=== PATIENT | female | born 1965 | race Two or more races ===

== ENCOUNTER → 2023-07-25 | Outpatient (CLI) | payer BC ==
[2023-07-25 09:46] LABS: Urine Bacteria NONE SEEN /hpf (None Seen); Urine Blood Negative /uL (Negative); Urine Clarity HAZY (Clear); Urine Color Colorless (Yellow); Urine Protein, UAD TRACE (Negative); Urine Specific Gravity 1.016 (1.001-1.035); Urine Urobilinogen Normal (Negative); Urine WBC 45 /hpf (0 - 5)
[2023-07-25 09:59] LABS: Alanine Aminotransferase 25 U/L (7-40); Albumin 4.3 g/dL (3.2-4.8); Alkaline Phosphatase 77 U/L (46-116); Aspartate Aminotransferase 27 U/L (13-40); BUN/Creatinine Ratio 9.9 (10.0-20.0); Blood Urea Nitrogen 9 mg/dL (9-23); Calcium 9.6 mg/dL (8.5-10.1); Carbon Dioxide 33 mmol/L (20-30); Cholesterol 132 mg/dL (< 200); Creatine Kinase IFCC 147 U/L (34-145); Glucose 63 mg/dL (74-106); LDL Cholesterol 74 mg/dL (< 100); Triglycerides 103 mg/dL (< 150)
[2023-07-25 10:00] LABS: Bilirubin, Total 0.4 mg/dL (0.2-1.0); HDL Cholesterol 49 mg/dL (40-59)
[2023-07-25 10:04] LABS: Creatinine, Urine 76.84 mg/dL (30.0-125.0)
[2023-07-25 10:08] LABS: % Iron Saturation 21.9 % (15-50)
[2023-07-25 10:44] LABS: Anion Gap 4 (5-15); Chloride 105 mmol/L (98-107); Sodium 142 mmol/L (136-145)
[2023-07-25 15:47] LABS: Ferritin 16.1 ng/mL (10-291); T3 Total 1.38 ng/mL (0.60-1.81)
[2023-07-25 15:48] LABS: Folate (Folic Acid) > 24.00 ng/mL (>5.38)
== END | disposition home or self-care (01) ==
LOC: LAB 08:17
PROVIDERS: ATTEND Internal Medicine
DX: Z00.01 Encounter for general adult medical examination with abnormal findings (principal); E11.65 Type 2 diabetes mellitus with hyperglycemia; E11.69 Type 2 diabetes mellitus with other specified complication
CPT/HCPCS: 36415; 80053; 80061; 81001; 82043; 82550; 82570; 82607; 82728; 82746; 83036; 83540; 83550; 84436; 84443; 84480; 87086

== ENCOUNTER 2023-09-25 17:56 | Inpatient (IN) | payer BC, OTHER ==
[~2023-09-25] VITALS: Ht 175.3 cm; Wt 123.9 kg
[2023-09-25] MEDS ORDERED: KETOROLAC TROMETH 60MG/2ML VIAL IM ONE (18:15)
[2023-09-25] MEDS ORDERED: HYDROcodone-ACET 10/325MG TAB PO ONE (18:15)
[2023-09-25 18:34] LABS: Basophils # (auto) 0 10 ^3/uL (0-0.2); Basophils % (auto) 0.5 % (0.0-2.0); Eosinophils # (auto) 0.3 10 ^3/uL (0-0.8); Eosinophils % (auto) 5.9 % (0.0-7.0); Hematocrit 43.2 % (36.0-46.0); Hemoglobin 14.4 g/dL (12.2-16.2); Lymphocytes # (auto) 1.7 10 ^3/uL (0.4-5.4); Lymphocytes % (auto) 35.7 % (10.0-50.0); Mean Corpuscular Hemoglobin 30.5 pg (28.0-32.0); Mean Corpuscular Hgb Conc. 33.3 g/dL (32.0-36.0); Mean Corpuscular Volume 91.5 fL (80.0-100.0); Monocytes # (auto) 0.2 10 ^3/uL (0-1.3); Monocytes % (auto) 4.4 % (0.0-12.0); Neutrophils # (auto) 2.5 10 ^3/uL (1.6-8.6); Neutrophils % (auto) 53.5 % (37.0-80.0); Nucleated Red Blood Cells % 0.1 %; Red Blood Cells 4.72 10^6/uL (4.0-5.20); Red Cell Distribution Width 15.3 % (11.8-14.3); White Blood Cell 4.7 10^3/uL (4.4-10.8)
[2023-09-25 18:47] LABS: Alanine Aminotransferase 32 U/L (7-40); Albumin 4.5 g/dL (3.2-4.8); Alkaline Phosphatase 100 U/L (46-116); Anion Gap 8 (5-15); Aspartate Aminotransferase 37 U/L (13-40); BUN/Creatinine Ratio 11.6 (10.0-20.0); Blood Urea Nitrogen 11 mg/dL (9-23); Calcium 9.4 mg/dL (8.7-10.4); Carbon Dioxide 30 mmol/L (20-30); Chloride 102 mmol/L (98-107); Glucose 135 mg/dL (74-106); Lipase 31 U/L (12-53); Potassium 4.3 mmol/L (3.5-5.1); Sodium 140 mmol/L (136-145)
[2023-09-25 18:48] LABS: Bilirubin, Total 0.5 mg/dL (0.2-1.0); Total Protein 7.1 g/dL (5.7-8.2)
[2023-09-25 19:28] LABS: Urine Bacteria FEW /hpf (None Seen); Urine Blood Negative /uL (Negative); Urine Clarity HAZY (Clear); Urine Color Colorless (Yellow); Urine Protein, UAD Negative (Negative); Urine Specific Gravity 1.013 (1.001-1.035); Urine Urobilinogen Normal (Negative); Urine WBC 94 /hpf (0 - 5)
[2023-09-25] MEDS ORDERED: cefTRIAXone 1GM/50ML D5W 50 ML IV ONE (20:45)
[2023-09-25] MEDS ORDERED: SODIUM CHLORIDE 0.9% 1,000 ML IV ONE (20:45)
[2023-09-25] MEDS ORDERED: levoFLOXacin 750MG 150 ML IV ONE (20:45)
[2023-09-25] MEDS ORDERED: HYDROmorphone HCL 2 MG/ML VL/or syr IV ONE (23:00)
[2023-09-26] MEDS ORDERED: DOCUSATE SOD 100 MG CAP PO PRN (01:30)
[2023-09-26] MEDS ORDERED: NITROGLYCERIN 0.4 MG SL TAB SL PRN (01:30)
[2023-09-26] MEDS ORDERED: MORPHINE SULFATE INJ 2 MG/ml SYRG IV PRN (01:30)
[2023-09-26] MEDS ORDERED: ACETAMINOPHEN 325 MG TAB PO PRN (01:30)
[2023-09-26] MEDS ORDERED: KETOROLAC TROMETH 30 MG/ML 1ML VIAL IV ONE (01:45)
[2023-09-26] MEDS: HYDROcodone-ACET 5/325MG TAB PO PRN ×3 (02:21→11:45)
[2023-09-26] MEDS: SODIUM CHLOR 0.9% PF (SALINE LOCK) 10ML VIAL/SYR IV SCH ×3 (06:07→22:11)
[2023-09-26 06:41] LABS: Alanine Aminotransferase 27 U/L (7-40); Albumin 4.3 g/dL (3.2-4.8); Alkaline Phosphatase 93 U/L (46-116); Anion Gap 7 (5-15); Aspartate Aminotransferase 34 U/L (13-40); Blood Urea Nitrogen 12 mg/dL (9-23); Carbon Dioxide 27 mmol/L (20-30); Chloride 104 mmol/L (98-107); Glucose 127 mg/dL (74-106); Potassium 4.5 mmol/L (3.5-5.1); Sodium 138 mmol/L (136-145)
[2023-09-26 06:42] LABS: Bilirubin, Total 0.5 mg/dL (0.2-1.0)
[2023-09-26 07:07] LABS: Basophils # (auto) 0 10 ^3/uL (0-0.2); Basophils % (auto) 0.5 % (0.0-2.0); Eosinophils # (auto) 0.2 10 ^3/uL (0-0.8); Eosinophils % (auto) 5.3 % (0.0-7.0); Hematocrit 41.5 % (36.0-46.0); Hemoglobin 13.6 g/dL (12.2-16.2); Lymphocytes # (auto) 1.6 10 ^3/uL (0.4-5.4); Lymphocytes % (auto) 40.5 % (10.0-50.0); Mean Corpuscular Hemoglobin 30.8 pg (28.0-32.0); Mean Corpuscular Hgb Conc. 32.8 g/dL (32.0-36.0); Mean Corpuscular Volume 93.9 fL (80.0-100.0); Monocytes # (auto) 0.3 10 ^3/uL (0-1.3); Monocytes % (auto) 6.8 % (0.0-12.0); Neutrophils # (auto) 1.9 10 ^3/uL (1.6-8.6); Neutrophils % (auto) 46.9 % (37.0-80.0); Nucleated Red Blood Cells % 0.5 %; Red Blood Cells 4.42 10^6/uL (4.0-5.20); Red Cell Distribution Width 15.9 % (11.8-14.3)
[2023-09-26] MEDS: ENOXAPARIN SOD 40 MG/0.4 ML SYRINGE SC SCH (10:23)
[2023-09-26] MEDS ORDERED: INSULIN LANTUS (GLARGINE) 1 /0.01ml (100units/ml) SC SCH ×2 (13:15→18:00)
[2023-09-26] MEDS ORDERED: DEXTROSE (50%) 50ML SYRG IV PRN (13:15)
[2023-09-26 14:00] VITALS: BP 122/77; PULSE 74; RESP 19; TEMP 98.4; O2SAT 96
[2023-09-26] MEDS: HYDROmorphone HCL 2 MG/ML VL/or syr IV PRN ×2 (14:31→20:18)
[2023-09-26] MEDS ORDERED: METF-372 PO (14:42)
[2023-09-26] MEDS ORDERED: FLUC150T47 PO (14:42)
[2023-09-26] MEDS ORDERED: DULA3INJ SC (14:42)
[2023-09-26] MEDS ORDERED: GABA-1250 PO (14:42)
[2023-09-26] MEDS ORDERED: VENL-222 PO (14:42)
[2023-09-26] MEDS ORDERED: CYCL-611 PO (14:42)
[2023-09-26] MEDS ORDERED: ESTR1DIS (14:42)
[2023-09-26] MEDS ORDERED: INSU1INJ13 SC (14:42)
[2023-09-26] MEDS ORDERED: AMIT100T6 PO (14:42)
[2023-09-26] MEDS ORDERED: CIPR500T4 PO (14:42)
[2023-09-26] MEDS ORDERED: HYDR-3682 PO (14:42)
[2023-09-26] MEDS ORDERED: HYDR1TAB97 PO (14:42)
[2023-09-26] MEDS ORDERED: METO-289 PO (14:42)
[2023-09-26] MEDS ORDERED: LAMO200T34 PO (14:42)
[2023-09-26] MEDS ORDERED: LANS15TA2 PO (14:46)
[2023-09-26] MEDS ORDERED: CHOL200021 PO (14:48)
[2023-09-26] MEDS ORDERED: MULTTAB99 PO (14:48)
[2023-09-26] MEDS ORDERED: ASHW1CAP PO (14:49)
[2023-09-26] MEDS ORDERED: COEN400C8 OR (14:49)
[2023-09-26] MEDS ORDERED: D-MA500C PO (14:49)
[2023-09-26] MEDS ORDERED: VITA400T4 PO (14:49)
[2023-09-26] MEDS ORDERED: ZINC220C8 PO (14:49)
[2023-09-26] MEDS ORDERED: CALC500T30 PO (14:50)
[2023-09-26] MEDS ORDERED: [UNRECOGNIZED DRUG - CODE] PO (14:50)
[2023-09-26] MEDS ORDERED: CRAN600T OR (14:51)
[2023-09-26] MEDS ORDERED: PROBTAB12 OR (14:51)
[2023-09-26] MEDS ORDERED: POM PO (14:53)
[2023-09-26] MEDS ORDERED: MAGN400T40 PO (14:53)
[2023-09-26] MEDS ORDERED: NUTRCAP OR (14:53)
[2023-09-26] MEDS ORDERED: LYSI600T PO (14:53)
[2023-09-26] MEDS: ACCU-CHEK COMFORT CURVE STRIP VI SCH ×2 (16:38→22:11)
[2023-09-26] MEDS: InsuLIN REG 1unit/0.01ml Soln (100units/ml) SC SCH ×2 (16:38→22:00)
[2023-09-26 16:50] VITALS: BP 119/64; PULSE 96; RESP 18; TEMP 97.7; O2SAT 96
[2023-09-26 20:00] VITALS: PULSE 98; RESP 17; O2SAT 97
[2023-09-26 21:59] VITALS: BP 112/50; PULSE 98; RESP 17; TEMP 98.2; O2SAT 92
[2023-09-26 22:04] VITALS: BP 112/50; PULSE 98; RESP 17; TEMP 98.2; O2SAT 92
[2023-09-26] MEDS: levoFLOXacin 500MG 100 ML IV SCH (22:11)
[2023-09-27] MEDS: HYDROmorphone HCL 2 MG/ML VL/or syr IV PRN ×2 (00:23→07:06)
[2023-09-27 06:46] LABS: Basophils # (auto) 0 10 ^3/uL (0-0.2); Basophils % (auto) 0.4 % (0.0-2.0); Eosinophils # (auto) 0.1 10 ^3/uL (0-0.8); Eosinophils % (auto) 3.7 % (0.0-7.0); Hematocrit 40.3 % (36.0-46.0); Hemoglobin 13.3 g/dL (12.2-16.2); Lymphocytes % (auto) 32.8 % (10.0-50.0); Mean Corpuscular Hemoglobin 30.4 pg (28.0-32.0); Mean Corpuscular Hgb Conc. 33.1 g/dL (32.0-36.0); Monocytes # (auto) 0.2 10 ^3/uL (0-1.3); Monocytes % (auto) 5.8 % (0.0-12.0); Neutrophils # (auto) 1.7 10 ^3/uL (1.6-8.6); Neutrophils % (auto) 57.3 % (37.0-80.0); Nucleated Red Blood Cells % 0.3 %; Red Blood Cells 4.39 10^6/uL (4.0-5.20); Red Cell Distribution Width 15.4 % (11.8-14.3)
[2023-09-27 06:58] LABS: Alanine Aminotransferase 23 U/L (7-40); Albumin 4.1 g/dL (3.2-4.8); Alkaline Phosphatase 86 U/L (46-116); Anion Gap 8 (5-15); Aspartate Aminotransferase 37 U/L (13-40); BUN/Creatinine Ratio 13.6 (10.0-20.0); Blood Urea Nitrogen 12 mg/dL (9-23); Calcium 8.9 mg/dL (8.7-10.4); Carbon Dioxide 27 mmol/L (20-30); Chloride 104 mmol/L (98-107); Glucose 130 mg/dL (74-106); Potassium 4.2 mmol/L (3.5-5.1); Sodium 139 mmol/L (136-145)
[2023-09-27 06:59] LABS: Bilirubin, Total 0.5 mg/dL (0.2-1.0); Total Protein 6.6 g/dL (5.7-8.2)
[2023-09-27] MEDS: InsuLIN REG 1unit/0.01ml Soln (100units/ml) SC SCH ×4 (07:00→22:21)
[2023-09-27] MEDS: ACCU-CHEK COMFORT CURVE STRIP VI SCH ×4 (07:04→21:50)
[2023-09-27] MEDS: SODIUM CHLOR 0.9% PF (SALINE LOCK) 10ML VIAL/SYR IV SCH ×3 (07:05→21:50)
[2023-09-27 08:00] VITALS: PULSE 103; RESP 18; O2SAT 96
[2023-09-27 08:05] VITALS: BP 130/78; PULSE 114; RESP 18; TEMP 98; O2SAT 93
[2023-09-27] MEDS: ENOXAPARIN SOD 40 MG/0.4 ML SYRINGE SC SCH (09:26)
[2023-09-27] MEDS: HYDROcodone-ACET 5/325MG TAB PO PRN ×2 (09:32→17:29)
[2023-09-27 12:10] VITALS: BP 121/69; PULSE 103; RESP 20; TEMP 98; O2SAT 97
[2023-09-27] MEDS: METOPROLOL SUCCINATE XL 50 MG TAB PO SCH (13:19)
[2023-09-27 16:00] VITALS: BP 123/63; PULSE 91; RESP 20; TEMP 98; O2SAT 96
[2023-09-27 20:00] VITALS: PULSE 96; RESP 19; O2SAT 97
[2023-09-27] MEDS: ONDANSETRON HCL 4 MG/2 ML VIAL IV PRN (20:00)
[2023-09-27] MEDS: levoFLOXacin 500MG 100 ML IV SCH (21:41)
[2023-09-27 22:00] VITALS: BP 126/60; PULSE 96; RESP 19; TEMP 97.6; O2SAT 97
[2023-09-28] VITALS (7 sets, daily range): BP systolic 118–147; BP diastolic 59–82; PULSE 63–103; RESP 18–22; TEMP 97.7–98.3; O2SAT 93–99
[2023-09-28] MEDS: HYDROcodone-ACET 5/325MG TAB PO PRN ×2 (02:16→12:29)
[2023-09-28] MEDS: SODIUM CHLOR 0.9% PF (SALINE LOCK) 10ML VIAL/SYR IV SCH ×3 (06:24→21:36)
[2023-09-28] MEDS: ACCU-CHEK COMFORT CURVE STRIP VI SCH ×4 (06:24→21:40)
[2023-09-28] MEDS: InsuLIN REG 1unit/0.01ml Soln (100units/ml) SC SCH ×4 (06:40→21:40)
[2023-09-28 09:50] LABS: Basophils # (auto) 0 10 ^3/uL (0-0.2); Basophils % (auto) 0.1 % (0.0-2.0); Eosinophils # (auto) 0 10 ^3/uL (0-0.8); Eosinophils % (auto) 1.5 % (0.0-7.0); Hematocrit 41.6 % (36.0-46.0); Hemoglobin 13.7 g/dL (12.2-16.2); Lymphocytes # (auto) 0.8 10 ^3/uL (0.4-5.4); Lymphocytes % (auto) 24.8 % (10.0-50.0); Mean Corpuscular Hemoglobin 30.2 pg (28.0-32.0); Mean Corpuscular Hgb Conc. 32.9 g/dL (32.0-36.0); Monocytes # (auto) 0.1 10 ^3/uL (0-1.3); Monocytes % (auto) 4.2 % (0.0-12.0); Neutrophils # (auto) 2.2 10 ^3/uL (1.6-8.6); Neutrophils % (auto) 69.4 % (37.0-80.0); Nucleated Red Blood Cells % 0.1 %; Red Blood Cells 4.53 10^6/uL (4.0-5.20); Red Cell Distribution Width 15.3 % (11.8-14.3); White Blood Cell 3.2 10^3/uL (4.4-10.8)
[2023-09-28 10:02] LABS: Chloride 101 mmol/L (98-107); Potassium 4.4 mmol/L (3.5-5.1); Sodium 137 mmol/L (136-145)
[2023-09-28 10:03] LABS: Anion Gap 8 (5-15); Carbon Dioxide 28 mmol/L (20-30)
[2023-09-28 10:09] LABS: BUN/Creatinine Ratio 8.4 (10.0-20.0); Blood Urea Nitrogen 7 mg/dL (9-23); Glucose 261 mg/dL (74-106)
[2023-09-28] MEDS: VENLAFAXINE HCL 37.5MG TABLET PO SCH (10:38)
[2023-09-28] MEDS: METOPROLOL SUCCINATE XL 50 MG TAB PO SCH (10:39)
[2023-09-28] MEDS: GABAPENTIN 300 MG CAP PO SCH ×3 (10:39→21:35)
[2023-09-28] MEDS: ENOXAPARIN SOD 40 MG/0.4 ML SYRINGE SC SCH (10:40)
[2023-09-28 10:55] LABS: INR 1.22 (0.9-1.15); Partial Thromboplastin Time 27.9 SEC (24.5-34.5); Prothrombin Time 12.6 sec (9.3-11.8)
[2023-09-28] MEDS: ONDANSETRON HCL 4 MG/2 ML VIAL IV PRN (12:28)
[2023-09-28] MEDS: levoFLOXacin 500MG 100 ML IV SCH (21:37)
[2023-09-28] MEDS ORDERED: AMITRIPTYLINE HCL 25 MG TAB PO SCH (22:00)
[2023-09-28] MEDS ORDERED: lamoTRIgine 100 MG TAB PO SCH (22:00)
[2023-09-29 05:00] VITALS: BP 117/52; PULSE 81; RESP 18; TEMP 98.1; O2SAT 93
[2023-09-29] MEDS: GABAPENTIN 300 MG CAP PO SCH (06:07)
[2023-09-29] MEDS: ACCU-CHEK COMFORT CURVE STRIP VI SCH ×2 (06:09→11:29)
[2023-09-29] MEDS: SODIUM CHLOR 0.9% PF (SALINE LOCK) 10ML VIAL/SYR IV SCH (06:10)
[2023-09-29] MEDS: InsuLIN REG 1unit/0.01ml Soln (100units/ml) SC SCH ×2 (06:18→12:01)
[2023-09-29 08:00] VITALS: PULSE 81; RESP 18; O2SAT 96
[2023-09-29 09:00] VITALS: BP 111/51; PULSE 78; RESP 18; TEMP 98.5; O2SAT 94
[2023-09-29] MEDS: VENLAFAXINE HCL 37.5MG TABLET PO SCH (09:43)
[2023-09-29] MEDS: METOPROLOL SUCCINATE XL 50 MG TAB PO SCH (09:45)
[2023-09-29] MEDS: ENOXAPARIN SOD 40 MG/0.4 ML SYRINGE SC SCH (09:51)
[2023-09-29] MEDS ORDERED: FLUCONAZOLE 100 MG TAB PO ONE (12:00)
[2023-09-29] MEDS ORDERED: CIPR-273 PO (12:01)
[2023-09-29 12:24] VITALS: BP 111/51; PULSE 78; RESP 18; TEMP 98.5; O2SAT 94
[2023-09-29 12:36] VITALS: BP 132/77; PULSE 78; RESP 18; TEMP 98.1; O2SAT 94
== END 2023-09-29 14:10 | disposition home or self-care (01) | DRG 394 ==
LOC: ER 17:56 → OVERFLOW 09-26 01:51 → WEST WING 09-26 13:29
PROVIDERS: ADMIT Nurse Practitioner Family; ATTEND Internal Medicine Geriatric Medicine
DX: K43.6 Other and unspecified ventral hernia with obstruction, without gangrene (principal); N12 Tubulo-interstitial nephritis, not specified as acute or chronic; Z68.41 Body mass index [BMI] 40.0-44.9, adult; E66.01 Morbid (severe) obesity due to excess calories; E11.9 Type 2 diabetes mellitus without complications; Z82.49 Family history of ischemic heart disease and other diseases of the circulatory system; Z83.3 Family history of diabetes mellitus; Z98.51 Tubal ligation status
CPT/HCPCS: 36415; 70450; 74176; 80048; 80053; 81001; 82962; 83036; 83690; 83880; 84484; 85025; 85610; 85730; 87086; 93005; 96365; 96372; 96375; G0378; J1815; J1885; J1956; J2405

== ENCOUNTER → 2023-10-13 | Outpatient (CLI) | payer BC ==
[~2023-10-13] MED LIST: AMIT100T6 PO; ASHW1CAP PO; CALC500T30 PO; CHOL200021 PO; CIPR-273 PO; COEN400C8 OR; CRAN600T OR; CYCL-611 PO; D-MA500C PO; DULA3INJ SC; ESTR1DIS; GABA-1250 PO; HYDR-3682 PO; HYDR1TAB97 PO; INSU1INJ13 SC; LAMO200T34 PO; LANS15TA2 PO; LYSI600T PO; MAGN400T40 PO; METF-372 PO; METO-289 PO; MULTTAB99 PO; NUTRCAP OR; POM PO; PROBTAB12 OR; VENL-222 PO; VITA400T4 PO; ZINC220C8 PO; [UNRECOGNIZED DRUG - CODE] PO
[2023-10-13 08:03] LABS: Alanine Aminotransferase 28 U/L (7-40); Albumin 4.4 g/dL (3.2-4.8); Alkaline Phosphatase 84 U/L (46-116); Anion Gap 4 (5-15); Aspartate Aminotransferase 25 U/L (13-40); BUN/Creatinine Ratio 9.5 (10.0-20.0); Bilirubin, Total 0.4 mg/dL (0.2-1.0); Blood Urea Nitrogen 8 mg/dL (9-23); Calcium 10.1 mg/dL (8.5-10.1); Carbon Dioxide 31 mmol/L (20-30); Chloride 104 mmol/L (98-107); Cholesterol 172 mg/dL (< 200); Creatine Kinase IFCC 70 U/L (34-145); Glucose 153 mg/dL (74-106); HDL Cholesterol 57 mg/dL (40-59); LDL Cholesterol 104 mg/dL (< 100); Potassium 4.6 mmol/L (3.5-5.1); Sodium 139 mmol/L (136-145); Triglycerides 95 mg/dL (< 150)
== END | disposition home or self-care (01) ==
LOC: LAB 07:07
PROVIDERS: ATTEND Internal Medicine
DX: E11.65 Type 2 diabetes mellitus with hyperglycemia (principal)
CPT/HCPCS: 36415; 80053; 80061; 82043; 82550; 83036; 84436; 84443; 84480

== ENCOUNTER 2023-10-21 10:43 | Emergency (ER) | payer BC ==
[~2023-10-21] VITALS: Ht 175.3 cm; Wt 130.1 kg
[2023-10-21 10:58] VITALS: BP 175/94; RESP 18; O2SAT 94
[2023-10-21 11:02] VITALS: PULSE 87
[2023-10-21] MEDS ORDERED: ONDANSETRON HCL 4 MG/2 ML VIAL IV ONE (11:15)
[2023-10-21] MEDS ORDERED: SODIUM CHLORIDE 0.9% 1,000 ML IV ONE (11:15)
[2023-10-21 11:35] LABS: Basophils # (auto) 0 10 ^3/uL (0-0.2); Basophils % (auto) 0.3 % (0.0-2.0); Eosinophils # (auto) 0.1 10 ^3/uL (0-0.8); Eosinophils % (auto) 3.5 % (0.0-7.0); Hematocrit 39.7 % (36.0-46.0); Hemoglobin 13.2 g/dL (12.2-16.2); Lymphocytes # (auto) 0.8 10 ^3/uL (0.4-5.4); Lymphocytes % (auto) 22.2 % (10.0-50.0); Mean Corpuscular Hemoglobin 30.1 pg (28.0-32.0); Mean Corpuscular Hgb Conc. 33.1 g/dL (32.0-36.0); Mean Corpuscular Volume 90.9 fL (80.0-100.0); Monocytes # (auto) 0.2 10 ^3/uL (0-1.3); Monocytes % (auto) 4.1 % (0.0-12.0); Neutrophils # (auto) 2.6 10 ^3/uL (1.6-8.6); Neutrophils % (auto) 69.9 % (37.0-80.0); Red Blood Cells 4.37 10^6/uL (4.0-5.20); Red Cell Distribution Width 15.4 % (11.8-14.3); White Blood Cell 3.8 10^3/uL (4.4-10.8)
[2023-10-21 11:51] LABS: Alanine Aminotransferase 27 U/L (7-40); Albumin 4.2 g/dL (3.2-4.8); Alkaline Phosphatase 92 U/L (46-116); Anion Gap 4 (5-15); Aspartate Aminotransferase 27 U/L (13-40); BUN/Creatinine Ratio 15.6 (10.0-20.0); Blood Urea Nitrogen 12 mg/dL (9-23); Calcium 9.3 mg/dL (8.7-10.4); Carbon Dioxide 28 mmol/L (20-30); Chloride 106 mmol/L (98-107); Glucose 261 mg/dL (74-106); Lipase 27 U/L (12-53); Potassium 4.5 mmol/L (3.5-5.1); Sodium 138 mmol/L (136-145)
[2023-10-21 11:52] LABS: Bilirubin, Total 0.5 mg/dL (0.2-1.0); Total Protein 6.6 g/dL (5.7-8.2)
[2023-10-21 14:20] LABS: Urine Bacteria NONE SEEN /hpf (None Seen); Urine Blood Negative /uL (Negative); Urine Clarity HAZY (Clear); Urine Color Yellow (Yellow); Urine Protein, UAD TRACE (Negative); Urine Specific Gravity 1.019 (1.001-1.035); Urine Urobilinogen Normal (Negative); Urine WBC 344 /hpf (0 - 5); Urine WBC Clumps PRESENT /hpf (None Seen); Urine pH 6.5 (5.0-8.0)
[2023-10-21] MEDS ORDERED: NITR-87 PO (14:45)
[2023-10-21] MEDS ORDERED: HYDROcodone-ACET 5/325MG TAB PO ONE (15:00)
== END 2023-10-21 17:48 | disposition left against medical advice (07) ==
LOC: ER 10:43
DX: K42.9 Umbilical hernia without obstruction or gangrene (principal); N39.0 Urinary tract infection, site not specified; Z88.6 Allergy status to analgesic agent; Z79.899 Other long term (current) drug therapy; Z91.041 Radiographic dye allergy status; Z53.29 Procedure and treatment not carried out because of patient's decision for other reasons
CPT/HCPCS: 36415; 74176; 80053; 81001; 83605; 83690; 84484; 85025; 93005

== ENCOUNTER 2023-11-20 12:36 | Emergency (ER) | payer BC ==
[~2023-11-20] VITALS: Ht 167.6 cm; Wt 130.5 kg
[~2023-11-20 12:36] MED LIST changes: +NITR-87 PO
[2023-11-20] MEDS ORDERED: HYDROcodone-ACET 5/325MG TAB PO ONE (14:15)
[2023-11-20 14:25] VITALS: BP 138/72; PULSE 87; RESP 18; TEMP 98.8; O2SAT 97
== END 2023-11-20 15:18 | disposition home or self-care (01) ==
LOC: ER 12:36 → EDBD 12:36 → ER 15:18
DX: S29.011A Strain of muscle and tendon of front wall of thorax, initial encounter (principal); S00.83XA Contusion of other part of head, initial encounter; F41.9 Anxiety disorder, unspecified; M19.90 Unspecified osteoarthritis, unspecified site; E11.9 Type 2 diabetes mellitus without complications; Z88.8 Allergy status to other drugs, medicaments and biological substances; Z79.899 Other long term (current) drug therapy; W01.10XA Fall on same level from slipping, tripping and stumbling with subsequent striking against unspecified object, initial encounter; Y93.89 Activity, other specified; Y92.89 Other specified places as the place of occurrence of the external cause; Y99.8 Other external cause status
CPT/HCPCS: 70450; 71046

== ENCOUNTER 2024-01-07 18:53 | Emergency (ER) | payer BC, OTHER ==
[~2024-01-07] VITALS: Ht 175.3 cm; Wt 129.5 kg
[2024-01-07 19:06] VITALS: BP 137/64; PULSE 91; RESP 18; TEMP 97; O2SAT 95
== END 2024-01-08 00:30 | disposition home or self-care (01) ==
LOC: ER 18:53
DX: S00.03XA Contusion of scalp, initial encounter (principal); R51.9 Headache, unspecified; E11.9 Type 2 diabetes mellitus without complications; Z90.49 Acquired absence of other specified parts of digestive tract; Z98.51 Tubal ligation status; W18.09XA Striking against other object with subsequent fall, initial encounter; Y93.89 Activity, other specified; Y92.89 Other specified places as the place of occurrence of the external cause; Y99.8 Other external cause status
CPT/HCPCS: 70450

== ENCOUNTER 2024-07-22 07:27 | Inpatient (IN) | payer BC ==
[~2024-07-22] VITALS: Ht 175.3 cm; Wt 119.7 kg
[~2024-07-22 07:27] MED LIST changes: -ESTR1DIS; +ESTR1DIS TD
[2024-07-22 08:00] VITALS: PULSE 88; RESP 16; O2SAT 96
[2024-07-22] MEDS: MORPHINE SULFATE 4 MG/ML SYR/VIAL IV ONE (08:09)
[2024-07-22] MEDS: ONDANSETRON HCL 4 MG/2 ML VIAL IV ONE (08:10)
[2024-07-22] MEDS: SODIUM CHLORIDE 0.9% 1,000 ML IVB ONE (08:10)
[2024-07-22 08:11] LABS: Basophils # (auto) 0 10 ^3/uL (0-0.2); Basophils % (auto) 0.6 % (0.0-2.0); Eosinophils # (auto) 0.1 10 ^3/uL (0-0.8); Eosinophils % (auto) 3.2 % (0.0-7.0); Hematocrit 40.4 % (36.0-46.0); Hemoglobin 13.8 g/dL (12.2-16.2); Lymphocytes # (auto) 1.5 10 ^3/uL (0.4-5.4); Lymphocytes % (auto) 37.6 % (10.0-50.0); Mean Corpuscular Hemoglobin 31.7 pg (28.0-32.0); Mean Corpuscular Hgb Conc. 34.1 g/dL (32.0-36.0); Mean Corpuscular Volume 92.9 fL (80.0-100.0); Monocytes # (auto) 0.2 10 ^3/uL (0-1.3); Monocytes % (auto) 4.5 % (0.0-12.0); Neutrophils # (auto) 2.1 10 ^3/uL (1.6-8.6); Neutrophils % (auto) 54.1 % (37.0-80.0); Nucleated Red Blood Cells % 0.1 %; Platelet Count (auto) 157 10^3/uL (140-450); Red Blood Cells 4.35 10^6/uL (4.0-5.20); White Blood Cell 3.9 10^3/uL (4.4-10.8)
[2024-07-22 08:16] LABS: Alanine Aminotransferase 26 U/L (7-40); Alkaline Phosphatase 70 U/L (46-116); Anion Gap 7 (5-15); Aspartate Aminotransferase 30 U/L (13-40); BUN/Creatinine Ratio 11.8 (10.0-20.0); Blood Urea Nitrogen 12 mg/dL (9-23); Calcium 10.3 mg/dL (8.7-10.4); Carbon Dioxide 29 mmol/L (20-30); Chloride 103 mmol/L (98-107); Glucose 200 mg/dL (74-106); Potassium 4.2 mmol/L (3.5-5.1); Sodium 139 mmol/L (136-145)
[2024-07-22 08:17] LABS: Albumin 4.5 g/dL (3.2-4.8); Bilirubin, Total 0.4 mg/dL (0.2-1.0)
[2024-07-22] MEDS: SODIUM CHLORIDE 0.9% 1,000 ML IV ONE (09:30)
[2024-07-22 10:32] LABS: Lipase 39 U/L (12-53)
[2024-07-22 13:50] LABS: Urine Bacteria None Seen /hpf (None Seen)
[2024-07-22] MEDS ORDERED: DEXTROSE (50%) 50ML SYRG IV PRN (14:00)
[2024-07-22 14:05] LABS: Urine Blood Negative /uL (Negative); Urine Clarity Turbid (Clear); Urine Color Yellow (Yellow); Urine Hyaline Cast FEW /lpf (0 - 2); Urine Mucus FEW (None Seen); Urine Protein, UAD Negative (Negative); Urine Specific Gravity 1.021 (1.001-1.035); Urine Urobilinogen Normal (Negative); Urine WBC 14 /hpf (0 - 5)
[2024-07-22] MEDS: SODIUM CHLORIDE 0.9% 1,000 ML IV SCH (14:25)
[2024-07-22] MEDS: metroNIDAZOLE 500MG/100ML 100 ML IV SCH (14:27)
[2024-07-22] MEDS: MORPHINE SULFATE INJ 2 MG/ml SYRG IV PRN (14:28)
[2024-07-22] MEDS: ONDANSETRON HCL 4 MG/2 ML VIAL IV PRN (14:29)
[2024-07-22] MEDS ORDERED: SEMA1INJ2 SC (14:57)
[2024-07-22] MEDS ORDERED: hydrALAZINE HCL 20 MG/ML VL IV PRN (15:00)
[2024-07-22 15:30] VITALS: BP 118/66; PULSE 86; RESP 15; TEMP 98; O2SAT 94
[2024-07-22 16:50] VITALS: BP 130/61; PULSE 82; RESP 17; TEMP 98; O2SAT 96
[2024-07-22] MEDS: InsuLIN REG 1unit/0.01ml Soln (100units/ml) SC SCH (18:00)
[2024-07-22] MEDS: ACCU-CHEK COMFORT CURVE STRIP VI SCH (18:36)
[2024-07-22 18:52] LABS: INR 1.13 (0.9-1.15); Partial Thromboplastin Time 25.5 SEC (24.5-34.5); Prothrombin Time 11.9 sec (9.3-11.8)
[2024-07-22 20:00] VITALS: PULSE 80; RESP 18; O2SAT 96
[2024-07-22 21:00] VITALS: BP 136/41; PULSE 83; RESP 18; TEMP 98.5; O2SAT 92
[2024-07-23] VITALS (9 sets, daily range): BP systolic 121–139; BP diastolic 54–72; PULSE 81–119; RESP 16–18; TEMP 97.4–98.6; O2SAT 92–98
[2024-07-23 06:14] LABS: Anion Gap 7 (5-15); Carbon Dioxide 26 mmol/L (20-30); Chloride 106 mmol/L (98-107); Potassium 4.1 mmol/L (3.5-5.1); Sodium 139 mmol/L (136-145)
[2024-07-23 06:15] LABS: Calcium 9.4 mg/dL (8.7-10.4)
[2024-07-23 06:20] LABS: BUN/Creatinine Ratio 9.2 (10.0-20.0); Blood Urea Nitrogen 7 mg/dL (9-23); Glucose 115 mg/dL (74-106)
[2024-07-23 06:49] LABS: Basophils # (auto) 0 10 ^3/uL (0-0.2); Basophils % (auto) 0.3 % (0.0-2.0); Eosinophils # (auto) 0 10 ^3/uL (0-0.8); Hematocrit 36.3 % (36.0-46.0); Hemoglobin 12.7 g/dL (12.2-16.2); Lymphocytes # (auto) 1.2 10 ^3/uL (0.4-5.4); Lymphocytes % (auto) 24.9 % (10.0-50.0); Mean Corpuscular Hemoglobin 32.3 pg (28.0-32.0); Mean Corpuscular Hgb Conc. 34.9 g/dL (32.0-36.0); Mean Corpuscular Volume 92.6 fL (80.0-100.0); Monocytes # (auto) 0.3 10 ^3/uL (0-1.3); Monocytes % (auto) 5.3 % (0.0-12.0); Neutrophils # (auto) 3.3 10 ^3/uL (1.6-8.6); Neutrophils % (auto) 68.5 % (37.0-80.0); Nucleated Red Blood Cells % 0.5 %; Platelet Count (auto) 118 10^3/uL (140-450); Red Blood Cells 3.92 10^6/uL (4.0-5.20); Red Cell Distribution Width 14.5 % (11.8-14.3); White Blood Cell 4.8 10^3/uL (4.4-10.8)
[2024-07-23] MEDS: cefTRIAXone 1GM/50ML D5W 50 ML IV SCH (08:01)
[2024-07-23 09:33] LABS: Platelet Estimate Decreased
[2024-07-23] MEDS ORDERED: ONDANSETRON HCL 4 MG/2 ML VIAL ONE (10:03)
[2024-07-23] MEDS ORDERED: KETOROLAC TROMETH 30 MG/ML 1ML VIAL ONE (10:03)
[2024-07-23] MEDS ORDERED: KETAMINE 50mg/ML 1ml syringe ONE (10:03)
[2024-07-23] MEDS ORDERED: GLYCOPYRROLATE 0.2 MG/ML 1ML VIAL ONE (10:03)
[2024-07-23] MEDS ORDERED: ePHEDrine SULFATE 50 MG/ML AMP ONE (10:03)
[2024-07-23] MEDS ORDERED: MIDAZOLAM HCL 2MG/2ML 2ml VIAL (1mg/ml) ONE (10:03)
[2024-07-23] MEDS ORDERED: DexAMETHasone SOD PHOS 10MG/1ML VIAL INJ ONE (10:03)
[2024-07-23] MEDS ORDERED: LIDOCAINE 2% (LOCAL ANESTH.) PF 5ml SDV ONE (10:03)
[2024-07-23] MEDS ORDERED: PROPOFOL 10 MG/ML 20 ML IV ONE (10:03)
[2024-07-23] MEDS ORDERED: ROCURONIUM 10MG/ML 10ML VIAL IV ONE (10:03)
[2024-07-23] MEDS ORDERED: fentaNYL CITRATE 100 MCG/2 ML VL ONE (10:04)
[2024-07-23] MEDS ORDERED: HYDROmorphone HCL 2 MG/ML VL/or syr ONE (10:04)
[2024-07-23] MEDS: ceFAZolin 2 GM/D5W100ml 100 ML IV ONE (10:04)
[2024-07-23] MEDS ORDERED: SUGAMMADEX 200mg/2ml Vial (100MG/ML) IV ONE (11:20)
[2024-07-23] MEDS: D5W/SOD CHL 0.45%/KCL 20MEQ 1,000 ML IV SCH (11:45)
[2024-07-23] MEDS: BUPIVACAINE 0.25% INJ 50ML VIAL ONE (11:52)
[2024-07-23] MEDS: LIDOCAINE W/ EPINEPHRINE 1% 20ML VIAL ONE (11:52)
[2024-07-23] MEDS ORDERED: HYDROmorphone HCL 2 MG/ML VL/or syr IV PRN (12:15)
[2024-07-23] MEDS: ACCU-CHEK COMFORT CURVE STRIP VI ONE (12:15)
[2024-07-23] MEDS: ceFAZolin 1GM/50ML 50 ML IV SCH (13:39)
[2024-07-23] MEDS: ONDANSETRON HCL 4 MG/2 ML VIAL IV ONE (15:54)
[2024-07-23] MEDS ORDERED: HYDR-4072 PO (16:11)
[2024-07-24] VITALS (7 sets, daily range): BP systolic 108–146; BP diastolic 49–79; PULSE 89–103; RESP 15–20; TEMP 98–98.7; O2SAT 92–97
[2024-07-24] MEDS: METOPROLOL SUCCINATE XL 50 MG TAB PO ONE (11:44)
[2024-07-24] MEDS: HYDROcodone-ACET 10/325MG TAB PO PRN (17:59)
[2024-07-25 02:13] VITALS: BP 144/66; PULSE 91; RESP 18; TEMP 98.2; O2SAT 91
[2024-07-25 05:24] VITALS: BP 130/57; PULSE 99; RESP 19; TEMP 98.1; O2SAT 97
[2024-07-25 05:27] VITALS: BP 130/57; PULSE 99; RESP 19; TEMP 98.1; O2SAT 97
[2024-07-25 07:49] LABS: Basophils # (auto) 0 10 ^3/uL (0-0.2); Basophils % (auto) 0.3 % (0.0-2.0); Eosinophils # (auto) 0.1 10 ^3/uL (0-0.8); Eosinophils % (auto) 1.4 % (0.0-7.0); Hematocrit 32.8 % (36.0-46.0); Hemoglobin 11.4 g/dL (12.2-16.2); Lymphocytes # (auto) 1.2 10 ^3/uL (0.4-5.4); Mean Corpuscular Hemoglobin 32.1 pg (28.0-32.0); Mean Corpuscular Hgb Conc. 34.9 g/dL (32.0-36.0); Mean Corpuscular Volume 92.1 fL (80.0-100.0); Monocytes # (auto) 0.2 10 ^3/uL (0-1.3); Monocytes % (auto) 5.1 % (0.0-12.0); Neutrophils # (auto) 2.7 10 ^3/uL (1.6-8.6); Neutrophils % (auto) 65.2 % (37.0-80.0); Platelet Count (auto) 114 10^3/uL (140-450); Red Blood Cells 3.57 10^6/uL (4.0-5.20); Red Cell Distribution Width 14.6 % (11.8-14.3); White Blood Cell 4.2 10^3/uL (4.4-10.8)
[2024-07-25 07:57] LABS: Anion Gap 8 (5-15); Calcium 9.4 mg/dL (8.7-10.4); Carbon Dioxide 27 mmol/L (20-30); Chloride 107 mmol/L (98-107); Potassium 3.6 mmol/L (3.5-5.1); Sodium 142 mmol/L (136-145)
[2024-07-25 08:03] LABS: BUN/Creatinine Ratio 6.9 (10.0-20.0); Blood Urea Nitrogen 5 mg/dL (9-23); Glucose 119 mg/dL (74-106)
[2024-07-25 09:00] VITALS: BP 104/39; PULSE 94; RESP 17; TEMP 98.5; O2SAT 93
[2024-07-25] MEDS: METOPROLOL SUCCINATE XL 50 MG TAB PO SCH (10:11)
[2024-07-25 13:00] VITALS: BP 123/59; PULSE 82; RESP 18; TEMP 98.6; O2SAT 97
[2024-07-25] MEDS ORDERED: HYDR-4902 PO (14:24)
== END 2024-07-25 17:44 | disposition home or self-care (01) | DRG 354 ==
LOC: ER 07:27 → OVERFLOW 13:48 → ER 13:48 → WEST WING 15:37
PROVIDERS: ADMIT Internal Medicine; ATTEND Internal Medicine
PROC: 0WQF0ZZ Repair Abdominal Wall, Open Approach (ICD-10-PCS; principal; 2024-07-23 10:33)
DX: K42.0 Umbilical hernia with obstruction, without gangrene (principal); N39.0 Urinary tract infection, site not specified; D72.819 Decreased white blood cell count, unspecified; E11.9 Type 2 diabetes mellitus without complications; E66.9 Obesity, unspecified; I10 Essential (primary) hypertension; F32.A Depression, unspecified; F41.9 Anxiety disorder, unspecified; K43.6 Other and unspecified ventral hernia with obstruction, without gangrene; Z91.041 Radiographic dye allergy status; Z90.49 Acquired absence of other specified parts of digestive tract; Z68.39 Body mass index [BMI] 39.0-39.9, adult; Z79.899 Other long term (current) drug therapy
CPT/HCPCS: 36415; 71045; 74176; 80048; 80053; 81001; 82962; 83690; 85025; 85610; 85730; 86850; 86900; 86901; 88302; 99291; G0378; J1100; J1815; J1885; J2001; J2250; J2405; J2704; J3490

== ENCOUNTER → 2024-08-06 | Outpatient (CLI) | payer BC ==
[~2024-08-06] MED LIST changes: -CIPR-273 PO; -D-MA500C PO; -HYDR-3682 PO; +HYDR-4072 PO; +HYDR-4902 PO; -HYDR1TAB97 PO; -MAGN400T40 PO; -NITR-87 PO; +SEMA1INJ2 SC
[2024-08-06 08:34] LABS: Urine Bacteria FEW /hpf (None Seen); Urine Blood Negative /uL (Negative); Urine Clarity Clear (Clear); Urine Color Yellow (Yellow); Urine Hyaline Cast MOD /lpf (0 - 2); Urine Mucus FEW (None Seen); Urine Protein, UAD TRACE (Negative); Urine Specific Gravity 1.023 (1.001-1.035); Urine Urobilinogen Normal (Negative); Urine WBC 9 /hpf (0 - 5); Urine pH 5.5 (5.0-9.0)
[2024-08-06 08:46] LABS: Basophils # (auto) 0 10 ^3/uL (0-0.2); Basophils % (auto) 0.5 % (0.0-2.0); Eosinophils # (auto) 0.2 10 ^3/uL (0-0.8); Eosinophils % (auto) 3.5 % (0.0-7.0); Hematocrit 40.2 % (36.0-46.0); Hemoglobin 13.9 g/dL (12.2-16.2); Lymphocytes # (auto) 1.2 10 ^3/uL (0.4-5.4); Lymphocytes % (auto) 23.3 % (10.0-50.0); Mean Corpuscular Hemoglobin 31.8 pg (28.0-32.0); Mean Corpuscular Hgb Conc. 34.6 g/dL (32.0-36.0); Mean Corpuscular Volume 91.8 fL (80.0-100.0); Monocytes # (auto) 0.2 10 ^3/uL (0-1.3); Monocytes % (auto) 4.4 % (0.0-12.0); Neutrophils # (auto) 3.6 10 ^3/uL (1.6-8.6); Neutrophils % (auto) 68.3 % (37.0-80.0); Nucleated Red Blood Cells % 0.1 %; Platelet Count (auto) 204 10^3/uL (140-450); Red Blood Cells 4.37 10^6/uL (4.0-5.20); Red Cell Distribution Width 14.4 % (11.8-14.3); White Blood Cell 5.3 10^3/uL (4.4-10.8)
[2024-08-06 08:53] LABS: Creatinine, Urine 137.07 mg/dL (30.0-125.0)
[2024-08-06 08:55] LABS: Alanine Aminotransferase 12 U/L (7-40); Albumin 4.5 g/dL (3.2-4.8); Alkaline Phosphatase 73 U/L (46-116); Anion Gap 7 (5-15); Aspartate Aminotransferase 14 U/L (13-40); Blood Urea Nitrogen 13 mg/dL (9-23); Calcium 10.5 mg/dL (8.7-10.4); Carbon Dioxide 29 mmol/L (20-31); Chloride 102 mmol/L (98-107); Glucose 163 mg/dL (74-106); LDL Cholesterol 61 mg/dL (< 100); Sodium 138 mmol/L (136-145); Triglycerides 109 mg/dL (< 150)
[2024-08-06 08:56] LABS: Bilirubin, Total 0.4 mg/dL (0.2-1.0); Cholesterol 122 mg/dL (< 200); Creatine Kinase IFCC 32 U/L (34-145); HDL Cholesterol 48 mg/dL (40-59); Total Protein 7.3 g/dL (5.7-8.2)
[2024-08-06 08:59] LABS: T3 Total 1.03 ng/mL (0.60-1.81)
== END | disposition home or self-care (01) ==
LOC: LAB 08:00
PROVIDERS: ATTEND Internal Medicine
DX: Z00.01 Encounter for general adult medical examination with abnormal findings (principal); Z12.11 Encounter for screening for malignant neoplasm of colon; E11.65 Type 2 diabetes mellitus with hyperglycemia
CPT/HCPCS: 36415; 80053; 80061; 81001; 82043; 82550; 82570; 82607; 83036; 83540; 84436; 84443; 84480; 85025; 87086

== ENCOUNTER 2024-09-18 04:04 | Inpatient (IN) | payer BC ==
[~2024-09-18] VITALS: Ht 162.6 cm; Wt 114.0 kg
[2024-09-18] MEDS: MORPHINE SULFATE 4 MG/ML SYR/VIAL IV ONE ×2 (04:15→05:15)
[2024-09-18] MEDS: SODIUM CHLORIDE 0.9% 1,000 ML IV ONE (04:15)
[2024-09-18] MEDS: ONDANSETRON HCL 4 MG/2 ML VIAL IV ONE (04:15)
--- NOTE | 2024-09-18 04:30 | ED.PDOC ---
Musculoskeletal HPI Comments 59-year-old female came to ER via EMS for fall injury. Patient states she woke up this morning to go to the bathroom, however was unable to the toilet, and she defecated all over the bathroom floor. Patient decided to clean the mess she made, however she slipped and she twisted her right ankle. Noted swelling and deformity of the ankle. Chief Complaint: Fall Injury Time Seen by MD: 04:30 Primary Care Provider: EASTON Reviewed Notes: Nurses Notes, Manager Income Tax Notes Allergies: Coded Allergies: Ascorbate (Verified Allergy, Unknown, BLISTERS IN THE BACK OF THROAT, 09/26/23) allergy to vitamin C Codeine (Verified Allergy, Unknown, 09/25/23) Iodine (Verified Allergy, Unknown, ANAPHYLAXIS, 09/26/23) Uncoded Allergies: CONTRAST DYE (Allergy, Severe, ANAPHYLAXIS, 09/26/23) Home Meds Active Scripts Hydrocodone-Acetaminophen (Hydrocodone Bitartrate/AC 5-325 mg) 1 Tab Tab, 1 TAB PO Q4HPRN PRN, #30 TAB Prov:VIKKI KELLEY MD 07/25/24 Reported Medications Hydrocodone-Acetaminophen (Hydrocodone/Acetaminophen 10-325 mg) 1 Tab Tab, 1 TAB PO BID PRN for PAIN SCALE 7 THRU 10, TAB 07/23/24 Semaglutide (Ozempic) 8 Mg/3 Ml Inj, SC 07/22/24 Nutritional Supplements (Fruit & Vegetable Daily) Daily Cap, OR, CAP 09/26/23 Patients Own Medication (PATIENTS OWN MEDICATION) ., PO PTS OWN MED-OBTAIN FROM PT AND SEND TO RX DRUG: FREQ: RX# EXP: DATE DISP: TECH: RPH: 09/26/23 Lysine (GNP L-LYSINE) 600 Mg Tab, 1000 MG PO, TAB 09/26/23 Probiotic Product (PROBIOTIC) Tab, OR, TAB 09/26/23 Cranberry Extract (CRANBERRY) 600 Mg Tab, OR, TAB 09/26/23 Elderberry Extract (Sambucol Black Elderberry) 1.9 Gm/5 Ml Edwige, PO, ML 09/26/23 Calcium Carbonate (Calcium) 1,250 Mg Tab, PO, TAB 09/26/23 Zinc Sulfate (Zinc Sulfate) 220 Mg Cap, PO DAILY for 30 Days, MG 09/26/23 Alpha Tocopheryl Acid Succinat (VITAMIN E) 400 Unit Tab, PO, TAB 09/26/23 Withania Somnifera (Ashwagandha) 500 Mg Cap, PO, CAP 09/26/23 Coenzyme Q10 (Ubidecarenone) (COQ-10) 400 Mg Cap, OR, CAP 09/26/23 Cholecalciferol (D3) 2,000 Unit Tab, 1 TAB PO DAILY, TAB 09/26/23 Multiple Vitamin (Mvi Tab) 1 Tab Tb, 1 TAB PO, TAB 09/26/23 Lansoprazole (Prevacid Solutab) 15 Mg Tab, 15 MG PO HS, TAB 09/26/23 Metformin Hydrochloride (Metformin Hcl) 1,000 Mg Tab, 1 TAB PO BID 09/26/23 Dulaglutide (Trulicity) 3 Mg/0.5 Ml Inj, SC 09/26/23 Metoprolol Succinate (Metoprolol Succinate Er) 50 Mg Tab, 1 TAB PO DAILY 09/26/23 Insulin Degludec (Tresiba Flextouch) 200 Unit/Ml Inj, SC 09/26/23 Amitriptyline Hcl (Amitriptyline Hcl) 100 Mg Tab, 1 TAB PO HS 09/26/23 Gabapentin (Gabapentin) 300 Mg Cap, 1 CAP PO TID 09/26/23 Lamotrigine (Lamotrigine) 200 Mg Tab, 1 TAB PO HS 09/26/23 Venlafaxine Hydrochloride (Venlafaxine Hydrochloride) 150 Mg Cap, 1 CAP PO DAILY 09/26/23 Cyclobenzaprine HCl (Cyclobenzaprine Hydrochlo) 10 Mg Tab, 1 TAB PO BIDPRN PRN for PAIN SCALE 1 THRU 6 09/26/23 Estradiol & Norethindrone Acet (Combipatch) .05/.25 Dis, 1 PATCH TD UD APPLY 1 PATCH TO THE SKIN TWO TIMES A WEEK 28; 28 Days Quantity #8 EA - SIG Obtained From [employer] 09/26/23 Information Source: Patient, Emergency Med Personnel Mode of Arrival: EMS Location: Right Extremity Location: Ankle Timing: Minutes Prehospital treatment: None Severity: Moderate Able to Move Extremity: No Bear Weight: No Pain: Moderate Hand Dominance: Right Mechanism: Twisting Circumstances: Fall, Accident Onset of Symptoms: After Trauma Symptoms: Swelling, Pain Associated signs and symptoms: Ankle pain (Right) Past Medical History PAST MEDICAL HISTORY: Anxiety, Arthritis, DM, UTI'S Surgical History: Cholecystectomy, Tubal Ligation CLAIM AUDITOR History: No Pertinent CLAIM AUDITOR History Family History Family History: Reviewed,noncontributory to illness Social History Smoker: Non-Smoker Alcohol: Denies ETOH Use Drugs: Denies Drug Use Lives In: Home Constitutional: denies: chills, diaphoresis, fatigue, fever, malaise, sweats, weakness, others EENTM: denies: blurred vision, double vision, ear bleeding, ear discharge, ear drainage, ear pain, ear ringing, eye pain, eye redness, hearing loss, mouth pain, mouth swelling, nasal discharge, nose bleeding, nose congestion, nose pain, photophobia, tearing, throat pain, throat swelling, voice changes, others Respiratory: denies: cough, hemoptysis, orthopnea, SOB at rest, shortness of breath, SOB with excertion, stridor, wheezing, others Cardiovascular: denies: chest pain, dizzy spells, diaphoresis, Dyspnea on exertion, edema, irregular heart beat, left arm pain, lightheadedness, palp itations, PND, syncope, others Gastrointestinal: denies: abdomen distended, abdominal pain, blood streaked bowels, constipated, diarrhea, dysphagia, difficulty swallowing, hematemesis, melena, nausea, poor appetite, poor fluid intake, rectal bleeding, rectal pain, vomiting, others Genitourinary: denies: abnormal vagina bleeding, burning, dyspareunia, dysuria, flank pain, frequency, hematuria, incontinence, pain, , vagina discharge, urgency, others Neurological: denies: dizziness, fainting, headache, left sided numbness, left sided weakness, numbness, paresthesia, pre-existing deficit, right sided numbness, right sided weakness, seizure, speech problems, tingling, tremors, weakness, others Musculoskeletal: reports: joint swelling (Right ankle); denies: back pain, gout, joint pain, muscle pain, muscle stiffness, neck pain, others Integumetry: denies: bruises, change in color, change in hair/nails, dryness, laceration, lesions, lumps, rash, wounds, others Allergic/Immunocompromised: denies: Difficulty Healing, Frequent Infections, Hives, Itching, others Hematologic/Lymphatic: denies: anemia, blood clots, easy bleeding, easy bruising, swollen glands, others Endocrine: denies: excessive hunger, excessive sweating, excessive thirst, excessive urination, flushing, intolerance to cold, intolerance to heat, unexplained weight gain, unexplained weight loss, others Psychiatric: denies: anxiety, bipolar disorder, depression, hopeless, panic disorder, schizophrenia, sleepless, suicidal, others Physical Exam General Appearance: No Apparent Distress, Normal HEENT: Normal ENT Inspection, Pharynx Normal, TMs Normal Neck: Full Range of Motion, Non-Tender, Normal, Normal Inspection Respiratory: Chest Non-Tender, Lungs Clear, No Accessory Muscle Use, No Respiratory Distress, Normal Breath Sounds Cardiovascular: No Edema, No JVD, No Murmur, No Gallop, Normal Peripheral Pulses, Regular Rate/Rhythm Breast Exam: Deferred Gastrointestinal: No Organomegaly, Non Tender, No Pulsatile Mass, Normal Bowel Sounds, Soft Genitalia: Deferred Pelvic: Deferred Rectal: Deferred Extremities: No calf tenderness, Normal capillary refill, Non-tender, No pedal edema, Swelling (Right ankle swelling and deformity) Musculoskeletal : Apperance: Normal Neurologic: Alert, carpenter inspector II-XII nml as Tested, No Motor Deficits, Normal Affect, Normal Mood, No Sensory Deficits Cerebellar Function: Normal Reflexes: Normal Skin: Dry, Normal Color, Warm Lymphatic: No Adenopathy Was a procedure done? Was a procedure done?: Yes Sedation Sedation?: Yes Informed consent obtained: Yes Sedation start time: 05:30 Sedation end time: 06:00 Sedation total time: 30 Reduction Indication: Dislocation (Right ankle fracture), Fracture Sedation: Consents obtained, Sedation as ordered Intra-articular anesthetic miryam: No Post-reduction x-ray show: Reduction, Acceptable Alignment Informed consent obtained: Yes Risks/benefits/alt described: Yes Differential Diagnosis EXT Differential Diagnosis: Fracture, Sprain, Dislocation X-Ray, Labs, Meds, VS Vital Signs Date Time Temp Pulse Resp B/P (MAP) Pulse Ox O2 Delivery O2 Flow Rate FiO2 09/18/24 04:12 99.9 84 16 160/106 (124) 97 Lab Test 09/18/24 04:32 Range/Units White Blood Count 7.9 4.4-10.8 10^3/uL Red Blood Count 4.34 4.0-5.20 10^6/uL Hemoglobin 13.5 12.2-16.2 g/dL Hematocrit 39.8 36.0-46.0 % Mean Corpuscular Volume 91.7 80.0-100.0 fL Mean Corpuscular Hemoglobin 31.2 28.0-32.0 pg Mean Corpuscular Hemoglobin Concent 34.1 32.0-36.0 g/dL Red Cell Distribution Width 15.3 H 11.8-14.3 % Platelet Count 170 140-450 10^3/uL Mean Platelet Volume 7.9 6.9-10.8 fL Neutrophils (%) (Auto) 72.6 37.0-80.0 % Lymphocytes (%) (Auto) 18.8 10.0-50.0 % Monocytes (%) (Auto) 6.1 0.0-12.0 % Eosinophils (%) (Auto) 2.2 0.0-7.0 % Basophils (%) (Auto) 0.3 0.0-2.0 % Neutrophils # (Auto) 5.7 1.6-8.6 10 ^3/uL Lymphocytes # (Auto) 1.5 0.4-5.4 10 ^3/uL Monocytes # (Auto) 0.5 0-1.3 10 ^3/uL Eosinophils # (Auto) 0.2 0-0.8 10 ^3/uL Basophils # (Auto) 0 0-0.2 10 ^3/uL Nucleated Red Blood Cells 0.0 % Sodium Level 143 136-145 mmol/L Potassium Level 4.2 3.5-5.1 mmol/L Chloride Level 105 98-107 mmol/L Carbon Dioxide Level 27 20-31 mmol/L Anion Gap 11 5-15 Blood Urea Nitrogen 16 9-23 mg/dL Creatinine 1.13 H 0.550-1.02 mg/dL Glomerular Filtration Rate Calc 55 >90 mL/min BUN/Creatinine Ratio 14.2 10.0-20.0 Serum Glucose 146 H 74-106 mg/dL Calcium Level 10.2 8.7-10.4 mg/dL Time of 1ST Reevaluation: 04:26 Reevaluation 1ST: Unchanged Patient Education/Counseling: Diagnosis, Treatment Family Education/Counseling: No Family Present Departure 1 Departure Time of Disposition: 05:44 (Patient with a comminuted tib-fib fracture and dislocation. Patient has had close reduced in the ER. We will admit patient for surgical evaluation and pain control.) Impression: Primary Impression: Fracture dislocation of right ankle Qualified Codes: S82.891A - Other fracture of right lower leg, initial e ncounter for closed fracture Disposition: ADMITTED INPATIENT Admit to: Med Surg Condition: Serious Critical Care Note Critical Care Time?: No Stability Stability form required: No Heart Score Heart Score: Heart Score Response (Comments) Value History N/A 0 EKG N/A 0 Age N/A 0 Risk Factors N/A 0 Troponin N/A 0 Total 0 I personally scribed for MAGALY MILIAN MD ([email or web address]) on 09/18/24 at 04:30. Electronically submitted by Eduard Pimentel ([email or web address]). MAGALY MILIAN MD Sep 18, 2024 04:30
[2024-09-18] MEDS: PROPOFOL 10 MG/ML 20 ML IV ONE (04:45)
[2024-09-18 04:52] LABS: Basophils # (auto) 0 10 ^3/uL (0-0.2); Basophils % (auto) 0.3 % (0.0-2.0); Eosinophils # (auto) 0.2 10 ^3/uL (0-0.8); Eosinophils % (auto) 2.2 % (0.0-7.0); Hematocrit 39.8 % (36.0-46.0); Hemoglobin 13.5 g/dL (12.2-16.2); Lymphocytes # (auto) 1.5 10 ^3/uL (0.4-5.4); Lymphocytes % (auto) 18.8 % (10.0-50.0); Mean Corpuscular Hemoglobin 31.2 pg (28.0-32.0); Mean Corpuscular Hgb Conc. 34.1 g/dL (32.0-36.0); Mean Corpuscular Volume 91.7 fL (80.0-100.0); Monocytes # (auto) 0.5 10 ^3/uL (0-1.3); Monocytes % (auto) 6.1 % (0.0-12.0); Neutrophils # (auto) 5.7 10 ^3/uL (1.6-8.6); Neutrophils % (auto) 72.6 % (37.0-80.0); Platelet Count (auto) 170 10^3/uL (140-450); Red Blood Cells 4.34 10^6/uL (4.0-5.20); Red Cell Distribution Width 15.3 % (11.8-14.3); White Blood Cell 7.9 10^3/uL (4.4-10.8)
--- NOTE | 2024-09-18 04:58 | DVH ---
CLINICAL INDICATION: trauma TECHNIQUE: 2 radiographic views of the right ankle were obtained. Comparison: None FINDINGS/IMPRESSION: Comminuted fracture of the distal tibia and distal fibula with tibiotalar dislocation.
[2024-09-18 05:00] VITALS: PULSE 105; RESP 21; O2SAT 98
[2024-09-18 05:03] LABS: Chloride 105 mmol/L (98-107); Potassium 4.2 mmol/L (3.5-5.1); Sodium 143 mmol/L (136-145)
[2024-09-18 05:04] LABS: Anion Gap 11 (5-15); Calcium 10.2 mg/dL (8.7-10.4); Carbon Dioxide 27 mmol/L (20-31)
[2024-09-18 05:09] LABS: BUN/Creatinine Ratio 14.2 (10.0-20.0); Blood Urea Nitrogen 16 mg/dL (9-23); Glucose 146 mg/dL (74-106)
--- NOTE | 2024-09-18 06:29 | DVH ---
CLINICAL INDICATION: POST REDUCTION TECHNIQUE: XY R ANKLE 3 VIEW Comparison: XY R ANKLE 2 VIEW XRAY on DOS: 09/18/24 FINDINGS/IMPRESSION: : Overlying cast obscures bony and soft-tissue detail. Redemonstration of severely displaced fractures of the distal fibula and medial malleolus with disrup tion of the ankle mortise. Large joint effusion.
[2024-09-18] MEDS ORDERED: DOCUSATE SOD 100 MG CAP PO PRN (06:30)
[2024-09-18] MEDS ORDERED: NITROGLYCERIN 0.4 MG SL TAB SL PRN (06:30)
[2024-09-18] MEDS ORDERED: DEXTROSE (50%) 50ML SYRG IV PRN (06:30)
[2024-09-18] MEDS ORDERED: MORPHINE SULFATE INJ 2 MG/ml SYRG IV PRN (06:30)
[2024-09-18] MEDS ORDERED: ACETAMINOPHEN 325 MG TAB PO PRN (06:30)
[2024-09-18] MEDS ORDERED: hydrALAZINE HCL 20 MG/ML VL IV PRN (06:30)
--- NOTE | 2024-09-18 06:46 | DVHHP2 ---
History of Present Illness Reason for Visit: Fracture dislocation of right ankle History of Present Illness The patient is a 59-year-old female with past medical history of arthritis, anxiety, DM, and UTIs who presented to [facility] ED for evaluation of fall injury. Patient states she woke up this morning to go to the bathroom when she developed diarrhea, but was unable to reach the toilet on time, she defecated all over the bathroom floor. Patient decided to clean the mess she made in the process, she slipped and twisted her right ankle. Patient noted s welling and deformity of the ankle that prompted this visit. Patient was seen and evaluated in the ED, laboratory data shows WBC 7.9, platelets 170, sodium 143, potassium 4.2, BUN 16, creatinine 1.13, glucose 146, calcium 10.2. Right ankle x-ray revealing comminuted fracture of the distal tibia and distal fibula with tibiotalar dislocation. Orthopedic team will follow the patient, please see medication orders section in the computer. On my assessment, patient denies chest pain, no headache, no dizziness, no loss of consciousness, no shortness of breath, no nausea, no vomiting, no fever, chills. Patient was admitted for further evaluation and medical management. Past Medical History Anxiety, Arthritis, DM, UTI'S Past Surgical History Cholecystectomy, Tubal Ligation Family History Reviewed, noncontributory to the management of this case. Past Social History The patient lives at home, denies smoking, alcohol or illicit drugs abuse. Review of Systems Constitutional: No: Fever, Chills, Sweats, Weakness, Malaise, Other Eyes: No: Pain, Vision change, Conjunctivae inflammation, Eyelid inflammation, Other, Redness ENT: No: Ear pain, Ear discharge, Nose pain, Nose discharge, Nose congestion, Mouth pain, Mouth swelling, Throat pain, Throat swelling, Other Respiratory: No: Cough, Dry, Shortness of breath, SOB with excertion, Wheezing, Hemoptysis, Pleuritic Pain, Sputum, Wheezing, Other Cardiovascular: No: Chest Pain, Palpitations, Orthopnea, Paroxysmal Noc. Dyspnea, Edema, Lt Headedness, Other Gastrointestinal: No: Nausea, Vomiting, Abdominal Pain, Diarrhea, Constipation, Melena, Hematochezia, Other Genitourinary: No Dysuria, No Frequency, No Incontinence, No Hematuria, No Retention, No Other Musculoskeletal: other ( joint swelling.), neck pain (Right) Skin: No: Rash, Lesions, Jaundice, Bruising, Other Neurological: No: Weakness, Numbness, Incoordination, Change in speech, Confusion, Seizures, Other Allergies: Coded Allergies: Ascorbate (Verified Allergy, Unknown, BLISTERS IN THE BACK OF THROAT, 09/26/23) allergy to vitamin C Codeine (Verified Allergy, Unknown, 09/25/23) Iodine (Verified Allergy, Unknown, ANAPHYLAXIS, 09/26/23) Uncoded Allergies: CONTRAST DYE (Allergy, Severe, ANAPHYLAXIS, 09/26/23) Exam Vital Signs Vital Signs Date Time Temp Pulse Resp B/P (MAP) Pulse Ox O2 Delivery O2 Flow Rate FiO2 09/18/24 05:34 96 16 91 2.0 28 92 18 95 83 98 09/18/24 04:12 99.9 160/106 (124) General Appearance: Alert, Oriented X3, Cooperative, No acute distress HEENT: Atraumatic, PERRLA, EOMI, Mucous membr. moist/pink Respiratory: Clear to auscultation, Normal air movement Cardiovascular: Regular rate, Normal S1, Normal S2, No murmurs Abdominal: Normal bowel sounds, Soft, No tenderness, No hepatospenomegaly, No masses Extremities: No clubbing, No cyanosis, No edema, Normal pulses, Other (Right ankle tenderness/swelling) Skin: No rashes, No breakdown, No significant lesion Neuro: Normal speech, Normal tone, Sensation intact, Cranial nerves 3-12 NL, Reflexes 2+ Psych/Mental Status: Mental status NL, Mood NL Labs/Xrays Labs Test 09/18/24 04:32 Range/Units White Blood Count 7.9 4.4-10.8 10^3/uL Red Blood Count 4.34 4.0-5.20 10^6/uL Hemoglobin 13.5 12.2-16.2 g/dL Hematocrit 39.8 36.0-46.0 % Mean Corpuscular Volume 91.7 80.0-100.0 fL Mean Corpuscular Hemoglobin 31.2 28.0-32.0 pg Mean Corpuscular Hemoglobin Concent 34.1 32.0-36.0 g/dL Red Cell Distribution Width 15.3 H 11.8-14.3 % Platelet Count 170 140-450 10^3/uL Mean Platelet Volume 7.9 6.9-10.8 fL Neutrophils (%) (Auto) 72.6 37.0-80.0 % Lymphocytes (%) (Auto) 18.8 10.0-50.0 % Monocytes (%) (Auto) 6.1 0.0-12.0 % Eosinophils (%) (Auto) 2.2 0.0-7.0 % Basophils (%) (Auto) 0.3 0.0-2.0 % Neutrophils # (Auto) 5.7 1.6-8.6 10 ^3/uL Lymphocytes # (Auto) 1.5 0.4-5.4 10 ^3/uL Monocytes # (Auto) 0.5 0-1.3 10 ^3/uL Eosinophils # (Auto) 0.2 0-0.8 10 ^3/uL Basophils # (Auto) 0 0-0.2 10 ^3/uL Nucleated Red Blood Cells 0.0 % Sodium Level 143 136-145 mmol/L Potassium Level 4.2 3.5-5.1 mmol/L Chloride Level 105 98-107 mmol/L Carbon Dioxide Level 27 20-31 mmol/L Anion Gap 11 5-15 Blood Urea Nitrogen 16 9-23 mg/dL Creatinine 1.13 H 0.550-1.02 mg/dL Glomerular Filtration Rate Calc 55 >90 mL/min BUN/Creatinine Ratio 14.2 10.0-20.0 Serum Glucose 146 H 74-106 mg/dL Calcium Level 10.2 8.7-10.4 mg/dL PATIENT: JR SAMUEL ACCT: [id number] UNIT: [id number] : 1965 LOC: ER ROOM / BED: / AGE / SEX: 59 / F ADM STATUS: REG ER SERVICE [id number] ORDERING PHYSICIAN: MAGALY MILIAN MD PROCEDURE(s): RANK2 - R ANKLE 2 VIEW XRAY REASON: fall ORDER NUMBER(s): [id number], ACCESSION NUMBER(s): [id number] CLINICAL INDICATION: trauma TECHNIQUE: 2 radiographic views of the right ankle were obtained. Comparison: None FINDINGS/IMPRESSION: Comminuted fracture of the distal tibia and distal fibula with tibiotalar dislocation. ORDERING PHYSICIAN: MAGALY MILIAN MD PROCEDURE(s): RANKL - R ANKLE 3 VIEW REASON: POST REDUCTION ORDER NUMBER(s): [id number], ACCESSION NUMBER(s): [id number] CLINICAL INDICATION: POST REDUCTION TECHNIQUE: XY R ANKLE 3 VIEW Comparison: XY R ANKLE 2 VIEW XRAY on DOS: 09/18/24 FINDINGS/IMPRESSION: : Overlying cast obscures bony and soft-tissue detail. Redemonstration of severely displaced fractures of the distal fibula and medial malleolus with disruption of the ankle mortise. Large joint effusion. Assessment/Plan Assessment/Plan Fracture dislocation of right ankle Fall with injury Right ankle pain Other fracture of right lower leg, initial encounter for closed fracture Plan 1. Admit to med surge unit 2. Breathing treatment 3. Pain control management 4. Management of fluids and electrolytes 5. Consultation for orthopedic 6. Diagnostic tests right ankle x-ray 7. DVT prophylaxis-on Lovenox 8. Repeat labs CBC, CMP in a.m. 9. Continue with current medical management 10. Treatment plan discussed with patient and RN. Patient verbalized understanding. Plan discussed with: Patient, Spouse ( at bedside), Other (RN) Problem List: (1) Fracture dislocation of right ankle (2) Right ankle pain (3) Fall with injury (4) Other fracture of right lower leg, initial encounter for closed fracture Date of Service: Sep 18, 2024 Billing Provider: LEROY NICOLE DNP Common Visit Codes: [id number] INP/OBS CARE (HIGH) LEROY NICOLE DNP Sep 18, 2024 06:46
[2024-09-18 07:30] VITALS: PULSE 99; RESP 14; O2SAT 97
[2024-09-18] MEDS: InsuLIN REG 1unit/0.01ml Soln (100units/ml) SC SCH (08:00)
[2024-09-18] MEDS: ACCU-CHEK COMFORT CURVE STRIP VI SCH (08:16)
[2024-09-18] MEDS: MORPHINE SULFATE INJ 2 MG/ml SYRG IV PRN (09:04)
[2024-09-18] MEDS: METOPROLOL TARTRATE 25 MG TAB PO SCH (09:48)
[2024-09-18] MEDS: ENOXAPARIN SOD 40 MG/0.4 ML SYRINGE SC SCH (09:48)
[2024-09-18] MEDS: SODIUM CHLOR 0.9% PF (SALINE LOCK) 10ML VIAL/SYR IV SCH (13:20)
[2024-09-18] MEDS: ONDANSETRON HCL 4 MG/2 ML VIAL IV PRN (13:24)
--- NOTE | 2024-09-18 13:44 | DVHPN2 ---
Subjective Seen and examined at bedside. Spoke with Dr. James, patient for surgery tomorrow AM. NPO after midnight. Changes from previous H/P or p: No Changes Eyes: No Pain, No Vision change, No Conjunctivae inflammation, No Eyelid inflammation, No Other, No Redness ENT: No Ear pain, No Ear discharge, No Nose pain, No Nose discharge, No Nose congestion, No Mouth pain, No Mouth swelling, No Throat pain, No Throat swelling, No Other Cardiovascular: No Chest Pain, No Palpitations, No Orthopnea, No Paroxysmal Noc. Dyspnea, No Edema, No Lt Headedness, No Other Respiratory: No Cough, No Dry, No Shortness of breath, No SOB with excertion, No Wheezing, No Hemoptysis, No Pleuritic Pain, No Sputum, No Other Gastrointestinal: No Nausea, No Vomiting, No Abdominal Pain, No Diarrhea, No Constipation, No Melena, No Hematochezia, No Other Genitourinary: No Dysuria, No Frequency, No Incontinence, No Hematuria, No Retention, No Other Musculoskeletal: No other, No neck pain, No shoulder pain, No arm pain, No back pain, No hand pain, No leg pain, No foot pain Skin: No Rash, No Lesions, No Jaundice, No Bruising, No Other Objective Vitals Vital Signs Date Time Temp Pulse Resp B/P (MAP) Pulse Ox O2 Delivery O2 Flow Rate FiO2 09/18/24 13:25 91 14 106/50 09/18/24 12:00 98 09/18/24 07:30 Room Air* 0 21 09/18/24 04:12 99.9 General Appearance: Alert, Oriented X3, Cooperative, No acute distress HEENT: Atraumatic Neck: Carotid [place] Lungs: Clear to auscultation Cardiovascular: Regular rate, Normal S1, Normal S2 Abdomen: Normal bowel sounds, Soft, Other (Obese) Rectal: Deferred Extremities: Other (Right Ankle limited ROM ) Psych/Mental Status: Mental status NL Medications Current Medications Medications Dose Ordered Sig/Nery Route Start Time Stop Time Status Last Admin Dose Admin Metoprolol Tartrate 25 mg BID PO 09/18/24 10:00 09/18/24 09:48 25 MG Hydralazine HCl 10 mg Q6HP PRN IV 09/18/24 06:30 Diagnostic Test (Pha) 1 strip IQ4HR 09/18/24 08:00 09/18/24 12:10 1 STRIP Insulin Human Regular IQ4HR SC 09/18/24 08:00 09/18/24 12:10 3 UNITS Dextrose 50 ml UD PRN IV 09/18/24 06:30 Sodium Chloride 10 ml Q8HR IV 09/18/24 14:00 09/18/24 13:20 10 ML Ondansetron HCl 4 mg Q4HP PRN IV 09/18/24 06:30 09/18/24 13:24 4 MG Docusate Sodium 100 mg BIDPRN PRN PO 09/18/24 06:30 Enoxaparin Sodium 40 mg DAILY SC 09/18/24 10:00 09/18/24 09:48 40 MG Acetaminophen 650 mg Q6HP PRN PO 09/18/24 06:30 Morphine Sulfate 2 mg Q4HPRN PRN IV 09/18/24 06:30 09/18/24 13:25 2 MG Nitroglycerin 0.4 mg Q5MINP PRN SL 09/18/24 06:30 Morphine Sulfate 2 mg Q30M PRN IV 09/18/24 06:30 Laboratory Results Laboratory Tests 09/18/24 04:32 Chemistry Test 09/18/24 04:32 Calcium Level 10.2 mg/dL (8.7-10.4) Assessment/Plan Assessment/Plan Fracture dislocation of right ankle Fall with injury Right ankle pain Other fracture of right lower leg, initial encounter for closed fracture DM2 A1c 5.7- On Ozempic at home Goals of care FULL CODE Plan discussed with: Patient Date of Service: Sep 18, 2024 Billing Provider: BAN MENDEZ MD Common Visit Codes: [id number] INP/OBS CARE(HIGH) Secondary Visit Codes: [id number] CARE PLAN 30 MINUTES BAN MENDEZ MD Sep 18, 2024 13:44
[2024-09-18 14:03] VITALS: PULSE 88; RESP 19; O2SAT 96
--- NOTE | 2024-09-18 14:20 | DVH ---
CHEST RADIOGRAPH Indication:preop Technique: Single frontal view of the chest was obtained COMPARISON: XY CHEST PORTABLE on DOS: 07/22/24 FINDINGS: Lines and Tubes: None Lungs: Clear Pleura: No effusion. No pneumothorax. Cardiomediastinal contours: Unremarkable Bones: Unremarkable IMPRESSION: No acute disease.
[2024-09-18 14:33] LABS: INR 1.16 (0.9-1.15); Prothrombin Time 12.2 sec (9.3-11.8)
[2024-09-18 14:38] LABS: Partial Thromboplastin Time 26.9 SEC (24.5-34.5)
--- NOTE | 2024-09-18 14:47 | DVH ---
CLINICAL INDICATION: FOUNDATION [employer] ankle FX TECHNIQUE: 2 radiographic views of the right ankle were obtained. Comparison: XY R ANKLE 3 VIEW on DOS: 09/18/24, XY R ANKLE 2 VIEW XRAY on DOS: 09/18/24 FINDINGS/IMPRESSION: Fracture of the anterior and posterior distal tibia as well as the medial distal tibia and distal fib serina are noted. There is widening of the medial ankle mortise suggesting ligamentous disruption.
[2024-09-18 17:00] VITALS: BP 105/62; PULSE 88; RESP 19; TEMP 97.9; O2SAT 96
[2024-09-18] MEDS: ERGOCALCIFEROL 50,000 UNIT(1.25MG) CAP PO SCH (17:24)
[2024-09-18 20:00] VITALS: PULSE 69; RESP 18; O2SAT 92
[2024-09-18 21:00] VITALS: BP 100/69; PULSE 109; RESP 18; TEMP 100.2; O2SAT 92
[2024-09-18] MEDS: lamoTRIgine 100 MG TAB PO SCH (22:22)
[2024-09-18] MEDS: AMITRIPTYLINE HCL 25 MG TAB PO SCH (22:23)
[2024-09-18] MEDS: HYDROcodone-ACET 5/325MG TAB PO PRN (22:23)
[2024-09-19] VITALS (9 sets, daily range): BP systolic 119–130; BP diastolic 54–70; PULSE 101–126; RESP 13–19; TEMP 98.1–99.5; O2SAT 91–100
[2024-09-19 06:34] LABS: Basophils # (auto) 0 10 ^3/uL (0-0.2); Basophils % (auto) 0.4 % (0.0-2.0); Eosinophils # (auto) 0.1 10 ^3/uL (0-0.8); Eosinophils % (auto) 3.1 % (0.0-7.0); Hematocrit 35.7 % (36.0-46.0); Hemoglobin 12.1 g/dL (12.2-16.2); Lymphocytes # (auto) 1.1 10 ^3/uL (0.4-5.4); Lymphocytes % (auto) 28.8 % (10.0-50.0); Mean Corpuscular Hgb Conc. 33.9 g/dL (32.0-36.0); Mean Corpuscular Volume 91.5 fL (80.0-100.0); Monocytes # (auto) 0.3 10 ^3/uL (0-1.3); Monocytes % (auto) 7.6 % (0.0-12.0); Neutrophils # (auto) 2.3 10 ^3/uL (1.6-8.6); Neutrophils % (auto) 60.1 % (37.0-80.0); Platelet Count (auto) 131 10^3/uL (140-450); Red Cell Distribution Width 14.9 % (11.8-14.3); White Blood Cell 3.8 10^3/uL (4.4-10.8)
[2024-09-19 06:48] LABS: Alanine Aminotransferase 19 U/L (7-40); Alkaline Phosphatase 63 U/L (46-116); Anion Gap 9 (5-15); BUN/Creatinine Ratio 9.7 (10.0-20.0); Blood Urea Nitrogen 10 mg/dL (9-23); Calcium 10.2 mg/dL (8.7-10.4); Carbon Dioxide 28 mmol/L (20-31); Chloride 104 mmol/L (98-107); Glucose 140 mg/dL (74-106); Sodium 141 mmol/L (136-145)
[2024-09-19 06:49] LABS: Albumin 4.1 g/dL (3.2-4.8); Aspartate Aminotransferase 22 U/L (13-40)
[2024-09-19 06:50] LABS: Bilirubin, Total 0.6 mg/dL (0.2-1.0)
[2024-09-19 06:51] LABS: Total Protein 6.5 g/dL (5.7-8.2)
[2024-09-19] MEDS: ceFAZolin 1GM/50ML 100 ML IV ONE (09:04)
--- NOTE | 2024-09-19 09:49 | DVHHP2 ---
History Allergies: Coded Allergies: Ascorbate (Verified Allergy, Unknown, BLISTERS IN THE BACK OF THROAT, 09/26/23) allergy to vitamin C Codeine (Verified Allergy, Unknown, 09/25/23) Iodine (Verified Allergy, Unknown, ANAPHYLAXIS, 09/26/23) Uncoded Allergies: CONTRAST DYE (Allergy, Severe, ANAPHYLAXIS, 09/26/23) Chief Complaint: Right ankle pain, deformity Present Illness(Onset/Duration Mechanical fall in bathroom, hit head, no LOC, inabilty to bear weight, gross deformity of right ankle rought by ambulance to [facility], closed reduction splinting performed non contributory Past Surgical History Left leg, fracture, compartment syndrom wtih 11 surgeries, mild residual loss of motion left ankle and mild weakness dorsiflexion left ankle, lateral scar Medications ozempic, DM meds Physical Exam Skin intact EENT NCAT Chest and Lungs CTA B Heart RRR neg MRG Abdomen NBS ND NT Extremities Right ankle, in 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
[2024-09-19] MEDS ORDERED: KETAMINE 50mg/ML 10ml Vial 10 ML ONE (10:14)
[2024-09-19] MEDS ORDERED: fentaNYL CITRATE 100 MCG/2 ML VL ONE (10:14)
[2024-09-19] MEDS ORDERED: HYDROmorphone HCL 2 MG/ML VL/or syr ONE (10:14)
[2024-09-19] MEDS ORDERED: MIDAZOLAM HCL 2MG/2ML 2ml VIAL (1mg/ml) ONE (10:14)
[2024-09-19] MEDS ORDERED: LIDOCAINE 2% (LOCAL ANESTH.) PF 5ml SDV ONE (10:15)
[2024-09-19] MEDS ORDERED: PROPOFOL 10 MG/ML 20 ML IV ONE (10:15)
[2024-09-19] MEDS ORDERED: GLYCOPYRROLATE 0.2 MG/ML 1ML VIAL ONE (10:15)
[2024-09-19] MEDS ORDERED: DexAMETHasone SOD PHOS 10MG/1ML VIAL INJ ONE (10:15)
[2024-09-19] MEDS ORDERED: ONDANSETRON HCL 4 MG/2 ML VIAL ONE (10:15)
--- NOTE | 2024-09-19 10:58 | DVHPN2 ---
Subjective In OR for surgery. Changes from previous H/P or p: No Changes Eyes: No Pain, No Vision change, No Conjunctivae inflammation, No Eyelid inflammation, No Other, No Redness ENT: No Ear pain, No Ear discharge, No Nose pain, No Nose discharge, No Nose congestion, No Mouth pain, No Mouth swelling, No Throat pain, No Throat swelling, No Other Cardiovascular: No Chest Pain, No Palpitations, No Orthopnea, No Paroxysmal Noc. Dyspnea, No Edema, No Lt Headedness, No Other Respiratory: No Cough, No Dry, No Shortness of breath, No SOB with excertion, No Wheezing, No Hemoptysis, No Pleuritic Pain, No Sputum, No Other Gastrointestinal: No Nausea, No Vomiting, No Abdominal Pain, No Diarrhea, No Constipation, No Melena, No Hematochezia, No Other Genitourinary: No Dysuria, No Frequency, No Incontinence, No Hematuria, No Retention, No Other Musculoskeletal: No other, No neck pain, No shoulder pain, No arm pain, No back pain, No hand pain, No leg pain, No foot pain Skin: No Rash, No Lesions, No Jaundice, No Bruising, No Other Objective Vitals Vital Signs Date Time Temp Pulse Resp B/P (MAP) Pulse Ox O2 Delivery O2 Flow Rate FiO2 09/19/24 08:30 98.4 110 19 126/69 (88) 96 98.4 09/18/24 20:00 Room Air* 0 21 Intake/Output Intake and Output 09/19/24 07:00 Intake Total 800 ml Balance 800 ml Intake Oral 800 ml # Voids 6 General Appearance: Alert, Oriented X3, Cooperative, No acute distress HEENT: Atraumatic Neck: Carotid [place] Lungs: Clear to auscultation Cardiovascular: Regular rate, Normal S1, Normal S2 Abdomen: Normal bowel sounds, Soft, Other (Obese) Rectal: Deferred Extremities: Other (Right Ankle limited ROM ) Psych/Mental Status: Mental status NL Medications Current Medications Medications Dose Ordered Sig/Nery Route Start Time Stop Time Status Last Admin Dose Admin Metoprolol Tartrate 25 mg BID PO 09/18/24 10:00 09/18/24 09:48 25 MG Hydralazine HCl 10 mg Q6HP PRN IV 09/18/24 06:30 Diagnostic Test (Pha) 1 strip IQ4HR 09/18/24 08:00 09/19/24 03:59 1 STRIP Insulin Human Regular IQ4HR SC 09/18/24 08:00 09/18/24 23:38 3 UNITS Dextrose 50 ml UD PRN IV 09/18/24 06:30 Sodium Chloride 10 ml Q8HR IV 09/18/24 14:00 09/19/24 06:00 10 ML Ondansetron HCl 4 mg Q4HP PRN IV 09/18/24 06:30 09/18/24 22:22 4 MG Docusate Sodium 100 mg BIDPRN PRN PO 09/18/24 06:30 Acetaminophen 650 mg Q6HP PRN PO 09/18/24 06:30 Morphine Sulfate 2 mg Q4HPRN PRN IV 09/18/24 06:30 09/19/24 06:48 2 MG Nitroglycerin 0.4 mg Q5MINP PRN SL 09/18/24 06:30 Morphine Sulfate 2 mg Q30M PRN IV 09/18/24 06:30 Ergocalciferol 50,000 unit Q7D PO 09/18/24 13:45 09/18/24 17:24 50,000 UNIT Venlafaxine HCl 150 mg DAILY PO 09/18/24 10:00 Amitriptyline HCl 100 mg HS PO 09/18/24 22:00 09/18/24 22:23 100 MG Lamotrigine 200 mg HS PO 09/18/24 22:00 09/18/24 22:22 200 MG Acetaminophen/ Hydrocodone Bitart 1 tab Q6HPRN PRN PO 09/18/24 21:48 09/19/24 05:45 1 TAB Laboratory Results Laboratory Tests 09/19/24 05:14 Chemistry Test 09/19/24 05:14 Albumin 4.1 g/dL (3.2-4.8) Calcium Level 10.2 mg/dL (8.7-10.4) Total Protein 6.5 g/dL (5.7-8.2) Coagulation Test 09/18/24 13:58 Prothrombin Time 12.2 sec (9.3-11.8) H Prothrombin Time INR 1.16 (0.9-1.15) H Activated Partial Thromboplast Time 26.9 SEC (24.5-34.5) LFT Test 09/19/24 05:14 Alanine Aminotransferase (ALT) 19 U/L (7-40) Alkaline Phosphatase 63 U/L (46-116) Aspartate Amino Transferase (AST) 22 U/L (13-40) Total Bilirubin 0.6 mg/dL (0.2-1.0) Assessment/Plan Assessment/Plan Fracture dislocation of right ankle- in surgery Fall with injury Right ankle pain Other fracture of right lower leg, initial encounter for closed fracture DM2 A1c 5.7- On Ozempic at home Goals of care FULL CODE Plan discussed with: Other My Orders Orders - BAN MENDEZ MD Procedure Category Date Status Time Chest Portable XY 09/18/24 Resulted 13:37 Ergocalciferol PHA 09/18/24 In Process (Vitamin D 50,000 13:45 Npo After Midnight DIET 09/18/24 Transmitted Dinner Date of Service: Sep 19, 2024 Billing Provider: BAN MENDEZ MD Common Visit Codes: [id number] INP/OBS CARE(LOW) BAN MENDEZ MD Sep 19, 2024 10:58
[2024-09-19] MEDS ORDERED: SUGAMMADEX 200mg/2ml Vial (100MG/ML) IV ONE (11:18)
[2024-09-19] MEDS: ROPIVACAINE 0.5% (5MG/ML) 20ML AMPULE IJ ONE (11:21)
[2024-09-19] MEDS: BUPIVACAINE 0.5% MPF INJ 30ML SDV IJ ONE (11:24)
--- NOTE | 2024-09-19 11:51 | DVHOP2 ---
Operative Report - 2 Report Details Date: 09/19/24 Preop Diagnosis: Right ankle bimalleolar fracture dislocation Postop Diagnosis: same Surgeon: Charles Conley MD [place] Saw Operator: none Anesthesiologist: Dr Gomes Anesthesia: General Drains: none Implant: plate lateral ankle, screws medial Consent: The patient was informed of the risks and benefits of the procedure. These include but are not limited to complications of anesthesia, postoperative infection, incomplete relief of symptoms, recurrence of symptoms, damage to blood vessels, nerves and tendons, deep venous thrombosis, pulmonary embolism and possible need for repeat surgery in the future. Complications: none Estimated Blood Loss: 50 cc Fluids: 1 L NS Findings: above Indications for Surgery: comminuted unstable bimalleolar fracture with expected non-malunion, mal union without fixation Name of Procedure Performed open reduction internal fixation rigtht ankle bimalleolar fracture dislocation Procedure Details Procedure Details: patient given ancef 1g ivpb preop, general anesthesia, sterile prep and drape right lower extremity after placement of non sterile tourniquet right thigh. esmarch exanquination tourniquet elevated to 250 mm time 30 min. medial incision, irrigation of fracture, fracture reduced and fixed with two cannulated screws, Fluoro confirmation of fracture alignement and screw position. Lateral incision, subperiosteal elevation, lateral plate placed with syndesmosis screw. fluoro confirmation of fracture alignment and hardware position tourniquet let down, excellent hemostasis, irrigation, closure with 2.0 vicryl, closure of skin with staple, fluffs, cobindra carrasco boanuradha Specimen: none Condition Stable Disposition Still a Patient CHARLES CONLEY MD Sep 19, 2024 11:51
[2024-09-19] MEDS ORDERED: HYDROmorphone HCL 2 MG/ML VL/or syr IV PRN (12:00)
[2024-09-19] MEDS: ONDANSETRON HCL 4 MG/2 ML VIAL IV ONE (12:00)
[2024-09-19] MEDS: LACTATED RINGER'S 1,000 ML IV SCH (12:00)
[2024-09-19] MEDS: VENLAFAXINE HCL 37.5mg XR cap PO SCH (12:47)
[2024-09-19] MEDS: CLINDAMYCIN 600MG IV 50 ML IV SCH (13:33)
[2024-09-19] MEDS: ceFAZolin 1GM/50ML 50 ML IV SCH (13:33)
--- NOTE | 2024-09-19 14:48 | DVH ---
CLINICAL INDICATION: ORIF RT ANKLE TECHNIQUE: Multiple intraoperative films of the right ankle ORIF. XY R ANKLE 2 VIEW XRAY Comparison: XY R ANKLE 2 VIEW XRAY on DOS: 09/18/24, XY R ANKLE 3 VIEW on DOS: 09/18/24, XY R ANKLE 2 VIEW XRAY on DOS: 09/18/24 FINDINGS/IMPRESSION: Multiple intraoperative films of the right ankle ORIF.
--- NOTE | 2024-09-19 14:57 | DVH ---
C-ARM FLUOROSCOPY: PROCEDURE: ORIF ankle FLUOROSCOPY TIME: 10 sec
[2024-09-20 01:28] VITALS: BP 122/67; PULSE 96; RESP 20; TEMP 98; O2SAT 93
[2024-09-20 05:00] VITALS: BP 111/83; PULSE 91; RESP 19; TEMP 98.2; O2SAT 93
[2024-09-20 08:00] VITALS: PULSE 106; RESP 18; O2SAT 96
[2024-09-20 09:10] VITALS: BP 118/61; PULSE 102; RESP 18; TEMP 98.8; O2SAT 95
[2024-09-20] MEDS ORDERED: HYDR-4072 PO (11:30)
--- NOTE | 2024-09-20 11:33 | DVHDS2 ---
Discharge Summary Date of Admission Sep 18, 2024 at 06:27 Date of Discharge: Sep 20, 2024 Admitting Diagnosis Fracture dislocation of right ankle Labs/Diagnostic Data: Laboratory Results Test 09/20/24 03:35 09/19/24 05:14 09/18/24 13:58 POC Glucose 185 mg/dl (70-106) White Blood Count 3.8 10^3/uL (4.4-10.8) Red Blood Count 3.90 10^6/uL (4.0-5.20) Hemoglobin 12.1 g/dL (12.2-16.2) Hematocrit 35.7 % (36.0-46.0) Mean Corpuscular Volume 91.5 fL (80.0-100.0) Mean Corpuscular Hemoglobin 31.0 pg (28.0-32.0) Mean Corpuscular Hemoglobin Concent 33.9 g/dL (32.0-36.0) Red Cell Distribution Width 14.9 % (11.8-14.3) Platelet Count 131 10^3/uL (140-450) Mean Platelet Volume 7.8 fL (6.9-10.8) Neutrophils (%) (Auto) 60.1 % (37.0-80.0) Lymphocytes (%) (Auto) 28.8 % (10.0-50.0) Monocytes (%) (Auto) 7.6 % (0.0-12.0) Eosinophils (%) (Auto) 3.1 % (0.0-7.0) Basophils (%) (Auto) 0.4 % (0.0-2.0) Neutrophils # (Auto) 2.3 10 ^3/uL (1.6-8.6) Lymphocytes # (Auto) 1.1 10 ^3/uL (0.4-5.4) Monocytes # (Auto) 0.3 10 ^3/uL (0-1.3) Eosinophils # (Auto) 0.1 10 ^3/uL (0-0.8) Basophils # (Auto) 0 10 ^3/uL (0-0.2) Nucleated Red Blood Cells 0.0 % Sodium Level 141 mmol/L (136-145) Potassium Level 4.0 mmol/L (3.5-5.1) Chloride Level 104 mmol/L (98-107) Carbon Dioxide Level 28 mmol/L (20-31) Anion Gap 9 (5-15) Blood Urea Nitrogen 10 mg/dL (9-23) Creatinine 1.03 mg/dL (0.550-1.02) Glomerular Filtration Rate Calc 62 mL/min (>90) BUN/Creatinine Ratio 9.7 (10.0-20.0) Serum Glucose 140 mg/dL (74-106) Calcium Level 10.2 mg/dL (8.7-10.4) Total Bilirubin 0.6 mg/dL (0.2-1.0) Aspartate Amino Transferase (AST) 22 U/L (13-40) Alanine Aminotransferase (ALT) 19 U/L (7-40) Alkaline Phosphatase 63 U/L (46-116) Total Protein 6.5 g/dL (5.7-8.2) Albumin 4.1 g/dL (3.2-4.8) Prothrombin Time 12.2 sec (9.3-11.8) Prothrombin Time INR 1.16 (0.9-1.15) Activated Partial Thromboplast Time 26.9 SEC (24.5-34.5) Other Laboratory Tests 09/19/24 05:14 Brief Hx & Hospital Course: The patient is a 59-year-old female with past medical history of arthritis, anxiety, DM, and UTIs who presented to [facility] ED for evaluation of fall injury. Patient states she woke up this morning to go to the bathroom when she developed diarrhea, but was unable to reach the toilet on time, she defecated all over the bathroom floor. Patient decided to clean the mess she made in the process, she slipped and twisted her right ankle. Patient was seen in Ortho consult, underwent surgery. Tolerated well. Patient needs to be non weight bearing to the left leg, patient reports she has a walker at home and does not want to use crutches. See Ortho clinic in 2 weeks. Operations or Procedures open reduction internal fixation rigtht ankle bimalleolar fracture dislocation Condition at Discharge: Stable Final Diagnosis/Problems List Fracture dislocation of right ankle Fall with injury Right ankle pain Other fracture of right lower leg, initial encounter for closed fracture DM2 A1c 5.7- On Ozempic at home Goals of care FULL CODE Discharge Disposition: Home Discharge Instruct/Medications Diet: Consistent carbohydrate Activity: Activity comment: NON WEIGHT BEARING ON RIGHT LEG Follow Up/Referral: ORTHO CLINIC IN 2 weeks Medications: [place] Discharge Statement: "Patient was advised to return to the ER or call 911 if any headaches, dizziness, shortness of breath, chest pain, abdominal pain, bleeding, fevers, or worsening of medical condition. Patient was counseled about treatment plan, medications, possible side effects, patientverbalized understanding. All questions were answered to the best of my ability. This discharge took greater then 30 minutes in planning, reviewing documentation, counseling the patient, and discussing with other team members." ASSESSMENT ASSESSMENT Assessment same Date of Service: Sep 20, 2024 Billing Provider: BAN MENDEZ MD Common Visit Codes: [id number]/[id number] DISCH DAY >30min BAN MENDEZ MD Sep 20, 2024 11:33
[2024-09-20 12:55] VITALS: BP 109/53; PULSE 89; RESP 17; TEMP 98; O2SAT 95
[2024-09-20 13:02] VITALS: BP 107/77; PULSE 96; RESP 19; TEMP 98; O2SAT 98
== END 2024-09-20 16:10 | disposition home or self-care (01) | DRG 494 ==
LOC: ER 04:04 → EDBD 04:04 → OVERFLOW 06:27 → CENTRAL 15:48
PROVIDERS: ADMIT Nurse Practitioner Family; ATTEND Internal Medicine
PROC: 0QSG04Z Reposition Right Tibia with Internal Fixation Device, Open Approach (ICD-10-PCS; principal; 2024-09-19 10:23)
DX: S82.841A Displaced bimalleolar fracture of right lower leg, initial encounter for closed fracture (principal); S93.06XA Dislocation of unspecified ankle joint, initial encounter; E11.9 Type 2 diabetes mellitus without complications; Z91.041 Radiographic dye allergy status; Z88.5 Allergy status to narcotic agent; Z79.4 Long term (current) use of insulin; Z90.49 Acquired absence of other specified parts of digestive tract; W01.0XXA Fall on same level from slipping, tripping and stumbling without subsequent striking against object, initial encounter; Y93.89 Activity, other specified; Y92.091 Bathroom in other non-institutional residence as the place of occurrence of the external cause; Y99.8 Other external cause status
CPT/HCPCS: 27825; 36415; 71045; 73600; 73610; 76000; 80048; 80053; 82962; 85025; 85610; 85730; 96374; 97163; G0378; J1100; J1815; J2003; J2250; J2405; J2704; J3490

== ENCOUNTER 2024-10-26 14:04 | Inpatient (IN) | payer BC, OTHER ==
[~2024-10-26] VITALS: Ht 175.3 cm; Wt 112.5 kg
[~2024-10-26 14:04] MED LIST changes: -CYCL-611 PO; -HYDR-4902 PO; -INSU1INJ13 SC; -SEMA1INJ2 SC
[2024-10-26 15:52] VITALS: RESP 18; O2SAT 96
--- NOTE | 2024-10-26 15:52 | ED.PDOC ---
History of Present Illness HPI Comments 59Y F presents to ED for chief complaint wound check. Pt had a fall 6 weeks ago and was seen at [facility] for fracture of rt tibia and fibula. Pt wad admitted and discharged after surgery (done by Dr. Schmitt) on 09/20/2024. Per pt, wound on lower rt leg became red and swollen last night. Pt called the surgeon's office and was then referred to urgent care. Pt went to and was referred to ED. Chief Complaint: Wound Check Time Seen by MD: 15:39 Primary Care Provider: GABBY Reviewed Notes: Medications, Allergies Allergies: Coded Allergies: Codeine (Verified Allergy, Mild, ITCHING ONLY , 09/19/24) PER PATIENT ONLY ITCHING IF TAKEN STRAIGHT, IF MIXED WITH OTHER MEDICATIONS, NO ISSUES PER PATIENT DILAUDED IS OKAY Ascorbate (Verified Allergy, Unknown, BLISTERS IN THE BACK OF THROAT, 09/26/23) allergy to vitamin C Iodine (Verified Allergy, Unknown, ANAPHYLAXIS, 09/26/23) Uncoded Allergies: CONTRAST DYE (Allergy, Severe, ANAPHYLAXIS, 09/26/23) Home Meds Active Scripts Hydrocodone-Acetaminophen (Hydrocodone/Acetaminophen 10-325 mg) 1 Tab Tab, 1 TAB PO BID PRN for PAIN SCALE 7 THRU 10 for 14 Days, #28 TAB Prov:BAN MENDEZ MD 09/20/24 Reported Medications Nutritional Supplements (Fruit & Vegetable Daily) Daily Cap, OR, CAP 09/26/23 Patients Own Medication (PATIENTS OWN MEDICATION) ., PO PTS OWN MED-OBTAIN FROM PT AND SEND TO RX DRUG: FREQ: RX# EXP: DATE DISP: TECH: RPH: 09/26/23 Lysine (GNP L-LYSINE) 600 Mg Tab, 1000 MG PO, TAB 09/26/23 Probiotic Product (PROBIOTIC) Tab, OR, TAB 09/26/23 Cranberry Extract (CRANBERRY) 600 Mg Tab, OR, TAB 09/26/23 Elderberry Extract (Sambucol Black Elderberry) 1.9 Gm/5 Ml [place], PO, ML 09/26/23 Calcium Carbonate (Calcium) 1,250 Mg Tab, PO, TAB 09/26/23 Zinc Sulfate (Zinc Sulfate) 220 Mg Cap, PO DAILY for 30 Days, MG 09/26/23 Alpha Tocopheryl Acid Succinat (VITAMIN E) 400 Unit Tab, PO, TAB 09/26/23 Withania Somnifera (Ashwagandha) 500 Mg Cap, PO, CAP 09/26/23 Coenzyme Q10 (Ubidecarenone) (COQ-10) 400 Mg Cap, OR, CAP 09/26/23 Cholecalciferol (D3) 2,000 Unit Tab, 1 TAB PO DAILY, TAB 09/26/23 Multiple Vitamin (Mvi Tab) 1 Tab Tb, 1 TAB PO, TAB 09/26/23 Lansoprazole (Prevacid Solutab) 15 Mg Tab, 15 MG PO HS, TAB 09/26/23 Metformin Hydrochloride (Metformin Hcl) 1,000 Mg Tab, 1 TAB PO BID 09/26/23 Dulaglutide (Trulicity) 3 Mg/0.5 Ml Inj, SC 09/26/23 Metoprolol Succinate (Metoprolol Succinate Er) 50 Mg Tab, 1 TAB PO DAILY 09/26/23 Amitriptyline Hcl (Amitriptyline Hcl) 100 Mg Tab, 1 TAB PO HS 09/26/23 Gabapentin (Gabapentin) 300 Mg Cap, 1 CAP PO TID 09/26/23 Lamotrigine (Lamotrigine) 200 Mg Tab, 1 TAB PO HS 09/26/23 Venlafaxine Hydrochloride (Venlafaxine Hydrochloride) 150 Mg Cap, 1 CAP PO DAILY 09/26/23 Estradiol & Norethindrone Acet (Combipatch) .05/.25 Dis, 1 PATCH TD UD APPLY 1 PATCH TO THE SKIN TWO TIMES A WEEK 28; 28 Days Quantity #8 EA - SIG Obtained From [employer] 09/26/23 Information Source: Patient Mode of Arrival: Wheelchair Severity: Moderate Timing: Days Duration: Since onset Past Medical History PAST MEDICAL HISTORY: Anxiety, Arthritis, DM, UTI'S Surgical History: Cholecystectomy, Tubal Ligation COURT CLERK History: No Pertinent COURT CLERK History Family History Family History: Reviewed,noncontributory to illness Social History Smoker: Non-Smoker Alcohol: Denies ETOH Use Drugs: Denies Drug Use Lives In: Home Constitutional: denies: chills, diaphoresis, fatigue, fever, malaise, sweats, weakness, others EENTM: denies: blurred vision, double vision, ear bleeding, ear discharge, ear drainage, ear pain, ear ringing, eye pain, eye redness, hearing loss, mouth pain, mouth swelling, nasal discharge, nose bleeding, nose congestion, nose pain, photophobia, tearing, throat pain, throat swelling, voice changes, others Respiratory: denies: cough, hemoptysis, orthopnea, SOB at rest, shortness of breath, SOB with excertion, stridor, wheezing, others Cardiovascular: denies: chest pain, dizzy spells, diaphoresis, Dyspnea on exertion, edema, irregular heart beat, left arm pain, lightheadedness, palpitations, PND, syncope, others Gastrointestinal: denies: abdomen distended, abdominal pain, blood streaked bowels, constipated, diarrhea, dysphagia, difficulty swallowing, hematemesis, melena, nausea, poor appetite, poor fluid intake, rectal bleeding, rectal pain, vomiting, others Genitourinary: denies: abnormal vagina bleeding, burning, dyspareunia, dysuria, flank pain, frequency, hematuria, incontinence, pain, , vagina discharge, urgency, others Neurological: denies: dizziness, fainting, headache, left sided numbness, left sided weakness, numbness, paresthesia, pre-existing deficit, right sided numbness, right sided weakness, seizure, speech problems, tingling, tremors, weakness, others Musculoskeletal: reports: others (rt foot pain); denies: back pain, gout, joint pain, joint swelling, muscle pain, muscle stiffness, neck pain Integumetry: reports: wounds (lower rt foot); denies: bruises, change in color, change in hair/nails, dryness, laceration, lesions, lumps, rash, others Allergic/Immunocompromised: denies: Difficulty Healing, Frequent Infections, Hives, Itching, others Hematologic/Lymphatic: denies: anemia, blood clots, easy bleeding, easy bruising, swollen glands, others Endocrine: denies: excessive hunger, excessive sweating, excessive thirst, excessive urination, flushing, intolerance to cold, intolerance to heat, unexplained weight gain, unexplained weight loss, others Psychiatric: denies: anxiety, bipolar disorder, depression, hopeless, panic disorder, schizophrenia, sleepless, suicidal, others All Other Systems: Reviewed and Negative Physical Exam General Appearance: Moderate Distress, Normal HEENT: Normal ENT Inspection, Pharynx Normal, TMs Normal Neck: Full Range of Motion, Non-Tender, Normal, Normal Inspection Respiratory: Chest Non-Tender, Lungs Clear, No Accessory Muscle Use, No Respiratory Distress, Normal Breath Sounds Cardiovascular: No Edema, No JVD, No Murmur, No Gallop, Normal Peripheral Pulses, Regular Rate/Rhythm Breast Exam: Deferred Gastrointestinal: No Organomegaly, Non Tender, No Pulsatile Mass, Normal Bowel Sounds, Soft Genitalia: Deferred Pelvic: Deferred Rectal: Deferred Extremities: No calf tenderness, Normal capillary refill, Normal range of motion, Non-tender, No pedal edema, Swelling (Right ankle) Musculoskeletal : Apperance: Normal Neurologic: Alert, loss prevention auditor II-XII nml as Tested, No Motor Deficits, Normal Affect, Normal Mood, No Sensory Deficits Cerebellar Function: NOT DONE Reflexes: NOT DONE Skin: Dry, Normal Color, Warm, Wounds (Right ankle) Peripheral Pulses: 3+ Radial (R), 3+ Radial (L) Lymphatic: No Adenopathy Was a procedure done? Was a procedure done?: No Differential Dx Considerations may include: Cellulitis Electrolyte imbalance X-Ray, Labs, Meds, VS Vital Signs Date Time Temp Pulse Resp B/P (MAP) Pulse Ox O2 Delivery O2 Flow Rate FiO2 10/26/24 15:52 18 96 Room Air* 0 21 10/26/24 14:30 98.2 88 18 125/79 (94) 96 Patient alert. Complaining of right ankle swelling. She did have hardware there six weeks ago. There is redness around the ankle. Unable to bear weight. Establish intravenous access. Was given fluids. Was given Rocephin. Was given azithromycin. Reviewed her previous visit. Explained to the patient. Continue cardiac monitoring. Time of 1ST Reevaluation: 16:09 Reevaluation 1ST: Unchanged Patient Education/Counseling: Diagnosis, Treatment Family Education/Counseling: No Family Present Additional Information I reviewed the following notes from patient's past medical encounters: [facility] discharge 09/20/2024, 07/25/2024, 09/29/2023 The following tests were ordered, and results were reviewed by me: CBC, BMP, UA I discussed treatment and results with medical personnel. Departure 1 Departure Time of Disposition: 16:22 Impression: Primary Impression: Cellulitis Qualified Codes: L03.115 - Cellulitis of right lower limb Disposition: ADMITTED INPATIENT Admit to: Med Surg Condition: Guarded Critical Care Note Critical Care Time?: No Stability Stability form required: No Heart Score Heart Score: Heart Score Response (Comments) Value History N/A 0 EKG N/A 0 Age N/A 0 Risk Factors N/A 0 Troponin N/A 0 Total 0 I personally scribed for KEN TOLLIVER MD ([email or web address]) on 10/26/24 at 15:52. Electronically submitted by Stephanie Mcghee ([email or web address]). I personally scribed for KEN TOLLIVER MD ([email or web address]) on 10/26/24 at 16:04. Electronically submitted by Stephanie Mcghee ([email or web address]). KEN TOLLIVER MD Oct 26, 2024 15:52
[2024-10-26 16:22] LABS: Basophils # (auto) 0 10 ^3/uL (0-0.2); Basophils % (auto) 0.6 % (0.0-2.0); Eosinophils # (auto) 0.2 10 ^3/uL (0-0.8); Eosinophils % (auto) 4.7 % (0.0-7.0); Hemoglobin 13.6 g/dL (12.2-16.2); Lymphocytes # (auto) 1.6 10 ^3/uL (0.4-5.4); Lymphocytes % (auto) 36.7 % (10.0-50.0); Mean Corpuscular Hemoglobin 30.2 pg (28.0-32.0); Mean Corpuscular Hgb Conc. 33.2 g/dL (32.0-36.0); Monocytes # (auto) 0.2 10 ^3/uL (0-1.3); Monocytes % (auto) 5.2 % (0.0-12.0); Neutrophils # (auto) 2.3 10 ^3/uL (1.6-8.6); Neutrophils % (auto) 52.8 % (37.0-80.0); Nucleated Red Blood Cells % 0.2 %; Platelet Count (auto) 175 10^3/uL (140-450); Red Blood Cells 4.51 10^6/uL (4.0-5.20); Red Cell Distribution Width 15.6 % (11.8-14.3); White Blood Cell 4.5 10^3/uL (4.4-10.8)
[2024-10-26] MEDS: cefTRIAXone 1GM/50ML D5W 50 ML IV ONE (16:30)
[2024-10-26 16:31] LABS: Chloride 105 mmol/L (98-107); Potassium 4.2 mmol/L (3.5-5.1); Sodium 142 mmol/L (136-145)
[2024-10-26 16:32] LABS: Anion Gap 7 (5-15); Calcium 10.2 mg/dL (8.7-10.4); Carbon Dioxide 30 mmol/L (20-31)
[2024-10-26 16:37] LABS: BUN/Creatinine Ratio 15.6 (10.0-20.0); Blood Urea Nitrogen 14 mg/dL (9-23); Glucose 103 mg/dL (74-106)
[2024-10-26] MEDS: CLINDAMYCIN 600MG IV 50 ML IV ONE (16:41)
[2024-10-26] MEDS: HYDROcodone-ACET 10/325MG TAB PO ONE (17:10)
--- NOTE | 2024-10-26 17:55 | DVH ---
INDICATION: cellulitis COMPARISON: CT HEAD WITHOUT CONTRAST on DOS: 01/07/24, CT HEAD WITHOUT CONTRAST on DOS: 11/20/23, CT HEA D WITHOUT CONTRAST on DOS: 09/25/23 TECHNIQUE: CT of the right was performed without contrast. Volume transverse images were obtained a nd reconstructed in multiple planes using bone and soft tissue algorithms. CONTRAST: None Radiation Dose Information: CT Dose: CTDI volume is 7.75 mGy. Dose-length product is 173.59 mGy*cm FINDINGS: The alignment is normal. The joint spaces are normal. Patient is status post open reduction internal fixation of a fracture of the medial and lateral malle olus. Compression plate with internal fixation screws are noted along the distal fibula. Syndesmosis screw is noted in the tibia. Fracture of the posterior tibia is noted with persistent fracture throug h the medial malleolus. Internal fixation screw is noted through the medial malleolus. There is persi stent widening of the lateral tibiotalar ankle mortise suggesting laxity and instability. Edema is noted in the subcutaneous tissues however there are no drainable collections of fluid. The soft tissues are normal. IMPRESSION: Patient is status post open reduction internal fixation of the distal tibia and fibula and posterior tibia. Internal fixation plates and screws are in place. Persistent widening of the tibiotalar joint laterally.
[2024-10-26] MEDS ORDERED: ACETAMINOPHEN 325 MG TAB PO PRN (19:00)
[2024-10-26] MEDS ORDERED: DOCUSATE SOD 100 MG CAP PO PRN (19:00)
[2024-10-26] MEDS ORDERED: MORPHINE SULFATE INJ 2 MG/ml SYRG IV PRN (19:00)
[2024-10-26] MEDS ORDERED: NITROGLYCERIN 0.4 MG SL TAB SL PRN (19:00)
--- NOTE | 2024-10-26 19:43 | DVHHPRES ---
History of Present Illness Resident Creating Document: RUBIA DE SANTIAGO RESIDENT History of Present Illness Patient is 59 years old female with past medical history of diabetes mellitus type 2, arthritis, anxiety, PTSD, UTI, status post fall, status post or if of the right ankle bimalleolar fracture dislocation on 09/19/2024 came with a complaint of right ankle pain and swelling. As per patient she has been having pain in the right ankle started yesterday with swelling and redness. Pain was sharp in nature 02/10. Patient also complained some discharge from the right side of the ankle of the right foot. Patient denied any trauma after surgery, bug bite, fever, chest pain, shortness of breath, dysuria, diarrhea, dysarthria. Initial lab workup revealed please 4.5, hemoglobin 13.6, platelet 175, sodium 142, potassium 4.2, serum creatinine 0.9. Right ankle revealed-Patient is status post open reduction internal fixation of the distal tibia and fibula and posterior tibia. Internal fixation plates and screws are in place. Persistent widening of the tibiotalar joint laterally. Patient was seen today at the bedside. Patient ankle pain and swelling Cardiovascular- deny acute chest pain or shortness of breath or cough or palpitation Respiratory- denies cough or short of breath or wheezing Gastrointestinal- denies any rectal bleeding, nausea or vomiting Musculoskeletal-right ankle swelling, redness, mild tenderness, mild discharged on the lateral aspect of the malleolus Neurological- denies acute dysarthria, dysphagia, change in vision Psychiatry- denies depression or SI or HI Skin- denies acute rash or purpura Past Medical History PMH-diabetes mellitus type 2, arthritis, anxiety, PTSD, UTI, status post fall, status post or if of the right ankle bimalleolar fracture dislocation on 09/19/2024 Past Surgical History PSH- marcos, tubal ligation, history of left foot surgery, history of umbilical hernia repair Family History Noncontributory Past Social History Allergy- ascorbet, contrast dye, codeine, iodine Personal History/ Social History- denied smoking/alcoholism/drug abuse, lives at home with the Review of Systems Review of Systems Patient was seen today at the bedside. Patient feeling of the right ankle Cardiovascular- deny acute chest pain or shortness of breath or cough or palpitation Respiratory- denies cough or short of breath or wheezing Gastrointestinal- denies any rectal bleeding, nausea or vomiting Musculoskeletal-denies acute joint swelling or tenderness or redness Neurological- denies acute dysarthria, dysphagia, change in vision Psychiatry- denies depression or SI or HI Skin- denies acute rash or purpura Allergies: Coded Allergies: Codeine (Verified Allergy, Mild, ITCHING ONLY , 09/19/24) PER PATIENT ONLY ITCHING IF TAKEN STRAIGHT, IF MIXED WITH OTHER MEDICATIONS, NO ISSUES PER PATIENT DILAUDED IS OKAY Ascorbate (Verified Allergy, Unknown, BLISTERS IN THE BACK OF THROAT, 09/26/23) allergy to vitamin C Iodine (Verified Allergy, Unknown, ANAPHYLAXIS, 09/26/23) Uncoded Allergies: CONTRAST DYE (Allergy, Severe, ANAPHYLAXIS, 09/26/23) Medications Current Medications Medications Dose Ordered Sig/Nery Route Start Time Stop Time Status Last Admin Dose Admin Sodium Chloride 10 ml Q8HR IV 10/26/24 22:00 Docusate Sodium 100 mg BIDPRN PRN PO 10/26/24 19:00 Enoxaparin Sodium 40 mg DAILY SC 10/27/24 10:00 Acetaminophen 650 mg Q6HP PRN PO 10/26/24 19:00 Morphine Sulfate 2 mg Q4HPRN PRN IV 10/26/24 19:00 Nitroglycerin 0.4 mg Q5MINP PRN SL 10/26/24 19:00 Morphine Sulfate 2 mg Q30M PRN IV 10/26/24 19:00 Exam Vital Signs Vital Signs Date Time Temp Pulse Resp B/P (MAP) Pulse Ox O2 Delivery O2 Flow Rate FiO2 10/26/24 18:53 97.8 90 16 119/58 (78) 97 97.8 10/26/24 15:52 Room Air* 0 21 Exam General examination- awake, alert, oriented, conversive HEENT- PEERLA, no acute nasal discharge Cardiovascular- S1-S2 audible, rate and rhythm regular, no murmur Respiratory- CTAB, no wheeze or rhonchi Gastrointestinal-nontender, bowel sound+. Nondistended Musculoskeletal-no acute joint swelling or tenderness or redness# Lower extremity-swelling of the right ankle with redness of the right lateral surface of the right ankle with some discharge and tenderness Neurological- cranial nerves intact, no acute dysarthria or dysphagia Psychiatry- denies depression or SI or HI Labs/Xrays Labs Test 10/26/24 16:29 Range/Units White Blood Count 4.5 4.4-10.8 10^3/uL Red Blood Count 4.51 4.0-5.20 10^6/uL Hemoglobin 13.6 12.2-16.2 g/dL Hematocrit 41.0 36.0-46.0 % Mean Corpuscular Volume 91.0 80.0-100.0 fL Mean Corpuscular Hemoglobin 30.2 28.0-32.0 pg Mean Corpuscular Hemoglobin Concent 33.2 32.0-36.0 g/dL Red Cell Distribution Width 15.6 H 11.8-14.3 % Platelet Count 175 140-450 10^3/uL Mean Platelet Volume 8.0 6.9-10.8 fL Neutrophils (%) (Auto) 52.8 37.0-80.0 % Lymphocytes (%) (Auto) 36.7 10.0-50.0 % Monocytes (%) (Auto) 5.2 0.0-12.0 % Eosinophils (%) (Auto) 4.7 0.0-7.0 % Basophils (%) (Auto) 0.6 0.0-2.0 % Neutrophils # (Auto) 2.3 1.6-8.6 10 ^3/uL Lymphocytes # (Auto) 1.6 0.4-5.4 10 ^3/uL Monocytes # (Auto) 0.2 0-1.3 10 ^3/uL Eosinophils # (Auto) 0.2 0-0.8 10 ^3/uL Basophils # (Auto) 0 0-0.2 10 ^3/uL Nucleated Red Blood Cells 0.2 % Sodium Level 142 136-145 mmol/L Potassium Level 4.2 3.5-5.1 mmol/L Chloride Level 105 98-107 mmol/L Carbon Dioxide Level 30 20-31 mmol/L Anion Gap 7 5-15 Blood Urea Nitrogen 14 9-23 mg/dL Creatinine 0.90 0.550-1.02 mg/dL Glomerular Filtration Rate Calc 73 >90 mL/min BUN/Creatinine Ratio 15.6 10.0-20.0 Serum Glucose 103 74-106 mg/dL Calcium Level 10.2 8.7-10.4 mg/dL Assessment/Plan Assessment/Plan # Right ankle swelling and in due to right foot cellulitis with wound infection # cellulitis of right foot/right ankle # wound infection # arthritis # mellitus type 2 # anxiety # post traumatic stress disorder Continue ceftriaxone 1 g IV daily Continue vancomycin as per pharmacy protocol Insulin sliding scale as per protocol Continue pain medication as prescribed Continue amitriptyline 100 mg p.o. q.h.s. You continue lamotrigine 20 mg p.o. q.h.s. Metoprolol 25 mg 50 mg q.d. Venlafaxine 150 mg p.o. daily Other home medications as prescribed ordered Surgery consult Goals of care/advance care planning; FULL CODE; discussed with the patient >15 minutes PUD prophylaxis: Pantoprazole DVT prophylaxis: Lovenox Plan discussed with Dr. Mendez, nursing staff, patient Total time spent on patient evaluation, chart review, assessment and plan, discussion discussion >30 minutes Plan discussed with: Patient Plan discussed with: Patient, Other (RN) My Orders Orders - RUBIA DE SANTIAGO RESIDENT Procedure Category Date Status Time Admit ADMIT 10/26/24 Transmitted 19:00 Code Status CODE 10/26/24 Transmitted 19:00 Sodium Chloride Lock PHA 10/26/24 In Process (Saline Lock Ns) 22:00 Docusate Sodium PHA 10/26/24 In Process Capsule (Colace 19:00 Enoxaparin Sodium PHA 10/27/24 In Process (Lovenox) 10:00 Complete Blood Count LAB 10/27/24 Verified 04:00 Comprehensive LAB 10/27/24 Verified Metabolic Panel 04:00 Acetaminophen Tablet PHA 10/26/24 In Process (Tylenol Tablet) 19:00 Morphine Sulfate PHA 10/26/24 In Process Injection 19:00 Nitroglycerin PHA 10/26/24 In Process Sublingual (Ntrostat 19:00 Morphine Sulfate PHA 10/26/24 In Process Injection 19:00 Oxygen By Nasal RT 10/26/24 Transmitted Cannula 19:00 Stat Ekg For Chest ANNE-MARIE 10/26/24 In Process Pain 19:00 Notify Of Changes ANNE-MARIE 10/26/24 In Process From Base 19:00 Carbide Tool Maker For ANNE-MARIE 10/26/24 In Process 24 Hours 19:00 Emergency Dysrhythmia ANNE-MARIE 10/26/24 In Process Protocol 19:00 Rhythm Strips Once ANNE-MARIE 10/26/24 In Process Every Shift 19:00 Thyroid Stimulating LAB 10/26/24 Logged Hormone 19:11 Magnesium LAB 10/26/24 Logged 19:11 Drug Screen LAB 10/26/24 Logged 19:11 Blood Alcohol LAB 10/26/24 Logged 19:11 Wound Culture W/ Gs FAHEEM 10/26/24 Logged 19:11 Date of Service: Oct 26, 2024 Billing Provider: BAN MENDEZ MD Common Visit Codes: 50650-WREVEER INP/OBS CARE (HIGH) RUBIA DE SANTIAGO RESIDENT Oct 26, 2024 19:43 BAN MENDEZ MD Oct 26, 2024 20:23
[2024-10-26] MEDS ORDERED: DEXTROSE (50%) 50ML SYRG IV PRN (20:00)
[2024-10-26] MEDS ORDERED: ESTRADIOL 0.05 MG TD SCH (20:00)
[2024-10-26] MEDS ORDERED: VANCOMYCIN PER PHARMACY 0 MG IV SCH (20:00)
[2024-10-26] MEDS ORDERED: [UNRECOGNIZED DRUG - OTHER] TD SCH (20:00)
[2024-10-26] MEDS: PANTOPRAZOLE 40 MG TAB PO ONE (20:34)
--- NOTE | 2024-10-26 20:41 | DVH ---
CHEST RADIOGRAPH Indication: rule out pna Technique: Frontal and lateral view of the chest was obtained Comparison: XY CHEST TWO VIEWS ROUTINE on DOS: 11/20/23 FINDINGS: Lines and Tubes: None Lungs: Clear Pleura: No effusion. No pneumothorax. Cardiomediastinal contours: Unremarkable Bones: Unremarkable IMPRESSION: No evidence of acute disease.
[2024-10-26 20:47] LABS: Blood Alcohol 4.3 mg/dL (<10)
[2024-10-26 20:48] LABS: Magnesium 1.5 mg/dL (1.6-2.6)
[2024-10-26 21:17] LABS: Erythrocyte Sedimentation Rate 5 mm/hr (0-20)
[2024-10-26] MEDS: VANCOMYCIN 2,000 MG in SODIUM CHL 0.9% 500 ML IV ONE (22:00)
[2024-10-26 23:20] VITALS: BP 138/58; PULSE 87; RESP 19; TEMP 98; O2SAT 97
[2024-10-26 23:30] VITALS: BP 138/58; PULSE 87; RESP 19; TEMP 98; O2SAT 97
[2024-10-27] VITALS (7 sets, daily range): BP systolic 100–128; BP diastolic 46–59; PULSE 88–97; RESP 17–20; TEMP 97.5–98.3; O2SAT 93–98
[2024-10-27] MEDS: SODIUM CHLOR 0.9% PF (SALINE LOCK) 10ML VIAL/SYR IV SCH (00:11)
[2024-10-27] MEDS: AMITRIPTYLINE HCL 25 MG TAB PO SCH (00:13)
[2024-10-27] MEDS: lamoTRIgine 100 MG TAB PO SCH (00:13)
[2024-10-27] MEDS ORDERED: VANCOMYCIN 1,000 MG in SODIUM CHL 0.9% 250 ML IV ONE ×2 (00:30→00:45)
[2024-10-27] MEDS: VANCOMYCIN 1GM/250ML KIT 500 ML IV ONE (00:34)
[2024-10-27] MEDS: InsuLIN REG 1unit/0.01ml Soln (100units/ml) SC SCH (00:42)
[2024-10-27] MEDS: VANCOMYCIN 1,000 MG in SODIUM CHL 0.9% 250 ML IV SCH (00:44)
[2024-10-27] MEDS: ACCU-CHEK COMFORT CURVE STRIP VI SCH (00:45)
[2024-10-27] MEDS: MORPHINE SULFATE INJ 2 MG/ml SYRG IV PRN (01:01)
[2024-10-27] MEDS ORDERED: LYSI1TAB2 PO (01:59)
[2024-10-27] MEDS: PANTOPRAZOLE 40 MG TAB PO SCH (06:16)
[2024-10-27 06:58] LABS: Basophils # (auto) 0 10 ^3/uL (0-0.2); Basophils % (auto) 0.4 % (0.0-2.0); Eosinophils # (auto) 0.2 10 ^3/uL (0-0.8); Hematocrit 36.3 % (36.0-46.0); Hemoglobin 11.9 g/dL (12.2-16.2); Lymphocytes # (auto) 1.3 10 ^3/uL (0.4-5.4); Lymphocytes % (auto) 37.7 % (10.0-50.0); Mean Corpuscular Hemoglobin 29.8 pg (28.0-32.0); Mean Corpuscular Hgb Conc. 32.8 g/dL (32.0-36.0); Mean Corpuscular Volume 90.9 fL (80.0-100.0); Monocytes # (auto) 0.3 10 ^3/uL (0-1.3); Monocytes % (auto) 7.6 % (0.0-12.0); Neutrophils # (auto) 1.7 10 ^3/uL (1.6-8.6); Neutrophils % (auto) 48.3 % (37.0-80.0); Nucleated Red Blood Cells % 0.1 %; Platelet Count (auto) 111 10^3/uL (140-450); Red Cell Distribution Width 15.4 % (11.8-14.3); White Blood Cell 3.6 10^3/uL (4.4-10.8)
[2024-10-27 07:08] LABS: Alanine Aminotransferase 20 U/L (7-40); Albumin 3.6 g/dL (3.2-4.8); Alkaline Phosphatase 79 U/L (46-116); Anion Gap 7 (5-15); Aspartate Aminotransferase 22 U/L (13-40); Blood Urea Nitrogen 14 mg/dL (9-23); Calcium 10.1 mg/dL (8.7-10.4); Carbon Dioxide 31 mmol/L (20-31); Chloride 104 mmol/L (98-107); Potassium 4.5 mmol/L (3.5-5.1); Sodium 142 mmol/L (136-145)
[2024-10-27 07:09] LABS: Bilirubin, Total 0.5 mg/dL (0.2-1.0); Total Protein 5.8 g/dL (5.7-8.2)
[2024-10-27 07:10] LABS: Glucose 148 mg/dL (74-106); Magnesium 1.5 mg/dL (1.6-2.6)
[2024-10-27] MEDS: MAGNESIUM SULFATE 1GM/100ML 100 ML IV ONE (07:40)
--- NOTE | 2024-10-27 07:51 | DVH ---
Bilateral lower extremity venous duplex Clinical History: RT Leg swelling Comparison: None Technique: Duplex Doppler evaluation of the deep venous systems of both lower extremities from the common femora l veins to the popliteal veins including color Doppler and spectral/pulsed waveform analysis was perf ormed. Findings: RIGHT SIDE: The common femoral vein demonstrates appropriate compressibility and waveform variability. There is compressibility/patency of the great saphenous vein at the proximal thigh. The femoral vein demonstrates appropriate compressibility and waveform variability. The deep femoral vein demonstrates appropriate compressibility and waveform variability. The popliteal vein demonstrates appropriate compressibility and waveform variability. There is normal compressibility at the tibioperoneal trunk. LEFT SIDE: The common femoral vein demonstrates appropriate compressibility and waveform variability. There is compressibility/patency of the great saphenous vein at the proximal thigh. The femoral vein demonstrates appropriate compressibility and waveform variability. The deep femoral vein demonstrates appropriate compressibility and waveform variability. The popliteal vein demonstrates appropriate compressibility and waveform variability. There is normal compressibility at the tibioperoneal trunk. Impression: 1. No right or left femoropopliteal venous thrombosis.
[2024-10-27] MEDS: cefTRIAXone 1GM/50ML D5W 50 ML IV SCH (09:40)
[2024-10-27] MEDS: ENOXAPARIN SOD 40 MG/0.4 ML SYRINGE SC SCH (09:41)
[2024-10-27] MEDS: VENLAFAXINE HCL 37.5MG TABLET PO SCH (09:55)
[2024-10-27] MEDS: CHOLECALCIFEROL (VITD3) 1,000UNIT=25mCg TAB PO SCH (09:56)
[2024-10-27] MEDS: METOPROLOL SUCCINATE XL 50 MG TAB PO SCH (09:56)
[2024-10-27] MEDS ORDERED: CEPH500T PO (14:32)
[2024-10-27] MEDS: VANCOMYCIN 1.25GM/250ML 250 ML IV SCH (16:00)
--- NOTE | 2024-10-27 16:33 | DVHDSRES ---
Discharge Summary Date of Admission Resident Creating Document: RUBIA DE SANTIAGO RESIDENT Oct 26, 2024 at 19:00 Date of Discharge: Oct 27, 2024 Admitting Diagnosis Cellulitis of the right ankle with a wound infection Labs/Diagnostic Data: Laboratory Results Test 10/27/24 11:51 10/27/24 05:34 10/26/24 16:29 POC Glucose 204 mg/dl (70-106) White Blood Count 3.6 10^3/uL (4.4-10.8) Red Blood Count 4.00 10^6/uL (4.0-5.20) Hemoglobin 11.9 g/dL (12.2-16.2) Hematocrit 36.3 % (36.0-46.0) Mean Corpuscular Volume 90.9 fL (80.0-100.0) Mean Corpuscular Hemoglobin 29.8 pg (28.0-32.0) Mean Corpuscular Hemoglobin Concent 32.8 g/dL (32.0-36.0) Red Cell Distribution Width 15.4 % (11.8-14.3) Platelet Count 111 10^3/uL (140-450) Mean Platelet Volume 7.9 fL (6.9-10.8) Neutrophils (%) (Auto) 48.3 % (37.0-80.0) Lymphocytes (%) (Auto) 37.7 % (10.0-50.0) Monocytes (%) (Auto) 7.6 % (0.0-12.0) Eosinophils (%) (Auto) 6.0 % (0.0-7.0) Basophils (%) (Auto) 0.4 % (0.0-2.0) Neutrophils # (Auto) 1.7 10 ^3/uL (1.6-8.6) Lymphocytes # (Auto) 1.3 10 ^3/uL (0.4-5.4) Monocytes # (Auto) 0.3 10 ^3/uL (0-1.3) Eosinophils # (Auto) 0.2 10 ^3/uL (0-0.8) Basophils # (Auto) 0 10 ^3/uL (0-0.2) Nucleated Red Blood Cells 0.1 % D-Dimer, Quantitative 0.39 mg/L FEU (0.0-0.49) Sodium Level 142 mmol/L (136-145) Potassium Level 4.5 mmol/L (3.5-5.1) Chloride Level 104 mmol/L (98-107) Carbon Dioxide Level 31 mmol/L (20-31) Anion Gap 7 (5-15) Blood Urea Nitrogen 14 mg/dL (9-23) Creatinine 1.00 mg/dL (0.550-1.02) Glomerular Filtration Rate Calc 64 mL/min (>90) BUN/Creatinine Ratio 14.0 (10.0-20.0) Serum Glucose 148 mg/dL (74-106) Calcium Level 10.1 mg/dL (8.7-10.4) Magnesium Level 1.5 mg/dL (1.6-2.6) Total Bilirubin 0.5 mg/dL (0.2-1.0) Aspartate Amino Transferase (AST) 22 U/L (13-40) Alanine Aminotransferase (ALT) 20 U/L (7-40) Alkaline Phosphatase 79 U/L (46-116) Total Protein 5.8 g/dL (5.7-8.2) Albumin 3.6 g/dL (3.2-4.8) Erythrocyte Sedimentation Rate 5 mm/hr (0-20) Hemoglobin A1c 6.4 % A1C (<5.7) C-Reactive Protein High Sensitivity 0.46 mg/dL (<1.0) Thyroid Stimulating Hormone (TSH) 2.99 uIU/mL (0.55-4.78) Plasma/Serum Blood Alcohol 4.3 mg/dL (<10) Other Laboratory Tests 10/27/24 05:34 Brief Hx & Hospital Course: Patient is 59 years old female with past medical history of diabetes mellitus type 2, arthritis, anxiety, PTSD, UTI, status post fall, status post or if of the right ankle bimalleolar fracture dislocation on 09/19/2024 came with a complaint of right ankle pain and swelling. As per patient she has been having pain in the right ankle started yesterday with swelling and redness. Pain was sharp in nature 10. Patient also complained some discharge from the right side of the ankle of the right foot. Patient denied any trauma after surgery, bug bite, fever, chest pain, shortness of breath, dysuria, diarrhea, dysarthria. Initial lab workup revealed please 4.5, hemoglobin 13.6, platelet 175, sodium 142, potassium 4.2, serum creatinine 0.9. Right ankle revealed-Patient is status post open reduction and internal fixation of the distal tibia and fibula and posterior tibia. Internal fixation plates and screws are in place. Persistent widening of the tibiotalar joint laterally. Patient was treated conservatively with IV antibiotic ceftriaxone and vancomycin. Patient's symptoms improved. Patient was seen by orthopedic surgeon and recommended for oral antibiotic Keflex 500 mg p.o. 3 times a day for 10 days. Patient was advised to follow up with the orthopedic surgeon in 1-2 weeks and also to follow up with the primary care physician in 1-2 weeks. Patient's medicine was sent to the pharmacy electronically. Patient was hemodynamically stable on discharge. General examination- awake, alert, oriented, conversive HEENT- PEERLA, no acute nasal discharge Cardiovascular- S1-S2 audible, rate and rhythm regular, no murmur Respiratory- CTAB, no wheeze or rhonchi Gastrointestinal-nontender, bowel sound+. Nondistended Musculoskeletal-no acute joint swelling or tenderness or redness# Lower extremity-swelling of the right ankle with redness of the right lateral surface of the right ankle with some discharge and tenderness Neurological- cranial nerves intact, no acute dysarthria or dysphagia Psychiatry- denies depression or SI or HI Operations or Procedures DIAGNOSTIC IMAGING Diagnostic Imaging Report : [id number] Signed PATIENT: JR SAMUEL ACCT: [id number] UNIT: [id number] : 1965 LOC: ER ROOM / BED: / AGE / SEX: 59 / F ADM STATUS: REG ER SERVICE 1632 ORDERING PHYSICIAN: KEN TOLLIVER MD PROCEDURE(s): RANCT - CT R ANKLE WO CONTRAST REASON: cellulitis ORDER NUMBER(s): [id number], ACCESSION NUMBER(s): [id number] INDICATION: cellulitis COMPARISON: CT HEAD WITHOUT CONTRAST on DOS: 01/07/24, CT HEAD WITHOUT CONTRAST on DOS: 11/20/23, CT HEAD WITHOUT CONTRAST on DOS: 09/25/23 TECHNIQUE: CT of the right was performed without contrast. Volume transverse images were obtained and reconstructed in multiple planes using bone and soft tissue algorithms. CONTRAST: None Radiation Dose Information: CT Dose: CTDI volume is 7.75 mGy. Dose-length product is 173.59 mGy*cm FINDINGS: The alignment is normal. The joint spaces are normal. Patient is status post open reduction internal fixation of a fracture of the medial and lateral malleolus. Compression plate with internal fixation screws are noted along the distal fibula. Syndesmosis screw is noted in the tibia. Fracture of the posterior tibia is noted with persistent fracture through the medial malleolus. Internal fixation screw is noted through the medial malleolus. There is persistent widening of the lateral tibiotalar ankle mortise suggesting laxity and instability. Edema is noted in the subcutaneous tissues however there are no drainable collections of fluid. The soft tissues are normal. IMPRESSION: Patient is status post open reduction internal fixation of the distal tibia and fibula and posterior tibia. Internal fixation plates and screws are in place. Persistent widening of the tibiotalar joint laterally. ATED BY: TARAN ARMENTA Jr., DO DICTATED DATE/TIME: 10/26/241752 SIGNED BY: TARAN ARMENTA Jr., DO SIGNED DATE/TIME: 10/26/241752 CC: DIAGNOSTIC IMAGING Diagnostic Imaging Report : [id number] Signed PATIENT: JR SAMUEL ACCT: [id number] UNIT: [id number] : 1965 LOC: OVERFLOW ROOM / BED: [address] [place] [address] AGE / SEX: 59 / F ADM STATUS: ADM IN SERVICE 22 ORDERING PHYSICIAN: RUBIA DE SANTIAGO RESIDENT PROCEDURE(s): CXR2 - CHEST TWO VIEWS ROUTINE REASON: rule out pna ORDER NUMBER(s): [id number], ACCESSION NUMBER(s): [id number] CHEST RADIOGRAPH Indication: rule out pna Technique: Frontal and lateral view of the chest was obtained Comparison: XY CHEST TWO VIEWS ROUTINE on DOS: 11/20/23 FINDINGS: Lines and Tubes: None Lungs: Clear Pleura: No effusion. No pneumothorax. Cardiomediastinal contours: Unremarkable Bones: Unremarkable IMPRESSION: No evidence of acute disease. ATED BY: ARTHUR LERNER MD DICTATED DATE/TIME: 10/26/242036 SIGNED BY: ARTHUR LERNER MD SIGNED DATE/TIME: 10/26/242036 CC: Signed PATIENT: JR SAMUEL ACCT: [id number] UNIT: [id number] : 1965 LOC: CENTRAL ROOM / BED: 0212 / B AGE / SEX: 59 / F ADM STATUS: ADM IN SERVICE 3 ORDERING PHYSICIAN: RUBIA DE SANTIAGO RESIDENT PROCEDURE(s): BLDVT - BiLat Lower DVT REASON: RT Leg swelling ORDER NUMBER(s): [id number], ACCESSION NUMBER(s): [id number] Bilateral lower extremity venous duplex Clinical History: RT Leg swelling Comparison: None Technique: Duplex Doppler evaluation of the deep venous systems of both lower extremities from the common femoral veins to the popliteal veins including color Doppler and spectral/pulsed waveform analysis was performed. Findings: RIGHT SIDE: The common femoral vein demonstrates appropriate compressibility and waveform variability. There is compressibility/patency of the great saphenous vein at the proximal thigh. The femoral vein demonstrates appropriate compressibility and waveform variability. The deep femoral vein demonstrates appropriate compressibility and waveform variability. The popliteal vein demonstrates appropriate compressibility and waveform variability. There is normal compressibility at the tibioperoneal trunk. LEFT SIDE: The common femoral vein demonstrates appropriate compressibility and waveform variability. There is compressibility/patency of the great saphenous vein at the proximal thigh. The femoral vein demonstrates appropriate compressibility and waveform variability. The deep femoral vein demonstrates appropriate compressibility and waveform variability. The popliteal vein demonstrates appropriate compressibility and waveform variability. There is normal compressibility at the tibioperoneal trunk. Impression: 1. No right or left femoropopliteal venous thrombosis. ATED BY: SHARIF SANCHEZ MD DICTATED DATE/TIME: 10/27/24748 SIGNED BY: SHARIF SANCHEZ MD SIGNED DATE/TIME: 10/27/24748 CC: Condition at Discharge: Stable Final Diagnosis/Problems List # Right ankle swelling and in due to right foot cellulitis with wound infection # cellulitis of right foot/right ankle # wound infection # arthritis # diabetes mellitus type 2 # anxiety # post traumatic stress disorder Discharge Disposition: Home Discharge Instruct/Medications Diet: Consistent carbohydrate Activity: Light activity Follow Up/Referral: Please follow up with the primary care physician in 1 week Please take your medication as prescribed Please follow up with your orthopedic doctor in 1-2 weeks Medications: Continue Keflex 500 mg p.o. 3 times a day for 10 days Please resume other home medications Discharge Statement: "Patient was advised to return to the ER or call 911 if any headaches, dizziness, shortness of breath, chest pain, abdominal pain, bleeding, fevers, or worsening of medical condition. Patient was counseled about treatment plan, medications, possible side effects, patientverbalized understanding. All questions were answered to the best of my ability. This discharge took greater then 30 minutes in planning, reviewing documentation, counseling the patient, and discussing with other team members." ASSESSMENT ASSESSMENT Assessment # Right ankle swelling and in due to right foot cellulitis with wound infection # cellulitis of right foot/right ankle # wound infection # arthritis # mellitus type 2 # anxiety # post traumatic stress disorder RUBIA DE SANTIAGO RESIDENT Oct 27, 2024 16:33
--- NOTE | 2024-10-28 06:19 | DVHINCON2 ---
Date of service: Oct 27, 2024 Reason for Consultation Right ankle cellulitis History of Present Illness 59 yo F sp ORIF of Right ankle with Dr. Castrejon 4 weeks ago with 3 days of swelling/redness at site. Patient went to urgent care and was told to come to ER where she was admitted. Past Surgical History reviewed Family History: Diabetes mellitus G8 MOTHER G8 SISTER G8 SISTER FH: heart attack G8 MOTHER FH: kidney failure G8 MOTHER Patient's mother is Allergies: Coded Allergies: Codeine (Verified Allergy, Mild, ITCHING ONLY , 09/19/24) PER PATIENT ONLY ITCHING IF TAKEN STRAIGHT, IF MIXED WITH OTHER MEDICATIONS, NO ISSUES PER PATIENT DILAUDED IS OKAY Ascorbate (Verified Allergy, Unknown, BLISTERS IN THE BACK OF THROAT, 09/26/23) allergy to vitamin C Iodine (Verified Allergy, Unknown, ANAPHYLAXIS, 09/26/23) Uncoded Allergies: CONTRAST DYE (Allergy, Severe, ANAPHYLAXIS, 09/26/23) Home Meds Active Scripts Cephalexin Monohydrate (Cephalexin) 500 Mg Tab, 500 MG PO TID for 7 Days, #21 TAB Prov:PATRICIA GIL 10/27/24 Hydrocodone-Acetaminophen (Hydrocodone/Acetaminophen 10-325 mg) 1 Tab Tab, 1 TAB PO BID PRN for PAIN SCALE 7 THRU 10 for 14 Days, #28 TAB Prov:BAN MENDEZ MD 09/20/24 Reported Medications Lysine HCl (Lysine) 500 Mg Tab, 500 MG PO, TAB 10/27/24 Nutritional Supplements (Fruit & Vegetable Daily) Daily Cap, OR, CAP 09/26/23 Patients Own Medication (PATIENTS OWN MEDICATION) ., PO PTS OWN MED-OBTAIN FROM PT AND SEND TO RX DRUG: FREQ: RX# EXP: DATE DISP: TECH: RPH: 09/26/23 Probiotic Product (PROBIOTIC) Tab, OR, TAB 09/26/23 Cranberry Extract (CRANBERRY) 600 Mg Tab, OR, TAB 09/26/23 Calcium Carbonate (Calcium) 1,250 Mg Tab, PO, TAB 09/26/23 Zinc Sulfate (Zinc Sulfate) 220 Mg Cap, PO DAILY for 30 Days, MG 09/26/23 Cholecalciferol (D3) 2,000 Unit Tab, 1 TAB PO DAILY, TAB 09/26/23 Multiple Vitamin (Mvi Tab) 1 Tab Tb, 1 TAB PO, TAB 09/26/23 Lansoprazole (Prevacid Solutab) 15 Mg Tab, 15 MG PO HS, TAB 09/26/23 Metformin Hydrochloride (Metformin Hcl) 1,000 Mg Tab, 1 TAB PO BID 09/26/23 Metoprolol Succinate (Metoprolol Succinate Er) 50 Mg Tab, 1 TAB PO DAILY 09/26/23 Amitriptyline Hcl (Amitriptyline Hcl) 100 Mg Tab, 1 TAB PO HS 09/26/23 Gabapentin (Gabapentin) 300 Mg Cap, 1 CAP PO TID 09/26/23 Lamotrigine (Lamotrigine) 200 Mg Tab, 1 TAB PO HS 09/26/23 Venlafaxine Hydrochloride (Venlafaxine Hydrochloride) 150 Mg Cap, 1 CAP PO DAILY 09/26/23 Discontinued Reported Medications Lysine (GNP L-LYSINE) 600 Mg Tab, 1000 MG PO, TAB 09/26/23 Elderberry Extract (Sambucol Black Elderberry) 1.9 Gm/5 Ml Edwige, PO, ML 09/26/23 Alpha Tocopheryl Acid Succinat (VITAMIN E) 400 Unit Tab, PO, TAB 09/26/23 Withania Somnifera (Ashwagandha) 500 Mg Cap, PO, CAP 09/26/23 Coenzyme Q10 (Ubidecarenone) (COQ-10) 400 Mg Cap, OR, CAP 09/26/23 Dulaglutide (Trulicity) 3 Mg/0.5 Ml Inj, SC 09/26/23 Estradiol & Norethindrone Acet (Combipatch) .05/.25 Dis, 1 PATCH TD UD APPLY 1 PATCH TO THE SKIN TWO TIMES A WEEK 28; 28 Days Quantity #8 EA - SIG Obtained From Edi 09/26/23 Current Medications Current Medications Medications (Trade) Dose Ordered Sig/Nery Route PRN Reason Start Time Stop Time Status Last Admin Enoxaparin Sodium (Lovenox) 40 mg DAILY SC 10/27/24 10:00 10/27/24 19:23 DC 10/27/24 09:41 Ceftriaxone Sodium 50 ml @ 100 mls/hr DAILY@09 IV 10/27/24 09:00 10/27/24 19:23 DC 10/27/24 09:40 Metoprolol Succinate (Toprol Xl) 50 mg DAILY PO 10/27/24 10:00 10/27/24 19:23 DC 10/27/24 09:56 Cholecalciferol (Vitamin D3 Tablet) 2,000 unit DAILY PO 10/27/24 10:00 10/27/24 19:23 DC 10/27/24 09:56 Venlafaxine HCl (Effexor) 150 mg DAILY PO 10/27/24 10:00 10/27/24 19:23 DC 10/27/24 09:55 Vancomycin HCl 250 ml @ 200 mls/hr Q12H IV 10/27/24 16:00 10/27/24 19:23 DC Review of Systems as per HPI Vital Signs Vital Signs Date Time Temp Pulse Resp B/P (MAP) Pulse Ox O2 Delivery O2 Flow Rate FiO2 10/27/24 18:03 98.1 90 18 10/27/24 17:00 128/59 (82) 94 10/27/24 08:00 Room Air* 0 21 Physical Exam NAD RLE: inc intact +erythema at incision +TA/GS/EHL Labs/Diagnostic Data Labs Test 10/27/24 11:51 10/27/24 05:34 10/26/24 16:29 Range/Units POC Glucose 204 H 70-106 mg/dl White Blood Count 3.6 L 4.4-10.8 10^3/uL Red Blood Count 4.00 4.0-5.20 10^6/uL Hemoglobin 11.9 L 12.2-16.2 g/dL Hematocrit 36.3 # 36.0-46.0 % Mean Corpuscular Volume 90.9 80.0-100.0 fL Mean Corpuscular Hemoglobin 29.8 28.0-32.0 pg Mean Corpuscular Hemoglobin Concent 32.8 32.0-36.0 g/dL Red Cell Distribution Width 15.4 H 11.8-14.3 % Platelet Count 111 L 140-450 10^3/uL Mean Platelet Volume 7.9 6.9-10.8 fL Neutrophils (%) (Auto) 48.3 37.0-80.0 % Lymphocytes (%) (Auto) 37.7 10.0-50.0 % Monocytes (%) (Auto) 7.6 0.0-12.0 % Eosinophils (%) (Auto) 6.0 0.0-7.0 % Basophils (%) (Auto) 0.4 0.0-2.0 % Neutrophils # (Auto) 1.7 1.6-8.6 10 ^3/uL Lymphocytes # (Auto) 1.3 0.4-5.4 10 ^3/uL Monocytes # (Auto) 0.3 0-1.3 10 ^3/uL Eosinophils # (Auto) 0.2 0-0.8 10 ^3/uL Basophils # (Auto) 0 0-0.2 10 ^3/uL Nucleated Red Blood Cells 0.1 % D-Dimer, Quantitative 0.39 0.0-0.49 mg/L FEU Sodium Level 142 136-145 mmol/L Potassium Level 4.5 3.5-5.1 mmol/L Chloride Level 104 98-107 mmol/L Carbon Dioxide Level 31 20-31 mmol/L Anion Gap 7 5-15 Blood Urea Nitrogen 14 9-23 mg/dL Creatinine 1.00 0.550-1.02 mg/dL Glomerular Filtration Rate Calc 64 >90 mL/min BUN/Creatinine Ratio 14.0 10.0-20.0 Serum Glucose 148 H 74-106 mg/dL Calcium Level 10.1 8.7-10.4 mg/dL Magnesium Level 1.5 L 1.6-2.6 mg/dL Total Bilirubin 0.5 0.2-1.0 mg/dL Aspartate Amino Transferase (AST) 22 13-40 U/L Alanine Aminotransferase (ALT) 20 7-40 U/L Alkaline Phosphatase 79 46-116 U/L Total Protein 5.8 5.7-8.2 g/dL Albumin 3.6 3.2-4.8 g/dL Erythrocyte Sedimentation Rate 5 0-20 mm/hr Hemoglobin A1c 6.4 H <5.7 % A1C C-Reactive Protein High Sensitivity 0.46 <1.0 mg/dL Thyroid Stimulating Hormone (TSH) 2.99 0.55-4.78 uIU/mL Plasma/Serum Blood Alcohol 4.3 <10 mg/dL Microbiology Date/Time Source Procedure Growth Status 10/26/24 22:45 Blood Blood Culture - Preliminary NO GROWTH AFTER 24 HOURS OF INCUBATION. Resulted Assessment 59 yo F sp ORIF right ankle with cellulitis Plan/Recommendation 1. Transition to oral abx 2. pain control 3. PT 4. NWB RLE 5. fu with Dr. Castrejon in 1 week Plan discussed with: Patient, Spouse ANTHONY GAFFNEY MD Oct 28, 2024 06:19
== END 2024-10-27 19:05 | disposition home or self-care (01) | DRG 603 ==
LOC: ER 14:04 → OVERFLOW 19:00 → CENTRAL 23:21
PROVIDERS: ADMIT Internal Medicine; ATTEND Internal Medicine
DX: L03.115 Cellulitis of right lower limb (principal); F41.9 Anxiety disorder, unspecified; F43.10 Post-traumatic stress disorder, unspecified; E11.9 Type 2 diabetes mellitus without complications; Z88.5 Allergy status to narcotic agent; Z88.8 Allergy status to other drugs, medicaments and biological substances; Z79.899 Other long term (current) drug therapy; Z99.3 Dependence on wheelchair
CPT/HCPCS: 36415; 71046; 73700; 80048; 80053; 80320; 82962; 83036; 83735; 84443; 85025; 85379; 85652; 86141; 87040; 87205; 93970; 96365; 96368; G0378; J1815; J3490

== ENCOUNTER → 2024-11-05 | Outpatient (CLI) | payer BC ==
[~2024-11-05] MED LIST changes: -ASHW1CAP PO; +CEPH500T PO; -COEN400C8 OR; -DULA3INJ SC; -ESTR1DIS TD; +LYSI1TAB2 PO; -LYSI600T PO; -VITA400T4 PO; -[UNRECOGNIZED DRUG - CODE] PO
[2024-11-05 08:24] LABS: Urine Bacteria None Seen /hpf (None Seen)
[2024-11-05 08:51] LABS: Urine Blood 2+ /uL (Negative); Urine Clarity Turbid (Clear); Urine Color Yellow (Yellow); Urine Mucus FEW (None Seen); Urine Protein, UAD TRACE (Negative); Urine Specific Gravity 1.025 (1.001-1.035); Urine Squamous Epithelial Cell MANY /hpf (<5); Urine Urobilinogen Normal (Negative); Urine WBC 17 /hpf (0 - 5); Urine pH 5.5 (5.0-9.0)
[2024-11-05 09:11] LABS: Basophils # (auto) 0 10 ^3/uL (0-0.2); Basophils % (auto) 0.7 % (0.0-2.0); Eosinophils # (auto) 0.3 10 ^3/uL (0-0.8); Eosinophils % (auto) 8.2 % (0.0-7.0); Hematocrit 39.4 % (36.0-46.0); Lymphocytes # (auto) 1.2 10 ^3/uL (0.4-5.4); Lymphocytes % (auto) 40.4 % (10.0-50.0); Mean Corpuscular Hemoglobin 29.8 pg (28.0-32.0); Mean Corpuscular Volume 90.3 fL (80.0-100.0); Monocytes # (auto) 0.2 10 ^3/uL (0-1.3); Monocytes % (auto) 5.3 % (0.0-12.0); Neutrophils # (auto) 1.4 10 ^3/uL (1.6-8.6); Neutrophils % (auto) 45.4 % (37.0-80.0); Nucleated Red Blood Cells % 0.3 %; Platelet Count (auto) 153 10^3/uL (140-450); Red Blood Cells 4.36 10^6/uL (4.0-5.20); Red Cell Distribution Width 15.1 % (11.8-14.3); White Blood Cell 3.1 10^3/uL (4.4-10.8)
[2024-11-05 09:15] LABS: Alanine Aminotransferase 23 U/L (7-40); Alkaline Phosphatase 95 U/L (46-116); Anion Gap 4 (5-15); BUN/Creatinine Ratio 11.6 (10.0-20.0); Blood Urea Nitrogen 10 mg/dL (9-23); Chloride 103 mmol/L (98-107); LDL Cholesterol 84 mg/dL (< 100); Potassium 4.5 mmol/L (3.5-5.1); Sodium 140 mmol/L (136-145); Triglycerides 96 mg/dL (< 150)
[2024-11-05 09:16] LABS: Albumin 4.2 g/dL (3.2-4.8); Aspartate Aminotransferase 24 U/L (13-40); Cholesterol 147 mg/dL (< 200); Creatine Kinase IFCC 40 U/L (34-145); HDL Cholesterol 58 mg/dL (40-59)
[2024-11-05 09:17] LABS: Bilirubin, Total 0.3 mg/dL (0.2-1.0); Total Protein 6.6 g/dL (5.7-8.2)
[2024-11-05 09:18] LABS: Carbon Dioxide 33 mmol/L (20-31); Glucose 184 mg/dL (74-106)
[2024-11-05 12:12] LABS: Folate (Folic Acid) 34.13 ng/mL (>5.38)
[2024-11-05 12:20] LABS: Ferritin 13.7 ng/mL (10-291)
[2024-11-05 12:21] LABS: T3 Total 1.4 ng/mL (0.60-1.81)
[2024-11-05 12:32] LABS: % Iron Saturation 15.9 % (15-50)
== END | disposition home or self-care (01) ==
LOC: LAB 08:04
PROVIDERS: ATTEND Internal Medicine
DX: Z12.11 Encounter for screening for malignant neoplasm of colon (principal); Z13.9 Encounter for screening, unspecified; Z00.01 Encounter for general adult medical examination with abnormal findings; E11.65 Type 2 diabetes mellitus with hyperglycemia
CPT/HCPCS: 36415; 80053; 80061; 81001; 82043; 82550; 82607; 82728; 82746; 83036; 83540; 83550; 84436; 84443; 84480; 85025; 87086

== ENCOUNTER 2024-12-08 06:22 | Inpatient (IN) | payer BC, OTHER ==
[~2024-12-08] VITALS: Ht 177.8 cm; Wt 14.2 kg
--- NOTE | 2024-12-08 06:33 | ED.PDOC ---
Altered Mental Status HPI Comments 59 y/o F, brought in by ambulance with PMHX of DM presents to the ED for CC ALOC. Per EMS, emergency medical personal was called to scene by patient's due to patient being altered. Per EMS, patient's states that patient was seen yesterday at urgent care for a UTI; symptoms worsened this morning. Patient is currently weak, altered and displays bowel incontinence. No other symptoms or medical history obtainable at this time due to patients condition. Time Seen by MD: 06:20 Primary Care Provider: GABBY Reviewed Notes: Nurses Notes, Duplication Specialist Notes, Medications, Allergies Allergies: Coded Allergies: Codeine (Verified Allergy, Mild, ITCHING ONLY , 09/19/24) PER PATIENT ONLY ITCHING IF TAKEN STRAIGHT, IF MIXED WITH OTHER MEDICATIONS, NO ISSUES PER PATIENT DILAUDED IS OKAY Ascorbate (Verified Allergy, Unknown, BLISTERS IN THE BACK OF THROAT, 09/26/23) allergy to vitamin C Iodine (Verified Allergy, Unknown, ANAPHYLAXIS, 09/26/23) Uncoded Allergies: CONTRAST DYE (Allergy, Severe, ANAPHYLAXIS, 09/26/23) Home Meds Active Scripts Cephalexin Monohydrate (Cephalexin) 500 Mg Tab, 500 MG PO TID for 7 Days, #21 TAB Prov:PATRICIA GIL RESIDENT 10/27/24 Hydrocodone-Acetaminophen (Hydrocodone/Acetaminophen 10-325 mg) 1 Tab Tab, 1 TAB PO BID PRN for PAIN SCALE 7 THRU 10 for 14 Days, #28 TAB Prov:BAN MENDEZ MD 09/20/24 Reported Medications Lysine HCl (Lysine) 500 Mg Tab, 500 MG PO, TAB 10/27/24 Nutritional Supplements (Fruit & Vegetable Daily) Daily Cap, OR, CAP 09/26/23 Patients Own Medication (PATIENTS OWN MEDICATION) ., PO PTS OWN MED-OBTAIN FROM PT AND SEND TO RX DRUG: FREQ: RX# EXP: DATE DISP: TECH: RPH: 09/26/23 Probiotic Product (PROBIOTIC) Tab, OR, TAB 09/26/23 Cranberry Extract (CRANBERRY) 600 Mg Tab, OR, TAB 09/26/23 Calcium Carbonate (Calcium) 1,250 Mg Tab, PO, TAB 09/26/23 Zinc Sulfate (Zinc Sulfate) 220 Mg Cap, PO DAILY for 30 Days, MG 09/26/23 Cholecalciferol (D3) 2,000 Unit Tab, 1 TAB PO DAILY, TAB 09/26/23 Multiple Vitamin (Mvi Tab) 1 Tab Tb, 1 TAB PO, TAB 09/26/23 Lansoprazole (Prevacid Solutab) 15 Mg Tab, 15 MG PO HS, TAB 09/26/23 Metformin Hydrochloride (Metformin Hcl) 1,000 Mg Tab, 1 TAB PO BID 09/26/23 Metoprolol Succinate (Metoprolol Succinate Er) 50 Mg Tab, 1 TAB PO DAILY 09/26/23 Amitriptyline Hcl (Amitriptyline Hcl) 100 Mg Tab, 1 TAB PO HS 09/26/23 Gabapentin (Gabapentin) 300 Mg Cap, 1 CAP PO TID 09/26/23 Lamotrigine (Lamotrigine) 200 Mg Tab, 1 TAB PO HS 09/26/23 Venlafaxine Hydrochloride (Venlafaxine Hydrochloride) 150 Mg Cap, 1 CAP PO DAILY 09/26/23 Information Source: Emergency Med Personnel Mode of Arrival: EMS Severity: Moderate Timing: Minutes Duration: Since onset Prehospital treatment: 12 Lead EKG, Accucheck Quality: Decreased Alertness Recent: None History of: Diabetes Associated Signs and Symptoms: None Past Medical History PAST MEDICAL HISTORY: Anxiety, Arthritis, DM, UTI'S Surgical History: Cholecystectomy, Tubal Ligation FILLING HAND History: No Pertinent FILLING HAND History Family History Family History: Reviewed,noncontributory to illness Social History Smoker: Non-Smoker Alcohol: Denies ETOH Use Drugs: Denies Drug Use Lives In: Home Unable to Obtain due to: Altered Mental Status Physical Exam General Appearance: Moderate Distress, Other (Increased BMI) HEENT: Normal ENT Inspection, Pharynx Normal, TMs Normal Neck: Full Range of Motion, Non-Tender, Normal, Normal Inspection Respiratory: Chest Non-Tender, Lungs Clear, No Accessory Muscle Use, No Respiratory Distress, Normal Breath Sounds Cardiovascular: No Edema, No JVD, No Murmur, No Gallop, Normal Peripheral Pulses, Regular Rate/Rhythm Breast Exam: Deferred Gastrointestinal: Soft Genitalia: Deferred Pelvic: Deferred Rectal: Deferred Extremities: No pedal edema Musculoskeletal : Apperance: Normal Neurologic: Disoriented Cerebellar Function: NOT DONE Reflexes: NOT DONE Skin: Pallor, Wounds Peripheral Pulses: 3+ Radial (R), 3+ Radial (L) Lymphatic: No Adenopathy Was a procedure done? Was a procedure done?: No Differential Diagnosis (ALOC) Differential Diagnosis: Dehydration, Meningitis, Sepsis X-Ray, Labs, Meds, VS Vital Signs Date Time Temp Pulse Resp B/P (MAP) Pulse Ox O2 Delivery O2 Flow Rate FiO2 12/08/24 12:01 106 20 112/41 (64) 98 12/08/24 11:00 107 20 107/68 (81) 99 12/08/24 09:00 120 21 116/49 (71) 97 12/08/24 08:01 119 12/08/24 07:30 126 19 94 Nasal Cannula* 2 28 12/08/24 07:30 98.9 126 19 104/74 (84) 94 98.9 12/08/24 06:26 126 12/08/24 06:25 100.4 124 15 141/72 (95) 96 Lab Test 12/08/24 09:30 12/08/24 09:19 12/08/24 08:30 12/08/24 07:14 Range/Units Lactic Acid Level 4.7 *H 3.7 *H 0.4-2.0 mmol/L POC Glucose 217 H 70-106 mg/dl Urine Color Dark-yellow Yellow Urine Clarity Clear Clear Urine pH 5.5 5.0-9.0 Urine Specific [place] 1.044 H 1.001-1.035 Urine Protein 1+ H Negative Urine Ketones Trace Negative Urine Blood 1+ H Negative /uL Urine Nitrite Negative Negative Urine Bilirubin 1+ H Negative Urine Urobilinogen 4 H Negative mg/dL Urine Leukocyte Esterase 2+ Negative /uL Urine RBC 27 0 - 4 /hpf Urine Microscopic WBC 12 H 0-5 /HPF Urine Squamous Epithelial Cells Few <5 /hpf Urine Bacteria None seen None Seen /hpf Urine Hyaline Casts Few 0 - 2 /lpf Urine Mucus Few None Seen Urine Glucose Normal Normal mg/dL White Blood Count 7.3 4.4-10.8 10^3/uL Red Blood Count 4.94 4.0-5.20 10^6/uL Hemoglobin 14.5 12.2-16.2 g/dL Hematocrit 43.9 36.0-46.0 % Mean Corpuscular Volume 88.8 80.0-100.0 fL Mean Corpuscular Hemoglobin 29.4 28.0-32.0 pg Mean Corpuscular Hemoglobin Concent 33.1 32.0-36.0 g/dL Red Cell Distribution Width 15.7 H 11.8-14.3 % Platelet Count 144 140-450 10^3/uL Mean Platelet Volume 7.9 6.9-10.8 fL Neutrophils (%) (Auto) 90.6 H 37.0-80.0 % Lymphocytes (%) (Auto) 4.9 L 10.0-50.0 % Monocytes (%) (Auto) 4.2 0.0-12.0 % Eosinophils (%) (Auto) 0.2 0.0-7.0 % Basophils (%) (Auto) 0.1 0.0-2.0 % Neutrophils # (Auto) 6.7 1.6-8.6 10 ^3/uL Lymphocytes # (Auto) 0.4 0.4-5.4 10 ^3/uL Monocytes # (Auto) 0.3 0-1.3 10 ^3/uL Eosinophils # (Auto) 0 0-0.8 10 ^3/uL Basophils # (Auto) 0 0-0.2 10 ^3/uL Nucleated Red Blood Cells 0.0 % Sodium Level 139 136-145 mmol/L Potassium Level 4.8 3.5-5.1 mmol/L Chloride Level 105 98-107 mmol/L Carbon Dioxide Level 23 20-31 mmol/L Anion Gap 11 5-15 Blood Urea Nitrogen 22 9-23 mg/dL Creatinine 1.14 H 0.550-1.02 mg/dL Glomerular Filtration Rate Calc 55 >90 mL/min BUN/Creatinine Ratio 19.3 10.0-20.0 Serum Glucose 274 H 74-106 mg/dL Calcium Level 10.0 8.7-10.4 mg/dL Total Bilirubin 0.5 0.2-1.0 mg/dL Aspartate Amino Transferase (AST) 30 13-40 U/L Alanine Aminotransferase (ALT) 29 7-40 U/L Alkaline Phosphatase 108 46-116 U/L Troponin I High Sensitivity < 3 L </=34 ng/L Total Protein 6.9 5.7-8.2 g/dL Albumin 4.5 3.2-4.8 g/dL Current Medications Medications (Trade) Dose Ordered Sig/Nery Route Start Time Stop Time Status Last Admin Sodium Chloride 1,000 ml @ 1,000 mls/hr Q1H ONCE IVB 12/08/24 06:30 12/08/24 07:29 DC 12/08/24 07:28 Sodium Chloride 1,000 ml @ 150 mls/hr Q6H40M ONCE IV 12/08/24 06:30 12/08/24 13:09 12/08/24 08:42 Piperacillin Sod/ Tazobactam Sod 100 ml @ 100 mls/hr ONCE ONCE IV 12/08/24 06:30 12/08/24 07:29 DC 12/08/24 07:37 Metronidazole 100 ml @ 100 mls/hr ONCE ONCE IV 12/08/24 06:30 12/08/24 07:29 DC 12/08/24 07:27 Sodium Chloride 1,000 ml @ 1,000 mls/hr Q1H ONCE IV 12/08/24 10:30 12/08/24 11:29 DC 12/08/24 10:30 [place] [address] Ph: [phone] DIAGNOSTIC IMAGING Diagnostic Imaging Report : [id number] Signed PATIENT: JR SAMUEL ACCT: [id number] UNIT: [id number] : 1965 LOC: ER ROOM / BED: / AGE / SEX: 59 / F ADM STATUS: REG ER SERVICE 9 ORDERING PHYSICIAN: KEN TOLLIVER MD PROCEDURE(s): CXRP - CHEST PORTABLE REASON: SOB ORDER NUMBER(s): [id number], ACCESSION NUMBER(s): [id number] Procedure: XY CHEST PORTABLE 12/08/2024 07:58 AM Indication: SOB Comparison: XY CHEST PORTABLE on DOS: 09/18/24, XY CHEST PORTABLE on DOS: 07/22/24 TECHNIQUE: XY CHEST PORTABLE FINDINGS: Medical devices: None. Cardiomediastinal: The heart is normal in size. Pulmonary vasculature is within normal limits. Lungs: Mild hazy opacity seen throughout the left lung which is probably artifactual due to moderate rotation to the left. The costophrenic angles are clear. No pneumothorax. Bones/soft tissues: No acute abnormality is noted. IMPRESSION: 1. No acute cardiopulmonary disease. ATED BY: MEGHAN COATES MD DICTATED DATE/TIME: 12/08/24806 SIGNED BY: MEGHAN COATES MD SIGNED DATE/TIME: 12/08/24806 CC: [address] [address] Ph: [phone] DIAGNOSTIC IMAGING Diagnostic Imaging Report : [id number] Signed PATIENT: JR SAMUEL ACCT: [id number] UNIT: [id number] : 1965 LOC: ER ROOM / BED: / AGE / SEX: 59 / F ADM STATUS: REG ER SERVICE 9 ORDERING PHYSICIAN: KEN TOLLIVER MD PROCEDURE(s): HWOCT - HEAD WITHOUT CONTRAST REASON: altered ORDER NUMBER(s): [id number], ACCESSION NUMBER(s): [id number] EXAM: CT HEAD WITHOUT CONTRAST HISTORY: altered COMPARISON: CT HEAD WITHOUT CONTRAST on DOS: 01/07/24, CT HEAD WITHOUT CONTRAST on DOS: 11/20/23, CT HEAD WITHOUT CONTRAST on DOS: 09/25/23 TECHNIQUE: Axial images were obtained and reformatted in coronal and sagittal planes. All CT scans at this medical facility are performed using dose modulation techniques as appropriate to a performed exam including the following: Automated exposure control was utilized; adjustment of the MA and/or KV according to patient size; and use of iterative reconstruction technique. CT Dose: CTDI volume is 49 mGy. Dose-length product is 1806 mGy*cm FINDINGS: Supratentorial Region: No evidence for large acute territorial ischemia. No intracranial hemorrhage is noted. Posterior Fossa: No acute abnormality. Brainstem: Unremarkable. Sellar/Suprasellar Region: Unremarkable. Ventricles, Cisterns, Sulci: Age-appropriate. Orbits: Unremarkable. Paranasal Sinuses: Unremarkable. Mastoid Air Cells: Unremarkable. Vasculature: Unremarkable. Bones/Soft Tissues: No acute abnormality. Other: None. IMPRESSION: 1. No acute intracranial process. ATED BY: MEGHAN COATES MD DICTATED DATE/TIME: 12/08/24 08 SIGNED BY: MEGHAN COATES MD SIGNED DATE/TIME: 12/08/24 0806 CC: Patient disoriented. Unable to get a history. She is switching her left lower extremity. Tachycardia. Possible sepsis from urine. Establish intravenous access. Was given fluids. Sepsis protocol. Was given Zosyn. Was given Flagyl. Continue monitoring. Time of 1ST Reevaluation: 06:50 Reevaluation 1ST: Unchanged Patient Education/Counseling: Diagnosis, Treatment Family Education/Counseling: No Family Present Departure 1 Departure Time of Disposition: 07:42 Impression: Primary Impression: Metabolic encephalopathy Additional Impression: Sepsis, unspecified organism Qualified Codes: A41.9 - Sepsis, unspecified organism Disposition: ADMITTED INPATIENT Admit to: Med Surg Condition: Guarded Critical Care Note Critical Care Time?: No Stability Stability form required: No Heart Score Heart Score: Heart Score Response (Comments) Value History N/A 0 EKG N/A 0 Age N/A 0 Risk Factors N/A 0 Troponin N/A 0 Total 0 I personally scribed for KEN TOLLIVER MD ([email or web address]) on 12/08/24 at 06:33. Electronically submitted by Myra Presley ([email or web address]). I personally scribed for KEN TOLLIVER MD ([email or web address]) on 12/08/24 at 08:24. Electronically submitted by Myra Presley ([employer]). I personally scribed for KEN TOLLIVER MD ([email or web address]) on 12/08/24 at 08:25. Electronically submitted by Myra Presley ([employer]). KEN TOLLIVER MD Dec 08, 2024 06:33
--- NOTE | 2024-12-08 06:42 | ECG ---
[facility] Test Date: 2024-12-08 Test Time: 06:26:02 Pat Name: JR SAMUEL Department: ED Room: Gender: F Inclusion Special Educator: RUKHSANA : 1965 Requested By: KEN TOLLIVER Order Number: [id number] Reading MD: Chetan Varghese Measurements Intervals [place] Rate: 126 P: 44 [place]: 165 QRS: 7 QRSD: 90 T: 30 QT: 312 QTc: 452 Interpretive Statements Sinus tachycardia Ventricular premature complex Low voltage, precordial leads Electronically Signed On 12-08-2024 13:34:07 PST by Chetan Varghese Please click the below link to view image of tracing.
[2024-12-08] MEDS: metroNIDAZOLE 500MG/100ML 100 ML IV ONE (07:27)
[2024-12-08] MEDS: SODIUM CHLORIDE 0.9% 1,000 ML IVB ONE (07:28)
[2024-12-08 07:30] VITALS: PULSE 126; RESP 19; O2SAT 94
[2024-12-08 07:37] LABS: Basophils # (auto) 0 10 ^3/uL (0-0.2); Basophils % (auto) 0.1 % (0.0-2.0); Eosinophils # (auto) 0 10 ^3/uL (0-0.8); Eosinophils % (auto) 0.2 % (0.0-7.0); Hematocrit 43.9 % (36.0-46.0); Hemoglobin 14.5 g/dL (12.2-16.2); Lymphocytes # (auto) 0.4 10 ^3/uL (0.4-5.4); Lymphocytes % (auto) 4.9 % (10.0-50.0); Mean Corpuscular Hemoglobin 29.4 pg (28.0-32.0); Mean Corpuscular Hgb Conc. 33.1 g/dL (32.0-36.0); Mean Corpuscular Volume 88.8 fL (80.0-100.0); Monocytes # (auto) 0.3 10 ^3/uL (0-1.3); Monocytes % (auto) 4.2 % (0.0-12.0); Neutrophils # (auto) 6.7 10 ^3/uL (1.6-8.6); Neutrophils % (auto) 90.6 % (37.0-80.0); Platelet Count (auto) 144 10^3/uL (140-450); Red Blood Cells 4.94 10^6/uL (4.0-5.20); Red Cell Distribution Width 15.7 % (11.8-14.3); White Blood Cell 7.3 10^3/uL (4.4-10.8)
[2024-12-08] MEDS: PIPERACILLIN-TAZOB 3.375GM 100 ML IV ONE (07:37)
[2024-12-08 07:47] LABS: Alanine Aminotransferase 29 U/L (7-40); Albumin 4.5 g/dL (3.2-4.8); Alkaline Phosphatase 108 U/L (46-116); Anion Gap 11 (5-15); Aspartate Aminotransferase 30 U/L (13-40); BUN/Creatinine Ratio 19.3 (10.0-20.0); Bilirubin, Total 0.5 mg/dL (0.2-1.0); Blood Urea Nitrogen 22 mg/dL (9-23); Carbon Dioxide 23 mmol/L (20-31); Chloride 105 mmol/L (98-107); Potassium 4.8 mmol/L (3.5-5.1); Sodium 139 mmol/L (136-145); Total Protein 6.9 g/dL (5.7-8.2)
[2024-12-08 07:52] LABS: Glucose 274 mg/dL (74-106)
--- NOTE | 2024-12-08 08:08 | DVH ---
EXAM: CT HEAD WITHOUT CONTRAST HISTORY: altered COMPARISON: CT HEAD WITHOUT CONTRAST on DOS: 01/07/24, CT HEAD WITHOUT CONTRAST on DOS: 11/20/23, CT HEA D WITHOUT CONTRAST on DOS: 09/25/23 TECHNIQUE: Axial images were obtained and reformatted in coronal and sagittal planes. All CT scans at this medical facility are performed using dose modulation techniques as appropriate t o a performed exam including the following: Automated exposure control was utilized; adjustment of th e MA and/or KV according to patient size; and use of iterative reconstruction technique. CT Dose: CTDI volume is 49 mGy. Dose-length product is 1806 mGy*cm FINDINGS: Supratentorial Region: No evidence for large acute territorial ischemia. No intracranial hemorrhage is noted. Posterior Fossa: No acute abnormality. Brainstem: Unremarkable. Sellar/Suprasellar Region: Unremarkable. Ventricles, Cisterns, Sulci: Age-appropriate. Orbits: Unremarkable. Paranasal Sinuses: Unremarkable. Mastoid Air Cells: Unremarkable. Vasculature: Unremarkable. Bones/Soft Tissues: No acute abnormality. Other: None. IMPRESSION: 1. No acute intracranial process.
--- NOTE | 2024-12-08 08:09 | DVH ---
Procedure: XY CHEST PORTABLE 12/08/2024 07:58 AM Indication: SOB Comparison: XY CHEST PORTABLE on DOS: 09/18/24, XY CHEST PORTABLE on DOS: 07/22/24 TECHNIQUE: XY CHEST PORTABLE FINDINGS: Medical devices: None. Cardiomediastinal: The heart is normal in size. Pulmonary vasculature is within normal limits. Lungs: Mild hazy opacity seen throughout the left lung which is probably artifactual due to moderate rotation to the left. The costophrenic angles are clear. No pneumothorax. Bones/soft tissues: No acute abnormality is noted. IMPRESSION: 1. No acute cardiopulmonary disease.
[2024-12-08 08:15] LABS: Lactic Acid w/Reflex 3.7 mmol/L (0.4-2.0)
[2024-12-08] MEDS: SODIUM CHLORIDE 0.9% 1,000 ML IV ONE ×2 (08:42→10:30)
[2024-12-08 08:47] LABS: Urine Bacteria None Seen /hpf (None Seen)
[2024-12-08 09:10] LABS: Urine Blood 1+ /uL (Negative); Urine Clarity Clear (Clear); Urine Color Dark-Yellow (Yellow); Urine Hyaline Cast FEW /lpf (0 - 2); Urine Mucus FEW (None Seen); Urine Protein, UAD 1+ (Negative); Urine Specific Gravity 1.044 (1.001-1.035); Urine Squamous Epithelial Cell FEW /hpf (<5); Urine Urobilinogen 4 mg/dL (Negative); Urine WBC 12 /HPF (0-5); Urine pH 5.5 (5.0-9.0)
[2024-12-08] MEDS: ONDANSETRON HCL 4 MG/2 ML VIAL IV ONE (13:40)
[2024-12-08] MEDS: MORPHINE SULFATE INJ 2 MG/ml SYRG IV ONE (13:41)
[2024-12-08] MEDS ORDERED: NITROGLYCERIN 0.4 MG SL TAB SL PRN (15:30)
[2024-12-08] MEDS ORDERED: MORPHINE SULFATE INJ 2 MG/ml SYRG IV PRN (15:30)
[2024-12-08] MEDS ORDERED: DOCUSATE SOD 100 MG CAP PO PRN (15:30)
[2024-12-08] MEDS ORDERED: ACETAMINOPHEN 325 MG TAB PO PRN (15:30)
[2024-12-08] MEDS ORDERED: ONDANSETRON HCL 4 MG/2 ML VIAL IV PRN (15:30)
[2024-12-08] MEDS ORDERED: DEXTROSE (50%) 50ML SYRG IV PRN (15:30)
[2024-12-08] MEDS: KETOROLAC TROMETH 30 MG/ML 1ML VIAL IV PRN (15:56)
--- NOTE | 2024-12-08 16:01 | DVHHP2 ---
History of Present Illness Reason for Visit: ALOC History of Present Illness Maria Alejandra Jose is a 59-year-old female with past medical history of diabetes, PTSD, depression, anxiety, asthma, and arthritis, who was brought in by EMS for ALOC. Patient had gone to urgent care yesterday and was diagnosed with UTI. This morning the patient's called EMS due to her becoming altered at home. While in the ER she became more confused and agitated. After receiving IV fluids and IV antibiotics her mentation improved. Pulmonary: Asthma Psych: Anxiety, Depression Musculoskeletal: Osteoarthritis Renal/: UTI Endocrine: Diabetes Past Surgical History: Cholecystectomy, Hernia Repair, Other (Left knee, right ankle), Tubal Ligation Smoke: No ALCOHOL: none Drugs: None Lives: with Family Domestic Violence: Neg Review of Systems Constitutional: Yes: Fever, Weakness, Malaise; No: Chills, Sweats, Other Eyes: No: Pain, Vision change, Conjunctivae inflammation, Eyelid inflammation, Other, Redness ENT: No: Ear pain, Ear discharge, Nose pain, Nose discharge, Nose congestion, Mouth pain, Mouth swelling, Throat pain, Throat swelling, Other Respiratory: No: Cough, Dry, Shortness of breath, SOB with excertion, Wheezing, Hemoptysis, Pleuritic Pain, Sputum, Wheezing, Other Cardiovascular: No: Chest Pain, Palpitations, Orthopnea, Paroxysmal Noc. Dyspnea, Edema, Lt Headedness, Other Gastrointestinal: No: Nausea, Vomiting, Abdominal Pain, Diarrhea, Constipation, Melena, Hematochezia, Other Genitourinary: No Dysuria, No Frequency, No Incontinence, No Hematuria, No Retention, No Other Musculoskeletal: No: other, neck pain, shoulder pain, arm pain, back pain, hand pain, leg pain, foot pain Skin: No: Rash, Lesions, Jaundice, Bruising, Other Neurological: Confusion; No: Weakness, Numbness, Incoordination, Change in speech, Seizures, Other Allergies: Coded Allergies: Codeine (Verified Allergy, Mild, ITCHING ONLY , 09/19/24) PER PATIENT ONLY ITCHING IF TAKEN STRAIGHT, IF MIXED WITH OTHER MEDICATIONS, NO ISSUES PER PATIENT DILAUDED IS OKAY Ascorbate (Verified Allergy, Unknown, BLISTERS IN THE BACK OF THROAT, 09/26/23) allergy to vitamin C Iodine (Verified Allergy, Unknown, ANAPHYLAXIS, 09/26/23) Uncoded Allergies: CONTRAST DYE (Allergy, Severe, ANAPHYLAXIS, 09/26/23) Medications Current Medications Medications Dose Ordered Sig/Nery Route Start Time Stop Time Status Last Admin Dose Admin Sodium Chloride 10 ml Q8HR IV 12/08/24 22:00 UNV Acetaminophen/ Hydrocodone Bitart 1 tab Q4HP PRN PO 12/08/24 15:30 UNV Ondansetron HCl 4 mg Q4HP PRN IV 12/08/24 15:30 UNV Docusate Sodium 100 mg BIDPRN PRN PO 12/08/24 15:30 UNV Acetaminophen 650 mg Q6HP PRN PO 12/08/24 15:30 UNV Nitroglycerin 0.4 mg Q5MINP PRN SL 12/08/24 15:30 UNV Morphine Sulfate 2 mg Q30M PRN IV 12/08/24 15:30 UNV Ketorolac Tromethamine 30 mg Q6HPRN PRN IV 12/08/24 15:30 12/13/24 15:29 UNV Diagnostic Test (Pha) 1 strip ACHS 12/08/24 17:00 UNV Insulin Human Regular HS SC 12/08/24 22:00 UNV Insulin Human Regular AC SC 12/08/24 17:00 UNV Dextrose 50 ml UD PRN IV 12/08/24 15:30 UNV Metoprolol Succinate 50 mg DAILY PO 12/09/24 10:00 UNV Patient Own Medication 1 tab HS PO 12/08/24 22:00 UNV Patient Own Medication 1 tab HS PO 12/08/24 22:00 UNV Patient Own Medication 1 cap DAILY PO 12/09/24 10:00 UNV Piperacillin Sod/ Tazobactam Sod 100 ml @ 25 mls/hr Q8HR IV 12/08/24 22:00 UNV Exam Vital Signs Vital Signs Date Time Temp Pulse Resp B/P (MAP) Pulse Ox O2 Delivery O2 Flow Rate FiO2 12/08/24 14:37 98.7 110 20 134/78 (96) 95 98.7 12/08/24 07:30 Nasal Cannula* 2 28 General Appearance: Alert, Oriented X3, Cooperative, moderate distress HEENT: Atraumatic, PERRLA Respiratory: Clear to auscultation, Normal air movement Cardiovascular: Regular rate, Normal S1, Normal S2, No murmurs Abdominal: Normal bowel sounds, Soft, No hepatospenomegaly, Other (right flank pain) Extremities: No clubbing, No cyanosis Skin: No rashes, No breakdown, No significant lesion Neuro: Normal speech, Other (Patient has boot on right foot due to facture and ankle surgery) Psych/Mental Status: Mental status NL, Mood NL Labs/Xrays Labs Test 12/08/24 09:30 12/08/24 09:19 12/08/24 08:30 12/08/24 07:14 Range/Units Lactic Acid Level 4.7 *H 0.4-2.0 mmol/L POC Glucose 217 H 70-106 mg/dl Urine Color Dark-yellow Yellow Urine Clarity Clear Clear Urine pH 5.5 5.0-9.0 Urine Specific [place] 1.044 H 1.001-1.035 Urine Protein 1+ H Negative Urine Ketones Trace Negative Urine Blood 1+ H Negative /uL Urine Nitrite Negative Negative Urine Bilirubin 1+ H Negative Urine Urobilinogen 4 H Negative mg/dL Urine Leukocyte Esterase 2+ Negative /uL Urine RBC 27 0 - 4 /hpf Urine Microscopic WBC 12 H 0-5 /HPF Urine Squamous Epithelial Cells Few <5 /hpf Urine Bacteria None seen None Seen /hpf Urine Hyaline Casts Few 0 - 2 /lpf Urine Mucus Few None Seen Urine Glucose Normal Normal mg/dL White Blood Count 7.3 4.4-10.8 10^3/uL Red Blood Count 4.94 4.0-5.20 10^6/uL Hemoglobin 14.5 12.2-16.2 g/dL Hematocrit 43.9 36.0-46.0 % Mean Corpuscular Volume 88.8 80.0-100.0 fL Mean Corpuscular Hemoglobin 29.4 28.0-32.0 pg Mean Corpuscular Hemoglobin Concent 33.1 32.0-36.0 g/dL Red Cell Distribution Width 15.7 H 11.8-14.3 % Platelet Count 144 140-450 10^3/uL Mean Platelet Volume 7.9 6.9-10.8 fL Neutrophils (%) (Auto) 90.6 H 37.0-80.0 % Lymphocytes (%) (Auto) 4.9 L 10.0-50.0 % Monocytes (%) (Auto) 4.2 0.0-12.0 % Eosinophils (%) (Auto) 0.2 0.0-7.0 % Basophils (%) (Auto) 0.1 0.0-2.0 % Neutrophils # (Auto) 6.7 1.6-8.6 10 ^3/uL Lymphocytes # (Auto) 0.4 0.4-5.4 10 ^3/uL Monocytes # (Auto) 0.3 0-1.3 10 ^3/uL Eosinophils # (Auto) 0 0-0.8 10 ^3/uL Basophils # (Auto) 0 0-0.2 10 ^3/uL Nucleated Red Blood Cells 0.0 % Sodium Level 139 136-145 mmol/L Potassium Level 4.8 3.5-5.1 mmol/L Chloride Level 105 98-107 mmol/L Carbon Dioxide Level 23 20-31 mmol/L Anion Gap 11 5-15 Blood Urea Nitrogen 22 9-23 mg/dL Creatinine 1.14 H 0.550-1.02 mg/dL Glomerular Filtration Rate Calc 55 >90 mL/min BUN/Creatinine Ratio 19.3 10.0-20.0 Serum Glucose 274 H 74-106 mg/dL Calcium Level 10.0 8.7-10.4 mg/dL Total Bilirubin 0.5 0.2-1.0 mg/dL Aspartate Amino Transferase (AST) 30 13-40 U/L Alanine Aminotransferase (ALT) 29 7-40 U/L Alkaline Phosphatase 108 46-116 U/L Troponin I High Sensitivity < 3 L </=34 ng/L Total Protein 6.9 5.7-8.2 g/dL Albumin 4.5 3.2-4.8 g/dL EXAM: CT HEAD WITHOUT CONTRAST FINDINGS: Supratentorial Region: No evidence for large acute territorial ischemia. No intracranial hemorrhage is noted. Posterior Fossa: No acute abnormality. Brainstem: Unremarkable. Sellar/Suprasellar Region: Unremarkable. Ventricles, Cisterns, Sulci: Age-appropriate. Orbits: Unremarkable. Paranasal Sinuses: Unremarkable. Mastoid Air Cells: Unremarkable. Vasculature: Unremarkable. Bones/Soft Tissues: No acute abnormality. Other: None. IMPRESSION: 1. No acute intracranial process. Procedure: XY CHEST PORTABLE FINDINGS: Medical devices: None. Cardiomediastinal: The heart is normal in size. Pulmonary vasculature is within normal limits. Lungs: Mild hazy opacity seen throughout the left lung which is probably artifactual due to moderate rotation to the left. The costophrenic angles are clear. No pneumothorax. Bones/soft tissues: No acute abnormality is noted. IMPRESSION: 1. No acute cardiopulmonary disease. Assessment/Plan Assessment/Plan Assessment: Sepsis due to urinary tract infection, Metabolic encephalopathy, Hyperglycemia, Obesity, Diabetes, PTSD, Depression, Anxiety, Plan: Admit to Tele, IV antibiotics, IV hydration, Kidney ultrasound, Urine culture, Blood culture, Accu checks Q AC&HS, Home medications reconciled, Plan discussed with: Patient, Spouse My Orders Orders - PATEL LANDAVERDE [employer] Procedure Category Date Status Time Kidney US 12/08/24 Logged 15:25 Admit ADMIT 12/08/24 Transmitted 15:25 Code Status CODE 12/08/24 Transmitted 15:25 2 Gm Sodium Diet DIET 12/08/24 Transmitted Dinner Sodium Chloride Lock PHA 12/08/24 Logged (Saline Lock Ns) 22:00 Hydrocodone-Acet PHA 12/08/24 Logged 5/325mg Tab (Badger 15:30 Ondansetron Hcl PHA 12/08/24 Logged (Zofran) 15:30 Docusate Sodium PHA 12/08/24 Logged Capsule (Colace 15:30 Fall Risk Precautions ANNE-MARIE 12/08/[address] 15:25 Complete Blood Count LAB 12/09/24 Verified 04:00 Comprehensive LAB 12/09/24 Verified Metabolic Panel 04:00 Condition: Critical ANNE-MARIE 12/08/24 In Process 15:25 Acetaminophen Tablet PHA 12/08/24 Logged (Tylenol Tablet) 15:30 Nitroglycerin PHA 12/08/24 Logged Sublingual (Ntrostat 15:30 Morphine Sulfate PHA 12/08/24 Logged Injection 15:30 Stat Ekg For Chest ANNE-MARIE 12/08/24 In Process Pain 15:25 Notify Md Of Changes ANNE-MARIE 12/08/24 In Process From Base 15:25 Data Base Design Analyst For ANNE-MARIE 12/08/24 In Process 24 Hours 15:25 Emergency Dysrhythmia ANNE-MARIE 12/08/24 In Process Protocol 15:25 Rhythm Strips Once ANNE-MARIE 12/08/24 In Process Every Shift 15:25 Oxygen By Nasal RT 12/08/24 Transmitted Cannula 15:25 Ketorolac Injection PHA 12/08/24 Logged (Toradol Injection) 15:30 Glucose Blood PHA 12/08/24 Logged (Accu-Chek Comfort 17:00 Insulin R (Human) PHA 12/08/24 Logged (Insulin R) 22:00 Insulin R (Human) PHA 12/08/24 Logged (Insulin R) 17:00 Dextrose 50% Syringe PHA 12/08/24 Logged 15:30 Metoprolol Xl PHA 12/09/24 Logged Succinate (Toprol Xl) 10:00 (Nf) Amitriptyline Hcl PHA 12/08/24 Logged 22:00 (Nf) Lamotrigine PHA 12/08/24 Logged 22:00 (Nf) Venlafaxine PHA 12/09/24 Logged Hydrochloride 10:00 Urine Bacterial FAHEEM 12/08/24 Logged Culture 15:37 Piperacillin-Tazob PHA 12/08/24 Logged 3.375gm (Zosyn 3.375g 22:00 Lactic Acid W/ Reflex LAB 12/08/24 Verified Order 15:40 Date of Service: Dec 08, 2024 Billing Provider: PATEL LANDAVERDE Common Visit Codes: [id number] INP/OBS CARE (MOD) PATEL LANDAVERDE Dec 08, 2024 16:01
[2024-12-08] MEDS: HYDROcodone-ACET 5/325MG TAB PO PRN (16:07)
[2024-12-08] MEDS: InsuLIN REG 1unit/0.01ml Soln (100units/ml) SC SCH ×2 (17:00→22:22)
[2024-12-08] MEDS: ACCU-CHEK COMFORT CURVE STRIP VI SCH (17:40)
--- NOTE | 2024-12-08 17:44 | DVH ---
INDICATION: right flank pain TECHNIQUE: Multiple real-time sonographic images of the kidneys and bladder were obtained. COMPARISON: None FINDINGS: Right kidney measures 11.2 cm in length and the left kidney measures 8.7 cm in length. There are no c ysts stones or hydronephrosis in either kidney. Cortex of the right kidney measures 1.5 cm in thickne ss cortex of the left kidney measures 2.45 cm in thickness. . IMPRESSION: Generally unremarkable study
[2024-12-08 19:43] VITALS: PULSE 120; RESP 17; O2SAT 96
[2024-12-08] MEDS ORDERED: PATIENTS OWN MEDICATION (Lamotrigine 1 TAB) PO SCH (22:00)
[2024-12-08] MEDS ORDERED: AMITRIPTYLINE HCL PO SCH (22:00)
[2024-12-08] MEDS: SODIUM CHLOR 0.9% PF (SALINE LOCK) 10ML VIAL/SYR IV SCH (22:02)
[2024-12-08] MEDS: GABAPENTIN 300 MG CAP PO SCH (22:22)
[2024-12-08] MEDS: AMITRIPTYLINE HCL 25 MG TAB PO SCH (22:22)
[2024-12-08] MEDS: lamoTRIgine 100 MG TAB PO SCH (22:22)
[2024-12-08] MEDS: PIPERACILLIN-TAZOB 3.375GM 100 ML IV SCH (22:22)
[2024-12-08] MEDS: HYDROcodone-ACET 5/325MG TAB PO ONE (23:50)
[2024-12-09 06:22] LABS: Alanine Aminotransferase 21 U/L (7-40); Albumin 3.9 g/dL (3.2-4.8); Alkaline Phosphatase 78 U/L (46-116); Anion Gap 11 (5-15); Aspartate Aminotransferase 24 U/L (13-40); BUN/Creatinine Ratio 15.4 (10.0-20.0); Blood Urea Nitrogen 14 mg/dL (9-23); Calcium 9.3 mg/dL (8.7-10.4); Carbon Dioxide 21 mmol/L (20-31); Potassium 4.5 mmol/L (3.5-5.1); Sodium 139 mmol/L (136-145)
[2024-12-09 06:23] LABS: Bilirubin, Total 0.7 mg/dL (0.2-1.0); Total Protein 5.7 g/dL (5.7-8.2)
[2024-12-09 06:26] LABS: Chloride 107 mmol/L (98-107); Glucose 148 mg/dL (74-106)
[2024-12-09 06:56] LABS: Basophils # (auto) 0 10 ^3/uL (0-0.2); Basophils % (auto) 0.2 % (0.0-2.0); Eosinophils # (auto) 0.1 10 ^3/uL (0-0.8); Eosinophils % (auto) 0.8 % (0.0-7.0); Hematocrit 36.4 % (36.0-46.0); Lymphocytes % (auto) 14.5 % (10.0-50.0); Mean Corpuscular Hemoglobin 29.4 pg (28.0-32.0); Mean Corpuscular Hgb Conc. 32.8 g/dL (32.0-36.0); Mean Corpuscular Volume 89.6 fL (80.0-100.0); Monocytes # (auto) 0.5 10 ^3/uL (0-1.3); Monocytes % (auto) 6.8 % (0.0-12.0); Neutrophils # (auto) 5.4 10 ^3/uL (1.6-8.6); Neutrophils % (auto) 77.7 % (37.0-80.0); Platelet Count (auto) 93 10^3/uL (140-450); Red Blood Cells 4.06 10^6/uL (4.0-5.20); Red Cell Distribution Width 15.8 % (11.8-14.3); White Blood Cell 6.9 10^3/uL (4.4-10.8)
[2024-12-09 07:45] VITALS: PULSE 118; RESP 23; O2SAT 94
[2024-12-09] MEDS: VENLAFAXINE HYDROCHLORIDE 150 MG PO SCH (10:00)
[2024-12-09] MEDS: METOPROLOL SUCCINATE XL 50 MG TAB PO SCH (10:17)
--- NOTE | 2024-12-09 16:00 | DVHPN2 ---
Subjective 12/09 - very nervous and axiety lady. AOx3-4 now. agrees she is coming back to her baseline normal self. no suprapubic TTP, no CVA TTP. she feels hot with chills. will continue treatment for complicated cystitis Reviewed: H&P Changes from previous H/P or p: No Changes General: Per HPI Objective Vitals Vital Signs Date Time Temp Pulse Resp B/P (MAP) Pulse Ox O2 Delivery O2 Flow Rate FiO2 12/09/24 12:00 98.2 99 22 122/50 (74) 100 98.2 12/09/24 07:45 Nasal Cannula* 2 28 Intake/Output Intake and Output 12/09/24 07:00 Intake Total 3550 ml Output Total 2150 ml Balance 1400 ml Intake Oral 250 ml IV Total 3300 ml Output Urine Total 2150 ml # Voids 1 # Bowel Movements 1 Exam GEN: Healthy appearing, well-developed, NAD. HEENT: NC/AT; MMM. CV: RRR, no m/r/g. LUNGS: CTAB, no w/r/c. ABD: Soft, NT/ND, NBS, no masses or organomegaly. EXT: skin Warm, well perfused. no rashes. No clubbing, cyanosis, or edema. NEURO: Ambulating with no limitations. No focal deficits. Medications Current Medications Medications Dose Ordered Sig/Nery Route Start Time Stop Time Status Last Admin Dose Admin Sodium Chloride 10 ml Q8HR IV 12/08/24 22:00 12/09/24 13:05 10 ML Acetaminophen/ Hydrocodone Bitart 1 tab Q4HP PRN PO 12/08/24 15:30 12/09/24 13:10 1 TAB Ondansetron HCl 4 mg Q4HP PRN IV 12/08/24 15:30 Docusate Sodium 100 mg BIDPRN PRN PO 12/08/24 15:30 Acetaminophen 650 mg Q6HP PRN PO 12/08/24 15:30 Nitroglycerin 0.4 mg Q5MINP PRN SL 12/08/24 15:30 Morphine Sulfate 2 mg Q30M PRN IV 12/08/24 15:30 Ketorolac Tromethamine 30 mg Q6HPRN PRN IV 12/08/24 15:30 12/13/24 15:29 12/09/24 08:15 30 MG Diagnostic Test (Pha) 1 strip ACHS 12/08/24 17:00 12/09/24 11:30 1 STRIP Insulin Human Regular HS SC 12/08/24 22:00 12/08/24 22:22 4 UNITS Insulin Human Regular AC SC 12/08/24 17:00 12/09/24 12:11 6 UNITS Dextrose 50 ml UD PRN IV 12/08/24 15:30 Metoprolol Succinate 50 mg DAILY PO 12/09/24 10:00 12/09/24 10:17 50 MG Patient Own Medication 1 tab HS PO 12/08/24 22:00 Cancel Patient Own Medication 1 tab HS PO 12/08/24 22:00 UNV Patient Own Medication 1 cap DAILY PO 12/09/24 10:00 Piperacillin Sod/ Tazobactam Sod 100 ml @ 25 mls/hr Q8HR IV 12/08/24 22:00 12/09/24 13:37 25 MLS/HR Amitriptyline HCl 100 mg HS PO 12/08/24 22:00 12/08/24 22:22 100 MG Lamotrigine 200 mg HS PO 12/08/24 22:00 12/08/24 22:22 200 MG Gabapentin 300 mg TID PO 12/08/24 22:00 12/09/24 13:38 300 MG Laboratory Results Laboratory Tests 12/09/24 05:46 12/09/24 06:25 Chemistry Test 12/09/24 05:46 Albumin 3.9 g/dL (3.2-4.8) Calcium Level 9.3 mg/dL (8.7-10.4) Total Protein 5.7 g/dL (5.7-8.2) LFT Test 12/09/24 05:46 Alanine Aminotransferase (ALT) 21 U/L (7-40) Alkaline Phosphatase 78 U/L (46-116) Aspartate Amino Transferase (AST) 24 U/L (13-40) Total Bilirubin 0.7 mg/dL (0.2-1.0) Urinalysis Test 12/08/24 08:30 Urine Color Dark-yellow (Yellow) Urine Clarity Clear (Clear) Urine pH 5.5 (5.0-9.0) Urine Specific [place] 1.044 (1.001-1.035) Urine Protein 1+ (Negative) H Urine Ketones Trace (Negative) Urine Blood 1+ /uL (Negative) H Urine Nitrite Negative (Negative) Urine Bilirubin 1+ (Negative) H Urine Urobilinogen 4 mg/dL (Negative) H Urine Leukocyte Esterase 2+ /uL (Negative) Urine RBC 27 /hpf (0 - 4) Urine Microscopic WBC 12 /HPF (0-5) H Urine Squamous Epithelial Cells Few /hpf (<5) Urine Bacteria None seen /hpf (None Seen) Urine Hyaline Casts Few /lpf (0 - 2) Urine Mucus Few (None Seen) Urine Glucose Normal mg/dL (Normal) Microbiology Microbiology Date/Time Source Procedure Growth Status 12/08/24 08:30 Voided Urine Urine Culture - Preliminary Resulted 12/08/24 07:14 Blood Blood Culture - Preliminary NO GROWTH AFTER 24 HOURS OF INCUBATION. Resulted Labs and/or images reviewed: Labs reviewed by me, Image(s) reviewed by me Assessment/Plan Assessment/Plan 12/09 - very nervous and axiety lady. AOx3-4 now. agrees she is coming back to her baseline normal self. no suprapubic TTP, no CVA TTP. she feels hot with chills. will continue treatment for complicated cystitis Sepsis due to cystitis Acute complicated cystitis, bacterial likely Tachycardia Neutrophilia Thrombocytopenia Anemia CHAVA due to VMN Intravascular volume depletion ALOC due to cystitis/infection as above Lactic acidosis due to sepsis Diabetes with hyperglycemia - sliding scale insulin moderate a.c. HS PTSD - Depression - Anxiety - continue Elavil, Lamictal, venlafaxine Diabetic neuropathy continue gabapentin Asthma Osteoarthritis Hypertension - home metoprolol - on presentation patient is tachycardic and tachypneic with low blood pressure readings. - labs show neutrophilia but no leukocytosis. Lactic acid of 4.7 - chest x-ray unconcerning, no signs of pneumonia or no infiltrates -Head CT is unconcerning -Renal ultrasound with normal findings -UA with SG 1.04, 1+ protein, 2+ blood, 1+ bili,, -UA concerning for UTI with leukocyte esterase positive, WBC 12, but no urine bacteria. -start broad-spectrum antibiotics Zosyn -status post bolus IV fluids, p.o. hydration thereafter -pending blood culture and urine culture Diet carb consistent DVT Lovenox GI Protonix p.o. Med surge Full code Plan discussed with: Patient Date of Service: Dec 09, 2024 Billing Provider: TOSHIA BILLS MD Common Visit Codes: [id number] INP/OBS CARE(HIGH) TOSHIA BILLS MD Dec 09, 2024 16:00
[2024-12-09 19:30] VITALS: PULSE 118; RESP 23; O2SAT 94
[2024-12-10] MEDS: LORazepam 2MG/ML-1ML VIAL IV PRN (01:02)
[2024-12-10 09:00] VITALS: PULSE 94; RESP 21; O2SAT 94
[2024-12-10 11:13] LABS: Basophils # (auto) 0 10 ^3/uL (0-0.2); Basophils % (auto) 0.3 % (0.0-2.0); Eosinophils # (auto) 0.1 10 ^3/uL (0-0.8); Hematocrit 33.3 % (36.0-46.0); Hemoglobin 11.2 g/dL (12.2-16.2); Lymphocytes # (auto) 0.9 10 ^3/uL (0.4-5.4); Lymphocytes % (auto) 20.9 % (10.0-50.0); Mean Corpuscular Hemoglobin 29.6 pg (28.0-32.0); Mean Corpuscular Hgb Conc. 33.5 g/dL (32.0-36.0); Mean Corpuscular Volume 88.3 fL (80.0-100.0); Monocytes # (auto) 0.2 10 ^3/uL (0-1.3); Monocytes % (auto) 3.6 % (0.0-12.0); Neutrophils # (auto) 3.3 10 ^3/uL (1.6-8.6); Neutrophils % (auto) 73.2 % (37.0-80.0); Nucleated Red Blood Cells % 0.1 %; Platelet Count (auto) 112 10^3/uL (140-450); Red Blood Cells 3.78 10^6/uL (4.0-5.20); Red Cell Distribution Width 15.2 % (11.8-14.3); White Blood Cell 4.5 10^3/uL (4.4-10.8)
[2024-12-10 11:34] LABS: Alanine Aminotransferase 16 U/L (7-40); Albumin 3.7 g/dL (3.2-4.8); Alkaline Phosphatase 73 U/L (46-116); Anion Gap 8 (5-15); BUN/Creatinine Ratio 12.7 (10.0-20.0); Blood Urea Nitrogen 10 mg/dL (9-23); Calcium 9.6 mg/dL (8.7-10.4); Carbon Dioxide 27 mmol/L (20-31); Chloride 104 mmol/L (98-107); Potassium 3.9 mmol/L (3.5-5.1); Sodium 139 mmol/L (136-145)
[2024-12-10 11:35] LABS: Bilirubin, Total 0.6 mg/dL (0.2-1.0); Total Protein 5.9 g/dL (5.7-8.2)
[2024-12-10 11:41] LABS: Aspartate Aminotransferase < 8 U/L (13-40); Glucose 200 mg/dL (74-106)
--- NOTE | 2024-12-10 15:47 | DVHPN2 ---
Subjective 12/10 update 12/09 - very nervous and axiety lady. AOx3-4 now. agrees she is coming back to her baseline normal self. no suprapubic TTP, no CVA TTP. she feels hot with chills. will continue treatment for complicated cystitis 12/10 - is doing well: Less anxious. Urine cultures still negative. Patient endorsed that prior to her becoming confused she had back pain/flank pain and has history of renal stones. Patient endorsing that she was given sepsis fluids and felt that a renal stone had relieved due to increased urine output. Patient continues to be weak and is currently bed-bound. Condition remains improved, at baseline, A&O times 3-4. No CVA tenderness, we will get CT to rule out renal stones. We will give further workup to rule out other causes of AMS. Order PT eval. Keep antibiotics for probable sepsis due to UTI Reviewed: H&P Changes from previous H/P or p: No Changes General: Per HPI Objective Vitals Vital Signs Date Time Temp Pulse Resp B/P (MAP) Pulse Ox O2 Delivery O2 Flow Rate FiO2 12/10/24 12:00 88 17 131/69 (89) 99 12/10/24 09:00 Nasal Cannula* 2 28 12/09/24 16:51 98.4 98.4 Intake/Output Intake and Output 12/10/24 07:00 Intake Total 775 ml Output Total 2500 ml Balance -1725 ml Intake Oral 600 ml IV Total 175 ml Output Urine Total 2500 ml Exam GEN: Healthy appearing, well-developed, NAD. HEENT: NC/AT; MMM. CV: RRR, no m/r/g. LUNGS: CTAB, no w/r/c. ABD: Soft, NT/ND, NBS, no masses or organomegaly. EXT: skin Warm, well perfused. no rashes. No clubbing, cyanosis, or edema. NEURO: Ambulating with no limitations. No focal deficits. Medications Current Medications Medications Dose Ordered Sig/Nery Route Start Time Stop Time Status Last Admin Dose Admin Sodium Chloride 10 ml Q8HR IV 12/08/24 22:00 12/10/24 14:00 10 ML Acetaminophen/ Hydrocodone Bitart 1 tab Q4HP PRN PO 12/08/24 15:30 12/09/24 13:10 1 TAB Ondansetron HCl 4 mg Q4HP PRN IV 12/08/24 15:30 Docusate Sodium 100 mg BIDPRN PRN PO 12/08/24 15:30 Acetaminophen 650 mg Q6HP PRN PO 12/08/24 15:30 Nitroglycerin 0.4 mg Q5MINP PRN SL 12/08/24 15:30 Morphine Sulfate 2 mg Q30M PRN IV 12/08/24 15:30 Ketorolac Tromethamine 30 mg Q6HPRN PRN IV 12/08/24 15:30 12/13/24 15:29 12/09/24 08:15 30 MG Diagnostic Test (Pha) 1 strip ACHS 12/08/24 17:00 12/10/24 11:30 1 STRIP Insulin Human Regular HS SC 12/08/24 22:00 12/10/24 00:40 3 UNITS Insulin Human Regular AC SC 12/08/24 17:00 12/10/24 12:03 2 UNITS Dextrose 50 ml UD PRN IV 12/08/24 15:30 Metoprolol Succinate 50 mg DAILY PO 12/09/24 10:00 12/10/24 10:57 50 MG Patient Own Medication 1 tab HS PO 12/08/24 22:00 Cancel Patient Own Medication 1 tab HS PO 12/08/24 22:00 UNV Patient Own Medication 1 cap DAILY PO 12/09/24 10:00 Piperacillin Sod/ Tazobactam Sod 100 ml @ 25 mls/hr Q8HR IV 12/08/24 22:00 12/10/24 14:28 25 MLS/HR Amitriptyline HCl 100 mg HS PO 12/08/24 22:00 12/10/24 00:58 100 MG Lamotrigine 200 mg HS PO 12/08/24 22:00 12/09/24 23:57 200 MG Gabapentin 300 mg TID PO 12/08/24 22:00 12/10/24 14:28 300 MG Lorazepam 1 mg Q8HP PRN IV 12/10/24 01:00 12/10/24 01:02 1 MG Laboratory Results Laboratory Tests 12/10/24 10:49 Chemistry Test 12/10/24 10:49 Albumin 3.7 g/dL (3.2-4.8) Calcium Level 9.6 mg/dL (8.7-10.4) Total Protein 5.9 g/dL (5.7-8.2) LFT Test 12/10/24 10:49 Alanine Aminotransferase (ALT) 16 U/L (7-40) Alkaline Phosphatase 73 U/L (46-116) Aspartate Amino Transferase (AST) < 8 U/L (13-40) L Total Bilirubin 0.6 mg/dL (0.2-1.0) HgA1c, TSH Test 12/10/24 10:49 Thyroid Stimulating Hormone (TSH) 3.08 uIU/mL (0.55-4.78) Urinalysis Test 12/08/24 08:30 Urine Color Dark-yellow (Yellow) Urine Clarity Clear (Clear) Urine pH 5.5 (5.0-9.0) Urine Specific [place] 1.044 (1.001-1.035) Urine Protein 1+ (Negative) H Urine Ketones Trace (Negative) Urine Blood 1+ /uL (Negative) H Urine Nitrite Negative (Negative) Urine Bilirubin 1+ (Negative) H Urine Urobilinogen 4 mg/dL (Negative) H Urine Leukocyte Esterase 2+ /uL (Negative) Urine RBC 27 /hpf (0 - 4) Urine Microscopic WBC 12 /HPF (0-5) H Urine Squamous Epithelial Cells Few /hpf (<5) Urine Bacteria None seen /hpf (None Seen) Urine Hyaline Casts Few /lpf (0 - 2) Urine Mucus Few (None Seen) Urine Glucose Normal mg/dL (Normal) Microbiology Microbiology Date/Time Source Procedure Growth Status 12/08/24 08:30 Voided Urine Urine Culture - Preliminary Resulted 12/08/24 07:14 Blood Blood Culture - Preliminary NO GROWTH AFTER 48 HOURS OF INCUBATION. Resulted Labs and/or images reviewed: Labs reviewed by me, Image(s) reviewed by me Assessment/Plan Assessment/Plan 12/10 - is doing well: Less anxious. Urine cultures still negative. Patient endorsed that prior to her becoming confused she had back pain/flank pain and has history of renal stones. Patient endorsing that she was given sepsis fluids and felt that a renal stone had relieved due to increased urine output. Patient continues to be weak and is currently bed-bound. Condition remains improved, at baseline, A&O times 3-4. No CVA tenderness, we will get CT to rule out renal stones. We will give further workup to rule out other causes of AMS. Order PT eval. Keep antibiotics for probable sepsis due to UTI Sepsis due to cystitis Acute complicated cystitis, bacterial likely acute toxic encephalopathy due to cystitis/infection as above, resolved acute hypoxic respiratory failure, likely atelectasis due to bed bound Tachycardia Neutrophilia Thrombocytopenia Anemia CHAVA due to VMN, resolved sp ivf Intravascular volume depletion Lactic acidosis due to sepsis Diabetes with hyperglycemia - sliding scale insulin moderate a.c. HS PTSD - Depression - Anxiety - continue Elavil, Lamictal, venlafaxine Diabetic neuropathy continue gabapentin Asthma Osteoarthritis Hypertension - home metoprolol - on presentation patient is tachycardic and tachypneic with low blood pressure readings. - labs show neutrophilia but no leukocytosis. Lactic acid of 4.7 - chest x-ray unconcerning, no signs of pneumonia or no infiltrates -Head CT is unconcerning -Renal ultrasound with normal findings -UA with SG 1.04, 1+ protein, 2+ blood, 1+ bili,, - TSH and ammonia wnl -UA concerning for UTI with leukocyte esterase positive, WBC 12, but no urine bacteria. - cause: UTI likely. maybe infection somewhere else tx by broad abx. also possible if it was renal stone that pain can caused ALOC. -start broad-spectrum antibiotics Zosyn -status post bolus IV fluids, p.o. hydration thereafter -pending blood culture and urine culture - NGTD. - PT eval . Diet carb consistent DVT Lovenox GI Protonix p.o. Med surge Full code Plan discussed with: Patient My Orders Orders - TOSHIA BILLS MD Procedure Category Date Status Time Ct Ab Pel Wo Con-No CT 12/10/24 Logged Oral Or Iv 15:34 Date of Service: Dec 10, 2024 Billing Provider: TOSHIA BILLS MD Common Visit Codes: [id number] INP/OBS CARE(HIGH) TOSHIA BILLS MD Dec 10, 2024 15:47
--- NOTE | 2024-12-10 16:13 | DVH ---
Exam: CT CT AB PEL WO CON-NO ORAL OR IV History: abd pain/flank pain - eval for renal stones Comparison Study: CT CT AB PEL WO CON-NO ORAL OR IV on DOS: 07/22/24, CT CT AB PEL WO CON-NO ORAL OR IV on DOS: 10/21/23, CT CT AB PEL WO CON-NO ORAL OR IV on DOS: 09/25/23 Technique: Multidetector spiral CT of the abdomen was performed from lung bases to pubic symphysis. Imaging was performed without IV contrast. Axial, coronal and sagittal multiplanar reformats were ob tained from the axial data set by the technologist. Radiation dose : 1. Abdomen/Pelvis: CTDIvol 25 mGy, DLP 1488 mGy*cm. Findings: Evaluation of solid organs is limited due to lack of intravenous contrast use. Lung Bases: No acute or significant lung base finding. Normal heart size. No pleural or pericardial effusion. Liver: The liver is normal in size. No focal lesions. Gallbladder and biliary Tree: Cholecystectomy. Spleen: Unremarkable Pancreas: The pancreas is grossly normal in appearance. Adrenal Glands: Unremarkable Kidneys: No hydroureteronephrosis. No renal calculi. No ureteral calculi. Bladder: Grossly unremarkable for degree of distention. Bowel: The stomach is grossly normal in appearance. Small bowel and colon are normal in caliber and d istribution. The appendix is not visualized; however, no secondary findings of acute appendicitis id entified. Moderate fecal residue seen throughout the colon without diverticulitis. No bowel obstructi on. Ascites: Absent Lymphadenopathy: No mesenteric, retroperitoneal or periportal lymphadenopathy. Abdominal wall and Mesentery: Prior hernia seen on the CT study from 2023 not identified on today's e xam. Vasculature: The visualized abdominal aorta is normal in size and caliber. Evaluation of abdominal a nd pelvic vessels is limited due to lack of intravenous contrast. Pelvic Organs: Unremarkable Musculoskeletal: No aggressive focal bony lesions, acute fractures or dislocation. IMPRESSION: 1. No acute abdominal or pelvic findings. 2. No obstructive uropathy. Nicole catheter in the bladder. 3. Appendix not visualized 4. Moderate fecal residue throughout the colon. Radiation optimization: All CT scans at this facility use at least one of these dose optimization mikala hniques: Automated exposure control mA and/or kV adjustment per patient size (includes targeted exams where dose is matched to clinical indication) or iterative reconstruction.
[2024-12-10 20:00] VITALS: PULSE 88
[2024-12-10 21:00] VITALS: BP 135/66; PULSE 105; RESP 18; TEMP 98.3; O2SAT 93
[2024-12-11] VITALS (8 sets, daily range): BP systolic 90–161; BP diastolic 61–82; PULSE 79–110; RESP 17–20; TEMP 97.7–98.7; O2SAT 95–100
[2024-12-11 06:58] LABS: Basophils # (auto) 0 10 ^3/uL (0-0.2); Basophils % (auto) 0.2 % (0.0-2.0); Eosinophils # (auto) 0.1 10 ^3/uL (0-0.8); Eosinophils % (auto) 4.1 % (0.0-7.0); Hematocrit 34.1 % (36.0-46.0); Hemoglobin 11.4 g/dL (12.2-16.2); Lymphocytes % (auto) 31.2 % (10.0-50.0); Mean Corpuscular Hemoglobin 29.7 pg (28.0-32.0); Mean Corpuscular Hgb Conc. 33.5 g/dL (32.0-36.0); Mean Corpuscular Volume 88.7 fL (80.0-100.0); Monocytes # (auto) 0.2 10 ^3/uL (0-1.3); Monocytes % (auto) 5.6 % (0.0-12.0); Neutrophils % (auto) 58.9 % (37.0-80.0); Nucleated Red Blood Cells % 0.1 %; Platelet Count (auto) 131 10^3/uL (140-450); Red Blood Cells 3.84 10^6/uL (4.0-5.20); Red Cell Distribution Width 15.2 % (11.8-14.3); White Blood Cell 3.3 10^3/uL (4.4-10.8)
[2024-12-11 07:09] LABS: Alanine Aminotransferase 17 U/L (7-40); Alkaline Phosphatase 74 U/L (46-116); Anion Gap 8 (5-15); BUN/Creatinine Ratio 11.5 (10.0-20.0); Calcium 9.6 mg/dL (8.7-10.4); Carbon Dioxide 28 mmol/L (20-31); Chloride 105 mmol/L (98-107); Sodium 141 mmol/L (136-145)
[2024-12-11 07:10] LABS: Albumin 3.9 g/dL (3.2-4.8); Aspartate Aminotransferase 33 U/L (13-40)
[2024-12-11 07:11] LABS: Bilirubin, Total 0.5 mg/dL (0.2-1.0)
[2024-12-11 07:17] LABS: Blood Urea Nitrogen 9 mg/dL (9-23); Glucose 115 mg/dL (74-106); Potassium 3.3 mmol/L (3.5-5.1)
--- NOTE | 2024-12-11 14:55 | DVHPN2 ---
Subjective The patient is seen and examined at bedside. Still complain of weakness. at bedside. Reviewed: H&P Changes from previous H/P or p: No Changes General: Per HPI Objective Vitals Vital Signs Date Time Temp Pulse Resp B/P (MAP) Pulse Ox O2 Delivery O2 Flow Rate FiO2 12/11/24 09:53 79 143/61 12/11/24 09:01 98.7 19 100 98.7 12/11/24 08:00 Room Air* 0 21 Intake/Output Intake and Output 12/11/24 07:00 Intake Total 1345 ml Output Total 1800 ml Balance -455 ml Intake Oral 1145 ml IV Total 200 ml Output Urine Total 1800 ml # Bowel Movements 2 General Appearance: Alert, Cooperative HEENT: Atraumatic, PERRLA, EOMI, Mucous membr. moist/pink Neck: Supple Lungs: Clear to auscultation, Normal air movement Cardiovascular: Regular rate, Normal S1, Normal S2, No murmurs, Gallops, Rubs Abdomen: Normal bowel sounds, Soft Neuro: Cranial nerves 3-12 NL Psych/Mental Status: Mental status NL Medications Current Medications Medications Dose Ordered Sig/Nery Route Start Time Stop Time Status Last Admin Dose Admin Sodium Chloride 10 ml Q8HR IV 12/08/24 22:00 12/11/24 14:37 10 ML Acetaminophen/ Hydrocodone Bitart 1 tab Q4HP PRN PO 12/08/24 15:30 12/09/24 13:10 1 TAB Ondansetron HCl 4 mg Q4HP PRN IV 12/08/24 15:30 Docusate Sodium 100 mg BIDPRN PRN PO 12/08/24 15:30 Acetaminophen 650 mg Q6HP PRN PO 12/08/24 15:30 Nitroglycerin 0.4 mg Q5MINP PRN SL 12/08/24 15:30 Morphine Sulfate 2 mg Q30M PRN IV 12/08/24 15:30 Ketorolac Tromethamine 30 mg Q6HPRN PRN IV 12/08/24 15:30 12/13/24 15:29 12/09/24 08:15 30 MG Diagnostic Test (Pha) 1 strip ACHS 12/08/24 17:00 12/11/24 12:21 1 STRIP Insulin Human Regular HS SC 12/08/24 22:00 12/10/24 21:59 3 UNITS Insulin Human Regular AC SC 12/08/24 17:00 12/11/24 12:27 2 UNITS Dextrose 50 ml UD PRN IV 12/08/24 15:30 Metoprolol Succinate 50 mg DAILY PO 12/09/24 10:00 12/11/24 09:53 50 MG Patient Own Medication 1 tab HS PO 12/08/24 22:00 Cancel Patient Own Medication 1 tab HS PO 12/08/24 22:00 UNV Patient Own Medication 1 cap DAILY PO 12/09/24 10:00 Piperacillin Sod/ Tazobactam Sod 100 ml @ 25 mls/hr Q8HR IV 12/08/24 22:00 12/11/24 14:37 25 MLS/HR Amitriptyline HCl 100 mg HS PO 12/08/24 22:00 12/10/24 22:02 100 MG Lamotrigine 200 mg HS PO 12/08/24 22:00 12/10/24 22:03 200 MG Gabapentin 300 mg TID PO 12/08/24 22:00 12/11/24 14:37 300 MG Lorazepam 1 mg Q8HP PRN IV 12/10/24 01:00 12/10/24 01:02 1 MG Laboratory Results Laboratory Tests 12/11/24 05:00 Chemistry Test 12/11/24 05:00 Albumin 3.9 g/dL (3.2-4.8) Calcium Level 9.6 mg/dL (8.7-10.4) Total Protein 6.0 g/dL (5.7-8.2) LFT Test 12/11/24 05:00 Alanine Aminotransferase (ALT) 17 U/L (7-40) Alkaline Phosphatase 74 U/L (46-116) Aspartate Amino Transferase (AST) 33 U/L (13-40) Total Bilirubin 0.5 mg/dL (0.2-1.0) Urinalysis Test 12/08/24 08:30 Urine Color Dark-yellow (Yellow) Urine Clarity Clear (Clear) Urine pH 5.5 (5.0-9.0) Urine Specific [place] 1.044 (1.001-1.035) Urine Protein 1+ (Negative) H Urine Ketones Trace (Negative) Urine Blood 1+ /uL (Negative) H Urine Nitrite Negative (Negative) Urine Bilirubin 1+ (Negative) H Urine Urobilinogen 4 mg/dL (Negative) H Urine Leukocyte Esterase 2+ /uL (Negative) Urine RBC 27 /hpf (0 - 4) Urine Microscopic WBC 12 /HPF (0-5) H Urine Squamous Epithelial Cells Few /hpf (<5) Urine Bacteria None seen /hpf (None Seen) Urine Hyaline Casts Few /lpf (0 - 2) Urine Mucus Few (None Seen) Urine Glucose Normal mg/dL (Normal) Microbiology Microbiology Date/Time Source Procedure Growth Status 12/08/24 08:30 Voided Urine Urine Culture - Final Complete 12/08/24 07:14 Blood Blood Culture - Preliminary NO GROWTH AFTER 72 HOURS OF INCUBATION. Resulted Labs and/or images reviewed: Labs reviewed by me Assessment/Plan Assessment/Plan Sepsis due to cystitis Acute complicated cystitis, bacterial likely acute toxic encephalopathy due to cystitis/infection as above, resolved acute hypoxic respiratory failure, likely atelectasis due to bed bound Tachycardia Neutrophilia Thrombocytopenia Anemia CHAVA due to VMN, resolved sp ivf Intravascular volume depletion Lactic acidosis due to sepsis Diabetes with hyperglycemia - sliding scale insulin moderate a.c. HS PTSD - Depression - Anxiety - continue Elavil, Lamictal, venlafaxine Diabetic neuropathy continue gabapentin Asthma Osteoarthritis Hypertension - home metoprolol Continuing current management with IV antibiotic, Zosyn. Waiting for culture. Continuing physical therapy Encouraged the patient to be out of bed and ambulate Discharge planning This medical document was created using an electronic medical record system with [employer] direct computerized dictation system. Although this document has been carefully reviewed, there may still be some phonetic and typographical errors. These areas are purely typographical due to imperfections of the software programs, and do not reflect any compromise in the patient's medical care. Plan discussed with: Patient Date of Service: Dec 11, 2024 Billing Provider: VIKKI KELLEY MD Common Visit Codes: [id number] INP/OBS CARE(HIGH) VIKKI KELLEY MD Dec 11, 2024 14:55
[2024-12-12 01:01] VITALS: BP_SYST 135; BP_SYST 136; BP_DIAS 71; BP_DIAS 73; PULSE 69; PULSE 89; RESP 17; RESP 18; TEMP 97.7; TEMP 98.2; O2SAT 95; O2SAT 97
[2024-12-12 05:12] VITALS: BP 134/67; PULSE 83; RESP 17; TEMP 97.8; O2SAT 94
[2024-12-12 08:00] VITALS: PULSE 93
[2024-12-12 09:00] VITALS: BP 154/95; PULSE 89; RESP 14; TEMP 98.1; O2SAT 96
[2024-12-12 13:00] VITALS: BP 124/68; PULSE 81; RESP 18; TEMP 97.8; O2SAT 95
[2024-12-12] MEDS ORDERED: AUG875T PO (13:57)
--- NOTE | 2024-12-12 13:57 | DVHDS2 ---
Discharge Summary Date of Admission Dec 08, 2024 at 15:25 Date of Discharge: Dec 12, 2024 Admitting Diagnosis Sepsis due to cystitis Acute complicated cystitis acute toxic encephalopathy due to cystitis/infection acute hypoxic respiratory failure, likely atelectasis due to bed bound Tachycardia Neutrophilia Thrombocytopenia Anemia CHAVA due to VMN Intravascular volume depletion Lactic acidosis due to sepsis Diabetes with hyperglycemia PTSD - Depression - Anxiety Diabetic neuropathy Asthma Osteoarthritis Hypertension - Labs/Diagnostic Data: Laboratory Results Test 12/12/24 11:36 12/11/24 05:00 12/10/24 10:49 12/08/24 17:12 POC Glucose 152 mg/dl (70-106) White Blood Count 3.3 10^3/uL (4.4-10.8) Red Blood Count 3.84 10^6/uL (4.0-5.20) Hemoglobin 11.4 g/dL (12.2-16.2) Hematocrit 34.1 % (36.0-46.0) Mean Corpuscular Volume 88.7 fL (80.0-100.0) Mean Corpuscular Hemoglobin 29.7 pg (28.0-32.0) Mean Corpuscular Hemoglobin Concent 33.5 g/dL (32.0-36.0) Red Cell Distribution Width 15.2 % (11.8-14.3) Platelet Count 131 10^3/uL (140-450) Mean Platelet Volume 7.9 fL (6.9-10.8) Neutrophils (%) (Auto) 58.9 % (37.0-80.0) Lymphocytes (%) (Auto) 31.2 % (10.0-50.0) Monocytes (%) (Auto) 5.6 % (0.0-12.0) Eosinophils (%) (Auto) 4.1 % (0.0-7.0) Basophils (%) (Auto) 0.2 % (0.0-2.0) Neutrophils # (Auto) 2.0 10 ^3/uL (1.6-8.6) Lymphocytes # (Auto) 1.0 10 ^3/uL (0.4-5.4) Monocytes # (Auto) 0.2 10 ^3/uL (0-1.3) Eosinophils # (Auto) 0.1 10 ^3/uL (0-0.8) Basophils # (Auto) 0 10 ^3/uL (0-0.2) Nucleated Red Blood Cells 0.1 % Sodium Level 141 mmol/L (136-145) Potassium Level 3.3 mmol/L (3.5-5.1) Chloride Level 105 mmol/L (98-107) Carbon Dioxide Level 28 mmol/L (20-31) Anion Gap 8 (5-15) Blood Urea Nitrogen 9 mg/dL (9-23) Creatinine 0.78 mg/dL (0.550-1.02) Glomerular Filtration Rate Calc 86 mL/min (>90) BUN/Creatinine Ratio 11.5 (10.0-20.0) Serum Glucose 115 mg/dL (74-106) Calcium Level 9.6 mg/dL (8.7-10.4) Total Bilirubin 0.5 mg/dL (0.2-1.0) Aspartate Amino Transferase (AST) 33 U/L (13-40) Alanine Aminotransferase (ALT) 17 U/L (7-40) Alkaline Phosphatase 74 U/L (46-116) Total Protein 6.0 g/dL (5.7-8.2) Albumin 3.9 g/dL (3.2-4.8) Ammonia < 10 umol/L (11-32) Thyroid Stimulating Hormone (TSH) 3.08 uIU/mL (0.55-4.78) Lactic Acid Level 1.7 mmol/L (0.4-2.0) Test 12/08/24 08:30 12/08/24 07:14 Urine Color Dark-yellow (Yellow) Urine Clarity Clear (Clear) Urine pH 5.5 (5.0-9.0) Urine Specific [place] 1.044 (1.001-1.035) Urine Protein 1+ (Negative) Urine Ketones Trace (Negative) Urine Blood 1+ /uL (Negative) Urine Nitrite Negative (Negative) Urine Bilirubin 1+ (Negative) Urine Urobilinogen 4 mg/dL (Negative) Urine Leukocyte Esterase 2+ /uL (Negative) Urine RBC 27 /hpf (0 - 4) Urine Microscopic WBC 12 /HPF (0-5) Urine Squamous Epithelial Cells Few /hpf (<5) Urine Bacteria None seen /hpf (None Seen) Urine Hyaline Casts Few /lpf (0 - 2) Urine Mucus Few (None Seen) Urine Glucose Normal mg/dL (Normal) Troponin I High Sensitivity < 3 ng/L (</=34) Other Laboratory Tests 12/11/24 05:00 Brief Hx & Hospital Course: This is a 59 years old female with past medical history of diabetes, PTSD, depression, anxiety, asthma arthritis come to emergency department because of altered mental status. The patient went to urgent Care a day prior to this admission and was diagnosis with UTI. The patient was given oral antibiotic. In the morning the found her to be altered mental status and he called 911. When she come to emergency department she was very agitated and confused. Patient was found to have sepsis. Patient was given IV antibiotic Zosyn and IV fluid. Culture did not grow any bacteria. Lactic acid improved. Patient subsequently doing better. She alert, oriented. She able to ambulate. I am going to discharge her home today. Advised her to follow up with primary care physician 1-2 weeks. Activity as tolerated. Diet per home diet. She continuing antibiotic orally for seven days. Physical exam: HEENT: Normocephalic atraumatic pupils equal react to light and accommodation. Extraocular muscles intact, conjunctiva pink, oropharynx moist, no thrush, no exudate. Lymphatic: No lymphadenopathy Cardiovascular exam: S1, S2 was heard. No murmurs, rubs, gallops Lung: Clear on auscultation bilaterally, no wheeze, rale, rhonchi. GI: Abdominal soft, nondistended, nontenderness, positive bowel sounds. Extremity: No crepitus, cyanosis, edema. Pedal pulses present bilateral. Full range of motion. Skin: Normal turgor, no rash. Psych: Alert, oriented x3. Neurology: No focal deficits, cranial nerve II to XII grossly intact. This medical document was created using an electronic medical record system with [employer] direct computerized dictation system. Although this document has been carefully reviewed, there may still be some phonetic and typographical errors. These areas are purely typographical due to imperfections of the software programs, and do not reflect any compromise in the patient's medical care. Condition at Discharge: Stable Final Diagnosis/Problems List Sepsis due to cystitis Acute complicated cystitis acute toxic encephalopathy due to cystitis/infection acute hypoxic respiratory failure, likely atelectasis due to bed bound Tachycardia Neutrophilia Thrombocytopenia Anemia CHAVA due to VMN Intravascular volume depletion Lactic acidosis due to sepsis Diabetes with hyperglycemia PTSD - Depression - Anxiety Diabetic neuropathy Asthma Osteoarthritis Hypertension - Discharge Disposition: Home Discharge Instruct/Medications Diet: Cardiac 2g Na,low cholest Activity: No Restrictions, As Tolerated Follow Up/Referral: PCP 1-2 weeks Medications: Augmentin 875 mg twice per day Resume home med Discharge Statement: "Patient was advised to return to the ER or call 911 if any headaches, dizziness, shortness of breath, chest pain, abdominal pain, bleeding, fevers, or worsening of medical condition. Patient was counseled about treatment plan, medications, possible side effects, patientverbalized understanding. All questions were answered to the best of my ability. This discharge took greater then 30 minutes in planning, reviewing documentation, counseling the patient, and discussing with other team members." ASSESSMENT ASSESSMENT Assessment Date of Service: Dec 12, 2024 Billing Provider: VIKKI KELLEY MD Common Visit Codes: 40554-OIO/OBS DISCH DAY >30min VIKKI KELLEY MD Dec 12, 2024 13:57
[2024-12-12 14:48] VITALS: BP 124/68; PULSE 81; RESP 18; TEMP 97.8; O2SAT 95
== END 2024-12-12 15:48 | disposition home or self-care (01) | DRG 871 ==
LOC: ER 06:22 → EDBD 06:22 → TELE 15:25 → TELE-CENTR 12-10 18:00
PROVIDERS: ADMIT Nurse Practitioner Family; ATTEND Student in an Organized Health Care Education/Training Program
DX: A41.9 Sepsis, unspecified organism (principal); G92.8 Other toxic encephalopathy; N17.0 Acute kidney failure with tubular necrosis; J96.01 Acute respiratory failure with hypoxia; E87.20 Acidosis, unspecified; N30.00 Acute cystitis without hematuria; J98.11 Atelectasis; F41.9 Anxiety disorder, unspecified; E66.9 Obesity, unspecified; F32.A Depression, unspecified; E11.65 Type 2 diabetes mellitus with hyperglycemia; F43.10 Post-traumatic stress disorder, unspecified; D64.9 Anemia, unspecified; D69.6 Thrombocytopenia, unspecified; E11.40 Type 2 diabetes mellitus with diabetic neuropathy, unspecified; J45.909 Unspecified asthma, uncomplicated; E86.9 Volume depletion, unspecified; M19.09 Primary osteoarthritis, other specified site; I10 Essential (primary) hypertension; Z91.041 Radiographic dye allergy status; Z88.5 Allergy status to narcotic agent; Z90.49 Acquired absence of other specified parts of digestive tract; Z74.01 Bed confinement status; Z87.442 Personal history of urinary calculi; Z68.36 Body mass index [BMI] 36.0-36.9, adult
CPT/HCPCS: 36415; 70450; 71045; 74176; 76775; 80053; 81001; 82140; 82962; 83605; 84443; 84484; 85025; 87040; 87086; 93005; 96361; 96365; 96375; 97110; 97116; 97163; 97530; G0378; J1815; J1885; J2405; J2543; J3490

== ENCOUNTER → 2024-12-29 | Outpatient (CLI) | payer BC ==
[~2024-12-29] MED LIST changes: +AUG875T PO; -CEPH500T PO
== END | disposition home or self-care (01) ==
LOC: LAB 10:31
PROVIDERS: ATTEND Internal Medicine
DX: N39.0 Urinary tract infection, site not specified (principal)
CPT/HCPCS: 87086

== ENCOUNTER → 2025-03-14 | Outpatient (CLI) | payer BC ==
[2025-03-14 12:56] LABS: Urine Bacteria FEW /hpf (None Seen); Urine Blood Negative /uL (Negative); Urine Clarity Turbid (Clear); Urine Color Yellow (Yellow); Urine Hyaline Cast FEW /lpf (0 - 2); Urine Mucus FEW (None Seen); Urine Protein, UAD TRACE (Negative); Urine Specific Gravity 1.026 (1.001-1.035); Urine Squamous Epithelial Cell FEW /hpf (<5); Urine Urobilinogen Normal (Negative); Urine WBC 238 /HPF (0-5); Urine pH 5.5 (5.0-9.0)
== END | disposition home or self-care (01) ==
LOC: LAB 11:54
PROVIDERS: ATTEND Internal Medicine
DX: N39.0 Urinary tract infection, site not specified (principal)
CPT/HCPCS: 81001; 87086

== ENCOUNTER → 2025-05-13 | Outpatient (CLI) | payer BC ==
[2025-05-13 10:05] LABS: Iron 89.0 ug/dL (50-170)
[2025-05-13 10:07] LABS: Alanine Aminotransferase 20 U/L (7-40); Alkaline Phosphatase 78 U/L (46-116); Anion Gap 9 (5-15); Blood Urea Nitrogen 12 mg/dL (9-23); Carbon Dioxide 29 mmol/L (20-31); Chloride 103 mmol/L (98-107); Potassium 4.8 mmol/L (3.5-5.1); Sodium 141 mmol/L (136-145)
[2025-05-13 10:08] LABS: BUN/Creatinine Ratio 10.6 (10.0-20.0); Total Iron Binding Capacity 335.0 ug/dL (250-425); Triglycerides 83 mg/dL (< 150)
[2025-05-13 10:09] LABS: Albumin 4.6 g/dL (3.2-4.8); Total Protein 7.2 g/dL (5.7-8.2)
[2025-05-13 10:10] LABS: Bilirubin, Total 0.4 mg/dL (0.2-1.0); Cholesterol 120 mg/dL (< 200); Creatine Kinase IFCC 89 U/L (34-145); HDL Cholesterol 44 mg/dL (40-59)
[2025-05-13 10:11] LABS: Calcium 11.1 mg/dL (8.7-10.4); Glucose 113 mg/dL (74-106)
[2025-05-13 10:12] LABS: Ferritin 20.9 ng/mL (10-291); Urine Protein, UAD Negative (Negative)
[2025-05-13 10:25] LABS: Hematocrit 37.4 % (36.0-46.0); Hemoglobin 12.5 g/dL (12.2-16.2); Mean Corpuscular Hemoglobin 29.6 pg (28.0-32.0); Mean Corpuscular Volume 88.3 fL (80.0-100.0); Nucleated Red Blood Cells % 0.2 %
== END | disposition home or self-care (01) ==
LOC: LAB 08:28
PROVIDERS: ATTEND Internal Medicine
DX: E11.65 Type 2 diabetes mellitus with hyperglycemia (principal); Z12.11 Encounter for screening for malignant neoplasm of colon; Z00.01 Encounter for general adult medical examination with abnormal findings
CPT/HCPCS: 36415; 80053; 80061; 81001; 82043; 82550; 82607; 82728; 82746; 83036; 83540; 83550; 84436; 84443; 84480; 85025; 87086

== ENCOUNTER 2025-05-31 15:37 | Inpatient (IN) | payer OTHER ==
[~2025-05-31] VITALS: Ht 175.3 cm; Wt 107.1 kg
--- NOTE | 2025-05-31 16:39 | DVHINCON2 ---
Date of service: May 31, [address] Sargent Reason for Consultation ureteral stone History of Present Illness History Source: Patient, MD Notes Exam Limitations: No limitations HPI 59 yo female known to urology service for midureteral stone on the right. pt was seen in office today. Imaging showed a right ureteral stone measuring 2 cm with moderate right sided hydronephrosis. pt was informed to go to the ER for admission as she will need right PCN placement and subsequent URSLL. Home Meds Active Scripts Amoxicillin & Pot Clavulanate (AUGMENTIN TABLET) 875 Mg Tb, 875 MG PO BID, #14 TAB Prov:VIKKI KELLEY MD 12/12/24 Hydrocodone-Acetaminophen (Hydrocodone/Acetaminophen 10-325 mg) 1 Tab Tab, 1 TAB PO BID PRN for PAIN SCALE 7 THRU 10 for 14 Days, #28 TAB Prov:BAN MENDEZ MD 09/20/24 Reported Medications Lysine HCl (Lysine) 500 Mg Tab, 500 MG PO, TAB 10/27/24 Nutritional Supplements (Fruit & Vegetable Daily) Daily Cap, OR, CAP 09/26/23 Patients Own Medication (PATIENTS OWN MEDICATION) ., PO PTS OWN MED-OBTAIN FROM PT AND SEND TO RX DRUG: FREQ: RX# EXP: DATE DISP: TECH: RPH: 09/26/23 Probiotic Product (PROBIOTIC) Tab, OR, TAB 09/26/23 Cranberry Extract (CRANBERRY) 600 Mg Tab, OR, TAB 09/26/23 Calcium Carbonate (Calcium) 1,250 Mg Tab, PO, TAB 09/26/23 Zinc Sulfate (Zinc Sulfate) 220 Mg Cap, PO DAILY for 30 Days, MG 09/26/23 Cholecalciferol (D3) 2,000 Unit Tab, 1 TAB PO DAILY, TAB 09/26/23 Multiple Vitamin (Mvi Tab) 1 Tab Tb, 1 TAB PO, TAB 09/26/23 Lansoprazole (Prevacid Solutab) 15 Mg Tab, 15 MG PO HS, TAB 09/26/23 Metformin Hydrochloride (Metformin Hcl) 1,000 Mg Tab, 1 TAB PO BID 09/26/23 Metoprolol Succinate (Metoprolol Succinate Er) 50 Mg Tab, 1 TAB PO DAILY 09/26/23 Amitriptyline Hcl (Amitriptyline Hcl) 100 Mg Tab, 1 TAB PO HS 09/26/23 Gabapentin (Gabapentin) 300 Mg Cap, 1 CAP PO TID 09/26/23 Lamotrigine (Lamotrigine) 200 Mg Tab, 1 TAB PO HS 09/26/23 Venlafaxine Hydrochloride (Venlafaxine Hydrochloride) 150 Mg Cap, 1 CAP PO DAILY 09/26/23 Past Medical History Patient Family History: Alzheimer's disease G8 MOTHER Diabetes mellitus G8 MOTHER G8 SISTER G8 SISTER FH: heart attack G8 MOTHER FH: kidney failure G8 MOTHER Patient's mother is Labs/Xrays [facility] [id number] [place] [id number] Ph: [phone] DIAGNOSTIC IMAGING Diagnostic Imaging Report : [id number] Signed PATIENT: JR SAMUEL ACCT: [id number] UNIT: [id number] : 1965 LOC: [facility] ROOM / BED: / AGE / SEX: 59 / F ADM STATUS: REG CLI SERVICE 1139 ORDERING PHYSICIAN: ALTON SARGENT MD PROCEDURE(s): ABPL - CT AB PEL WO CON-NO ORAL OR IV REASON: HEMATURIA ORDER NUMBER(s): [id number], ACCESSION NUMBER(s): [id number] Indication: HEMATURIA Technique: CT axial images of the abdomen and pelvis are obtained without contrast. Coronal and sagittal reformats were obtained. Radiation Dose Information: CTDI volume is 18.4 mGy. Dose-length product is 911 mGy*cm Comparison: None FINDINGS: There is limited interpretation of the abdomen and pelvis without administration of intravenous contrast. Lung bases demonstrate no pleural effusion. Adrenal glands, spleen, pancreas unremarkable in shape. Duodenal diverticulum measuring 2.8 cm. Hepatic steatosis. Cholecystectomy. The right kidney demonstrates moderate right hydroureteronephrosis secondary to mid right ureteral calculus measuring 2 cm. Bilateral renal medullary nephrocalcinosis. Left kidney demonstrates no hydronephrosis. Stomach is partially distended. Small bowel loops are normal in caliber. Colonic diverticular disease. Moderate volume stool within the colon. No secondary signs for appendicitis. Abdominal aortic atherosclerotic disease. Infraumbilical fat containing hernia measuring 3 x 2.0 cm. Bladder partially distended. No free pelvic fluid. No inguinal lymphadenopathy. [id number] bilateral sacroiliac degenerative joint disease. Moderate thoracolumbar degenerative disc disease. IMPRESSION: Moderate right hydroureteronephrosis secondary to a 2 cm mid right ureteral calculus. Bilateral renal medullary nephrocalcinosis. Cholecystectomy. Moderate volume stool in the colon. Infraumbilical fat containing hernia. Hepatic steatosis. Other findings as described. ATED BY: PARK HARPER MD DICTATED DATE/TIME: 04/27/25 150 SIGNED BY: PARK HARPER MD SIGNED DATE/TIME: 04/27/25 150 CC: Assessment/Plan Problem List: (1) Hydronephrosis with renal and ureteral calculous obstruction Plan admit to hospitalist NPO after midnight consult IR for right PCN placement URSLL TBA Plan discussed with: Patient, Other SAMANTHA BUCK [employer] May 31, 2025 16:39
[2025-05-31 16:42] VITALS: BP 127/67; PULSE 71; RESP 18; TEMP 97.9; O2SAT 98
[2025-05-31] MEDS ORDERED: ACETAMINOPHEN/CODEINE#3 (300/30mg) TAB PO PRN (16:45)
[2025-05-31 16:59] VITALS: BP 127/67; PULSE 71; RESP 18; TEMP 97.9; O2SAT 98
[2025-05-31 17:04] LABS: Hematocrit 38.4 % (36.0-46.0); Hemoglobin 12.7 g/dL (12.2-16.2); Mean Corpuscular Hemoglobin 29.4 pg (28.0-32.0); Mean Corpuscular Volume 88.8 fL (80.0-100.0); Nucleated Red Blood Cells % 0.0 %
[2025-05-31 17:15] LABS: Chloride 103 mmol/L (98-107); Potassium 4.3 mmol/L (3.5-5.1); Sodium 141 mmol/L (136-145)
[2025-05-31 17:16] LABS: Anion Gap 9 (5-15); Carbon Dioxide 29 mmol/L (20-31)
[2025-05-31 17:21] LABS: Glucose 87 mg/dL (74-106); INR 1.08 (0.9-1.15); Prothrombin Time 11.4 sec (9.3-11.8)
[2025-05-31 17:22] LABS: BUN/Creatinine Ratio 12.7 (10.0-20.0); Blood Urea Nitrogen 13 mg/dL (9-23)
[2025-05-31 17:23] LABS: Calcium 10.6 mg/dL (8.7-10.4)
[2025-05-31] MEDS ORDERED: MAGN400C3 PO (17:39)
--- NOTE | 2025-05-31 17:40 | DVH ---
INDICATION: hydronephrosis TECHNIQUE: Multiple real-time sonographic images of the kidneys and bladder were obtained. COMPARISON: US KIDNEY on DOS: 12/08/24 FINDINGS: The right kidney measures 10.6 cm in length, which is normal in size. There is mildly incre ased echogenicity of the right kidney. There is trace right hydronephrosis. The left kidney measures 10.6 cm in length, which is normal in size. There is mildly increased echoge nicity of the left kidney. No hydronephrosis. The bladder is largely decompressed and is not well evaluated. IMPRESSION: Mildly increased echogenicity of both kidneys consistent with medical renal disease. Trace right hydronephrosis, possibly transient.
--- NOTE | 2025-05-31 18:11 | DVH ---
Procedure: XY KUB ABDOMEN SINGLE VIEW Study Date and Requested Time: 05/31/2025 04:53 PM Technique: Single view of the abdomen and pelvis is available for evaluation. History: stones Comparison: CT abdomen and pelvis 12/10/2024 Findings/ Impression: The right mid ureteral calculus noted on CT of Friday12/10/2024 is not well demonstrated on radiogra ph. Status post cholecystectomy. Nonspecific bowel gas pattern. Moderate to large amount of fecal material within the colon. The lung bases are outside the [id number]. No evidence of acute bony abnormalities.
[2025-05-31] MEDS ORDERED: DEXTROSE (50%) 50ML SYRG IV PRN ×2 (19:00→19:15)
[2025-05-31] MEDS ORDERED: ONDANSETRON HCL 4 MG/2 ML VIAL IV PRN (19:15)
[2025-05-31] MEDS ORDERED: DOCUSATE SOD 100 MG CAP PO PRN (19:15)
[2025-05-31] MEDS ORDERED: ACETAMINOPHEN 325 MG TAB PO PRN (19:15)
--- NOTE | 2025-05-31 19:18 | DVHHP2 ---
History of Present Illness Reason for Visit: Hydronephrosis History of Present Illness The patient is a 59-year-old female with past medical history of kidney stones, hypertension, and diabetes mellitus who presented to [facility] ED with complaint of right flank pain. Patient was seen and evaluated in the ED, laboratory data shows WBC 3.0, platelets 133, sodium 141, potassium 4.3, BUN 13, creatinine 1.02, glucose 87, calcium 10.6, PT 11.4, INR 1.08, blood pressure 127/67, heart rate 72, temperature 97.9 F, O2 saturation 98% on room air. Chest/abdomen x-ray revealing right mid ureteral calculus noted on CT of Tuesday December 10, 2024. Renal ultrasound revealing mildly increased echogenicity of both kidneys consistent with medical renal disease, trace right hydronephrosis, possibly transient. On my assessment, patient denied chest pain, no headache, no dizziness, no shortness of breath, no nausea, no vomiting, no fever, no chills. Patient was admitted for possible nephrostomy tube placement. Past Medical History Hypertension, DM, Kidney stones Past Surgical History Cholecystectomy Family History Reviewed, noncontributory to the management of this case. Past Social History The patient lives at home, denies smoking, alcohol or illicit drugs abuse. Review of Systems Constitutional: No: Fever, Chills, Sweats, Weakness, Malaise, Other Eyes: No: Pain, Vision change, Conjunctivae inflammation, Eyelid inflammation, Other, Redness ENT: No: Ear pain, Ear discharge, Nose pain, Nose discharge, Nose congestion, Mouth pain, Mouth swelling, Throat pain, Throat swelling, Other Respiratory: No: Cough, Dry, Shortness of breath, SOB with excertion, Wheezing, Hemoptysis, Pleuritic Pain, Sputum, Wheezing, Other Cardiovascular: No: Chest Pain, Palpitations, Orthopnea, Paroxysmal Noc. Dyspnea, Edema, Lt Headedness, Other Gastrointestinal: No: Nausea, Vomiting, Abdominal Pain, Diarrhea, Constipation, Melena, Hematochezia, Other Genitourinary: No Dysuria, No Frequency, No Incontinence, No Hematuria, No Retention; Other (Flank pain) Musculoskeletal: No: other, neck pain, shoulder pain, arm pain, back pain, hand pain, leg pain, foot pain Skin: No: Rash, Lesions, Jaundice, Bruising, Other Neurological: No: Weakness, Numbness, Incoordination, Change in speech, Confusion, Seizures, Other Allergies: Coded Allergies: Codeine (Verified Allergy, Mild, ITCHING ONLY , 09/19/24) PER PATIENT ONLY ITCHING IF TAKEN STRAIGHT, IF MIXED WITH OTHER MEDICATIONS, NO ISSUES PER PATIENT DILAUDED IS OKAY Ascorbate (Verified Allergy, Unknown, BLISTERS IN THE BACK OF THROAT, 09/26/23) allergy to vitamin C Iodine (Verified Allergy, Unknown, ANAPHYLAXIS, 09/26/23) Uncoded Allergies: CONTRAST DYE (Allergy, Severe, ANAPHYLAXIS, 09/26/23) Medications Current Medications Medications Dose Ordered Sig/Nery Route Start Time Stop Time Status Last Admin Dose Admin Acetaminophen 500 mg Q4HPRN PRN PO 05/31/25 16:45 Acetaminophen/ Codeine Phosphate 1 tab Q6HPRN PRN PO 05/31/25 16:45 UNV Acetaminophen/ Hydrocodone Bitart 1 tab Q6HPRN PRN PO 05/31/25 16:45 Diagnostic Test (Pha) 1 strip ACHS 05/31/25 22:00 Cancel Insulin Human Regular ACHS SC 05/31/25 22:00 Cancel Dextrose 50 ml UD PRN IV 05/31/25 19:00 Cancel Diagnostic Test (Pha) 1 strip ACHS 05/31/25 22:00 UNV Insulin Human Regular ACHS SC 05/31/25 22:00 UNV Dextrose 50 ml UD PRN IV 05/31/25 19:15 UNV Exam Vital Signs Vital Signs Date Time Temp Pulse Resp B/P (MAP) Pulse Ox O2 Delivery O2 Flow Rate FiO2 05/31/25 16:59 Room Air* 0 21 05/31/25 16:59 97.9 71 18 127/67 (87) 98 97.9 General Appearance: Alert, Oriented X3, Cooperative, No acute distress HEENT: Atraumatic, PERRLA, EOMI, Mucous membr. moist/pink Respiratory: Clear to auscultation, Normal air movement Cardiovascular: Regular rate, Normal S1, Normal S2, No murmurs Abdominal: Normal bowel sounds, Soft, No tenderness, No hepatospenomegaly, No masses Extremities: No clubbing, No cyanosis, No edema, Normal pulses, No tenderness/swelling Skin: No rashes, No breakdown, No significant lesion Neuro: Normal gait, Normal speech, Strength at 5/5 X4 ext, Normal tone, Sensation intact, Cranial nerves 3-12 NL, Reflexes 2+ Psych/Mental Status: Mental status NL, Mood NL Labs/Xrays Labs Test 05/31/25 18:50 05/31/25 16:48 Range/Units POC Glucose 86 70-106 mg/dl White Blood Count 3.0 L 4.4-10.8 10^3/uL Red Blood Count 4.33 4.0-5.20 10^6/uL Hemoglobin 12.7 12.2-16.2 g/dL Hematocrit 38.4 36.0-46.0 % Mean Corpuscular Volume 88.8 80.0-100.0 fL Mean Corpuscular Hemoglobin 29.4 28.0-32.0 pg Mean Corpuscular Hemoglobin Concent 33.2 32.0-36.0 g/dL Red Cell Distribution Width 16.0 H 11.8-14.3 % Platelet Count 133 L 140-450 10^3/uL Mean Platelet Volume 7.5 6.9-10.8 fL Neutrophils (%) (Auto) 46.7 37.0-80.0 % Lymphocytes (%) (Auto) 39.4 10.0-50.0 % Monocytes (%) (Auto) 6.8 0.0-12.0 % Eosinophils (%) (Auto) 6.6 0.0-7.0 % Basophils (%) (Auto) 0.5 0.0-2.0 % Neutrophils # (Auto) 1.4 L 1.6-8.6 10 ^3/uL Lymphocytes # (Auto) 1.2 0.4-5.4 10 ^3/uL Monocytes # (Auto) 0.2 0-1.3 10 ^3/uL Eosinophils # (Auto) 0.2 0-0.8 10 ^3/uL Basophils # (Auto) 0 0-0.2 10 ^3/uL Nucleated Red Blood Cells 0.0 % Prothrombin Time 11.4 9.3-11.8 sec Prothrombin Time INR 1.08 0.9-1.15 Sodium Level 141 136-145 mmol/L Potassium Level 4.3 3.5-5.1 mmol/L Chloride Level 103 98-107 mmol/L Carbon Dioxide Level 29 20-31 mmol/L Anion Gap 9 5-15 Blood Urea Nitrogen 13 9-23 mg/dL Creatinine 1.02 0.550-1.02 mg/dL Glomerular Filtration Rate Calc 63 >90 mL/min BUN/Creatinine Ratio 12.7 10.0-20.0 Serum Glucose 87 74-106 mg/dL Calcium Level 10.6 H 8.7-10.4 mg/dL PATIENT: JR SAMUEL ACCT: [id number] UNIT: [id number] : 1965 LOC: CENTRAL ROOM / BED: [facility] [place] / B AGE / SEX: 59 / F ADM STATUS: ADM IN SERVICE 1638 ORDERING PHYSICIAN: SAMANTHA BUCK NP PROCEDURE(s): KUB - KUB ABDOMEN SINGLE VIEW REASON: stones ORDER NUMBER(s): [id number], ACCESSION NUMBER(s): [id number] Procedure: XY KUB ABDOMEN SINGLE VIEW Study Date and Requested Time: 05/31/2025 04:53 PM Technique: Single view of the abdomen and pelvis is available for evaluation. History: stones Comparison: CT abdomen and pelvis 12/10/2024 Findings/Impression: The right mid ureteral calculus noted on CT of Friday12/10/2024 is not well demonstrated on radiograph. Status post cholecystectomy. Nonspecific bowel gas pattern. Moderate to large amount of fecal material within the colon. The lung bases are outside the [id number]. No evidence of acute bony abnormalities. ORDERING PHYSICIAN: SAMANTHA BUCK NP PROCEDURE(s): KIDUS - KIDNEY REASON: hydronephrosis ORDER NUMBER(s): [id number], ACCESSION NUMBER(s): [id number] INDICATION: hydronephrosis TECHNIQUE: Multiple real-time sonographic images of the kidneys and bladder were obtained. COMPARISON: US KIDNEY on DOS: 12/08/24 FINDINGS: The right kidney measures 10.6 cm in length, which is normal in size. There is mildly increased echogenicity of the right kidney. There is trace right hydronephrosis. The left kidney measures 10.6 cm in length, which is normal in size. There is mildly increased echogenicity of the left kidney. No hydronephrosis. The bladder is largely decompressed and is not well evaluated. IMPRESSION: Mildly increased echogenicity of both kidneys consistent with medical renal disease. Trace right hydronephrosis, possibly transient. SEPSIS Sepsis Screen Date sepsis recognized/suspect: May 31, 2025 Physician Orders Npo (Nothing By Mouth) Diet (06/01/25 Breakfast) * Radiologist Consult (05/31/25 16:32) Acetaminophen Tab Or Cap (Tylenol Tablet (05/31/25 16:45) Hydrocodone-Acet 5/325mg Tab ([place] / (05/31/25 16:45) Kub Abdomen Single View (05/31/25 16:38) Kidney (05/31/25 16:38) Admit (05/31/25 19:06) Notify Of Changes From Base (05/31/25 19:06) Glucose Blood (Accu-Chek Comfort Curve T (05/31/25 22:00) Insulin R (Human) (Insulin R) (05/31/25 22:00) Dextrose 50% Syringe (05/31/25 19:15) Allergies (05/31/25 19:12) Code Status (05/31/25 19:12) Sodium Chloride Lock (Saline Lock Ns) (05/31/25 22:00) Oxygen Per Hour (05/31/25 19:12) Ondansetron Hcl (Zofran) (05/31/25 19:15) Docusate Sodium Capsule (Colace Capsule) (05/31/25 19:15) Complete Blood Count (06/01/25 04:00) Comprehensive Metabolic Panel (06/01/25 04:00) Condition: Serious (05/31/25 19:12) Acetaminophen Tablet (Tylenol Tablet) (05/31/25 19:15) Bedrest With Bathroom Privileg (05/31/25 19:12) Morphine Sulfate Injection (05/31/25 19:15) Vital Signs Date Time Temp Pulse Resp B/P (MAP) Pulse Ox O2 Delivery O2 Flow Rate FiO2 05/31/25 16:59 Room Air* 0 21 05/31/25 16:59 97.9 71 18 127/67 (87) 98 97.9 05/31/25 16:42 97.9 71 18 127/67 (87) 98 97.9 Laboratory Tests Test 05/31/25 16:48 White Blood Count 3.0 10^3/uL (4.4-10.8) L Assessment/Plan Assessment/Plan Right flank pain Hydronephrosis with renal and ureteral calculous obstruction Plan 1. Admit to med surge unit 2. Breathing treatment 3. Pain control management 4. Management of fluids and electrolytes 5. Consultation for Urology 6. Diagnostic tests renal ultrasound 7. DVT prophylaxis-on SCDs 8. Repeat labs CBC, CMP in a.m. 9. Continue with current medical management 10. Treatment plan discussed with patient and RN. Patient verbalized understanding. Plan discussed with: Patient, Other (RN) My Orders Orders - LEROY NICOLE DNP Procedure Category Date Status Time Admit ADMIT 05/31/25 Transmitted 19:06 Notify Of Changes [facility] 05/31/25 In Process From Base 19:06 Glucose Blood [facility] 05/31/25 Logged (Accu-Chek Comfort 22:00 Insulin R (Human) PHA 05/31/25 Logged (Insulin R) 22:00 Dextrose 50% Syringe PHA 05/31/25 Logged 19:15 Allergies [facility] 05/31/25 Verified 19:12 Code Status CODE 05/31/25 Verified 19:12 Sodium Chloride Lock [facility] 05/31/25 Verified (Saline Lock Ns) 22:00 Oxygen Per Hour RT 05/31/25 Verified 19:12 Ondansetron Hcl [facility] 05/31/25 Verified (Zofran) 19:15 Docusate Sodium [facility] 05/31/25 Verified Capsule (Colace 19:15 Complete Blood Count LAB 06/01/25 Verified 04:00 Comprehensive LAB 06/01/25 Verified Metabolic Panel 04:00 Condition: Serious [facility] 05/31/25 Verified 19:12 Acetaminophen Tablet [facility] 05/31/25 Verified (Tylenol Tablet) 19:15 Bedrest With Bathroom [facility] 05/31/25 Verified Privileg 19:12 Morphine Sulfate PHA 05/31/25 Verified Injection 19:15 Problem List: (1) Right flank pain (2) Hydronephrosis with renal and ureteral calculous obstruction Date of Service: May 31, 2025 Billing Provider: LEROY NICOLE DNP Common Visit Codes: [id number] INP/OBS CARE (HIGH) LEROY NICOLE DNP May 31, 2025 19:18
[2025-05-31 20:00] VITALS: O2SAT 95
[2025-05-31 21:00] VITALS: BP 129/82; PULSE 85; RESP 18; TEMP 97.3; O2SAT 95
[2025-05-31] MEDS: ACCU-CHEK COMFORT CURVE STRIP VI SCH (21:08)
[2025-05-31] MEDS: InsuLIN REG 1unit/0.01ml Soln (100units/ml) SC SCH (21:13)
[2025-05-31] MEDS: SODIUM CHLOR 0.9% PF (SALINE LOCK) 10ML VIAL/SYR IV SCH (21:15)
[2025-05-31] MEDS ORDERED: ACCU-CHEK COMFORT CURVE STRIP VI SCH (22:00)
[2025-05-31] MEDS ORDERED: InsuLIN REG 1unit/0.01ml Soln (100units/ml) SC SCH (22:00)
[2025-06-01] VITALS (8 sets, daily range): BP systolic 118–145; BP diastolic 54–82; PULSE 80–112; RESP 12–18; TEMP 97.4–98.2; O2SAT 93–98
[2025-06-01] MEDS: MORPHINE SULFATE INJ 2 MG/ml SYRG IV PRN (02:59)
[2025-06-01 07:05] LABS: Alanine Aminotransferase 18 U/L (7-40); Albumin 4.3 g/dL (3.2-4.8); Alkaline Phosphatase 63 U/L (46-116); Anion Gap 12 (5-15); BUN/Creatinine Ratio 10.3 (10.0-20.0); Blood Urea Nitrogen 10 mg/dL (9-23); Carbon Dioxide 25 mmol/L (20-31); Chloride 105 mmol/L (98-107); Potassium 4.3 mmol/L (3.5-5.1); Sodium 142 mmol/L (136-145); Total Protein 6.7 g/dL (5.7-8.2)
[2025-06-01 07:06] LABS: Bilirubin, Total 0.5 mg/dL (0.2-1.0)
[2025-06-01 07:07] LABS: Hematocrit 37.4 % (36.0-46.0); Hemoglobin 12.8 g/dL (12.2-16.2); Mean Corpuscular Hemoglobin 30.4 pg (28.0-32.0); Mean Corpuscular Volume 89.0 fL (80.0-100.0); Nucleated Red Blood Cells % 0.2 %
[2025-06-01 07:10] LABS: Calcium 10.6 mg/dL (8.7-10.4); Glucose 112 mg/dL (74-106)
[2025-06-01 09:56] LABS: INR 1.14 (0.9-1.15); Partial Thromboplastin Time 27.3 SEC (24.5-34.5); Prothrombin Time 11.9 sec (9.3-11.8)
--- NOTE | 2025-06-01 11:55 | ECG ---
[facility] Test Date: 2025-06-01 Test Time: 11:00:26 Pat Name: JR SAMUEL Department: Respiratoy Room: 0215 B Gender: F Data Visualization Developer: DONOVAN : 1965 Requested By: ALTON MONZON Order Number: [id number] Reading MD: Chetan Varghese Measurements Intervals [place] Rate: 99 P: 66 FL: 177 QRS: 19 QRSD: 97 T: 51 QT: 340 QTc: 437 Interpretive Statements Sinus rhythm Low voltage, precordial leads Electronically Signed On 06-01-2025 13:55:48 PDT by Chetan Varghese Please click the below link to view image of tracing.
[2025-06-01] MEDS: IOHEXOL 300 MG/ML 100ML BOTTLE IJ ONE (12:58)
[2025-06-01] MEDS ORDERED: PROPOFOL 10 MG/ML 20 ML IV ONE (13:10)
[2025-06-01] MEDS ORDERED: fentaNYL CITRATE 100 MCG/2 ML VL ONE ×2 (13:10→13:44)
[2025-06-01] MEDS: cefTRIAXone 1GM/50ML D5W 50 ML IV ONE (13:10)
--- NOTE | 2025-06-01 13:41 | DVHPNRES ---
Progress Note Date Seen: Jun 01, 2025 Resident Creating Document: RAFAL CORNELL Medical Necessity Reason Pt with a Central, PICC or Fol: No (RN) Subjective Review of Systems Patient is a 59-year-old female with past medical history of HTN, T2DM, kiney stones who has presented to ED with complaint of right hilda pain. Patient described that stabbing pain began on December,, score 9-10, pain alleviated when she is lying right side down. Renal ultrasound revealing mildly increased echogenicity of both kidneys consistent with medical renal disease, trace right hydronephrosis, possibly transient. The right mid ureteral calculus noted on CT of Friday12/10/2024. Patient denied chest pain, no headache, no dizziness, no shortness of breath, no nausea, no vomiting, no fever, no chills. Patient presented with 2 cm right mid ureteral stone and hydronephrosis. Right ureteral stone impacted in the wall of mid ureteral lumen. Laser debridment of mid ureteral wall performed along with laser lithotripsy. Past medical history: HTN, T2DM for 20 years, kiney stones, SVT Past surgical history: Cholecystectomy Social & Personal history: denies smoking, alcohol or illicit drugs abuse. Allergies: Coded Allergies: Codeine (Verified Allergy, Mild, ITCHING ONLY , 09/19/24) PER PATIENT ONLY ITCHING IF TAKEN STRAIGHT, IF MIXED WITH OTHER MEDICATIONS, NO ISSUES PER PATIENT DILAUDED IS OKAY Ascorbate (Verified Allergy, Unknown, BLISTERS IN THE BACK OF THROAT, 09/26/23) allergy to vitamin C Iodine (Verified Allergy, Unknown, ANAPHYLAXIS, 09/26/23) Uncoded Allergies: CONTRAST DYE (Allergy, Severe, ANAPHYLAXIS, 09/26/23) Patient seen and examined at bedside. Patient is alert and oriented to time, place person and responding to all questions. Eyes: No Pain, No Vision change, No Conjunctivae inflammation, No Eyelid inflammation, No Other, No Redness ENT: No Ear pain, No Ear discharge, No Nose pain, No Nose discharge, No Nose congestion, No Mouth pain, No Mouth swelling, No Throat pain, No Throat swelling, No Other Cardiovascular: No Chest Pain, No Palpitations, No Orthopnea, No Paroxysmal No Dyspnea, No Edema, No Lt Headedness, No Other Respiratory: No Cough, No Dry, No Shortness of breath, No SOB with exertion, No Wheezing, No Hemoptysis, No Pleuritic Pain, No Sputum, No Other Gastrointestinal: Right flank pain. No Nausea, No Vomiting, No Abdominal Pain, No Diarrhea, No Constipation, No Melena, No Hematochezia, No Other Genitourinary: No Dysuria, No Frequency, No Incontinence, No Hematuria, No Retention, No Other Musculoskeletal: No other, No neck pain, No shoulder pain, No arm pain, No back pain, No hand pain, No leg pain, No foot pain Skin: No Rash, No Lesions, No Jaundice, No Bruising, No Other Objective vital signs Vital Sign Date Time Temp Pulse Resp B/P (MAP) Pulse Ox O2 Delivery O2 Flow Rate FiO2 06/01/25 13:15 98.2 98 16 118/70 (86) 98 98.2 06/01/25 08:00 Room Air* 0 21 Total Intake and Output 05/31/25 05/31/25 06/01/25 15:00 23:00 07:00 Intake Total 0 ml 240 ml Balance 0 ml 240 ml medications Current Medications Medications Dose Ordered Sig/Nery Route Start Time Stop Time Status Last Admin Dose Admin Acetaminophen 500 mg Q4HPRN PRN PO 05/31/25 16:45 Acetaminophen/ Codeine Phosphate 1 tab Q6HPRN PRN PO 05/31/25 16:45 UNV Acetaminophen/ Hydrocodone Bitart 1 tab Q6HPRN PRN PO 05/31/25 16:45 Diagnostic Test (Pha) 1 strip ACHS 05/31/25 22:00 Cancel Insulin Human Regular ACHS SC 05/31/25 22:00 Cancel Dextrose 50 ml UD PRN IV 05/31/25 19:00 Cancel Diagnostic Test (Pha) 1 strip ACHS 05/31/25 22:00 06/01/25 10:59 1 STRIP Insulin Human Regular ACHS SC 05/31/25 22:00 05/31/25 21:13 2 UNITS Dextrose 50 ml UD PRN IV 05/31/25 19:15 Sodium Chloride 10 ml Q8HR IV 05/31/25 22:00 06/01/25 06:00 10 ML Ondansetron HCl 4 mg Q4HP PRN IV 05/31/25 19:15 Docusate Sodium 100 mg BIDPRN PRN PO 05/31/25 19:15 Morphine Sulfate 2 mg Q4HPRN PRN IV 05/31/25 19:15 06/01/25 02:59 2 MG Ceftriaxone Sodium 50 ml @ 100 mls/hr DAILY@09 IV 06/02/25 09:00 Examination General Appearance: Cooperative. Well developed. Well nourished. NAD Head Exam: Normal inspection Neck Exam: Normal inspection. Non-tender. Normal alignment Pulmonary/Respiratory: Chest non-tender. Clear bilateral breath sounds, no crackles, no wheezing. Cardiovascular/Chest: Regular rate and rhythm. No murmurs. No JVD. Peripheral Pulses: 2+ Radial (R). 2+ Radial (L). 2+ Pedal (R). 2+ Pedal (L) Abdominal Exam: Normal bowel sounds. Soft. normal abdomen, no visible veins, Nontender. No hepatospenomegaly. No masses Ankle Exam: Negative ankle edema Lower extremities: Negative lower extremity edema Neuro/Mental Status: A&O x4. Coherent. Thoughts/Psych: Normal thought pattern. Appropriate mood and affect. Good judgement and insight Skin Exam: Normal inspection. Normal color. Warm. Dry laboratory and microbiology Laboratory Tests 06/01/25 05:47 Test 06/01/25 05:47 Range/Units Serum Glucose 112 H 74-106 mg/dL Labs and/or images reviewed: Labs reviewed by me, Image(s) reviewed by me (RN) Problem List/Assessment/Plan Problem List/Assessment/Plan # acute intractable abdominal pain # Ureteral stones, hydronephrosis # acute complicated UTI -Renal US- Mildly increased echogenicity of both kidneys consistent with medical renal disease. Trace right hydronephrosis, possibly transient. -Chest/Abdomen X-ray- Status post cholecystectomy. Nonspecific bowel gas pattern. Moderate to large amount of fecal material within the colon. -consutl radiology -Right ureteroscopic laser lithotripsy with sent placement -Pain control -Management of fluids and electrolytes -Consultation for Urology -2 cm right mid ureteral stone and hydronephrosis -Right ureteral stone impacted in the wall of mid ureteral lumen. -Laser debridment of mid ureteral wall performed along with laser lithotripsy. - IV ceftriaxone # lymphopenia - monitor Goals of care: Full code, discussed for >16 minutes on 06/01/25 Plan discussed with patient Plan discussed with Dr. Coon Plan discussed with: Patient, Other My Orders My Orders Orders - RAFAL CORNELL RESIDENT Procedure Category Date Status Time Urinalysis LAB 06/01/25 Logged 11:25 Ceftriaxone 1gm/50ml PHA 06/02/25 In Process D5w (Rocephin) 09:00 Date of Service: Jun 01, 2025 Billing Provider: MEGHA COON MD Common Visit Codes: [id number] INP/OBS CARE(HIGH) Secondary Visit Codes: [id number] CARE PLAN 30 MINUTES RAFAL CORNELL RESIDENT Jun 01, 2025 13:41 ANNIA BAXTER RESIDENT Jun 01, 2025 15:28 MEGHA COON MD Jun 01, 2025 19:21
--- NOTE | 2025-06-01 15:03 | DVHNC2 ---
Procedure - OPERATIVE REPORT Pre-op. Diagnosis: Ureteral stone - Right, mid ureteral 2 cm Hydronephrosis - Right Post-op. Diagnosis: Same as pre-op diagnosis Operation: Right ureteroscopy/pyeloscopy, laser lithotripsy Cystoscopy with right ureteral stent placement Right retrograde pyelogram Anesthesia: General Indications: Patient presented with 2 cm right mid ureteral stone and hydronephrosis The indications, risks, complications, alternatives and benefits were discussed. All questions were encouraged and answered. Patient is aware of risks/complications including but not limited to infection, bleeding, persistent pain, possible ureteral injury/ureteral stricture requiring additional surgical management, urethral injury, urethral stricture and meatal stenosis. Details of Procedure: After obtaining the consent, patient was taken to OR suite and underwent general anesthesia. Preop antibiotic was given. Timeout was performed and deemed to be correct. With the patient positioned in the lithotomy, the area of the genitalia prepped and draped in usual sterile fashion. 22 F Cystoscope was used to access the urethra and bladder. A sensor tip guide wire was advanced through the scope into the right ureter all the way to the right collecting system under fluoroscopic control. Then I assembled semi-rigid ureteroscopy and placed it into the bladder. The ureteroscopy was navigated into the right ureter. The stone was visualized. Now using a 200 micron laser fiber the stone was blasted into small fragments. Now using a basket, the fragments were removed and passed to be sent to pathology. At this point the ureteroscope was advanced into the kidney up to right UPJ.No further stones were seen in the kidney. Then I performed retrograde pyelogram through the scope to visualize the collecting system. Mild to moderate hydronephrosis was present. Ureteroscope was removed. At this point, the cystoscope was advanced over the wire into the bladder. Now a [address] ureteral stent was advanced under direct visualization through the right ureteral orifice into the kidney. Good proximal curl was seen in the renal pelvis. The patient was placed in supine position in the OR table. Anesthesia was reversed, patient was extubated and transferred awake and in stable conditions to recovery room. Specimens: Right ureteral stone Complications: None Findings: Right ureteral stone impacted in the wall of mid ureteral lumen. Laser debridment of mid ureteral wall performed along with laser lithotripsy. Notes: 6 [address] x [address] ureteral stent - Right will be removed in 4-6 weeks ALTON MONZON MD Jun 01, 2025 15:03
--- NOTE | 2025-06-01 15:40 | DVH ---
EXAM: XY KUB ABDOMEN SINGLE VIEW, XY C ARM FLUOROSCOPY UP TO 60MIN HISTORY: RIGHT STENT PLACEMENT TECHNIQUE: Intraoperative radiographs of the right renal collecting system were obtained. FLUOROSCOPY TIME: 121.1 seconds FLUOROSCOPY IMAGES: 5 TOTAL DOSE: 66.07 mGy COMPARISON: US KIDNEY on DOS: 05/31/25, XY KUB ABDOMEN SINGLE VIEW on DOS: 05/31/25, CT CT AB PEL WO CO N-NO ORAL OR IV on DOS: 12/10/24 FINDINGS/IMPRESSION: Refer to intraoperative report for further evaluation.
[2025-06-01] MEDS: HYDROcodone-ACET 5/325MG TAB PO PRN (18:42)
[2025-06-01] MEDS: lamoTRIgine 100 MG TAB PO ONE (23:09)
[2025-06-02] MEDS: AMITRIPTYLINE HCL 25 MG TAB PO ONE (00:31)
[2025-06-02 01:00] VITALS: BP 136/67; PULSE 101; RESP 16; TEMP 97.9; O2SAT 100
[2025-06-02 05:00] VITALS: BP 139/65; PULSE 104; RESP 14; TEMP 97.9; O2SAT 98
[2025-06-02 06:27] LABS: Hematocrit 37.8 % (36.0-46.0); Hemoglobin 13.0 g/dL (12.2-16.2); Mean Corpuscular Hemoglobin 30.3 pg (28.0-32.0); Mean Corpuscular Volume 88.3 fL (80.0-100.0); Nucleated Red Blood Cells % 0.0 %
[2025-06-02 06:42] LABS: Anion Gap 11 (5-15); Calcium 10.3 mg/dL (8.7-10.4); Carbon Dioxide 26 mmol/L (20-31); Chloride 103 mmol/L (98-107); Potassium 4.1 mmol/L (3.5-5.1); Sodium 140 mmol/L (136-145)
[2025-06-02 06:48] LABS: BUN/Creatinine Ratio 13.3 (10.0-20.0); Blood Urea Nitrogen 13 mg/dL (9-23); Glucose 120 mg/dL (74-106)
[2025-06-02 07:56] LABS: Urine Protein, UAD 1+ (Negative)
[2025-06-02 09:00] VITALS: BP 127/79; PULSE 96; RESP 20; TEMP 97.7; O2SAT 98
[2025-06-02] MEDS: cefTRIAXone 1GM/50ML D5W 50 ML IV SCH (10:01)
[2025-06-02 13:00] VITALS: BP 147/92; PULSE 113; RESP 20; TEMP 97.6; O2SAT 98
[2025-06-02 17:00] VITALS: BP 123/57; PULSE 88; RESP 16; TEMP 97.4; O2SAT 99
--- NOTE | 2025-06-02 18:18 | DVHPNRES ---
Progress Note Date Seen: Jun 02, 2025 Resident Creating Document: RAFAL CORNELL Medical Necessity Reason Pt with a Central, PICC or Fol: No (RN) Subjective Review of Systems Patient is a 59-year-old female with past medical history of HTN, T2DM, kiney stones who has presented to ED with complaint of right hilda pain. Patient described that stabbing pain began on December,, score 9-10, pain alleviated when she is lying right side down. Renal ultrasound revealing mildly increased echogenicity of both kidneys consistent with medical renal disease, trace right hydronephrosis, possibly transient. The right mid ureteral calculus noted on CT of Friday12/10/2024. Patient denied chest pain, no headache, no dizziness, no shortness of breath, no nausea, no vomiting, no fever, no chills. Patient presented with 2 cm right mid ureteral stone and hydronephrosis. Right ureteral stone impacted in the wall of mid ureteral lumen. Laser debridment of mid ureteral wall performed along with laser lithotripsy. : Patient seen and examined at bedside. Patient complains with right flank pain, 7 level. Patient pending renal scan. per urology keep Lowry until renal scan completed. Patient denied chest pain, no headache, no dizziness, no shortness of breath, no nausea, no vomiting, no fever, no chills. Objective vital signs Vital Sign Date Time Temp Pulse Resp B/P (MAP) Pulse Ox O2 Delivery O2 Flow Rate FiO2 06/02/25 13:57 95 18 141/76 06/02/25 13:00 97.6 98 97.6 06/01/25 20:00 Room Air* 0 21 Total Intake and Output 06/01/25 06/01/25 06/02/25 15:00 23:00 07:00 Intake Total 100 ml 1040 ml Output Total 400 ml 975 ml Balance 100 ml -400 ml 65 ml medications Current Medications Medications Dose Ordered Sig/Nery Route Start Time Stop Time Status Last Admin Dose Admin Acetaminophen 500 mg Q4HPRN PRN PO 05/31/25 16:45 Acetaminophen/ Codeine Phosphate 1 tab Q6HPRN PRN PO 05/31/25 16:45 UNV Acetaminophen/ Hydrocodone Bitart 1 tab Q6HPRN PRN PO 05/31/25 16:45 06/02/25 17:00 1 TAB Diagnostic Test (Pha) 1 strip ACHS 05/31/25 22:00 Cancel Insulin Human Regular ACHS SC 05/31/25 22:00 Cancel Dextrose 50 ml UD PRN IV 05/31/25 19:00 Cancel Diagnostic Test (Pha) 1 strip ACHS 05/31/25 22:00 06/02/25 17:00 1 STRIP Insulin Human Regular ACHS SC 05/31/25 22:00 06/01/25 21:09 2 UNITS Dextrose 50 ml UD PRN IV 05/31/25 19:15 Sodium Chloride 10 ml Q8HR IV 05/31/25 22:00 06/02/25 14:00 10 ML Ondansetron HCl 4 mg Q4HP PRN IV 05/31/25 19:15 Docusate Sodium 100 mg BIDPRN PRN PO 05/31/25 19:15 Morphine Sulfate 2 mg Q4HPRN PRN IV 05/31/25 19:15 06/02/25 13:27 2 MG Ceftriaxone Sodium 50 ml @ 100 mls/hr DAILY@09 IV 06/02/25 09:00 06/02/25 10:01 100 MLS/HR Examination General Appearance: Cooperative. Well developed. Well nourished. NAD Head Exam: Normal inspection Neck Exam: Normal inspection. Non-tender. Normal alignment Pulmonary/Respiratory: Chest non-tender. Clear bilateral breath sounds, no crackles, no wheezing. Cardiovascular/Chest: Regular rate and rhythm. No murmurs. No JVD. Peripheral Pulses: 2+ Radial (R). 2+ Radial (L). 2+ Pedal (R). 2+ Pedal (L) Abdominal Exam: Normal bowel sounds. Soft. normal abdomen, no visible veins, Nontender. No hepatospenomegaly. No masses Ankle Exam: Negative ankle edema Lower extremities: Negative lower extremity edema Neuro/Mental Status: A&O x4. Coherent. Thoughts/Psych: Normal thought pattern. Appropriate mood and affect. Good judgement and insight Skin Exam: Normal inspection. Normal color. Warm. Dry laboratory and microbiology Laboratory Tests 06/02/25 05:04 Test 06/02/25 05:04 Range/Units Serum Glucose 120 H 74-106 mg/dL Labs and/or images reviewed: Labs reviewed by me, Image(s) reviewed by me Problem List/Assessment/Plan Problem List/Assessment/Plan # Right flank pain # Ureteral stones, hydronephrosis -Renal US- Mildly increased echogenicity of both kidneys consistent with medical renal disease. Trace right hydronephrosis, possibly transient. -Chest/Abdomen X-ray- Status post cholecystectomy. Nonspecific bowel gas pattern. Moderate to large amount of fecal material within the colon. -consutl radiology -Right ureteroscopic laser lithotripsy with sent placement -Pain control -Management of fluids and electrolytes -Consultation for Urology -06/02/2025: per Urology, renal scan pending until lowry out -2 cm right mid ureteral stone and hydronephrosis -Right ureteral stone impacted in the wall of mid ureteral lumen. -Laser debridment of mid ureteral wall performed along with laser lithotripsy. # history of PTSD # history of depression # history of anxiety - resumed home medication lamotrigine, amitriptyline # essential hypertension - resumed home medication metoprolol 50 mg p.o. daily # peripheral neuropathy - resumed home medication gabapentin Goals of care: Full code, discussed for >16 minutes on 06/02/25 Plan discussed with patient Plan discussed with Dr. Coon Plan discussed with: Patient (RN), Other My Orders My Orders Orders - RAFAL CORNELL RESIDENT Procedure Category Date Status Time Stone Analysis Urinary LAB 06/02/25 In Process 15:56 Dietary Evaluation Review Comments: [id number] diet Monitor po intake to meet 75% f her needs Expected Outcomes/Goals: controlled blood sugars, gradual wt loss Date of Service: Jun 02, 2025 Billing Provider: MEGHA COON MD Common Visit Codes: [id number] INP/OBS CARE(HIGH) RAFAL CORNELL RESIDENT Jun 02, 2025 18:18 ANNIA BAXTER RESIDENT Jun 02, 2025 19:15 MEGHA COON MD Jun 04, 2025 20:10
[2025-06-02 21:00] VITALS: BP 139/74; PULSE 94; RESP 17; TEMP 97.9; O2SAT 98
[2025-06-02] MEDS ORDERED: GABAPENTIN 300 MG CAP PO SCH ×2 (22:00→23:00)
[2025-06-02] MEDS: lamoTRIgine 100 MG TAB PO SCH (22:43)
[2025-06-02] MEDS: AMITRIPTYLINE HCL 25 MG TAB PO SCH (22:43)
[2025-06-02] MEDS: GABAPENTIN 300 MG CAP PO SCH (23:05)
[2025-06-03 01:00] VITALS: BP 132/53; PULSE 80; RESP 18; TEMP 97; O2SAT 98
[2025-06-03 05:00] VITALS: BP 124/62; PULSE 82; RESP 18; TEMP 96.6; O2SAT 98
[2025-06-03 06:15] LABS: Hematocrit 37.0 % (36.0-46.0); Hemoglobin 12.6 g/dL (12.2-16.2); Mean Corpuscular Hemoglobin 30.2 pg (28.0-32.0); Mean Corpuscular Volume 88.5 fL (80.0-100.0); Nucleated Red Blood Cells % 0.1 %
[2025-06-03 06:22] LABS: Anion Gap 10 (5-15); Calcium 9.4 mg/dL (8.7-10.4); Carbon Dioxide 26 mmol/L (20-31); Chloride 105 mmol/L (98-107); Potassium 3.8 mmol/L (3.5-5.1); Sodium 141 mmol/L (136-145)
[2025-06-03 06:29] LABS: BUN/Creatinine Ratio 11.6 (10.0-20.0); Blood Urea Nitrogen 11 mg/dL (9-23); Glucose 106 mg/dL (74-106)
[2025-06-03 09:00] VITALS: BP 119/63; PULSE 94; RESP 20; TEMP 98; O2SAT 95
[2025-06-03] MEDS: FUROSEMIDE 40 MG/4 ML VIAL IV ONE (09:15)
[2025-06-03] MEDS: ACETAMINOPHEN 500 MG TAB or CAP PO PRN (09:23)
[2025-06-03] MEDS: METOPROLOL SUCCINATE XL 50 MG TAB PO SCH (09:24)
[2025-06-03] MEDS: FUROSEMIDE 40 MG/4 ML VIAL ONE (10:23)
--- NOTE | 2025-06-03 12:46 | DVH ---
Procedure: NM NM MAG3 RENAL SCAN Exam Date: 06/03/2025 10:16 AM. Clinical History: hydronephrosis Comparison Study: XY KUB ABDOMEN SINGLE VIEW on DOS: 06/01/25, US KIDNEY on DOS: 05/31/25, XY KUB ABDOM EN SINGLE VIEW on DOS: 05/31/25, US KIDNEY on DOS: 12/08/24 Nuclear Medicine Renal Scan with Lasix. Technique: Following the intravenous administration of 10.2 mCi of technetium 99m labeled MAG-3 , cady w images were acquired in one second intervals. This was followed by functional imaging of the kidn eys in the posterior projection which were obtained at 20 seconds intervals reconstructed into 2 min grayling frames for a total of 34 minutes. 40 mg of Lasix were given IV at the 10 minute spensre. Flow cur ves and functional renogram curves were generated. Split function data were generated from the firs t three minutes of the study. Findings: The flow study reveals prompt visualization of both kidneys with normal flow bilaterally. The kidneys are normal size, location and contour. The functional data was obtained with the renal pelvis included in the region of interest: Left: Peak time on the left is 6.5 minutes. Peak to 1/2 peak on the left is 15 minutes. Diuretic T 1/2 on the left is 2.5 minutes. Right: Peak time on the right is 13.5 minutes. Peak to 1/2 peak on the right is 15 minutes. Diuretic T 1/2 on the right is 9.5 minutes. Split function is 35 % on the left and 65 % on the right. IMPRESSION: Split function is 35 % on the left and 65 % on the right. Both kidneys demonstrate excretion and are responsive to lasix administration.
[2025-06-03 13:00] VITALS: BP 146/73; PULSE 87; RESP 18; TEMP 97.9; O2SAT 94
--- NOTE | 2025-06-03 15:32 | DVHPNRES ---
Progress Note Date Seen: Jun 03, 2025 Resident Creating Document: RAFAL CORNELL Medical Necessity Reason Pt with a Central, PICC or Fol: No (RN) Subjective Review of Systems Patient is a 59-year-old female with past medical history of HTN, T2DM, kiney stones who has presented to ED with complaint of right hilda pain. Patient described that stabbing pain began on December,, score 9-10, pain alleviated when she is lying right side down. Renal ultrasound revealing mildly increased echogenicity of both kidneys consistent with medical renal disease, trace right hydronephrosis, possibly transient. The right mid ureteral calculus noted on CT of Friday12/10/2024. Patient denied chest pain, no headache, no dizziness, no shortness of breath, no nausea, no vomiting, no fever, no chills. Patient presented with 2 cm right mid ureteral stone and hydronephrosis. Right ureteral stone impacted in the wall of mid ureteral lumen. Laser debridment of mid ureteral wall performed along with laser lithotripsy. 06/02/2025: Patient seen and examined at bedside. Patient complains with right flank pain, 7 level. Patient pending renal scan. per urology keep Lowry until renal scan completed. Patient denied chest pain, no headache, no dizziness, no shortness of breath, no nausea, no vomiting, no fever, no chills. 06/03/2025: Patient still have right flank pain. Renal Scan w/Medication NM- Split function is 35 % on the left and 65 % on the right. Both kidneys demonstrate excretion and are responsive to lasix administration. Objective vital signs Vital Sign Date Time Temp Pulse Resp B/P (MAP) Pulse Ox O2 Delivery O2 Flow Rate FiO2 06/03/25 13:00 97.9 87 18 146/73 (97) 94 97.9 06/03/25 07:59 Room Air* 0 21 Total Intake and Output 06/02/25 06/02/25 06/03/25 15:00 23:00 07:00 Intake Total 850 ml 800 ml Output Total 1900 ml 1000 ml Balance -1050 ml -200 ml medications Current Medications Medications Dose Ordered Sig/Nery Route Start Time Stop Time Status Last Admin Dose Admin Acetaminophen 500 mg Q4HPRN PRN PO 05/31/25 16:45 06/03/25 09:23 500 MG Acetaminophen/ Codeine Phosphate 1 tab Q6HPRN PRN PO 05/31/25 16:45 UNV Acetaminophen/ Hydrocodone Bitart 1 tab Q6HPRN PRN PO 05/31/25 16:45 06/03/25 14:21 1 TAB Diagnostic Test (Pha) 1 strip ACHS 05/31/25 22:00 Cancel Insulin Human Regular ACHS SC 05/31/25 22:00 Cancel Dextrose 50 ml UD PRN IV 05/31/25 19:00 Cancel Diagnostic Test (Pha) 1 strip ACHS 05/31/25 22:00 06/03/25 11:30 1 STRIP Insulin Human Regular ACHS SC 05/31/25 22:00 06/01/25 21:09 2 UNITS Dextrose 50 ml UD PRN IV 05/31/25 19:15 Sodium Chloride 10 ml Q8HR IV 05/31/25 22:00 06/03/25 14:26 10 ML Ondansetron HCl 4 mg Q4HP PRN IV 05/31/25 19:15 Docusate Sodium 100 mg BIDPRN PRN PO 05/31/25 19:15 Morphine Sulfate 2 mg Q4HPRN PRN IV 05/31/25 19:15 06/03/25 06:32 2 MG Ceftriaxone Sodium 50 ml @ 100 mls/hr DAILY@09 IV 06/02/25 09:00 06/03/25 09:24 100 MLS/HR Metoprolol Succinate 50 mg DAILY PO 06/03/25 10:00 06/03/25 09:24 50 MG Amitriptyline HCl 100 mg HS PO 06/02/25 22:00 06/02/25 22:43 100 MG Lamotrigine 200 mg HS PO 06/02/25 22:00 06/02/25 22:43 200 MG Gabapentin 300 mg TID PO 06/02/25 23:00 06/03/25 14:25 300 MG laboratory and microbiology Laboratory Tests 06/03/25 05:15 Test 06/03/25 05:15 Range/Units Serum Glucose 106 74-106 mg/dL Microbiology Date/Time Source Procedure Growth Status 06/02/25 07:46 Voided Urine Urine Culture - Preliminary Resulted Labs and/or images reviewed: Labs reviewed by me, Image(s) reviewed by me (RN) Problem List/Assessment/Plan Problem List/Assessment/Plan # Right flank pain # Ureteral stones, hydronephrosis -Renal US- Mildly increased echogenicity of both kidneys consistent with medical renal disease. Trace right hydronephrosis, possibly transient. -Chest/Abdomen X-ray- Status post cholecystectomy. Nonspecific bowel gas pattern. Moderate to large amount of fecal material within the colon. -consutl radiology -Right ureteroscopic laser lithotripsy with sent placement -Pain control -Management of fluids and electrolytes -Consultation for Urology -06/02/2025: per Urology, renal scan pending until lowry out -2 cm right mid ureteral stone and hydronephrosis -Right ureteral stone impacted in the wall of mid ureteral lumen. -Laser debridment of mid ureteral wall performed along with laser lithotripsy. -Renal Scan w/Medication NM- Split function is 35 % on the left and 65 % on the right. Both kidneys demonstrate excretion and are responsive to lasix administration. # history of PTSD # history of depression # history of anxiety - resumed home medication lamotrigine, amitriptyline # essential hypertension - resumed home medication metoprolol 50 mg p.o. daily # peripheral neuropathy - resumed home medication gabapentin Goals of care: Full code, discussed for >16 minutes on 06/03/25 Plan discussed with patient Plan discussed with Dr. Coon Plan discussed with: Patient, Other My Orders My Orders Orders - RAFAL CORNELL Procedure Category Date Status Time Stone Analysis Urinary LAB 06/02/25 In Process 15:56 Dietary Evaluation Review Comments: [id number] diet Monitor po intake to meet 75% f her needs Expected Outcomes/Goals: controlled blood sugars, gradual wt loss Date of Service: Jun 03, 2025 Billing Provider: MEGHA COON MD Common Visit Codes: [id number] INP/OBS CARE(HIGH) RAFAL CORNELL Jun 03, 2025 15:32 MEGHA COON MD Jun 04, 2025 20:12
[2025-06-03 17:00] VITALS: BP 133/52; PULSE 88; RESP 20; TEMP 96.4; O2SAT 97
[2025-06-03 21:00] VITALS: BP 106/67; PULSE 93; RESP 18; TEMP 97.6; O2SAT 97
[2025-06-03 21:07] LABS: Urine Protein, UAD 2+ (Negative)
[2025-06-04 01:00] VITALS: BP 110/65; PULSE 95; RESP 16; TEMP 97.5; O2SAT 99
[2025-06-04 05:00] VITALS: BP 126/61; PULSE 99; RESP 17; TEMP 97.9; O2SAT 98
[2025-06-04 05:59] LABS: Hematocrit 41.4 % (36.0-46.0); Hemoglobin 14.0 g/dL (12.2-16.2); Mean Corpuscular Hemoglobin 30.1 pg (28.0-32.0); Mean Corpuscular Volume 88.8 fL (80.0-100.0); Nucleated Red Blood Cells % 0.3 %
[2025-06-04 06:02] LABS: Anion Gap 9 (5-15); Carbon Dioxide 29 mmol/L (20-31); Chloride 102 mmol/L (98-107); Potassium 3.8 mmol/L (3.5-5.1); Sodium 140 mmol/L (136-145)
[2025-06-04 06:03] LABS: Calcium 9.7 mg/dL (8.7-10.4)
[2025-06-04 06:08] LABS: BUN/Creatinine Ratio 13.1 (10.0-20.0); Blood Urea Nitrogen 14 mg/dL (9-23)
[2025-06-04 06:18] LABS: Glucose 119 mg/dL (74-106)
[2025-06-04 08:00] VITALS: PULSE 89; RESP 18; O2SAT 96
[2025-06-04 09:00] VITALS: BP 105/72; PULSE 89; RESP 18; TEMP 97.3; O2SAT 96
[2025-06-04 13:00] VITALS: BP 129/67; PULSE 86; RESP 18; TEMP 98.1; O2SAT 96
[2025-06-04] MEDS ORDERED: CEPH500C PO (14:10)
--- NOTE | 2025-06-04 14:13 | DVHDSRES ---
Discharge Summary Date of Admission Resident Creating Document: ANNIA BAXTER RESIDENT May 31, 2025 at 15:37 Date of Discharge: Jun 04, 2025 Admitting Diagnosis Ureteral stones with hydronephrosis Labs/Diagnostic Data: Laboratory Results Test 06/04/25 11:42 06/04/25 05:17 06/03/25 01:05 06/02/25 15:56 POC Glucose 137 mg/dl (70-106) White Blood Count 4.9 10^3/uL (4.4-10.8) Red Blood Count 4.67 10^6/uL (4.0-5.20) Hemoglobin 14.0 g/dL (12.2-16.2) Hematocrit 41.4 % (36.0-46.0) Mean Corpuscular Volume 88.8 fL (80.0-100.0) Mean Corpuscular Hemoglobin 30.1 pg (28.0-32.0) Mean Corpuscular Hemoglobin Concent 33.9 g/dL (32.0-36.0) Red Cell Distribution Width 16.0 % (11.8-14.3) Platelet Count 152 10^3/uL (140-450) Mean Platelet Volume 7.8 fL (6.9-10.8) Neutrophils (%) (Auto) 43.2 % (37.0-80.0) Lymphocytes (%) (Auto) 43.7 % (10.0-50.0) Monocytes (%) (Auto) 8.3 % (0.0-12.0) Eosinophils (%) (Auto) 4.2 % (0.0-7.0) Basophils (%) (Auto) 0.6 % (0.0-2.0) Neutrophils # (Auto) 2.1 10 ^3/uL (1.6-8.6) Lymphocytes # (Auto) 2.1 10 ^3/uL (0.4-5.4) Monocytes # (Auto) 0.4 10 ^3/uL (0-1.3) Eosinophils # (Auto) 0.2 10 ^3/uL (0-0.8) Basophils # (Auto) 0 10 ^3/uL (0-0.2) Nucleated Red Blood Cells 0.3 % Sodium Level 140 mmol/L (136-145) Potassium Level 3.8 mmol/L (3.5-5.1) Chloride Level 102 mmol/L (98-107) Carbon Dioxide Level 29 mmol/L (20-31) Anion Gap 9 (5-15) Blood Urea Nitrogen 14 mg/dL (9-23) Creatinine 1.07 mg/dL (0.550-1.02) Glomerular Filtration Rate Calc 59 mL/min (>90) BUN/Creatinine Ratio 13.1 (10.0-20.0) Serum Glucose 119 mg/dL (74-106) Calcium Level 9.7 mg/dL (8.7-10.4) Urine Color Light-red (Yellow) Urine Clarity Turbid (Clear) Urine pH 6.0 (5.0-9.0) Urine Specific [place] 1.012 (1.001-1.035) Urine Protein 2+ (Negative) Urine Ketones Negative (Negative) Urine Blood 3+ /uL (Negative) Urine Nitrite Negative (Negative) Urine Bilirubin Negative (Negative) Urine Urobilinogen Normal mg/dL (Negative) Urine Leukocyte Esterase 2+ /uL (Negative) Urine RBC 2324 /hpf (0 - 4) Urine Microscopic WBC 58 /HPF (0-5) Urine Squamous Epithelial Cells None seen /hpf (<5) Urine Bacteria Few /hpf (None Seen) Urine Glucose Normal mg/dL (Normal) Test 06/02/25 07:46 06/01/25 16:14 06/01/25 08:42 06/01/25 05:47 Urine Mucus Few (None Seen) Lactic Acid Level 1.0 mmol/L (0.4-2.0) Prothrombin Time 11.9 sec (9.3-11.8) Prothrombin Time INR 1.14 (0.9-1.15) Activated Partial Thromboplast Time 27.3 SEC (24.5-34.5) Total Bilirubin 0.5 mg/dL (0.2-1.0) Aspartate Amino Transferase (AST) 34 U/L (13-40) Alanine Aminotransferase (ALT) 18 U/L (7-40) Alkaline Phosphatase 63 U/L (46-116) Total Protein 6.7 g/dL (5.7-8.2) Albumin 4.3 g/dL (3.2-4.8) Other Laboratory Tests 06/04/25 05:17 Brief Hx & Hospital Course: Patient is a 59-year-old female with past medical history of HTN, T2DM, kiney stones who has presented to ED with complaint of right hilda pain. Patient described that stabbing pain began on December,, score 9-10, pain alleviated when she is lying right side down. Renal ultrasound revealing mildly increased echogenicity of both kidneys consistent with medical renal disease, trace right hydronephrosis, possibly transient. The right mid ureteral calculus noted on CT of Friday12/10/2024. Patient denied chest pain, no headache, no dizziness, no shortness of breath, no nausea, no vomiting, no fever, no chills. Patient presented with 2 cm right mid ureteral stone and hydronephrosis. Right ureteral stone impacted in the wall of mid ureteral lumen. Laser debridment of mid ureteral wall performed along with laser lithotripsy. Hospital course: Patient underwent right ureteroscopy with laser lithotripsy, cystoscopy with right ureteral stent placement and a right retrograde pyelogram. After completion of the procedure, patient continued to complain of right-sided flank pain rating it a 7/10. Renal scan was ordered for the patient along with IV Lasix 40 mg well Nicole was kept in place. Renal scan showed split function 35% on the left and 65% of the right side with both kidneys demonstrating excretion in her responsive to Lasix administration. Patient was cleared for discharge from Urology standpoint with instructions to follow up in 2 weeks. On the day of discharge, patient appeared well and had stable vital signs, reported significant improvement in pain and urinary symptoms, Nicole catheter was discontinued and patient was given a trial of urinating on her own which she had no trouble in doing so. Patient was discharged home with cephalexin 500 mg 2 times a day for 4 days. Her hospital course was uncomplicated. Patient was instructed to follow up with Urology within 2 weeks as well as her PCP in 1-2 weeks. General Appearance: Cooperative. Well developed. Well nourished. NAD Head Exam: Normal inspection Neck Exam: Normal inspection. Non-tender. Normal alignment Pulmonary/Respiratory: Chest non-tender. Clear bilateral breath sounds, no crackles, no wheezing. Cardiovascular/Chest: Regular rate and rhythm. No murmurs. No JVD. Abdominal Exam: Normal bowel sounds. Soft. normal abdomen, minimal flank tenderness to palpation. no visible veins, Nontender. No hepatospenomegaly. No masses Ankle Exam: Negative ankle edema Lower extremities: Negative lower extremity edema Neuro/Mental Status: A&O x4. Coherent. Thoughts/Psych: Normal thought pattern. Appropriate mood and affect. Good judgement and insight Skin Exam: Normal inspection. Normal color. Warm. Dry Condition at Discharge: Good Final Diagnosis/Problems List # Right flank pain # Ureteral stones, hydronephrosis # acute complicated UTI due to above # peripheral neuropathy # essential hypertension # history of PTSD # history of depression # history of anxiety Discharge Disposition: Home Discharge Instruct/Medications Diet: Cardiac 2g Na,low cholest Activity: No Restrictions, As Tolerated Follow Up/Referral: Please follow up with Urology in 1-2 weeks Please follow up with PCP in 1-2 weeks Medications: Continue home medications Cephalexin 500 mg 2 times a day for 4 days Scheduled Amitriptyline Hcl (Amitriptyline Hcl), 1 TAB PO HS, (Reported) Amoxicillin & Pot Clavulanate (Augmentin Tablet), 875 MG PO BID Cephalexin Monohydrate (Cephalexin), 1 CAP PO BID Cholecalciferol (D3), 1 TAB PO DAILY, (Reported) Gabapentin (Gabapentin), 1 CAP PO TID, (Reported) Lamotrigine (Lamotrigine), 1 TAB PO HS, (Reported) Lansoprazole (Prevacid Solutab), 15 MG PO HS, (Reported) Magnesium Oxide (Mg Supplement (Magnesium), 400 MG PO BID, (Reported) Metformin Hydrochloride (Metformin Hcl), 1 TAB PO BID, (Reported) Metoprolol Succinate (Metoprolol Succinate Er), 1 TAB PO DAILY, (Reported) Venlafaxine Hydrochloride (Venlafaxine Hydrochloride), 1 CAP PO DAILY, (Reported) Scheduled PRN Hydrocodone-Acetaminophen (Hydrocodone/Acetaminophen 10-325 mg), 1 TAB PO BID PRN for PAIN SCALE 7 THRU 10 Miscellaneous Medications Calcium Carbonate (Calcium), Unknown Dose PO, (Reported) Cranberry Extract (Cranberry), Unknown Dose OR, (Reported) Lysine HCl (Lysine), 500 MG PO, (Reported) Multiple Vitamin (Mvi Tab), 1 TAB PO, (Reported) Nutritional Supplements (Fruit & Vegetable Daily), Unknown Dose OR, (Reported) Patients Own Medication (Patients Own Medication), PO, (Reported) Probiotic Product (Probiotic), Unknown Dose OR, (Reported) Discontinued Medications Zinc Sulfate (Zinc Sulfate), Unknown Dose PO DAILY, (Reported) Discharge Statement: "Patient was advised to return to the ER or call 911 if any headaches, dizziness, shortness of breath, chest pain, abdominal pain, bleeding, fevers, or worsening of medical condition. Patient was counseled about treatment plan, medications, possible side effects, patientverbalized understanding. All questions were answered to the best of my ability. This discharge took greater then 30 minutes in planning, reviewing documentation, counseling the patient, and discussing with other team members." ASSESSMENT ASSESSMENT Assessment # Right flank pain # Ureteral stones, hydronephrosis # acute complicated UTI due to above # peripheral neuropathy # essential hypertension # history of PTSD # history of depression # history of anxiety Date of Service: Jun 04, 2025 Billing Provider: MEGHA CADET MD Common Visit Codes: [id number] DISCH DAY >30min ANNIA BAXTER RESIDENT Jun 04, 2025 14:12 MEGHA CADET MD Jun 04, 2025 20:12
[2025-06-04 14:59] VITALS: BP 117/64; PULSE 77; RESP 18; TEMP 98.8; O2SAT 96
== END 2025-06-04 15:25 | disposition home or self-care (01) | DRG 661 ==
LOC: CENTRAL 15:37
PROVIDERS: ADMIT Internal Medicine Geriatric Medicine; ATTEND Internal Medicine Geriatric Medicine
PROC: 0T768DZ Dilation of Right Ureter with Intraluminal Device, Via Natural or Artificial Opening Endoscopic (ICD-10-PCS; principal; 2025-05-31)
PROC: 0TC68ZZ Extirpation of Matter from Right Ureter, Via Natural or Artificial Opening Endoscopic (ICD-10-PCS; 2025-05-31)
PROC: BT1DZZZ Fluoroscopy of Right Kidney, Ureter and Bladder (ICD-10-PCS; 2025-05-31)
DX: N13.2 Hydronephrosis with renal and ureteral calculous obstruction (principal); E83.59 Other disorders of calcium metabolism; K76.0 Fatty (change of) liver, not elsewhere classified; N29 Other disorders of kidney and ureter in diseases classified elsewhere; F02.80 Dementia in other diseases classified elsewhere, unspecified severity, without behavioral disturbance, psychotic disturbance, mood disturbance, and anxiety; E11.42 Type 2 diabetes mellitus with diabetic polyneuropathy; F41.9 Anxiety disorder, unspecified; G30.9 Alzheimer's disease, unspecified; I10 Essential (primary) hypertension; I25.2 Old myocardial infarction; Z79.84 Long term (current) use of oral hypoglycemic drugs; Z79.899 Other long term (current) drug therapy; Z87.442 Personal history of urinary calculi; Z88.5 Allergy status to narcotic agent; Z91.041 Radiographic dye allergy status
CPT/HCPCS: 36415; 74018; 76000; 76775; 78707; 80048; 80053; 81001; 82360; 82962; 83605; 85025; 85610; 85730; 86850; 86900; 86901; 87086; 93005; G0378; J1100; J1815; J2704

== ENCOUNTER 2025-06-06 06:52 | Inpatient (IN) | payer OTHER ==
[~2025-06-06] VITALS: Ht 175.3 cm; Wt 111.6 kg
[~2025-06-06 06:52] MED LIST changes: +CEPH500C PO; +MAGN400C3 PO; -ZINC220C8 PO
--- NOTE | 2025-06-06 07:13 | ED.PDOC ---
General HPI Comments This is a 59 year old female presenting to the ED with chief complaint of difficulty urinating. Patient reports that she had recent lithotripsy performed by Dr. Sargent for a 2cm obstructing stone last Friday. Patient relays that she has been doing well up until last night where she is now having difficulty urinating. Patient states she was recently on Augmentin for a kidney infection associated with the obstructing stone. Patient denies any flank pain, dysuria, hematuria, abdominal pain, fever, or chills. Chief Complaint: Urinary Time Seen by MD: 07:11 Primary Care Provider: GABBY Reviewed notes: Nurses Notes, Medications, Allergies Allergies: Coded Allergies: Codeine (Verified Allergy, Mild, ITCHING ONLY , 09/19/24) PER PATIENT ONLY ITCHING IF TAKEN STRAIGHT, IF MIXED WITH OTHER MEDICATIONS, NO ISSUES PER PATIENT DILAUDED IS OKAY Ascorbate (Verified Allergy, Unknown, BLISTERS IN THE BACK OF THROAT, 09/26/23) allergy to vitamin C Iodine (Verified Allergy, Unknown, ANAPHYLAXIS, 09/26/23) Uncoded Allergies: CONTRAST DYE (Allergy, Severe, ANAPHYLAXIS, 09/26/23) Home Meds Active Scripts Cephalexin Monohydrate (Cephalexin) 500 Mg Cap, 1 CAP PO BID for 4 Days, #20 CAP Prov:ANNIA BAXTER 06/04/25 Amoxicillin & Pot Clavulanate (AUGMENTIN TABLET) 875 Mg Tb, 875 MG PO BID, #14 TAB Prov:VIKKI KELLEY MD 12/12/24 Hydrocodone-Acetaminophen (Hydrocodone/Acetaminophen 10-325 mg) 1 Tab Tab, 1 TAB PO BID PRN for PAIN SCALE 7 THRU 10 for 14 Days, #28 TAB Prov:BAN MENDEZ MD 09/20/24 Reported Medications Magnesium Oxide (Mg Supplement (MAGNESIUM) 400 Mg Cap, 400 MG PO BID, CAP 05/31/25 Lysine HCl (Lysine) 500 Mg Tab, 500 MG PO, TAB 10/27/24 Nutritional Supplements (Fruit & Vegetable Daily) Daily Cap, OR, CAP 09/26/23 Patients Own Medication (PATIENTS OWN MEDICATION) ., PO PTS OWN MED-OBTAIN FROM PT AND SEND TO RX DRUG: FREQ: RX# EXP: DATE DISP: TECH: RPH: 09/26/23 Probiotic Product (PROBIOTIC) Tab, OR, TAB 09/26/23 Cranberry Extract (CRANBERRY) 600 Mg Tab, OR, TAB 09/26/23 Calcium Carbonate (Calcium) 1,250 Mg Tab, PO, TAB 09/26/23 Cholecalciferol (D3) 2,000 Unit Tab, 1 TAB PO DAILY, TAB 09/26/23 Multiple Vitamin (Mvi Tab) 1 Tab Tb, 1 TAB PO, TAB 09/26/23 Lansoprazole (Prevacid Solutab) 15 Mg Tab, 15 MG PO HS, TAB 09/26/23 Metformin Hydrochloride (Metformin Hcl) 1,000 Mg Tab, 1 TAB PO BID 09/26/23 Metoprolol Succinate (Metoprolol Succinate Er) 50 Mg Tab, 1 TAB PO DAILY 09/26/23 Amitriptyline Hcl (Amitriptyline Hcl) 100 Mg Tab, 1 TAB PO HS 09/26/23 Gabapentin (Gabapentin) 300 Mg Cap, 1 CAP PO TID 09/26/23 Lamotrigine (Lamotrigine) 200 Mg Tab, 1 TAB PO HS 09/26/23 Venlafaxine Hydrochloride (Venlafaxine Hydrochloride) 150 Mg Cap, 1 CAP PO DAILY 09/26/23 Discontinued Reported Medications Zinc Sulfate (Zinc Sulfate) 220 Mg Cap, PO DAILY for 30 Days, MG 09/26/23 Information Source: Patient Mode of Arrival: Ambulatory Severity: Moderate Inability to void: Moderate Timing: Hours Duration: Since onset Prehospital treatment: None Onset: Spontaneous Symptoms: Inability to void History of: UTI, Kidney stone Location: None associated signs and symptoms: Inability to Void Past Medical History PAST MEDICAL HISTORY: Anxiety, Arthritis, DM, Kidney Stones, UTI'S Surgical History: Cholecystectomy, Tubal Ligation 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 History Family History Family History: Reviewed,noncontributory to illness Social History Smoker: Non-Smoker Alcohol: Denies ETOH Use Drugs: Denies Drug Use Lives In: Home Constitutional: denies: chills, diaphoresis, fatigue, fever, malaise, sweats, weakness, others EENTM: denies: blurred vision, double vision, ear bleeding, ear discharge, ear drainage, ear pain, ear ringing, eye pain, eye redness, hearing loss, mouth pain, mouth swelling, nasal discharge, nose bleeding, nose congestion, nose pain, photophobia, tearing, throat pain, throat swelling, voice changes, others Respiratory: denies: cough, hemoptysis, orthopnea, SOB at rest, shortness of breath, SOB with excertion, stridor, wheezing, others Cardiovascular: denies: chest pain, dizzy spells, diaphoresis, Dyspnea on exertion, edema, irregular heart beat, left arm pain, lightheadedness, palpit ations, PND, syncope, others Gastrointestinal: denies: abdomen distended, abdominal pain, blood streaked b owels, constipated, diarrhea, dysphagia, difficulty swallowing, hematemesis, melena, nausea, poor appetite, poor fluid intake, rectal bleeding, rectal pain, vomiting, others Genitourinary: reports: others (Difficulty urinating); denies: abnormal vagina bleeding, burning, dyspareunia, dysuria, flank pain, frequency, hematuria, incontinence, pain, , vagina discharge, urgency Neurological: denies: dizziness, fainting, headache, left sided numbness, left sided weakness, numbness, paresthesia, pre-existing deficit, right sided numbness, right sided weakness, seizure, speech problems, tingling, tremors, weakness, others Musculoskeletal: denies: back pain, gout, joint pain, joint swelling, muscle pain, muscle stiffness, neck pain, others Integumetry: denies: bruises, change in color, change in hair/nails, dryness, laceration, lesions, lumps, rash, wounds, others Allergic/Immunocompromised: denies: Difficulty Healing, Frequent Infections, Hives, Itching, others Hematologic/Lymphatic: denies: anemia, blood clots, easy bleeding, easy bruising, swollen glands, others Endocrine: denies: excessive hunger, excessive sweating, excessive thirst, excessive urination, flushing, intolerance to cold, intolerance to heat, unex plained weight gain, unexplained weight loss, others Psychiatric: denies: anxiety, bipolar disorder, depression, hopeless, panic disorder, schizophrenia, sleepless, suicidal, others All Other Systems: Reviewed and Negative Physical Exam General Appearance: Moderate Distress, Normal HEENT: Normal ENT Inspection, Pharynx Normal, TMs Normal Neck: Full Range of Motion, Non-Tender, Normal, Normal Inspection Respiratory: Chest Non-Tender, Lungs Clear, No Accessory Muscle Use, No Respiratory Distress, Normal Breath Sounds Cardiovascular: No Edema, No JVD, No Murmur, No Gallop, Normal Peripheral Pulses, Regular Rate/Rhythm Breast Exam: Deferred Gastrointestinal: No Organomegaly, Non Tender, No Pulsatile Mass, Normal Bowel Sounds, Soft Genitalia: Deferred Pelvic: Deferred Rectal: Deferred Extremities: No calf tenderness, Normal capillary refill, Normal inspection, Normal range of motion, Non-tender, No pedal edema Musculoskeletal : Apperance: Normal Neurologic: Alert, steamer blocker II-XII nml as Tested, No Motor Deficits, Normal Affect, Normal Mood, No Sensory Deficits Cerebellar Function: Normal Reflexes: Normal Skin: Dry, Normal Color, Warm Peripheral Pulses: 3+ Radial (R), 3+ Radial (L) Lymphatic: No Adenopathy Was a procedure done? Was a procedure done?: No Differential Diagnosis Kidney stone (Female): Musculoskeletal pain, Urinary obstruction, Urolithiasis X-Ray, Labs, Meds, VS Vital Signs Date Time Temp Pulse Resp B/P (MAP) Pulse Ox O2 Delivery O2 Flow Rate FiO2 06/06/25 09:05 117 18 94 Room Air* 0 21 06/06/25 09:05 98.4 117 18 105/70 (82) 94 98.4 06/06/25 06:53 97.9 118 18 134/91 97 97.9 Lab Test 06/06/25 08:10 06/06/25 07:16 Range/Units Urine Color Light-orange Yellow Urine Clarity Ex.turbid Clear Urine pH 6.0 5.0-9.0 Urine Specific Erwin 1.025 1.001-1.035 Urine Protein 2+ H Negative Urine Ketones Negative Negative Urine Blood 3+ H Negative /uL Urine Nitrite Negative Negative Urine Bilirubin Negative Negative Urine Urobilinogen Normal Negative mg/dL Urine Leukocyte Esterase 3+ Negative /uL Urine RBC 2692 0 - 4 /hpf Urine Microscopic WBC 342 H 0-5 /HPF Urine Squamous Epithelial Cells Many <5 /hpf Urine Bacteria None seen None Seen /hpf Urine Hyaline Casts Few 0 - 2 /lpf Urine Mucus Few None Seen Urine Glucose Trace Normal mg/dL White Blood Count 6.2 # 4.4-10.8 10^3/uL Red Blood Count 4.95 4.0-5.20 10^6/uL Hemoglobin 15.0 12.2-16.2 g/dL Hematocrit 44.0 36.0-46.0 % Mean Corpuscular Volume 88.8 80.0-100.0 fL Mean Corpuscular Hemoglobin 30.4 28.0-32.0 pg Mean Corpuscular Hemoglobin Concent 34.2 32.0-36.0 g/dL Red Cell Distribution Width 16.1 H 11.8-14.3 % Platelet Count 216 140-450 10^3/uL Mean Platelet Volume 8.1 6.9-10.8 fL Neutrophils (%) (Auto) 44.8 37.0-80.0 % Lymphocytes (%) (Auto) 43.4 10.0-50.0 % Monocytes (%) (Auto) 4.8 0.0-12.0 % Eosinophils (%) (Auto) 6.6 0.0-7.0 % Basophils (%) (Auto) 0.4 0.0-2.0 % Neutrophils # (Auto) 2.8 1.6-8.6 10 ^3/uL Lymphocytes # (Auto) 2.7 0.4-5.4 10 ^3/uL Monocytes # (Auto) 0.3 0-1.3 10 ^3/uL Eosinophils # (Auto) 0.4 0-0.8 10 ^3/uL Basophils # (Auto) 0 0-0.2 10 ^3/uL Nucleated Red Blood Cells 0.1 % Sodium Level 140 136-145 mmol/L Potassium Level 4.3 3.5-5.1 mmol/L Chloride Level 99 98-107 mmol/L Carbon Dioxide Level 30 20-31 mmol/L Anion Gap 11 5-15 Blood Urea Nitrogen 19 9-23 mg/dL Creatinine 1.32 H 0.550-1.02 mg/dL Glomerular Filtration Rate Calc 46 >90 mL/min BUN/Creatinine Ratio 14.4 10.0-20.0 Serum Glucose 160 H 74-106 mg/dL Calcium Level 10.4 8.7-10.4 mg/dL Patient alert. Vitals stable. History of kidney stone. Answering questions. Able to urinate. Placed a Nicole catheter. Has been followed by Dr. Sargent Reviewed her history. Urinalysis shows blood. Possible kidney stone. Possible sepsis from urinary tract infection. Blood sugar slightly elevated. Explained to the patient. Continue to monitor. Time of 1ST Reevaluation: 08:11 Reevaluation 1ST: Unchanged Patient Education/Counseling: Diagnosis, Treatment Family Education/Counseling: No Family Present SEPSIS Sepsis Screen Date sepsis recognized/suspect: Jun 06, 2025 Time Sepsis recognized/suspect: 0659 Recent Procedure: Yes On Antibiotic Therapy: No Respiratory Rate >20: No Heart Rate >90: Yes Temp<36 C (96.8 F) or >38.3 C: No SBP <90 or MAP <65 mmHG: No New Acute Mental Status Change: No Is the patient on CPAP, BIPAP,: No Physician Orders Insert Nicole Catheter QSHIFT (06/06/25 07:09) Urine Bacterial Culture (06/06/25 09:15) Bactrim Iv Septra Sulfam/Trim (06/06/25 09:15) Vital Signs Date Time Temp Pulse Resp B/P (MAP) Pulse Ox O2 Delivery O2 Flow Rate FiO2 06/06/25 09:05 117 18 94 Room Air* 0 21 06/06/25 09:05 98.4 117 18 105/70 (82) 94 98.4 06/06/25 06:53 97.9 118 18 134/91 97 97.9 Laboratory Tests Test 06/06/25 07:16 White Blood Count 6.2 10^3/uL (4.4-10.8) # Departure 1 Departure Time of Disposition: 07:24 Impression: Primary Impression: Sepsis due to urinary tract infection Additional Impressions: Kidney stone Uncontrolled diabetes mellitus Qualified Codes: E13.65 - Other specified diabetes mellitus with hyperglycemia Disposition: ADMITTED INPATIENT Admit to: Med Surg Condition: Guarded Critical Care Note Critical Care Time?: No Stability Stability form required: No Heart Score Heart Score: Heart Score Response (Comments) Value History N/A 0 EKG N/A 0 Age N/A 0 Risk Factors N/A 0 Troponin N/A 0 Total 0 I personally scribed for KEN TOLLIVER MD ([email or web address]) on 06/06/25 at 07:13. Electronically submitted by Spenser Buckley ([email or web address]). KEN TOLLIVER MD Jun 06, 2025 07:13
[2025-06-06 07:47] LABS: Hematocrit 44.0 % (36.0-46.0); Hemoglobin 15.0 g/dL (12.2-16.2); Mean Corpuscular Hemoglobin 30.4 pg (28.0-32.0); Mean Corpuscular Volume 88.8 fL (80.0-100.0); Nucleated Red Blood Cells % 0.1 %
[2025-06-06 07:57] LABS: Chloride 99 mmol/L (98-107); Potassium 4.3 mmol/L (3.5-5.1); Sodium 140 mmol/L (136-145)
[2025-06-06 07:58] LABS: Anion Gap 11 (5-15); Carbon Dioxide 30 mmol/L (20-31)
[2025-06-06 08:00] LABS: Calcium 10.4 mg/dL (8.7-10.4)
[2025-06-06 08:04] LABS: BUN/Creatinine Ratio 14.4 (10.0-20.0); Blood Urea Nitrogen 19 mg/dL (9-23)
[2025-06-06 08:11] LABS: Glucose 160 mg/dL (74-106)
[2025-06-06 09:03] LABS: Urine Protein, UAD 2+ (Negative)
[2025-06-06 09:05] VITALS: PULSE 117; RESP 18; O2SAT 94
[2025-06-06] MEDS: SODIUM CHLORIDE 0.9% 1,000 ML IV ONE (09:40)
--- NOTE | 2025-06-06 10:36 | DVH ---
Exam: CT CT AB PEL WO CON-NO ORAL OR IV History: stone Comparison Study: CT CT AB PEL WO CON-NO ORAL OR IV on DOS: 12/10/24, CT CT AB PEL WO CON-NO ORAL OR IV on DOS: 07/22/24, CT CT AB PEL WO CON-NO ORAL OR IV on DOS: 10/21/23, CT CT AB PEL WO CON-NO ORAL OR IV on DOS: 09/25/23 Technique: Multidetector spiral CT of the abdomen was performed from lung bases to pubic symphysis. I maging was performed without IV contrast. Axial, coronal and sagittal multiplanar reformats were obta ined from the axial data set by the technologist. Radiation Dose : 1. Abdomen/Pelvis: CTDIvol 25.04 mGy, DLP 1503.05 mGy*cm. Findings: Evaluation of solid organs is limited due to lack of intravenous contrast use. Lung Bases: No acute or significant lung base finding. Normal heart size. No pleural or pericardial effusion. Liver: Hepatic steatosis. Hepatomegaly. Gallbladder and Biliary Tree: Gallbladder is surgically absent. Spleen: Unremarkable Pancreas: The pancreas is grossly normal in appearance. Adrenal Glands: Unremarkable Kidneys: Kidneys are grossly normal without calculi or hydronephrosis. Right internal ureteral stent in satisfactory position. Hazy hyperattenuation in the left kidney may represent medullary nephrocalcinosis. Bladder: Grossly unremarkable for degree of distention. Bowel: The stomach is grossly normal in appearance. Moderate colonic stool. The appendix is not visua lized; however, no secondary findings of acute appendicitis identified. Ascites: Absent Lymphadenopathy: No mesenteric, retroperitoneal or periportal lymphadenopathy. Abdominal Wall and Mesentery: Unremarkable. Vasculature: The visualized abdominal aorta is normal in size and caliber. Evaluation of abdominal a nd pelvic vessels is limited due to lack of intravenous contrast. Pelvic Organs: Unremarkable Musculoskeletal: No aggressive focal bony lesions, acute fractures or dislocation. Degenerative velásquez es of the spine. IMPRESSION: Right internal ureteral stent in satisfactory position. Hazy hyperattenuation in the left kidney may represent medullary nephrocalcinosis.
[2025-06-06] MEDS: SULFAMETH-TRIMETH 80/16MG-ML 15 ML in D5W 5% 500 ML IV ONE (10:55)
[2025-06-06] MEDS: MORPHINE SULFATE 4 MG/ML SYR/VIAL IV ONE (12:35)
[2025-06-06] MEDS: ONDANSETRON HCL 4 MG/2 ML VIAL IV ONE (12:36)
[2025-06-06] MEDS ORDERED: ACETAMINOPHEN 325 MG TAB PO PRN (14:00)
[2025-06-06] MEDS ORDERED: MORPHINE SULFATE INJ 2 MG/ml SYRG IV PRN (14:00)
[2025-06-06] MEDS ORDERED: ONDANSETRON HCL 4 MG/2 ML VIAL IV PRN (14:00)
[2025-06-06] MEDS: SODIUM CHLORIDE 0.9% 1,000 ML IV SCH (14:00)
[2025-06-06] MEDS ORDERED: DOCUSATE SOD 100 MG CAP PO PRN (14:00)
--- NOTE | 2025-06-06 14:24 | DVHHP2 ---
History of Present Illness Reason for Visit: Not making urine History of Present Illness Maria Alejandra Jose is a 59-year-old female with past medical history of anxiety, arthritis, SVT, kidney stones, and diabetes, who came to the hospital due to pelvic pain and oliguria. Patient was recently hospitalized for obstructing kidney stone, she had a stent placed on 06/01/2025. Was discharged home on 06/04/2025. She states she was urinating well when she was discharged, but yesterday her urine output decreased. Then this morning she had almost no urine output, pelvic pain, and pain that radiates to her right flank. Cardiovascular: Other (SVT) Psych: Anxiety Musculoskeletal: Osteoarthritis Renal/: Other (kidney stones) Endocrine: Diabetes Past Surgical History: Cholecystectomy, Hernia Repair, Other (Left leg, Right ankle), Tubal Ligation Smoke: No ALCOHOL: rare Drugs: None Lives: with Family Domestic Violence: Neg Review of Systems Constitutional: No: Fever, Chills, Sweats, Weakness, Malaise, Other Eyes: No: Pain, Vision change, Conjunctivae inflammation, Eyelid inflammation, Other, Redness ENT: No: Ear pain, Ear discharge, Nose pain, Nose discharge, Nose congestion, Mouth pain, Mouth swelling, Throat pain, Throat swelling, Other Respiratory: No: Cough, Dry, Shortness of breath, SOB with excertion, Wheezing, Hemoptysis, Pleuritic Pain, Sputum, Wheezing, Other Cardiovascular: No: Chest Pain, Palpitations, Orthopnea, Paroxysmal Noc. Dyspnea, Edema, Lt Headedness, Other Gastrointestinal: Abdominal Pain (pelvic); No: Nausea, Vomiting, Diarrhea, Constipation, Melena, Hematochezia, Other Genitourinary: No Dysuria, No Frequency, No Incontinence, No Hematuria, No Retention; Other (minimal urine output) Musculoskeletal: No: other, neck pain, shoulder pain, arm pain, back pain, hand pain, leg pain, foot pain Skin: No: Rash, Lesions, Jaundice, Bruising, Other Neurological: No: Weakness, Numbness, Incoordination, Change in speech, Confusion, Seizures, Other Allergies: Coded Allergies: Codeine (Verified Allergy, Mild, ITCHING ONLY , 09/19/24) PER PATIENT ONLY ITCHING IF TAKEN STRAIGHT, IF MIXED WITH OTHER MEDICATIONS, NO ISSUES PER PATIENT DILAUDED IS OKAY Ascorbate (Verified Allergy, Unknown, BLISTERS IN THE BACK OF THROAT, 09/26/23) allergy to vitamin C Iodine (Verified Allergy, Unknown, ANAPHYLAXIS, 09/26/23) Uncoded Allergies: CONTRAST DYE (Allergy, Severe, ANAPHYLAXIS, 09/26/23) Medications Current Medications Medications Dose Ordered Sig/Nery Route Start Time Stop Time Status Last Admin Dose Admin Acetaminophen/ Hydrocodone Bitart 1 tab Q4HP PRN PO 06/06/25 14:00 UNV Ondansetron HCl 4 mg Q4HP PRN IV 06/06/25 14:00 UNV Docusate Sodium 100 mg BIDPRN PRN PO 06/06/25 14:00 UNV Acetaminophen 650 mg Q6HP PRN PO 06/06/25 14:00 UNV Morphine Sulfate 2 mg Q4HPRN PRN IV 06/06/25 14:00 UNV Gabapentin 300 mg TID PO 06/06/25 14:00 UNV Metoprolol Succinate 50 mg DAILY PO 06/07/25 10:00 UNV Patient Own Medication 1 tab HS PO 06/06/25 22:00 UNV Patient Own Medication 1 tab DAILY PO 06/07/25 10:00 UNV Patient Own Medication 1 tab HS PO 06/06/25 22:00 UNV Patient Own Medication 1 cap DAILY PO 06/07/25 10:00 UNV Exam Vital Signs Vital Signs Date Time Temp Pulse Resp B/P (MAP) Pulse Ox O2 Delivery O2 Flow Rate FiO2 06/06/25 13:40 87 18 123/59 (80) 94 06/06/25 09:05 Room Air* 0 21 06/06/25 09:05 98.4 98.4 General Appearance: Alert, Oriented X3, Cooperative, mild distress HEENT: Atraumatic, PERRLA Respiratory: Clear to auscultation, Normal air movement Cardiovascular: Normal S1, Normal S2, No murmurs, Other (ST) Abdominal: Normal bowel sounds, Soft, Other (Pelvic pain) Extremities: No clubbing, No cyanosis, No edema Skin: No rashes, No breakdown, No significant lesion Neuro: Normal gait, Normal speech, Strength at 5/5 X4 ext, Normal tone Psych/Mental Status: Mental status NL, Mood NL Labs/Xrays Labs Test 06/06/25 08:10 06/06/25 07:16 Range/Units Urine Color Light-orange Yellow Urine Clarity Ex.turbid Clear Urine pH 6.0 5.0-9.0 Urine Specific [place] 1.025 1.001-1.035 Urine Protein 2+ H Negative Urine Ketones Negative Negative Urine Blood 3+ H Negative /uL Urine Nitrite Negative Negative Urine Bilirubin Negative Negative Urine Urobilinogen Normal Negative mg/dL Urine Leukocyte Esterase 3+ Negative /uL Urine RBC 2692 0 - 4 /hpf Urine Microscopic WBC 342 H 0-5 /HPF Urine Squamous Epithelial Cells Many <5 /hpf Urine Bacteria None seen None Seen /hpf Urine Hyaline Casts Few 0 - 2 /lpf Urine Mucus Few None Seen Urine Glucose Trace Normal mg/dL White Blood Count 6.2 # 4.4-10.8 10^3/uL Red Blood Count 4.95 4.0-5.20 10^6/uL Hemoglobin 15.0 12.2-16.2 g/dL Hematocrit 44.0 36.0-46.0 % Mean Corpuscular Volume 88.8 80.0-100.0 fL Mean Corpuscular Hemoglobin 30.4 28.0-32.0 pg Mean Corpuscular Hemoglobin Concent 34.2 32.0-36.0 g/dL Red Cell Distribution Width 16.1 H 11.8-14.3 % Platelet Count 216 140-450 10^3/uL Mean Platelet Volume 8.1 6.9-10.8 fL Neutrophils (%) (Auto) 44.8 37.0-80.0 % Lymphocytes (%) (Auto) 43.4 10.0-50.0 % Monocytes (%) (Auto) 4.8 0.0-12.0 % Eosinophils (%) (Auto) 6.6 0.0-7.0 % Basophils (%) (Auto) 0.4 0.0-2.0 % Neutrophils # (Auto) 2.8 1.6-8.6 10 ^3/uL Lymphocytes # (Auto) 2.7 0.4-5.4 10 ^3/uL Monocytes # (Auto) 0.3 0-1.3 10 ^3/uL Eosinophils # (Auto) 0.4 0-0.8 10 ^3/uL Basophils # (Auto) 0 0-0.2 10 ^3/uL Nucleated Red Blood Cells 0.1 % Sodium Level 140 136-145 mmol/L Potassium Level 4.3 3.5-5.1 mmol/L Chloride Level 99 98-107 mmol/L Carbon Dioxide Level 30 20-31 mmol/L Anion Gap 11 5-15 Blood Urea Nitrogen 19 9-23 mg/dL Creatinine 1.32 H 0.550-1.02 mg/dL Glomerular Filtration Rate Calc 46 >90 mL/min BUN/Creatinine Ratio 14.4 10.0-20.0 Serum Glucose 160 H 74-106 mg/dL Calcium Level 10.4 8.7-10.4 mg/dL Exam: CT CT AB PEL WO CON-NO ORAL OR IV Findings: Evaluation of solid organs is limited due to lack of intravenous contrast use. Lung Bases: No acute or significant lung base finding. Normal heart size. No pleural or pericardial effusion. Liver: Hepatic steatosis. Hepatomegaly. Gallbladder and Biliary Tree: Gallbladder is surgically absent. Spleen: Unremarkable Pancreas: The pancreas is grossly normal in appearance. Adrenal Glands: Unremarkable Kidneys: Kidneys are grossly normal without calculi or hydronephrosis. Right internal ureteral stent in satisfactory position. Hazy hyperattenuation in the left kidney may represent medullary nephrocalcinosis. Bladder: Grossly unremarkable for degree of distention. Bowel: The stomach is grossly normal in appearance. Moderate colonic stool. The appendix is not visualized; however, no secondary findings of acute appendicitis identified. Ascites: Absent Lymphadenopathy: No mesenteric, retroperitoneal or periportal lymphadenopathy. Abdominal Wall and Mesentery: Unremarkable. Vasculature: The visualized abdominal aorta is normal in size and caliber. Evaluation of abdominal and pelvic vessels is limited due to lack of intravenous contrast. Pelvic Organs: Unremarkable Musculoskeletal: No aggressive focal bony lesions, acute fractures or dislocation. Degenerative changes of the spine. IMPRESSION: Right internal ureteral stent in satisfactory position. Hazy hyperattenuation in the left kidney may represent medullary nephrocalcinosis. SEPSIS Sepsis Screen Date sepsis recognized/suspect: Jun 06, 2025 Time Sepsis recognized/suspect: 904 Recent Procedure: Yes On Antibiotic Therapy: No Respiratory Rate >20: No Heart Rate >90: Yes Temp<36 C (96.8 F) or >38.3 C: No SBP <90 or MAP <65 mmHG: No New Acute Mental Status Change: No Is the patient on CPAP, BIPAP,: No Physician Orders Insert Nicole Catheter QSHIFT (06/06/25 07:09) Urine Bacterial Culture (06/06/25 09:15) Ct Ab Pel Wo Con-No Oral Or Iv (06/06/25 09:17) Admit (06/06/25 13:49) Code Status (06/06/25 13:49) 2 Gm Sodium Diet (06/06/25 Dinner) Hydrocodone-Acet 5/325mg Tab ([place] 5/32 (06/06/25 14:00) Ondansetron Hcl (Zofran) (06/06/25 14:00) Docusate Sodium Capsule (Colace Capsule) (06/06/25 14:00) Complete Blood Count (06/07/25 04:00) Comprehensive Metabolic Panel (06/07/25 04:00) Condition: Serious (06/06/25 13:49) Acetaminophen Tablet (Tylenol Tablet) (06/06/25 14:00) Morphine Sulfate Injection (06/06/25 14:00) * Urology Consult (06/06/25 13:49) Gabapentin Capsule (Neurontin Capsule) (06/06/25 14:00) Metoprolol Xl Succinate (Toprol Xl) (06/07/25 10:00) (Nf) Amitriptyline Hcl (06/06/25 22:00) (Nf) Cholecalciferol (D3) (06/07/25 10:00) (Nf) Lamotrigine (06/06/25 22:00) (Nf) Venlafaxine Hydrochloride (06/07/25 10:00) Strict I & O QSHIFT (06/06/25 13:58) NS (06/06/25 14:00) Vital Signs Date Time Temp Pulse Resp B/P (MAP) Pulse Ox O2 Delivery O2 Flow Rate FiO2 06/06/25 13:40 87 18 123/59 (80) 94 06/06/25 12:35 108 20 145/54 06/06/25 09:05 117 18 94 Room Air* 0 21 06/06/25 09:05 98.4 117 18 105/70 (82) 94 98.4 06/06/25 06:53 97.9 118 18 134/91 97 97.9 Laboratory Tests Test 06/06/25 07:16 White Blood Count 6.2 10^3/uL (4.4-10.8) # Medications Medications Dose Ordered Sig/Nery Route Start Time Stop Time Status Last Admin Dose Admin Morphine Sulfate 4 mg ONCE ONCE IV 06/06/25 12:15 06/06/25 12:16 DC 06/06/25 12:35 4 MG Ondansetron HCl 2 mg ONCE ONCE IV 06/06/25 12:15 06/06/25 12:16 DC 06/06/25 12:36 2 MG Sodium Chloride 1,000 ml @ 1,000 mls/hr Q1H ONCE IV 06/06/25 07:15 06/06/25 08:14 DC 06/06/25 09:40 1,000 MLS/HR Trimethoprim/ Sulfamethoxazole 15 ml/Dextrose 515 ml @ 171.667 mls/hr ONCE ONCE IV 06/06/25 09:15 06/06/25 12:14 DC 06/06/25 10:55 171.667 MLS/HR Assessment/Plan Assessment/Plan Assessment: Acute kidney injury, Renal calculi, Urethral stent 06/01/2025, Diabetes, SVT, Anxiety, Arthritis, Plan: Admit to Med-Surg, Urology consult, IV antibiotics, IV hydration, Nicole catheter, Strict I&O's, Consider nephrology consult is symptoms do not improve, Home medications reconciled, Plan discussed with: Patient My Orders Orders - PATEL 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 Procedure Category Date Status Time Admit ADMIT 06/06/25 Transmitted 13:49 Code Status CODE 06/06/25 Transmitted 13:49 2 Gm Sodium Diet DIET 06/06/25 Transmitted Dinner Hydrocodone-Acet PHA 06/06/25 Logged 5/325mg Tab ([place] 14:00 Ondansetron Hcl PHA 06/06/25 Logged (Zofran) 14:00 Docusate Sodium PHA 06/06/25 Logged Capsule (Colace 14:00 Complete Blood Count LAB 06/07/25 Verified 04:00 Comprehensive LAB 06/07/25 Verified Metabolic Panel 04:00 Condition: Serious ANNE-MARIE 06/06/25 In Process 13:49 Acetaminophen Tablet PHA 06/06/25 Logged (Tylenol Tablet) 14:00 Morphine Sulfate PHA 06/06/25 Logged Injection 14:00 * Urology Consult CONS 06/06/25 Transmitted 13:49 Gabapentin Capsule PHA 06/06/25 Logged (Neurontin Capsule) 14:00 Metoprolol Xl PHA 06/07/25 Logged Succinate (Toprol Xl) 10:00 (Nf) Amitriptyline Hcl PHA 06/06/25 Logged 22:00 (Nf) Cholecalciferol PHA 06/07/25 Logged (D3) 10:00 (Nf) Lamotrigine PHA 06/06/25 Logged 22:00 (Nf) Venlafaxine PHA 06/07/25 Logged Hydrochloride 10:00 Strict I & O ANNE-MARIE 06/06/25 Transmitted 13:58 NS PHA 06/06/25 Transmitted 14:00 Date of Service: Jun 06, 2025 Billing Provider: PATEL LANDAVERDE Common Visit Codes: [id number] INP/OBS CARE (MOD) PATEL LANDAVERDE Jun 06, 2025 14:24
[2025-06-06] MEDS: GABAPENTIN 300 MG CAP PO SCH (14:40)
[2025-06-06] MEDS ORDERED: BACTRIM 5MG/KG Q8HR PER RX 0 ML IV SCH (16:30)
--- NOTE | 2025-06-06 17:53 | DVHINCON2 ---
Date of service: Jun 06, 2025 Referring Physician Hospitalist Reason for Consultation "No urine output" History of Present Illness 59 year old female presenting to the ED with chief complaint of difficulty urinating. She underwent right URSLL and stent placement for management of 2 cm right mid ureteral stone on 06/01/25. Patient relays that she has been doing well up until last night where she is now having difficulty urinating. Patient states she was recently on Augmentin for a kidney infection associated with the obstructing stone. Patient denies any flank pain, dysuria, hematuria, abdominal pain, fever, or chills. Chief Complaint: Urinary Primary Care Provider: GABBY Reviewed notes: Nurses Notes, Medications, Allergies Allergies: Coded Allergies: Codeine (Verified Allergy, Mild, ITCHING ONLY , 09/19/24) PER PATIENT ONLY ITCHING IF TAKEN STRAIGHT, IF MIXED WITH OTHER MEDICATIONS, NO ISSUES PER PATIENT DILAUDED IS OKAY Ascorbate (Verified Allergy, Unknown, BLISTERS IN THE BACK OF THROAT, 09/26/23) allergy to vitamin C Iodine (Verified Allergy, Unknown, ANAPHYLAXIS, 09/26/23) Uncoded Allergies: CONTRAST DYE (Allergy, Severe, ANAPHYLAXIS, 09/26/23) Symptoms: Inability to void History of: UTI, Kidney stone Location: None associated signs and symptoms: Inability to Void Past Medical History Anxiety, Arthritis, DM, Kidney Stones, UTI'S Past Surgical History Cholecystectomy, Tubal Ligation Right ureteroscope epic laser lithotripsy with stent placement on 06/01/2025 RECOVERY AUDITOR History: No Pertinent RECOVERY AUDITOR History Family History: Alzheimer's disease G8 MOTHER Diabetes mellitus G8 MOTHER G8 SISTER G8 SISTER FH: heart attack G8 MOTHER FH: kidney failure G8 MOTHER Patient's mother is Allergies: Coded Allergies: Codeine (Verified Allergy, Mild, ITCHING ONLY , 09/19/24) PER PATIENT ONLY ITCHING IF TAKEN STRAIGHT, IF MIXED WITH OTHER MEDICATIONS, NO ISSUES PER PATIENT DILAUDED IS OKAY Ascorbate (Verified Allergy, Unknown, BLISTERS IN THE BACK OF THROAT, 09/26/23) allergy to vitamin C Iodine (Verified Allergy, Unknown, ANAPHYLAXIS, 09/26/23) Uncoded Allergies: CONTRAST DYE (Allergy, Severe, ANAPHYLAXIS, 09/26/23) Home Meds Active Scripts Cephalexin Monohydrate (Cephalexin) 500 Mg Cap, 1 CAP PO BID for 4 Days, #20 CAP Prov:ANNIA [facility] 06/04/25 Hydrocodone-Acetaminophen (Hydrocodone/Acetaminophen 10-325 mg) 1 Tab Tab, 1 TAB PO BID PRN for PAIN SCALE 7 THRU 10 for 14 Days, #28 TAB Prov:BAN MENDEZ MD 09/20/24 Reported Medications Magnesium Oxide (Mg Supplement (MAGNESIUM) 400 Mg Cap, 400 MG PO BID, CAP 05/31/25 Lysine HCl (Lysine) 500 Mg Tab, 500 MG PO, TAB 10/27/24 Nutritional Supplements (Fruit & Vegetable Daily) Daily Cap, OR, CAP 09/26/23 Patients Own Medication (PATIENTS OWN MEDICATION) ., PO PTS OWN MED-OBTAIN FROM PT AND SEND TO RX DRUG: FREQ: RX# EXP: DATE DISP: TECH: RPH: 09/26/23 Probiotic Product (PROBIOTIC) Tab, OR, TAB 09/26/23 Cranberry Extract (CRANBERRY) 600 Mg Tab, OR, TAB 09/26/23 Calcium Carbonate (Calcium) 1,250 Mg Tab, PO, TAB 09/26/23 Cholecalciferol (D3) 2,000 Unit Tab, 1 TAB PO DAILY, TAB 09/26/23 Multiple Vitamin (Mvi Tab) 1 Tab Tb, 1 TAB PO, TAB 09/26/23 Lansoprazole (Prevacid Solutab) 15 Mg Tab, 15 MG PO HS, TAB 09/26/23 Metformin Hydrochloride (Metformin Hcl) 1,000 Mg Tab, 1 TAB PO BID 09/26/23 Metoprolol Succinate (Metoprolol Succinate Er) 50 Mg Tab, 1 TAB PO DAILY 09/26/23 Amitriptyline Hcl (Amitriptyline Hcl) 100 Mg Tab, 1 TAB PO HS 09/26/23 Gabapentin (Gabapentin) 300 Mg Cap, 1 CAP PO TID 09/26/23 Lamotrigine (Lamotrigine) 200 Mg Tab, 1 TAB PO HS 09/26/23 Venlafaxine Hydrochloride (Venlafaxine Hydrochloride) 150 Mg Cap, 1 CAP PO DAILY 09/26/23 Discontinued Reported Medications Zinc Sulfate (Zinc Sulfate) 220 Mg Cap, PO DAILY for 30 Days, MG 09/26/23 Discontinued Scripts Amoxicillin & Pot Clavulanate (AUGMENTIN TABLET) 875 Mg Tb, 875 MG PO BID, #14 TAB Prov:VIKKI KELLEY MD 12/12/24 Current Medications Current Medications Medications (Trade) Dose Ordered Sig/Nery Route PRN Reason Start Time Stop Time Status Last Admin Acetaminophen/ Hydrocodone Bitart ([place] 5/325MG Tab) 1 tab Q4HP PRN PO MODERATE PAIN (4-6 PAIN SCALE) 06/06/25 14:00 Ondansetron HCl (Zofran) 4 mg Q4HP PRN IV NAUSEA / VOMITING 06/06/25 14:00 Docusate Sodium (Colace Capsule) 100 mg BIDPRN PRN PO FOR CONSTIPATION 06/06/25 14:00 Acetaminophen (Tylenol Tablet) 650 mg Q6HP PRN PO PAIN SCALE 1-3 OR TEMP>100.4 06/06/25 14:00 Morphine Sulfate 2 mg Q4HPRN PRN IV SEVERE PAIN (7-10 PAIN SCALE) 06/06/25 14:00 Gabapentin (Neurontin Capsule) 300 mg TID PO 06/06/25 14:00 06/06/25 14:40 Metoprolol Succinate (Toprol Xl) 50 mg DAILY PO 06/07/25 10:00 Patient Own Medication 1 tab HS PO 06/06/25 22:00 UNV Patient Own Medication 1 tab DAILY PO 06/07/25 10:00 UNV Patient Own Medication 1 tab HS PO 06/06/25 22:00 UNV Patient Own Medication 1 cap DAILY PO 06/07/25 10:00 UNV Sodium Chloride 1,000 ml @ 150 mls/hr Q6H40M IV 06/06/25 14:00 Trimethoprim/ Sulfamethoxazole 10 ml/Dextrose 260 ml @ 173.333 mls/hr Q8HR IV 06/06/25 22:00 06/06/25 16:26 DC Amitriptyline HCl (Elavil Tablet) 100 mg HS PO 06/06/25 22:00 Cholecalciferol (Vitamin D3 Tablet) 2,000 unit DAILY PO 06/07/25 10:00 Lamotrigine (LaMICtal TABLET) 200 mg HS PO 06/07/25 22:00 Venlafaxine HCl (Effexor Xr) 150 mg DAILY PO 06/07/25 10:00 Trimethoprim/ Sulfamethoxazole 0 ml @ 0 mls/hr PER PHARMACY IV 06/06/25 16:30 Trimethoprim/ Sulfamethoxazole 20 ml/Dextrose 520 ml @ 346.667 mls/hr Q8H IV 06/06/25 22:00 Review of Systems Constitutional: denies: chills, diaphoresis, fatigue, fever, malaise, sweats, weakness, others EENTM: denies: blurred vision, double vision, ear bleeding, ear discharge, ear drainage, ear pain, ear ringing, eye pain, eye redness, hearing loss, mouth pain, mouth swelling, nasal discharge, nose bleeding, nose congestion, nose pain, photophobia, tearing, throat pain, throat swelling, voice changes, others Respiratory: denies: cough, hemoptysis, orthopnea, SOB at rest, shortness of breath, SOB with excertion, stridor, wheezing, others Cardiovascular: denies: chest pain, dizzy spells, diaphoresis, Dyspnea on exertion, edema, irregular heart beat, left arm pain, lightheadedness, palpitations, PND, syncope, others Gastrointestinal: denies: abdomen distended, abdominal pain, blood streaked bowels, constipated, diarrhea, dysphagia, difficulty swallowing, hematemesis, melena, nausea, poor appetite, poor fluid intake, rectal bleeding, rectal pain, vomiting, others Genitourinary: reports: others (Difficulty urinating); denies: abnormal vagina bleeding, burning, dyspareunia, dysuria, flank pain, frequency, hematuria, incontinence, pain, , vagina discharge, urgency Neurological: denies: dizziness, fainting, headache, left sided numbness, left sided weakness, numbness, paresthesia, pre-existing deficit, right sided numbness, right sided weakness, seizure, speech problems, tingling, tremors, weakness, others Musculoskeletal: denies: back pain, gout, joint pain, joint swelling, muscle pain, muscle stiffness, neck pain, others Integumetry: denies: bruises, change in color, change in hair/nails, dryness, laceration, lesions, lumps, rash, wounds, others Allergic/Immunocompromised: denies: Difficulty Healing, Frequent Infections, Hives, Itching, others Hematologic/Lymphatic: denies: anemia, blood clots, easy bleeding, easy bruising, swollen glands, others Endocrine: denies: excessive hunger, excessive sweating, excessive thirst, excessive urination, flushing, intolerance to cold, intolerance to heat, unexplained weight gain, unexplained weight loss, others Psychiatric: denies: anxiety, bipolar disorder, depression, hopeless, panic disorder, schizophrenia, sleepless, suicidal, others All Other Systems: Reviewed and Negative Vital Signs Vital Signs Date Time Temp Pulse Resp B/P (MAP) Pulse Ox O2 Delivery O2 Flow Rate FiO2 06/06/25 13:40 87 18 123/59 (80) 94 06/06/25 09:05 Room Air* 0 21 06/06/25 09:05 98.4 98.4 Physical Exam General Appearance: Moderate Distress, Normal HEENT: Normal ENT Inspection, Pharynx Normal, TMs Normal Neck: Full Range of Motion, Non-Tender, Normal, Normal Inspection Respiratory: Chest Non-Tender, Lungs Clear, No Accessory Muscle Use, No Respiratory Distress, Normal Breath Sounds Cardiovascular: No Edema, No JVD, No Murmur, No Gallop, Normal Peripheral Pulses, Regular Rate/Rhythm Breast Exam: Deferred Gastrointestinal: No Organomegaly, Non Tender, No Pulsatile Mass, Normal Bowel Sounds, Soft Extremities: No calf tenderness, Normal capillary refill, Normal inspection, Normal range of motion, Non-tender, No pedal edema Musculoskeletal : Apperance: Normal Neurologic: Alert, line up machine operator II-XII nml as Tested, No Motor Deficits, Normal Affect, Normal Mood, No Sensory Deficits Cerebellar Function: Normal Reflexes: Normal Skin: Dry, Normal Color, Warm Peripheral Pulses: 3+ Radial (R), 3+ Radial (L) Lymphatic: No Adenopathy Labs/Diagnostic Data Labs Test 06/06/25 08:10 06/06/25 07:16 Range/Units Urine Color Light-orange Yellow Urine Clarity Ex.turbid Clear Urine pH 6.0 5.0-9.0 Urine Specific [place] 1.025 1.001-1.035 Urine Protein 2+ H Negative Urine Ketones Negative Negative Urine Blood 3+ H Negative /uL Urine Nitrite Negative Negative Urine Bilirubin Negative Negative Urine Urobilinogen Normal Negative mg/dL Urine Leukocyte Esterase 3+ Negative /uL Urine RBC 2692 0 - 4 /hpf Urine Microscopic WBC 342 H 0-5 /HPF Urine Squamous Epithelial Cells Many <5 /hpf Urine Bacteria None seen None Seen /hpf Urine Hyaline Casts Few 0 - 2 /lpf Urine Mucus Few None Seen Urine Glucose Trace Normal mg/dL White Blood Count 6.2 # 4.4-10.8 10^3/uL Red Blood Count 4.95 4.0-5.20 10^6/uL Hemoglobin 15.0 12.2-16.2 g/dL Hematocrit 44.0 36.0-46.0 % Mean Corpuscular Volume 88.8 80.0-100.0 fL Mean Corpuscular Hemoglobin 30.4 28.0-32.0 pg Mean Corpuscular Hemoglobin Concent 34.2 32.0-36.0 g/dL Red Cell Distribution Width 16.1 H 11.8-14.3 % Platelet Count 216 140-450 10^3/uL Mean Platelet Volume 8.1 6.9-10.8 fL Neutrophils (%) (Auto) 44.8 37.0-80.0 % Lymphocytes (%) (Auto) 43.4 10.0-50.0 % Monocytes (%) (Auto) 4.8 0.0-12.0 % Eosinophils (%) (Auto) 6.6 0.0-7.0 % Basophils (%) (Auto) 0.4 0.0-2.0 % Neutrophils # (Auto) 2.8 1.6-8.6 10 ^3/uL Lymphocytes # (Auto) 2.7 0.4-5.4 10 ^3/uL Monocytes # (Auto) 0.3 0-1.3 10 ^3/uL Eosinophils # (Auto) 0.4 0-0.8 10 ^3/uL Basophils # (Auto) 0 0-0.2 10 ^3/uL Nucleated Red Blood Cells 0.1 % Sodium Level 140 136-145 mmol/L Potassium Level 4.3 3.5-5.1 mmol/L Chloride Level 99 98-107 mmol/L Carbon Dioxide Level 30 20-31 mmol/L Anion Gap 11 5-15 Blood Urea Nitrogen 19 9-23 mg/dL Creatinine 1.32 H 0.550-1.02 mg/dL Glomerular Filtration Rate Calc 46 >90 mL/min BUN/Creatinine Ratio 14.4 10.0-20.0 Serum Glucose 160 H 74-106 mg/dL Calcium Level 10.4 8.7-10.4 mg/dL Assessment Indwelling right ureteral stent Status post right ureteroscope with laser lithotripsy Difficulty with urination Plan/Recommendation Nicole to gravity IV hydration We will follow Plan discussed with: Patient, Other ALTON MONZON MD Jun 06, 2025 17:53
[2025-06-06] MEDS: HYDROcodone-ACET 5/325MG TAB PO PRN (19:46)
[2025-06-06] MEDS ORDERED: SULFAMETH-TRIMETH 80/16MG-ML 20 ML in D5W 5% 500 ML IV SCH (22:00)
[2025-06-06] MEDS ORDERED: AMITRIPTYLINE HCL PO SCH (22:00)
[2025-06-06] MEDS ORDERED: PATIENTS OWN MEDICATION (Lamotrigine 1 TAB) PO SCH (22:00)
[2025-06-06] MEDS ORDERED: SULFAMETH-TRIMETH 80/16MG-ML 10 ML in D5W 5% 250 ML IV SCH (22:00)
[2025-06-06] MEDS: AMITRIPTYLINE HCL 25 MG TAB PO SCH (23:30)
[2025-06-07] VITALS (9 sets, daily range): BP systolic 120–140; BP diastolic 51–73; PULSE 75–98; RESP 17–20; TEMP 97.1–98.1; O2SAT 94–99
[2025-06-07] MEDS: SULFAMETH-TRIMETH 80/16MG-ML 20 ML in D5W 5% 500 ML IV SCH (01:00)
[2025-06-07] MEDS: SULFAMETH-TRIMETH 800-160mg/10ml (80-16MG/ML) 10 ML VIAL IV ONE (01:30)
[2025-06-07 07:20] LABS: Hematocrit 36.3 % (36.0-46.0); Hemoglobin 12.3 g/dL (12.2-16.2); Mean Corpuscular Hemoglobin 30.2 pg (28.0-32.0); Mean Corpuscular Volume 89.3 fL (80.0-100.0); Nucleated Red Blood Cells % 0.2 %
[2025-06-07 07:32] LABS: Alanine Aminotransferase 22 U/L (7-40); Alkaline Phosphatase 66 U/L (46-116); Anion Gap 8 (5-15); BUN/Creatinine Ratio 18.2 (10.0-20.0); Blood Urea Nitrogen 20 mg/dL (9-23); Calcium 9.3 mg/dL (8.7-10.4); Carbon Dioxide 27 mmol/L (20-31); Chloride 104 mmol/L (98-107); Potassium 3.9 mmol/L (3.5-5.1); Sodium 139 mmol/L (136-145); Total Protein 6.1 g/dL (5.7-8.2)
[2025-06-07 07:33] LABS: Albumin 3.9 g/dL (3.2-4.8); Bilirubin, Total 0.3 mg/dL (0.2-1.0)
[2025-06-07 07:38] LABS: Glucose 114 mg/dL (74-106)
[2025-06-07] MEDS: CHOLECALCIFEROL (VITD3) 1,000UNIT=25mCg TAB PO SCH (09:07)
[2025-06-07] MEDS: VENLAFAXINE HCL 37.5mg XR cap PO SCH (09:07)
[2025-06-07] MEDS: METOPROLOL SUCCINATE XL 50 MG TAB PO SCH (09:08)
[2025-06-07] MEDS ORDERED: VENLAFAXINE HYDROCHLORIDE PO SCH (10:00)
[2025-06-07] MEDS ORDERED: CHOLECALCIFEROL PO SCH (10:00)
--- NOTE | 2025-06-07 12:20 | DVHPN2 ---
Reviewed: Care Plan, H&P, Labs, Medications, Previous Orders, Radiology Changes from previous H/P or p: No Changes Eyes: No Pain, No Vision change, No Conjunctivae inflammation, No Eyelid inflammation, No Other, No Redness ENT: No Ear pain, No Ear discharge, No Nose pain, No Nose discharge, No Nose congestion, No Mouth pain, No Mouth swelling, No Throat pain, No Throat swelling, No Other Cardiovascular: No Chest Pain, No Palpitations, No Orthopnea, No Paroxysmal Noc. Dyspnea, No Edema, No Lt Headedness, No Other Respiratory: No Cough, No Dry, No Shortness of breath, No SOB with excertion, No Wheezing, No Hemoptysis, No Pleuritic Pain, No Sputum, No Other Gastrointestinal: No Nausea, No Vomiting; Abdominal Pain (pelvic); No Diarrhea, No Constipation, No Melena, No Hematochezia, No Other Genitourinary: No Dysuria, No Frequency, No Incontinence, No Hematuria, No Retention; Other (minimal urine output) Musculoskeletal: No other, No neck pain, No shoulder pain, No arm pain, No back pain, No hand pain, No leg pain, No foot pain Skin: No Rash, No Lesions, No Jaundice, No Bruising, No Other Objective Vitals Vital Signs Date Time Temp Pulse Resp B/P (MAP) Pulse Ox O2 Delivery O2 Flow Rate FiO2 06/07/25 09:08 74 120/63 06/07/25 09:00 98.0 17 94 98.0 06/07/25 08:00 Room Air* 0 21 Intake/Output Intake and Output 06/07/25 07:00 Intake Total 800 ml Output Total 1325 ml Balance -525 ml Intake Oral 800 ml Output Urine Total 1325 ml Medications Current Medications Medications Dose Ordered Sig/Nery Route Start Time Stop Time Status Last Admin Dose Admin Acetaminophen/ Hydrocodone Bitart 1 tab Q4HP PRN PO 06/06/25 14:00 06/07/25 06:25 1 TAB Ondansetron HCl 4 mg Q4HP PRN IV 06/06/25 14:00 Docusate Sodium 100 mg BIDPRN PRN PO 06/06/25 14:00 Acetaminophen 650 mg Q6HP PRN PO 06/06/25 14:00 Morphine Sulfate 2 mg Q4HPRN PRN IV 06/06/25 14:00 Gabapentin 300 mg TID PO 8/4/25 14:00 06/07/25 06:02 300 MG Metoprolol Succinate 50 mg DAILY PO 06/07/25 10:00 06/07/25 09:08 50 MG Patient Own Medication 1 tab HS PO 06/06/25 22:00 UNV Patient Own Medication 1 tab DAILY PO 06/07/25 10:00 UNV Patient Own Medication 1 tab HS PO 06/06/25 22:00 UNV Patient Own Medication 1 cap DAILY PO 06/07/25 10:00 UNV Sodium Chloride 1,000 ml @ 150 mls/hr Q6H40M IV 06/06/25 14:00 06/07/25 09:09 150 MLS/HR Amitriptyline HCl 100 mg HS PO 06/06/25 22:00 06/06/25 23:30 100 MG Cholecalciferol 2,000 unit DAILY PO 06/07/25 10:00 06/07/25 09:07 2,000 UNIT Lamotrigine 200 mg HS PO 06/07/25 22:00 Venlafaxine HCl 150 mg DAILY PO 06/07/25 10:00 06/07/25 09:07 150 MG Trimethoprim/ Sulfamethoxazole 0 ml @ 0 mls/hr PER PHARMACY IV 06/06/25 16:30 Trimethoprim/ Sulfamethoxazole 20 ml/Dextrose 520 ml @ 346.667 mls/hr Q8H IV 06/07/25 01:00 06/07/25 09:26 346.667 MLS/HR Laboratory Results Laboratory Tests 06/07/25 06:18 Chemistry Test 06/07/25 06:18 Albumin 3.9 g/dL (3.2-4.8) Calcium Level 9.3 mg/dL (8.7-10.4) Total Protein 6.1 g/dL (5.7-8.2) LFT Test 06/07/25 06:18 Alanine Aminotransferase (ALT) 22 U/L (7-40) Alkaline Phosphatase 66 U/L (46-116) Aspartate Amino Transferase (AST) 31 U/L (13-40) Total Bilirubin 0.3 mg/dL (0.2-1.0) Urinalysis Test 06/06/25 08:10 Urine Color Light-orange (Yellow) Urine Clarity Ex.turbid (Clear) Urine pH 6.0 (5.0-9.0) Urine Specific [place] 1.025 (1.001-1.035) Urine Protein 2+ (Negative) H Urine Ketones Negative (Negative) Urine Blood 3+ /uL (Negative) H Urine Nitrite Negative (Negative) Urine Bilirubin Negative (Negative) Urine Urobilinogen Normal mg/dL (Negative) Urine Leukocyte Esterase 3+ /uL (Negative) Urine RBC 2692 /hpf (0 - 4) Urine Microscopic WBC 342 /HPF (0-5) H Urine Squamous Epithelial Cells Many /hpf (<5) Urine Bacteria None seen /hpf (None Seen) Urine Hyaline Casts Few /lpf (0 - 2) Urine Mucus Few (None Seen) Urine Glucose Trace mg/dL (Normal) Microbiology Microbiology Date/Time Source Procedure Growth Status 06/06/25 08:10 Urine - Nicole [place] Urine Culture - Preliminary Resulted Labs and/or images reviewed: Labs reviewed by me, Image(s) reviewed by me Assessment/Plan Assessment/Plan Difficulty Voiding: Nicole to gravity, urology consult by Dr. Sargent appreciated Right ureteral stone with hydronephrosis, s/p Right ureteroscopy/pyeloscopy, laser lithotripsy, Cystoscopy with right ureteral stent placement by Urology Dr. Sargent on 06/01/2025 UTI with yeast infection: Diflucan 200 mg IV daily, blood cultures pending; patient was placed on Bactrim IV by the admitting physician and developed itching and rash stop Bactrim, start Rocephin Hypertension History of PTSD History of anxiety History of depression Plan discussed with: Patient Date of Service: Jun 07, 2025 Billing Provider: RASHID GODINEZ MD Common Visit Codes: [id number] INP/OBS CARE(HIGH) RASHID GODINEZ MD Jun 07, 2025 12:20
[2025-06-07] MEDS: diphenhdrAMINE HCL 50 MG/1 ML VL IV ONE (12:45)
--- NOTE | 2025-06-07 13:41 | DVHPN2 ---
Progress Note - Dictate Date Seen: Jun 07, 2025 Medical Necessity Reason Pt with a Central, PICC or Fol: Yes The following are medically ne: [place] Catheter Subjective feeling well vital signs Vital Sign Date Time Temp Pulse Resp B/P (MAP) Pulse Ox O2 Delivery O2 Flow Rate FiO2 06/07/25 09:08 74 120/63 06/07/25 09:00 98.0 17 94 98.0 06/07/25 08:00 Room Air* 0 21 Total Intake and Output 06/06/25 06/06/25 06/07/25 15:00 23:00 07:00 Intake Total 800 ml Output Total 1325 ml Balance -525 ml medications Current Medications Medications Dose Ordered Sig/Nery Route Start Time Stop Time Status Last Admin Dose Admin Acetaminophen/ Hydrocodone Bitart 1 tab Q4HP PRN PO 06/06/25 14:00 06/07/25 06:25 1 TAB Ondansetron HCl 4 mg Q4HP PRN IV 06/06/25 14:00 Docusate Sodium 100 mg BIDPRN PRN PO 06/06/25 14:00 Acetaminophen 650 mg Q6HP PRN PO 06/06/25 14:00 Morphine Sulfate 2 mg Q4HPRN PRN IV 06/06/25 14:00 Gabapentin 300 mg TID PO 06/06/25 14:00 06/07/25 06:02 300 MG Metoprolol Succinate 50 mg DAILY PO 06/07/25 10:00 06/07/25 09:08 50 MG Patient Own Medication 1 tab HS PO 06/06/25 22:00 UNV Patient Own Medication 1 tab DAILY PO 06/07/25 10:00 UNV Patient Own Medication 1 tab HS PO 06/06/25 22:00 UNV Patient Own Medication 1 cap DAILY PO 06/07/25 10:00 UNV Sodium Chloride 1,000 ml @ 150 mls/hr Q6H40M IV 06/06/25 14:00 06/07/25 09:09 150 MLS/HR Amitriptyline HCl 100 mg HS PO 06/06/25 22:00 06/06/25 23:30 100 MG Cholecalciferol 2,000 unit DAILY PO 06/07/25 10:00 06/07/25 09:07 2,000 UNIT Lamotrigine 200 mg HS PO 06/07/25 22:00 Venlafaxine HCl 150 mg DAILY PO 06/07/25 10:00 06/07/25 09:07 150 MG Trimethoprim/ Sulfamethoxazole 20 ml/Dextrose 520 ml @ 346.667 mls/hr Q8H IV 06/07/25 01:00 06/07/25 09:26 346.667 MLS/HR Fluconazole 100 ml @ 100 mls/hr DAILY IV 06/08/25 10:00 Ceftriaxone Sodium 50 ml @ 100 mls/hr DAILY@09 IV 06/08/25 09:00 objective resting comfortably, urine clear in [facility] and microbiology Laboratory Tests 06/07/25 06:18 Test 06/07/25 06:18 Range/Units Serum Glucose 114 H 74-106 mg/dL Assessment/Plan outpt stent removal in 4 weeks Problems(with codes): (1) Hydronephrosis with renal and ureteral calculous obstruction (2) Urinary tract infection Plan discussed with: Patient Total Time (mins): 25 SAMANTHA BUCK NP Jun 07, 2025 13:41
[2025-06-07] MEDS: cefTRIAXone 1GM/50ML D5W 50 ML IV ONE (16:52)
[2025-06-07] MEDS: FLUCONAZOLE 200MG/100ML 100 ML IV ONE (17:50)
[2025-06-07] MEDS: lamoTRIgine 100 MG TAB PO SCH (21:28)
[2025-06-08 05:00] VITALS: BP 113/50; PULSE 81; RESP 18; TEMP 97.8; O2SAT 98
[2025-06-08 07:40] VITALS: RESP 18; O2SAT 99
[2025-06-08] MEDS: cefTRIAXone 1GM/50ML D5W 50 ML IV SCH (08:26)
[2025-06-08 09:00] VITALS: BP 145/67; PULSE 82; RESP 17; TEMP 97; O2SAT 99
[2025-06-08] MEDS: FLUCONAZOLE 200MG/100ML 100 ML IV SCH (10:10)
[2025-06-08 13:00] VITALS: BP 135/70; PULSE 74; RESP 17; TEMP 97.4; O2SAT 98
[2025-06-08] MEDS ORDERED: FLUC200T PO (13:32)
--- NOTE | 2025-06-08 13:36 | DVHDS2 ---
Discharge Summary Date of Admission Jun 06, 2025 at 13:49 Date of Discharge: Jun 08, 2025 Admitting Diagnosis Difficulty urinating Wounds: None Labs/Diagnostic Data: Laboratory Results Test 06/07/25 06:18 06/06/25 08:10 White Blood Count 3.3 10^3/uL (4.4-10.8) Red Blood Count 4.07 10^6/uL (4.0-5.20) Hemoglobin 12.3 g/dL (12.2-16.2) Hematocrit 36.3 % (36.0-46.0) Mean Corpuscular Volume 89.3 fL (80.0-100.0) Mean Corpuscular Hemoglobin 30.2 pg (28.0-32.0) Mean Corpuscular Hemoglobin Concent 33.8 g/dL (32.0-36.0) Red Cell Distribution Width 15.5 % (11.8-14.3) Platelet Count 138 10^3/uL (140-450) Mean Platelet Volume 8.3 fL (6.9-10.8) Neutrophils (%) (Auto) 46.8 % (37.0-80.0) Lymphocytes (%) (Auto) 38.3 % (10.0-50.0) Monocytes (%) (Auto) 6.9 % (0.0-12.0) Eosinophils (%) (Auto) 7.1 % (0.0-7.0) Basophils (%) (Auto) 0.9 % (0.0-2.0) Neutrophils # (Auto) 1.5 10 ^3/uL (1.6-8.6) Lymphocytes # (Auto) 1.2 10 ^3/uL (0.4-5.4) Monocytes # (Auto) 0.2 10 ^3/uL (0-1.3) Eosinophils # (Auto) 0.2 10 ^3/uL (0-0.8) Basophils # (Auto) 0 10 ^3/uL (0-0.2) Nucleated Red Blood Cells 0.2 % Sodium Level 139 mmol/L (136-145) Potassium Level 3.9 mmol/L (3.5-5.1) Chloride Level 104 mmol/L (98-107) Carbon Dioxide Level 27 mmol/L (20-31) Anion Gap 8 (5-15) Blood Urea Nitrogen 20 mg/dL (9-23) Creatinine 1.10 mg/dL (0.550-1.02) Glomerular Filtration Rate Calc 57 mL/min (>90) BUN/Creatinine Ratio 18.2 (10.0-20.0) Serum Glucose 114 mg/dL (74-106) Calcium Level 9.3 mg/dL (8.7-10.4) Total Bilirubin 0.3 mg/dL (0.2-1.0) Aspartate Amino Transferase (AST) 31 U/L (13-40) Alanine Aminotransferase (ALT) 22 U/L (7-40) Alkaline Phosphatase 66 U/L (46-116) Total Protein 6.1 g/dL (5.7-8.2) Albumin 3.9 g/dL (3.2-4.8) Urine Color Light-orange (Yellow) Urine Clarity Ex.turbid (Clear) Urine pH 6.0 (5.0-9.0) Urine Specific [place] 1.025 (1.001-1.035) Urine Protein 2+ (Negative) Urine Ketones Negative (Negative) Urine Blood 3+ /uL (Negative) Urine Nitrite Negative (Negative) Urine Bilirubin Negative (Negative) Urine Urobilinogen Normal mg/dL (Negative) Urine Leukocyte Esterase 3+ /uL (Negative) Urine RBC 2692 /hpf (0 - 4) Urine Microscopic WBC 342 /HPF (0-5) Urine Squamous Epithelial Cells Many /hpf (<5) Urine Bacteria None seen /hpf (None Seen) Urine Hyaline Casts Few /lpf (0 - 2) Urine Mucus Few (None Seen) Urine Glucose Trace mg/dL (Normal) Other Laboratory Tests 06/07/25 06:18 Brief Hx & Hospital Course: 59-year-old female with a history of right ureteral stone with hydronephrosis status post right ureteroscopic/pyeloscopy laser lithotripsy cystoscopy with a right ureteral stent placement by Urology Dr. Summers on 06/01/2025. For urinary retention and difficulty voiding Nicole was placed. Urinary tract infection with a yeast started on Diflucan. Patient being discharged home. She will follow up with the Urology Dr. Sargent in four weeks for stent removal. Cleared for discharge by Urology Consults/Reason for consult Urology Operations or Procedures CT abdomen pelvis without contrast Condition at Discharge: Fair Final Diagnosis/Problems List Difficulty Voiding: Nicole to gravity, urology consult by Dr. Sargent appreciated Right ureteral stone with hydronephrosis, s/p Right ureteroscopy/pyeloscopy, laser lithotripsy, Cystoscopy with right ureteral stent placement by Urology Dr. Sargent on 06/01/2025 UTI with yeast infection: Diflucan 200 mg IV daily, blood cultures pending; patient was placed on Bactrim IV by the admitting physician and developed itching and rash stop Bactrim, start Rocephin Hypertension History of PTSD History of anxiety History of depression Discharge Disposition: Home Discharge Instruct/Medications Diet: Regular Activity: Light activity Follow Up/Referral: Follow up with the Urology Dr. Sargent for stent removal in 4 wks Medications: Diflucan Transmitted to pharmacy Scheduled Amitriptyline Hcl (Amitriptyline Hcl), 1 TAB PO HS, (Reported) Cephalexin Monohydrate (Cephalexin), 1 CAP PO BID Cholecalciferol (D3), 1 TAB PO DAILY, (Reported) Fluconazole (Diflucan), 1 TAB PO DAILY Gabapentin (Gabapentin), 1 CAP PO TID, (Reported) Lamotrigine (Lamotrigine), 1 TAB PO HS, (Reported) Lansoprazole (Prevacid Solutab), 15 MG PO HS, (Reported) Magnesium Oxide (Mg Supplement (Magnesium), 400 MG PO BID, (Reported) Metformin Hydrochloride (Metformin Hcl), 1 TAB PO BID, (Reported) Metoprolol Succinate (Metoprolol Succinate Er), 1 TAB PO DAILY, (Reported) Venlafaxine Hydrochloride (Venlafaxine Hydrochloride), 1 CAP PO DAILY, (Reported) Scheduled PRN Hydrocodone-Acetaminophen (Hydrocodone/Acetaminophen 10-325 mg), 1 TAB PO BID PRN for PAIN SCALE 7 THRU 10 Miscellaneous Medications Calcium Carbonate (Calcium), Unknown Dose PO, (Reported) Cranberry Extract (Cranberry), Unknown Dose OR, (Reported) Lysine HCl (Lysine), 500 MG PO, (Reported) Multiple Vitamin (Mvi Tab), 1 TAB PO, (Reported) Nutritional Supplements (Fruit & Vegetable Daily), Unknown Dose OR, (Reported) Patients Own Medication (Patients Own Medication), PO, (Reported) Probiotic Product (Probiotic), Unknown Dose OR, (Reported) Discontinued Medications Amoxicillin & Pot Clavulanate (Augmentin Tablet), 875 MG PO BID 39 (Time taken for discharge summary 39 minutes) Discharge Statement: "Patient was advised to return to the ER or call 911 if any headaches, dizziness, shortness of breath, chest pain, abdominal pain, bleeding, fevers, or worsening of medical condition. Patient was counseled about treatment plan, medications, possible side effects, patientverbalized understanding. All questions were answered to the best of my ability. This discharge took greater then 30 minutes in planning, reviewing documentation, counseling the patient, and discussing with other team members." ASSESSMENT ASSESSMENT Hospital Course Improved Assessment Difficulty Voiding: Nicole to gravity, urology consult by Dr. Sargent appreciated Right ureteral stone with hydronephrosis, s/p Right ureteroscopy/pyeloscopy, laser lithotripsy, Cystoscopy with right ureteral stent placement by Urology Dr. Sargent on 06/01/2025 UTI with yeast infection: Diflucan 200 mg IV daily, blood cultures pending; patient was placed on Bactrim IV by the admitting physician and developed itching and rash stop Bactrim, start Rocephin Hypertension History of PTSD History of anxiety History of depression Date of Service: Jun 08, 2025 Billing Provider: RASHID GODINEZ MD Common Visit Codes: [id number] DISCH DAY >30min RASHID GODINEZ MD Jun 08, 2025 13:36
[2025-06-08] MEDS ORDERED: CIPR-173 PO (13:37)
[2025-06-08 14:09] VITALS: BP 135/70; PULSE 74; RESP 17; TEMP 97.4; O2SAT 98
== END 2025-06-08 14:32 | disposition home or self-care (01) | DRG 872 ==
LOC: ER 06:52 → OVERFLOW 13:49 → WEST WING 23:47
PROVIDERS: ADMIT Family Medicine; ATTEND Family Medicine
DX: A41.9 Sepsis, unspecified organism (principal); I47.10 Supraventricular tachycardia, unspecified; N17.9 Acute kidney failure, unspecified; B37.49 Other urogenital candidiasis; F41.9 Anxiety disorder, unspecified; F43.10 Post-traumatic stress disorder, unspecified; I10 Essential (primary) hypertension; F32.A Depression, unspecified; Z91.041 Radiographic dye allergy status; Z88.5 Allergy status to narcotic agent; Z79.2 Long term (current) use of antibiotics; Z79.84 Long term (current) use of oral hypoglycemic drugs; Z79.899 Other long term (current) drug therapy; Z90.49 Acquired absence of other specified parts of digestive tract; Z98.51 Tubal ligation status; Z87.442 Personal history of urinary calculi; Z82.49 Family history of ischemic heart disease and other diseases of the circulatory system; Z83.3 Family history of diabetes mellitus; Z82.0 Family history of epilepsy and other diseases of the nervous system
CPT/HCPCS: 36415; 74176; 80048; 80053; 81001; 85025; 87040; 87086; 87088; 96365; G0378; J1450; J2405; J3490; J7060

== ENCOUNTER 2025-07-04 03:23 | Emergency (ER) | payer OTHER ==
[~2025-07-04] VITALS: Ht 175.3 cm; Wt 106.9 kg
[~2025-07-04 03:23] MED LIST changes: -AUG875T PO; +FLUC200T PO
--- NOTE | 2025-07-04 04:12 | ED.PDOC ---
History of Present Illness HPI Comments 60 y/o obese F, with a history of kidney stones s/p lithotripsy and chronic back pain, presents with c/c of nonradiating, right flank pain. Patient endorses on sudden, unprovoked, and atraumatic onset of symptoms, which woke her up from her sleep, this morning. Similar pain episode when with kidney stones 3x weeks ago. Denial of any nausea, vomiting, urinary symptoms, fever, chills, or further associated symptoms. Chief Complaint: Flank Pain Time Seen by MD: 04:00 Primary Care Provider: GABBY Reviewed Notes: Nurses Notes, Medications, Allergies Allergies: Coded Allergies: Codeine (Verified Allergy, Mild, ITCHING ONLY , 09/19/24) PER PATIENT ONLY ITCHING IF TAKEN STRAIGHT, IF MIXED WITH OTHER MEDICATIONS, NO ISSUES PER PATIENT DILAUDED IS OKAY Ascorbate (Verified Allergy, Unknown, BLISTERS IN THE BACK OF THROAT, 09/26/23) allergy to vitamin C Benzyl Alcohol (Verified Allergy, Unknown, 06/07/25) itchy at IV insertion site Ethanol (Verified Allergy, Unknown, 06/07/25) itchy at IV insertion site Iodine (Verified Allergy, Unknown, ANAPHYLAXIS, 09/26/23) Sulfamethoxazole w/Trimethoprim (Verified Allergy, Unknown, 06/07/25) itchy at IV insertion site Uncoded Allergies: CONTRAST DYE (Allergy, Severe, ANAPHYLAXIS, 09/26/23) Home Meds Active Scripts Sulfamethoxazole W/Trimethopri (Bactrim Ds Tablet) 1 Tab Tb, 1 TAB PO BID for 7 Days, #14 TAB Prov:MARCY MATTHEWS MD 07/04/25 Fluconazole (Diflucan) 200 Mg Tab, 1 TAB PO DAILY, #14 TAB Prov:RASHID GODINEZ MD 06/08/25 Cephalexin Monohydrate (Cephalexin) 500 Mg Cap, 1 CAP PO BID for 4 Days, #20 CAP Prov:ANNIA BAXTER 06/04/25 Hydrocodone-Acetaminophen (Hydrocodone/Acetaminophen 10-325 mg) 1 Tab Tab, 1 TAB PO BID PRN for PAIN SCALE 7 THRU 10 for 14 Days, #28 TAB Prov:BAN MENDEZ MD 09/20/24 Reported Medications Magnesium Oxide (Mg Supplement (MAGNESIUM) 400 Mg Cap, 400 MG PO BID, CAP 05/31/25 Lysine HCl (Lysine) 500 Mg Tab, 500 MG PO, TAB 10/27/24 Nutritional Supplements (Fruit & Vegetable Daily) Daily Cap, OR, CAP 09/26/23 Patients Own Medication (PATIENTS OWN MEDICATION) ., PO PTS OWN MED-OBTAIN FROM PT AND SEND TO RX DRUG: FREQ: RX# EXP: DATE DISP: TECH: RPH: 09/26/23 Probiotic Product (PROBIOTIC) Tab, OR, TAB 09/26/23 Cranberry Extract (CRANBERRY) 600 Mg Tab, OR, TAB 09/26/23 Calcium Carbonate (Calcium) 1,250 Mg Tab, PO, TAB 09/26/23 Cholecalciferol (D3) 2,000 Unit Tab, 1 TAB PO DAILY, TAB 09/26/23 Multiple Vitamin (Mvi Tab) 1 Tab Tb, 1 TAB PO, TAB 09/26/23 Lansoprazole (Prevacid Solutab) 15 Mg Tab, 15 MG PO HS, TAB 09/26/23 Metformin Hydrochloride (Metformin Hcl) 1,000 Mg Tab, 1 TAB PO BID 09/26/23 Metoprolol Succinate (Metoprolol Succinate Er) 50 Mg Tab, 1 TAB PO DAILY 09/26/23 Amitriptyline Hcl (Amitriptyline Hcl) 100 Mg Tab, 1 TAB PO HS 09/26/23 Gabapentin (Gabapentin) 300 Mg Cap, 1 CAP PO TID 09/26/23 Lamotrigine (Lamotrigine) 200 Mg Tab, 1 TAB PO HS 09/26/23 Venlafaxine Hydrochloride (Venlafaxine Hydrochloride) 150 Mg Cap, 1 CAP PO DAILY 09/26/23 Information Source: Patient Mode of Arrival: Ambulatory Past Medical History PAST MEDICAL HISTORY: Anxiety, Arthritis, DM, Kidney Stones, UTI'S Surgical History: Cholecystectomy, Tubal Ligation TAIL PULLER 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: No Pertinent TAIL PULLER History Family History Family History: Reviewed,noncontributory to illness Social History Smoker: Non-Smoker Alcohol: Denies ETOH Use Drugs: Denies Drug Use Lives In: Home All Other Systems: Reviewed and Negative (Comprehensive review of systems are negative unless otherwise stated in HPI) Physical Exam General Appearance: Mild Distress, Obese HEENT: Normal ENT Inspection, Pharynx Normal, TMs Normal Neck: Full Range of Motion, Non-Tender, Normal, Normal Inspection Respiratory: Chest Non-Tender, Lungs Clear, No Accessory Muscle Use, No Respiratory Distress, Normal Breath Sounds Cardiovascular: No Edema, No JVD, No Murmur, No Gallop, Normal Peripheral Pulses, Regular Rate/Rhythm Breast Exam: Deferred Gastrointestinal: No Organomegaly, Non Tender, No Pulsatile Mass, Normal Bowel Sounds, Soft Genitalia: Deferred Pelvic: Deferred Rectal: Deferred Extremities: No calf tenderness, Normal capillary refill, Normal inspection, Normal range of motion, Non-tender, No pedal edema Musculoskeletal : Apperance: Normal Neurologic: Alert, blood donor recruiter II-XII nml as Tested, No Motor Deficits, Normal Affect, Normal Mood, No Sensory Deficits Cerebellar Function: Normal Reflexes: Normal Skin: Dry, Normal Color, Warm Lymphatic: No Adenopathy Was a procedure done? Was a procedure done?: No Differential Dx Considerations may include: nephrolithiasis, cystitis, pyelonephritis, musculoskeletal pain, among others X-Ray, Labs, Meds, VS Vital Signs Date Time Temp Pulse Resp B/P (MAP) Pulse Ox O2 Delivery O2 Flow Rate FiO2 07/04/25 03:25 97.7 85 16 124/54 96 97.7 Lab Test 07/04/25 03:59 07/04/25 03:41 Range/Units White Blood Count 3.9 L 4.4-10.8 10^3/uL Red Blood Count 4.16 4.0-5.20 10^6/uL Hemoglobin 12.4 12.2-16.2 g/dL Hematocrit 36.6 36.0-46.0 % Mean Corpuscular Volume 87.9 80.0-100.0 fL Mean Corpuscular Hemoglobin 29.7 28.0-32.0 pg Mean Corpuscular Hemoglobin Concent 33.8 32.0-36.0 g/dL Red Cell Distribution Width 15.9 H 11.8-14.3 % Platelet Count 161 140-450 10^3/uL Mean Platelet Volume 7.7 6.9-10.8 fL Neutrophils (%) (Auto) 57.6 37.0-80.0 % Lymphocytes (%) (Auto) 33.7 10.0-50.0 % Monocytes (%) (Auto) 5.3 0.0-12.0 % Eosinophils (%) (Auto) 2.8 0.0-7.0 % Basophils (%) (Auto) 0.6 0.0-2.0 % Neutrophils # (Auto) 2.2 1.6-8.6 10 ^3/uL Lymphocytes # (Auto) 1.3 0.4-5.4 10 ^3/uL Monocytes # (Auto) 0.2 0-1.3 10 ^3/uL Eosinophils # (Auto) 0.1 0-0.8 10 ^3/uL Basophils # (Auto) 0 0-0.2 10 ^3/uL Nucleated Red Blood Cells 0.0 % Sodium Level 141 136-145 mmol/L Potassium Level 4.3 3.5-5.1 mmol/L Chloride Level 105 98-107 mmol/L Carbon Dioxide Level 28 20-31 mmol/L Anion Gap 8 5-15 Blood Urea Nitrogen 9 9-23 mg/dL Creatinine 0.99 0.550-1.02 mg/dL Glomerular Filtration Rate Calc 64 >90 mL/min BUN/Creatinine Ratio 9.1 L 10.0-20.0 Serum Glucose 128 H 74-106 mg/dL Calcium Level 9.6 8.7-10.4 mg/dL Total Bilirubin 0.4 0.2-1.0 mg/dL Aspartate Amino Transferase (AST) 24 13-40 U/L Alanine Aminotransferase (ALT) 18 7-40 U/L Alkaline Phosphatase 63 46-116 U/L Total Protein 7.1 5.7-8.2 g/dL Albumin 4.5 3.2-4.8 g/dL Lipase 70 H 12-53 U/L Urine Color Colorless Yellow Urine Clarity Clear Clear Urine pH 6.5 5.0-9.0 Urine Specific [place] 1.007 1.001-1.035 Urine Protein Negative Negative Urine Ketones Negative Negative Urine Blood Negative Negative /uL Urine Nitrite Negative Negative Urine Bilirubin Negative Negative Urine Urobilinogen Normal Negative mg/dL Urine Leukocyte Esterase 1+ Negative /uL Urine RBC None seen 0 - 4 /hpf Urine Microscopic WBC 3 0-5 /HPF Urine Squamous Epithelial Cells Few <5 /hpf Urine Bacteria None seen None Seen /hpf Urine Glucose Normal Normal mg/dL Time of 1ST Reevaluation: 04:30 Reevaluation 1ST: Unchanged Patient Education/Counseling: Diagnosis, Treatment, Need For Follow Up Family Education/Counseling: No Family Present SEPSIS Sepsis Screen Date sepsis recognized/suspect: Jul 04, 2025 Time Sepsis recognized/suspect: 326 Recent Procedure: No On Antibiotic Therapy: No Respiratory Rate >20: No Heart Rate >90: No Temp<36 C (96.8 F) or >38.3 C: No SBP <90 or MAP <65 mmHG: No New Acute Mental Status Change: No Is the patient on CPAP, BIPAP,: No Physician Orders Ct Ab Pel Wo Con-No Oral Or Iv (07/04/25 03:44) Vital Signs Date Time Temp Pulse Resp B/P (MAP) Pulse Ox O2 Delivery O2 Flow Rate FiO2 07/04/25 03:25 97.7 85 16 124/54 96 97.7 Laboratory Tests Test 07/04/25 03:59 White Blood Count 3.9 10^3/uL (4.4-10.8) L Departure 1 Departure Time of Disposition: 05:40 Impression: Primary Impression: Right flank pain Additional Impression: Ureteral stent present Disposition: HOME / SELF CARE / HOMELESS Condition: Stable e-Prescriptions Sulfamethoxazole W/Trimethopri (Bactrim Ds Tablet) 1 Tab Tb 1 TAB PO BID for 7 Days, #14 TAB Prov: MARCY MATTHEWS MD 07/04/25 Discharged With: Self Critical Care Note Critical Care Time?: No Stability Stability form required: No Heart Score Heart Score: Heart Score Response (Comments) Value History N/A 0 EKG N/A 0 Age N/A 0 Risk Factors N/A 0 Troponin N/A 0 Total 0 I personally scribed for MARCY MATTHEWS MD ([email or web address]) on 07/04/25 at 04:12. Electronically submitted by Alexy Winter [email or web address]). MARCY MATTHEWS MD Jul 04, 2025 04:12
[2025-07-04 04:31] LABS: Hematocrit 36.6 % (36.0-46.0); Hemoglobin 12.4 g/dL (12.2-16.2); Mean Corpuscular Hemoglobin 29.7 pg (28.0-32.0); Mean Corpuscular Volume 87.9 fL (80.0-100.0); Nucleated Red Blood Cells % 0.0 %
[2025-07-04 04:32] LABS: Alanine Aminotransferase 18 U/L (7-40); Albumin 4.5 g/dL (3.2-4.8); Alkaline Phosphatase 63 U/L (46-116); Anion Gap 8 (5-15); BUN/Creatinine Ratio 9.1 (10.0-20.0); Blood Urea Nitrogen 9 mg/dL (9-23); Calcium 9.6 mg/dL (8.7-10.4); Carbon Dioxide 28 mmol/L (20-31); Chloride 105 mmol/L (98-107); Potassium 4.3 mmol/L (3.5-5.1); Sodium 141 mmol/L (136-145); Total Protein 7.1 g/dL (5.7-8.2)
[2025-07-04 04:33] LABS: Bilirubin, Total 0.4 mg/dL (0.2-1.0)
[2025-07-04 04:34] LABS: Glucose 128 mg/dL (74-106); Lipase 70 U/L (12-53)
[2025-07-04 04:50] LABS: Urine Protein, UAD Negative (Negative)
--- NOTE | 2025-07-04 05:10 | DVH ---
Exam: CT CT AB PEL WO CON-NO ORAL OR IV History: flank pain Comparison Study: CT CT AB PEL WO CON-NO ORAL OR IV on DOS: 06/06/25, XY KUB ABDOMEN SINGLE VIEW on DOS : 06/01/25, XY KUB ABDOMEN SINGLE VIEW on DOS: 05/31/25, CT CT AB PEL WO CON-NO ORAL OR IV on DOS: , CT CT AB PEL WO CON-NO ORAL OR IV on DOS: 07/22/24 Technique: Multidetector spiral CT of the abdomen was performed from lung bases to pubic symphysis. I maging was performed without IV contrast. Axial, coronal and sagittal multiplanar reformats were obta ined from the axial data set by the technologist. Radiation Dose : 1. Abdomen/Pelvis: CTDIvol 25.3 mGy, DLP 1442.29 mGy*cm. Findings: Evaluation of solid organs is limited due to lack of intravenous contrast use. Lung Bases: No acute or significant lung base finding. Normal heart size. No pleural or pericardial effusion. Liver: The liver is normal in size. No focal lesions. Gallbladder and Biliary Tree: Status post cholecystectomy. Spleen: Unremarkable Pancreas: The pancreas is grossly normal in appearance. Adrenal Glands: Unremarkable Kidneys: No evidence of hydronephrosis or nephrolithiasis. Stable appearing right ureteral stent in satisfactory position. Bladder: Grossly unremarkable for degree of distention. Bowel: The stomach is grossly normal in appearance. Small bowel and colon are normal in caliber and d istribution. The appendix is normal. Ascites: Absent Lymphadenopathy: No mesenteric, retroperitoneal or periportal lymphadenopathy. Abdominal Wall and Mesentery: Fat containing ventral abdominal wall hernia redemonstrated. Vasculature: The visualized abdominal aorta is normal in size and caliber. Atherosclerotic vascular c alcifications. Evaluation of abdominal and pelvic vessels is limited due to lack of intravenous cont rast. Pelvic Organs: Unremarkable Musculoskeletal: No aggressive focal bony lesions, acute fractures or dislocation. IMPRESSION: 1. No acute abdominal or pelvic findings. 2. Stable appearing right ureteral stent in satisfactory position. No evidence of hydronephrosis. Radiation optimization: All CT scans at this facility use at least one of these dose optimization mikala hniques: automated exposure control mA and/or kV adjustment per patient size (includes targeted exam s where dose is matched to clinical indication) or iterative reconstruction.
[2025-07-04] MEDS: ACETAMINOPHEN 325 MG TAB PO ONE (05:15)
[2025-07-04] MEDS ORDERED: BACDST PO (05:16)
[2025-07-04] MEDS: SULFAMETHOX W/TRIMETH(800/160MG) DS TAB PO ONE (06:00)
[2025-07-04 06:02] VITALS: BP 149/63; PULSE 86; TEMP 98.3
[2025-07-04 06:12] VITALS: RESP 18; O2SAT 98
== END 2025-07-04 06:14 | disposition home or self-care (01) ==
LOC: ER 03:23
DX: R10.9 Unspecified abdominal pain (principal); E11.9 Type 2 diabetes mellitus without complications; G89.29 Other chronic pain; Z90.49 Acquired absence of other specified parts of digestive tract; Z96.0 Presence of urogenital implants; Z88.5 Allergy status to narcotic agent; Z88.2 Allergy status to sulfonamides
CPT/HCPCS: 36415; 74176; 80053; 81001; 83690; 85025

== ENCOUNTER → 2025-07-12 | Day surgery (SDC) | payer OTHER ==
[2025-07-11 09:59] LABS: Urine Protein, UAD 1+ (Negative)
[2025-07-11 10:03] LABS: Hematocrit 38.5 % (36.0-46.0); Hemoglobin 12.8 g/dL (12.2-16.2); Mean Corpuscular Hemoglobin 29.3 pg (28.0-32.0); Mean Corpuscular Volume 88.4 fL (80.0-100.0); Nucleated Red Blood Cells % 0.0 %
[2025-07-11 10:07] LABS: INR 1.04 (0.9-1.15); Partial Thromboplastin Time 25.1 SEC (24.5-34.5); Prothrombin Time 11.0 sec (9.3-11.8)
[2025-07-11 10:19] LABS: Alanine Aminotransferase 19 U/L (7-40); Albumin 4.3 g/dL (3.2-4.8); Alkaline Phosphatase 68 U/L (46-116); Anion Gap 7 (5-15); BUN/Creatinine Ratio 11.5 (10.0-20.0); Blood Urea Nitrogen 13 mg/dL (9-23); Calcium 9.8 mg/dL (8.7-10.4); Carbon Dioxide 30 mmol/L (20-31); Chloride 103 mmol/L (98-107); Sodium 140 mmol/L (136-145); Total Protein 7.1 g/dL (5.7-8.2)
[2025-07-11 10:20] LABS: Bilirubin, Total 0.4 mg/dL (0.2-1.0)
[2025-07-11 10:26] LABS: Glucose 184 mg/dL (74-106); Potassium 5.1 mmol/L (3.5-5.1)
[~2025-07-12] VITALS: Ht 175.3 cm; Wt 105.2 kg
[~2025-07-12] MED LIST changes: +AMIT-400 PO; -AMIT100T6 PO; +APOA10CA PO; -CEPH500C PO; +CIPROFLOXACIN 400MG/200ML 200 ML IV ONE; -FLUC200T PO; -GABA-1250 PO; +GLYCOPYRROLATE 0.2 MG/ML 1ML VIAL ONE; +HYDROmorphone HCL 2 MG/ML VL/or syr IV PRN; +INSU100I33 SC; +IOHEXOL 300 MG/ML 100ML BOTTLE IJ ONE; +KETAMINE 50mg/ML 1ml syringe ONE; -LYSI1TAB2 PO; +MIDAZOLAM HCL 2MG/2ML 2ml VIAL (1mg/ml) ONE; -NUTRCAP OR; +ONDANSETRON HCL 4 MG/2 ML VIAL ONE; -POM PO; -PROBTAB12 OR; +PROPOFOL 10 MG/ML 20 ML IV ONE; -VENL-222 PO; +VENL37.572 PO; +ZINC100T5 PO; +fentaNYL CITRATE 100 MCG/2 ML VL ONE
[2025-07-12 08:21] VITALS: PULSE 90; RESP 12; TEMP 97.2; O2SAT 98
--- NOTE | 2025-07-12 08:25 | DVHNC2 ---
Procedure - OPERATIVE REPORT Pre-op. Diagnosis: Migrated right ureteral stent right flank pain history of right ureteral calculus, status post laser lithotripsy Post-op. Diagnosis: Operation: right ureteroscopic stent removal fluoroscopy Anesthesia: general Indications: The patient underwent right ureteroscopic laser lithotripsy with stent placement for large 2 cm mid ureteral calculus on 06/01/25. The stent was attempted to be removed in the clinic but was found to be migrated proximally. The indications, risks, alternatives and benefits of cystoscopy with stent removal under anesthesia with fluoroscopy were discussed with the patient. All questions were encouraged and answered. She elected to proceed Details of Procedure: The patient was taken to the operating room and underwent general anesthesia. She was placed in dorsal lithotomy position with the area of the genitalia prepped and draped in usual sterile manner. The cystoscopy was performed simultaneously with fluoroscopy demonstrating a proximal migration of the polaris loop ureteral stent. Grasping forceps could not reach the migrated tip of the stent. Rigid ureteroscope was then used to access the distal ureter and the stent was identified and grasped with per and a grasper for removal. Patient tolerated the procedure well. She was awakened and taken to recovery room in stable condition Specimens: right ureteral stent Complications: none ALTON MONZON MD Jul 12, 2025 08:25
--- NOTE | 2025-07-12 08:26 | DVHDS2 ---
New Physician D'charge PN Admitting Diagnosis Admitting Diagnosis Migrated right ureteral stent Discharge Diagnosis Same Operations or Procedures Right ureteroscopic stent removal with fluoroscopy Reason(s) For Hospitalization Surgery Treatment Plan Discharge Condition of Discharge Good Disposition Home Discharge Instructions Diet: Regular Activity: No Restrictions, As Tolerated Activity comment: As tolerated Medications: Given Follow Up Care Follow Up/Referral: P.r.n. Discharge Statement: "Patient was advised to return to the ER or call 911 if any headaches, dizziness, shortness of breath, chest pain, abdominal pain, bleeding, fevers, or worsening of medical condition. Patient was counseled about treatment plan, medications, possible side effects, patientverbalized understanding. All questions were answered to the best of my ability. This discharge took greater then 30 minutes in planning, reviewing document ation, counseling the patient, and discussing with other team members." ALTON MONZON MD Jul 12, 2025 08:26
[2025-07-12 08:46] VITALS: BP 126/91; PULSE 83; RESP 16; O2SAT 97
--- NOTE | 2025-07-12 08:55 | DVH ---
C-ARM FLUOROSCOPY: PROCEDURE: cystoscopy stent removal FLUOROSCOPY TIME: 5.1 sec DAP: 1.7 mgy FINDINGS: Spot intraoperative C arm radiographs demonstrating cystoscopy with stent removal. IMPRESSION: Please refer to surgical report for detailed findings.
--- NOTE | 2025-07-12 08:55 | DVH ---
C-ARM FLUOROSCOPY: PROCEDURE: cystoscopy stent removal FLUOROSCOPY TIME: 5.1 sec DAP: 1.7 mgy FINDINGS: Spot intraoperative C arm radiographs demonstrating cystoscopy with stent removal. IMPRESSION: Please refer to surgical report for detailed findings.
== END | disposition home or self-care (01) ==
LOC: SUR 06:07
PROVIDERS: ATTEND Urology
DX: T83.122A Displacement of indwelling ureteral stent, initial encounter (principal); N20.1 Calculus of ureter; Z98.890 Other specified postprocedural states; Z79.899 Other long term (current) drug therapy; E11.9 Type 2 diabetes mellitus without complications; G43.909 Migraine, unspecified, not intractable, without status migrainosus; I10 Essential (primary) hypertension; K21.9 Gastro-esophageal reflux disease without esophagitis; Z90.49 Acquired absence of other specified parts of digestive tract
CPT/HCPCS: 36415; 52310; 74018; 76000; 80053; 81001; 85025; 85610; 85730; 87086; 88300; J0744; J2250; J2405; J2704; J3010; J7030

== ENCOUNTER 2025-08-19 02:14 | Emergency (ER) | payer BC, OTHER ==
[~2025-08-19] VITALS: Ht 175.3 cm; Wt 106.8 kg
[~2025-08-19 02:14] MED LIST changes: -CIPROFLOXACIN 400MG/200ML 200 ML IV ONE; -GLYCOPYRROLATE 0.2 MG/ML 1ML VIAL ONE; -HYDROmorphone HCL 2 MG/ML VL/or syr IV PRN; -IOHEXOL 300 MG/ML 100ML BOTTLE IJ ONE; -KETAMINE 50mg/ML 1ml syringe ONE; -MIDAZOLAM HCL 2MG/2ML 2ml VIAL (1mg/ml) ONE; -ONDANSETRON HCL 4 MG/2 ML VIAL ONE; -PROPOFOL 10 MG/ML 20 ML IV ONE; -fentaNYL CITRATE 100 MCG/2 ML VL ONE
[2025-08-19 02:17] VITALS: BP 169/74; PULSE 95; RESP 18; TEMP 98.4; O2SAT 96
--- NOTE | 2025-08-19 02:46 | ED.PDOC ---
History of Present Illness HPI Comments 60-year-old female who came to ER for tremors. Patient has been having generalized tremors, more on the upper and lower extremities, since yesterday. Patient states she has been having this tremors before, usually attributed to imbalance in her electrolytes. She started drinking electrolyte drinks yesterday however her tremors persisted. She has seen her primary care provider regarding this issue however no definite diagnosis was given for the cause of electrolyte imbalance Chief Complaint: Tremors Time Seen by MD: 02:46 Primary Care Provider: GABBY Reviewed Notes: Nurses Notes Allergies: Coded Allergies: Codeine (Verified Allergy, Mild, ITCHING ONLY , 09/19/24) PER PATIENT ONLY ITCHING IF TAKEN STRAIGHT, IF MIXED WITH OTHER MEDICATIONS, NO ISSUES PER PATIENT DILAUDED IS OKAY Ascorbate (Verified Allergy, Unknown, BLISTERS IN THE BACK OF THROAT, 09/26/23) allergy to vitamin C Iodine (Verified Allergy, Unknown, ANAPHYLAXIS, 09/26/23) Uncoded Allergies: CONTRAST DYE (Allergy, Severe, ANAPHYLAXIS, 09/26/23) Home Meds Active Scripts Hydrocodone-Acetaminophen (Hydrocodone/Acetaminophen 10-325 mg) 1 Tab Tab, 1 TAB PO BID PRN for PAIN SCALE 7 THRU 10 for 14 Days, #28 TAB Prov:BAN MENDEZ MD 09/20/24 Reported Medications Amitriptyline Hcl (ELAVIL) 10 Mg Tb, 10 MG PO, TAB 07/11/25 Zinc Gluconate (ZINC) 100 Mg Tab, 100 MG PO, TAB 07/11/25 Apoaequorin (PREVAGEN) 10 Mg Cap, 10 MG PO, CAP 07/11/25 Insulin Degludec (Tresiba) 100 Unit/Ml Inj, 100 UNIT SC, INJ 07/11/25 Venlafaxine Hydrochloride (Effexor Xr) 37.5 Mg Cap, 1 CAP PO DAILY, #30 CAP 07/11/25 Magnesium Oxide (Mg Supplement (MAGNESIUM) 400 Mg Cap, 400 MG PO BID, CAP 05/31/25 Cranberry Extract (CRANBERRY) 600 Mg Tab, OR, TAB 09/26/23 Calcium Carbonate (Calcium) 1,250 Mg Tab, PO, TAB 09/26/23 Cholecalciferol (D3) 2,000 Unit Tab, 1 TAB PO DAILY, TAB 09/26/23 Multiple Vitamin (Mvi Tab) 1 Tab Tb, 1 TAB PO, TAB 09/26/23 Lansoprazole (Prevacid Solutab) 15 Mg Tab, 15 MG PO HS, TAB 09/26/23 Metformin Hydrochloride (Metformin Hcl) 1,000 Mg Tab, 1 TAB PO BID 09/26/23 Metoprolol Succinate (Metoprolol Succinate Er) 50 Mg Tab, 1 TAB PO DAILY 09/26/23 Lamotrigine (Lamotrigine) 200 Mg Tab, 1 TAB PO HS 09/26/23 Information Source: Patient Mode of Arrival: Wheelchair Severity: Moderate Timing: Days Duration: Intermittent Past Medical History PAST MEDICAL HISTORY: Anxiety, Arthritis, DM, HTN, Kidney Stones, UTI'S Past Medical History (Other): PTSD Surgical History: Cholecystectomy, Tubal Ligation Surgical History (Other): Lithotripsy POLICE GUARD History: No Pertinent POLICE GUARD History Family History Family History: Reviewed,noncontributory to illness Social History Smoker: Non-Smoker Alcohol: Denies ETOH Use Drugs: Denies Drug Use Lives In: Home Constitutional: denies: chills, diaphoresis, fatigue, fever, malaise, sweats, weakness, others EENTM: denies: blurred vision, double vision, ear bleeding, ear discharge, ear drainage, ear pain, ear ringing, eye pain, eye redness, hearing loss, mouth pain, mouth swelling, nasal discharge, nose bleeding, nose congestion, nose pain, photophobia, tearing, throat pain, throat swelling, voice changes, others Respiratory: denies: cough, hemoptysis, orthopnea, SOB at rest, shortness of breath, SOB with excertion, stridor, wheezing, others Cardiovascular: denies: chest pain, dizzy spells, diaphoresis, Dyspnea on exertion, edema, irregular heart beat, left arm pain, lightheadedness, palpitations, PND, syncope, others Gastrointestinal: denies: abdomen distended, abdominal pain, blood streaked bowels, constipated, diarrhea, dysphagia, difficulty swallowing, hematemesis, melena, nausea, poor appetite, poor fluid intake, rectal bleeding, rectal pain, vomiting, others Genitourinary: denies: abnormal vagina bleeding, burning, dyspareunia, dysuria, flank pain, frequency, hematuria, incontinence, pain, , vagina discharge, urgency, others Neurological: reports: tremors; denies: dizziness, fainting, headache, left sided numbness, left sided weakness, numbness, paresthesia, pre-existing deficit, right sided numbness, right sided weakness, seizure, speech problems, tingling, weakness, others Musculoskeletal: denies: back pain, gout, joint pain, joint swelling, muscle pain, muscle stiffness, neck pain, others Integumetry: denies: bruises, change in color, change in hair/nails, dryness, laceration, lesions, lumps, rash, wounds, others Allergic/Immunocompromised: denies: Difficulty Healing, Frequent Infections, Hives, Itching, others Hematologic/Lymphatic: denies: anemia, blood clots, easy bleeding, easy bruising, swollen glands, others Endocrine: denies: excessive hunger, excessive sweating, excessive thirst, excessive urination, flushing, intolerance to cold, intolerance to heat, unexplained weight gain, unexplained weight loss, others Psychiatric: denies: anxiety, bipolar disorder, depression, hopeless, panic disorder, schizophrenia, sleepless, suicidal, others Physical Exam General Appearance: No Apparent Distress, Normal HEENT: Normal ENT Inspection, Pharynx Normal, TMs Normal Neck: Full Range of Motion, Non-Tender, Normal, Normal Inspection Respiratory: Chest Non-Tender, Lungs Clear, No Accessory Muscle Use, No Respiratory Distress, Normal Breath Sounds Cardiovascular: No Edema, No JVD, No Murmur, No Gallop, Normal Peripheral Pulses, Regular Rate/Rhythm Breast Exam: Deferred Gastrointestinal: No Organomegaly, Non Tender, No Pulsatile Mass, Normal Bowel Sounds, Soft Genitalia: Deferred Pelvic: Deferred Rectal: Deferred Extremities: No calf tenderness, Normal capillary refill, Normal inspection, Normal range of motion, Non-tender, No pedal edema Musculoskeletal : Apperance: Normal Neurologic: Alert, claim attorney II-XII nml as Tested, No Motor Deficits, Normal Affect, Normal Mood, No Sensory Deficits Cerebellar Function: Normal Reflexes: Normal Skin: Dry, Normal Color, Warm Lymphatic: No Adenopathy Was a procedure done? Was a procedure done?: No Differential Dx Considerations may include: Anemia, electrolyte imbalance, anxiety, tremors X-Ray, Labs, Meds, VS Vital Signs Date Time Temp Pulse Resp B/P (MAP) Pulse Ox O2 Delivery O2 Flow Rate FiO2 08/19/25 02:17 98.4 95 18 169/74 96 98.4 Lab Test 08/19/25 02:49 Range/Units White Blood Count 3.4 L 4.4-10.8 10^3/uL Red Blood Count 4.10 4.0-5.20 10^6/uL Hemoglobin 12.0 L 12.2-16.2 g/dL Hematocrit 36.2 36.0-46.0 % Mean Corpuscular Volume 88.2 80.0-100.0 fL Mean Corpuscular Hemoglobin 29.2 28.0-32.0 pg Mean Corpuscular Hemoglobin Concent 33.1 32.0-36.0 g/dL Red Cell Distribution Width 16.0 H 11.8-14.3 % Platelet Count 145 140-450 10^3/uL Mean Platelet Volume 7.6 6.9-10.8 fL Neutrophils (%) (Auto) 58.1 37.0-80.0 % Lymphocytes (%) (Auto) 26.6 10.0-50.0 % Monocytes (%) (Auto) 6.4 0.0-12.0 % Eosinophils (%) (Auto) 8.2 H 0.0-7.0 % Basophils (%) (Auto) 0.7 0.0-2.0 % Neutrophils # (Auto) 2.0 1.6-8.6 10 ^3/uL Lymphocytes # (Auto) 0.9 0.4-5.4 10 ^3/uL Monocytes # (Auto) 0.2 0-1.3 10 ^3/uL Eosinophils # (Auto) 0.3 0-0.8 10 ^3/uL Basophils # (Auto) 0 0-0.2 10 ^3/uL Nucleated Red Blood Cells 0.2 % Sodium Level 141 136-145 mmol/L Potassium Level 4.7 3.5-5.1 mmol/L Chloride Level 102 98-107 mmol/L Carbon Dioxide Level 31 20-31 mmol/L Anion Gap 8 5-15 Blood Urea Nitrogen 15 9-23 mg/dL Creatinine 1.48 H 0.550-1.02 mg/dL Glomerular Filtration Rate Calc 40 >90 mL/min BUN/Creatinine Ratio 10.1 10.0-20.0 Serum Glucose 85 74-106 mg/dL Lactic Acid Level 1.1 0.4-2.0 mmol/L Calcium Level 10.1 8.7-10.4 mg/dL Magnesium Level 1.8 1.6-2.6 mg/dL Total Bilirubin 0.3 0.2-1.0 mg/dL Aspartate Amino Transferase (AST) 36 13-40 U/L Alanine Aminotransferase (ALT) 25 7-40 U/L Alkaline Phosphatase 88 46-116 U/L Total Protein 7.2 5.7-8.2 g/dL Albumin 4.3 3.2-4.8 g/dL Time of 1ST Reevaluation: 02:42 Reevaluation 1ST: Unchanged Patient Education/Counseling: Diagnosis, Treatment Family Education/Counseling: No Family Present SEPSIS Sepsis Screen Date sepsis recognized/suspect: Aug 19, 2025 Time Sepsis recognized/suspect: 216 Recent Procedure: No On Antibiotic Therapy: No Respiratory Rate >20: No Heart Rate >90: Yes Temp<36 C (96.8 F) or >38.3 C: No SBP <90 or MAP <65 mmHG: No New Acute Mental Status Change: No Is the patient on CPAP, BIPAP,: No Physician Orders Urinalysis (08/19/25 02:42) Vital Signs Date Time Temp Pulse Resp B/P (MAP) Pulse Ox O2 Delivery O2 Flow Rate FiO2 08/19/25 02:17 98.4 95 18 169/74 96 98.4 Laboratory Tests Test 08/19/25 02:49 Lactic Acid Level 1.1 mmol/L (0.4-2.0) White Blood Count 3.4 10^3/uL (4.4-10.8) L Departure 1 Departure Time of Disposition: 04:30 Impression: Primary Impression: Renal insufficiency Disposition: 01 HOME / SELF CARE / HOMELESS Condition: Stable Discharged With: Self Critical Care Note Critical Care Time?: No Stability Stability form required: No Heart Score Heart Score: Heart Score Response (Comments) Value History N/A 0 EKG N/A 0 Age N/A 0 Risk Factors N/A 0 Troponin N/A 0 Total 0 I personally scribed for MARCY MATTHEWS MD ([email or web address]) on 08/19/25 at 02:46. Electronically submitted by Eduard Pimentel ([email or web address]). MARCY MATTHEWS MD Aug 19, 2025 02:46
[2025-08-19 03:16] LABS: Hematocrit 36.2 % (36.0-46.0); Hemoglobin 12.0 g/dL (12.2-16.2); Mean Corpuscular Hemoglobin 29.2 pg (28.0-32.0); Mean Corpuscular Volume 88.2 fL (80.0-100.0); Nucleated Red Blood Cells % 0.2 %
[2025-08-19 03:36] LABS: Alanine Aminotransferase 25 U/L (7-40); Albumin 4.3 g/dL (3.2-4.8); Alkaline Phosphatase 88 U/L (46-116); Anion Gap 8 (5-15); BUN/Creatinine Ratio 10.1 (10.0-20.0); Bilirubin, Total 0.3 mg/dL (0.2-1.0); Blood Urea Nitrogen 15 mg/dL (9-23); Calcium 10.1 mg/dL (8.7-10.4); Carbon Dioxide 31 mmol/L (20-31); Chloride 102 mmol/L (98-107); Glucose 85 mg/dL (74-106); Magnesium 1.8 mg/dL (1.6-2.6); Potassium 4.7 mmol/L (3.5-5.1); Sodium 141 mmol/L (136-145); Total Protein 7.2 g/dL (5.7-8.2)
[2025-08-19 06:16] LABS: Urine Protein, UAD Negative (Negative)
== END 2025-08-19 06:53 | disposition home or self-care (01) ==
LOC: ER 02:14
DX: N28.9 Disorder of kidney and ureter, unspecified (principal); F41.9 Anxiety disorder, unspecified; I10 Essential (primary) hypertension; E11.29 Type 2 diabetes mellitus with other diabetic kidney complication; M19.90 Unspecified osteoarthritis, unspecified site; Z79.899 Other long term (current) drug therapy; Z87.440 Personal history of urinary (tract) infections; Z87.442 Personal history of urinary calculi; Z88.5 Allergy status to narcotic agent; Z88.8 Allergy status to other drugs, medicaments and biological substances; Z91.041 Radiographic dye allergy status; Z90.49 Acquired absence of other specified parts of digestive tract; Z98.51 Tubal ligation status
CPT/HCPCS: 36415; 80053; 81001; 83605; 83735; 85025

== ENCOUNTER 2025-08-29 10:32 | Inpatient (IN) | payer OTHER ==
[~2025-08-29] VITALS: Ht 175.3 cm; Wt 103.0 kg
--- NOTE | 2025-08-29 11:45 | ED.PDOC ---
History of Present Illness HPI Comments 60F presents to the Er w/ daughter and prior MHx of PTSD, DM and the c/c of mental Health. Daughter reports that the pt has been recently experiencing auditory/visual Hallucinations and does not know what is real or fake. Pt denies SI/HI. Denies any other symptoms at this time. Denies chills, fever, N/V/D, SOB, CP. Denies any other associated symptom's, modifiers, or recent injuries or sick contact at this time. Chief Complaint: Mental Health Time Seen by MD: 11:40 Primary Care Provider: GABBY Reviewed Notes: Nurses Notes, Medications, Allergies Allergies: Coded Allergies: Codeine (Verified Allergy, Mild, ITCHING ONLY , 09/19/24) PER PATIENT ONLY ITCHING IF TAKEN STRAIGHT, IF MIXED WITH OTHER MEDICATIONS, NO ISSUES PER PATIENT DILAUDED IS OKAY Ascorbate (Verified Allergy, Unknown, BLISTERS IN THE BACK OF THROAT, 09/26/23) allergy to vitamin C Iodine (Verified Allergy, Unknown, ANAPHYLAXIS, 09/26/23) Uncoded Allergies: CONTRAST DYE (Allergy, Severe, ANAPHYLAXIS, 09/26/23) Home Meds Active Scripts Hydrocodone-Acetaminophen (Hydrocodone/Acetaminophen 10-325 mg) 1 Tab Tab, 1 TAB PO BID PRN for PAIN SCALE 7 THRU 10 for 14 Days, #28 TAB Prov:BAN MENDEZ MD 09/20/24 Reported Medications Amitriptyline Hcl (ELAVIL) 10 Mg Tb, 10 MG PO, TAB 07/11/25 Zinc Gluconate (ZINC) 100 Mg Tab, 100 MG PO, TAB 07/11/25 Apoaequorin (PREVAGEN) 10 Mg Cap, 10 MG PO, CAP 07/11/25 Insulin Degludec (Tresiba) 100 Unit/Ml Inj, 100 UNIT SC, INJ 07/11/25 Venlafaxine Hydrochloride (Effexor Xr) 37.5 Mg Cap, 1 CAP PO DAILY, #30 CAP 07/11/25 Magnesium Oxide (Mg Supplement (MAGNESIUM) 400 Mg Cap, 400 MG PO BID, CAP 05/31/25 Cranberry Extract (CRANBERRY) 600 Mg Tab, OR, TAB 09/26/23 Calcium Carbonate (Calcium) 1,250 Mg Tab, PO, TAB 09/26/23 Cholecalciferol (D3) 2,000 Unit Tab, 1 TAB PO DAILY, TAB 09/26/23 Multiple Vitamin (Mvi Tab) 1 Tab Tb, 1 TAB PO, TAB 09/26/23 Lansoprazole (Prevacid Solutab) 15 Mg Tab, 15 MG PO HS, TAB 09/26/23 Metformin Hydrochloride (Metformin Hcl) 1,000 Mg Tab, 1 TAB PO BID 09/26/23 Metoprolol Succinate (Metoprolol Succinate Er) 50 Mg Tab, 1 TAB PO DAILY 09/26/23 Lamotrigine (Lamotrigine) 200 Mg Tab, 1 TAB PO HS 09/26/23 Information Source: Patient, Relative (Child) Mode of Arrival: Ambulatory Severity: Moderate Timing: Came on: Suddenly Duration: Since onset Prehospital treatment: None Past Medical History PAST MEDICAL HISTORY: DM Past Medical History (Other): PTSD Surgical History: Unknown RECEIVING ASSOCIATE History: No Pertinent RECEIVING ASSOCIATE History Family History Family History: Reviewed,noncontributory to illness, Unknown Social History Smoker: Non-Smoker Alcohol: Denies ETOH Use Drugs: Denies Drug Use Lives In: Home Constitutional: denies: chills, diaphoresis, fatigue, fever, malaise, sweats, weakness, others EENTM: denies: blurred vision, double vision, ear bleeding, ear discharge, ear drainage, ear pain, ear ringing, eye pain, eye redness, hearing loss, mouth pain, mouth swelling, nasal discharge, nose bleeding, nose congestion, nose pain, photophobia, tearing, throat pain, throat swelling, voice changes, others Respiratory: denies: cough, hemoptysis, orthopnea, SOB at rest, shortness of breath, SOB with excertion, stridor, wheezing, others Cardiovascular: denies: chest pain, dizzy spells, diaphoresis, Dyspnea on exertion, edema, irregular heart beat, left arm pain, lightheadedness, palpitations, PND, syncope, others Gastrointestinal: denies: abdomen distended, abdominal pain, blood streaked bowels, constipated, diarrhea, dysphagia, difficulty swallowing, hematemesis, melena, nausea, poor appetite, poor fluid intake, rectal bleeding, rectal pain, vomiting, others Genitourinary: denies: abnormal vagina bleeding, burning, dyspareunia, dysuria, flank pain, frequency, hematuria, incontinence, pain, , vagina discharge, urgency, others Neurological: denies: dizziness, fainting, headache, left sided numbness, left sided weakness, numbness, paresthesia, pre-existing deficit, right sided numbness, right sided weakness, seizure, speech problems, tingling, tremors, weakness, others Musculoskeletal: denies: back pain, gout, joint pain, joint swelling, muscle pain, muscle stiffness, neck pain, others Integumetry: denies: bruises, change in color, change in hair/nails, dryness, laceration, lesions, lumps, rash, wounds, others Allergic/Immunocompromised: denies: Difficulty Healing, Frequent Infections, Hives, Itching, others Hematologic/Lymphatic: denies: anemia, blood clots, easy bleeding, easy bruising, swollen glands, others Endocrine: denies: excessive hunger, excessive sweating, excessive thirst, excessive urination, flushing, intolerance to cold, intolerance to heat, unexplained weight gain, unexplained weight loss, others Psychiatric: reports: others (visual/auditory hallucinations); denies: anxiety, bipolar disorder, depression, hopeless, panic disorder, schizophrenia, sleepless, suicidal All Other Systems: Reviewed and Negative Physical Exam General Appearance: Moderate Distress, Normal HEENT: Normal ENT Inspection, Pharynx Normal, TMs Normal Neck: Full Range of Motion, Non-Tender, Normal, Normal Inspection Respiratory: Chest Non-Tender, Lungs Clear, No Accessory Muscle Use, No Respiratory Distress, Normal Breath Sounds Cardiovascular: No Edema, No JVD, No Murmur, No Gallop, Normal Peripheral Pulses, Regular Rate/Rhythm Breast Exam: Deferred Gastrointestinal: No Organomegaly, Non Tender, No Pulsatile Mass, Normal Bowel Sounds, Soft Genitalia: Deferred Pelvic: Deferred Rectal: Deferred Extremities: No calf tenderness, Normal capillary refill, Normal inspection, Normal range of motion, Non-tender, No pedal edema Musculoskeletal : Apperance: Normal Neurologic: Alert, mid wife II-XII nml as Tested, No Motor Deficits, Normal Affect, Normal Mood, No Sensory Deficits Cerebellar Function: Normal Reflexes: Normal Skin: Dry, Normal Color, Warm Peripheral Pulses: 3+ Radial (R), 3+ Radial (L) Lymphatic: No Adenopathy Was a procedure done? Was a procedure done?: No Differential Dx Considerations may include: Anxiety Hallucinations X-Ray, Labs, Meds, VS Vital Signs Date Time Temp Pulse Resp B/P (MAP) Pulse Ox O2 Delivery O2 Flow Rate FiO2 08/29/25 10:33 98.1 117 18 178/93 96 98.1 Lab Test 08/29/25 11:50 Range/Units Sodium Level 140 136-145 mmol/L Potassium Level 4.7 3.5-5.1 mmol/L Chloride Level 101 98-107 mmol/L Carbon Dioxide Level 28 20-31 mmol/L Anion Gap 11 5-15 Blood Urea Nitrogen 14 9-23 mg/dL Creatinine 1.54 H 0.550-1.02 mg/dL Glomerular Filtration Rate Calc 38 >90 mL/min BUN/Creatinine Ratio 9.1 L 10.0-20.0 Serum Glucose 142 H 74-106 mg/dL Calcium Level 10.3 8.7-10.4 mg/dL Patient alert. Vitals stable. Came in because of hearing voices. Answering questions. No injuries. Blood sugar slightly elevated. She is medically cleared. Psychiatric evaluation. Time of 1ST Reevaluation: 12:10 Reevaluation 1ST: Unchanged Patient Education/Counseling: Diagnosis, Treatment, Prognosis Family Education/Counseling: Diagnosis, Treatment, Prognosis SEPSIS Sepsis Screen Date sepsis recognized/suspect: Aug 29, 2025 Time Sepsis recognized/suspect: 1034 Recent Procedure: No On Antibiotic Therapy: No Respiratory Rate >20: No Heart Rate >90: No Temp<36 C (96.8 F) or >38.3 C: No SBP <90 or MAP <65 mmHG: No New Acute Mental Status Change: No Is the patient on CPAP, BIPAP,: No Physician Orders *Tele Psych Consult (08/29/25 11:40) Vital Signs Date Time Temp Pulse Resp B/P (MAP) Pulse Ox O2 Delivery O2 Flow Rate FiO2 08/29/25 10:33 98.1 117 18 178/93 96 98.1 Departure 1 Departure Time of Disposition: 14:29 Impression: Primary Impression: Uncontrolled diabetes mellitus Qualified Codes: E13.65 - Other specified diabetes mellitus with hyperglycemia Additional Impressions: Hypertension Qualified Codes: I10 - Essential (primary) hypertension Hallucinations Disposition: 30 STILL A PATIENT Condition: Good Critical Care Note Critical Care Time?: No Stability Stability form required: No Heart Score Heart Score: Heart Score Response (Comments) Value History N/A 0 EKG N/A 0 Age N/A 0 Risk Factors N/A 0 Troponin N/A 0 Total 0 I personally scribed for KEN TOLLIVER MD ([email or web address]) on 08/29/25 at 11:45. Electronically submitted by Yoshi Adams ([email or web address]). KEN TOLLIVER MD Aug 29, 2025 11:45
[2025-08-29 12:29] LABS: Chloride 101 mmol/L (98-107); Potassium 4.7 mmol/L (3.5-5.1); Sodium 140 mmol/L (136-145)
[2025-08-29 12:30] LABS: Anion Gap 11 (5-15); Calcium 10.3 mg/dL (8.7-10.4); Carbon Dioxide 28 mmol/L (20-31)
[2025-08-29 12:35] LABS: BUN/Creatinine Ratio 9.1 (10.0-20.0); Blood Urea Nitrogen 14 mg/dL (9-23); Glucose 142 mg/dL (74-106)
--- NOTE | 2025-08-29 19:45 | DVHINCON2 ---
Date of Service if different f: Aug 29, 2025 Time of Service: 18:52 Consultation ([facility]) Consulting Physician: CHRISTOFER HELM MD Labs Laboratory Tests Test 08/29/25 11:50 Sodium Level 140 mmol/L (136-145) Potassium Level 4.7 mmol/L (3.5-5.1) Chloride Level 101 mmol/L (98-107) Carbon Dioxide Level 28 mmol/L (20-31) Anion Gap 11 (5-15) Blood Urea Nitrogen 14 mg/dL (9-23) Creatinine 1.54 mg/dL (0.550-1.02) Glomerular Filtration Rate Calc 38 mL/min (>90) BUN/Creatinine Ratio 9.1 (10.0-20.0) Serum Glucose 142 mg/dL (74-106) Calcium Level 10.3 mg/dL (8.7-10.4) Appearance: Stated age Psychomotor activity: Retarted Behavioral: Withdrawn Eye contact: Avoids Speech: Slowed Affect: Blunted Mood: Anxious Thought processes: [place], Disorganized Thought content: Delusions Suicidal ideations: Absent Homicidal ideations: Absent Orientation: Person, Confused Memory intact: Poor Intellect: Average Abstractability: Marginal Concentration: Poor Judgement: Poor Insight: Poor Vitals Vital Signs Date Time Temp Pulse Resp B/P (MAP) Pulse Ox O2 Delivery O2 Flow Rate FiO2 08/29/25 18:42 93 18 98 Room Air 08/29/25 18:42 196/80 (118) 08/29/25 10:33 98.1 98.1 Treatment plan discussed: With staff, Family Medication adjusted: No Labs ordered: No Psychotherapy provided: No Type: Voluntary History of Present Illness Reason for Consult : psychiatric evaluation PER ED PHYSICIAN: 60F presents to the Er w/ daughter and prior MHx of PTSD, DM and the c/c of mental Health. Daughter reports that the pt has been recently exp eriencing auditory/visual Hallucinations and does not know what is real or fake. Pt denies SI/HI. Denies any other symptoms at this time. Denies chills, fever, N/V/D, SOB, CP. Denies any other associated symptom's, modifiers, or recent injuries or sick contact at this time. PSYCHIATRIST HPI: The patient was seen and evaluated at [facility] ED via telepsychiatry platform. 60 yr old female reported she has been confused the past two weeks. She had lost about 50 pounds over the past 8 months. she had slipped and hit head about three weeks ago with no loss of consciousness. She denied any recent cough, cold, nausea or pain with urination or urinary frequency. She was unable to say or guess what month or day it was, She said we were in [facility]. She was not very talkative or communicative and avoided eye contact. Collateral information from [place]: He reported that she stays in bed but hasn't been sleeping well. She has been having difficulty determining what is real. She felt like people were lying to her. She eats some but her appetite may be a little decreased. He noted she hit her head about three weeks ago. He said that the only time she had a similar episode of confusion was a few months back when she had a UTI and kidney stones and had some delirium and confusion at that time. Past Psychiatric History : Diagnosed with PTSD five years ago (from childhood trauma from mother). Had been diagnosed with depression in the past. Past Medical History:diabetic, kidney stone in past requiring lithotripsy (a couple months ago) (when she had a UTI with her kidney stones, she was very confused in a similar manner at that time) Current Medications: Lamotrigine 200mg qhs Elavil 10mg qhs Effexor XR 150mg qam Allergic to IV contrast, codeine, iodine Substance use: Alcohol-infrequent use. Denied use of tobacco and other substance use. Social History: Lives in [facility] [place] with . 6 children in blended family. 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 Diagnosis: PTSD; Rule out DELIRIUM Formulation: This 60 yr old male appears to suffer from confusion due to likely delirium. She has ahistory of PTSD which is unlikely to cause her level of confusion. She is more likely to have an infection or organic disorder causing her confusion. She may benefit from getting a work up including a Urinalysis, CBC and head radiology. She had similar confusion during a past UTI. Plan: 1. Continue medical work up for cause of confusion with UA, UDS, and head imaging. 2. Legal-Voluntary. 3. Medication: if admitted for further workup, recommend continuing Lamotrigine 200mg qhs Elavil 10mg qhs Effexor XR 150mg qam 4. Contact psychiatry if further evaluation or follow up is desired. 5. case discussed with ED physician Dr Boykin. Assessment/Diagnosis/Plan Reviewed: Consults, Labs, Medications CHRISTOFER HELM MD Aug 29, 2025 18:52
--- NOTE | 2025-08-29 19:59 | ED.PDOC ---
History of Present Illness HPI Comments Patient was previously evaluated by Dr. Nelson pending psychiatric consultation. Chief Complaint: Mental Health Time Seen by MD: 19:59 Primary Care Provider: GABBY Allergies: Coded Allergies: Codeine (Verified Allergy, Mild, ITCHING ONLY , 09/19/24) PER PATIENT ONLY ITCHING IF TAKEN STRAIGHT, IF MIXED WITH OTHER MEDICATIONS, NO ISSUES PER PATIENT DILAUDED IS OKAY Ascorbate (Verified Allergy, Unknown, BLISTERS IN THE BACK OF THROAT, 09/26/23) allergy to vitamin C Iodine (Verified Allergy, Unknown, ANAPHYLAXIS, 09/26/23) Uncoded Allergies: CONTRAST DYE (Allergy, Severe, ANAPHYLAXIS, 09/26/23) Home Meds Active Scripts Hydrocodone-Acetaminophen (Hydrocodone/Acetaminophen 10-325 mg) 1 Tab Tab, 1 TAB PO BID PRN for PAIN SCALE 7 THRU 10 for 14 Days, #28 TAB Prov:BAN MENDEZ MD 09/20/24 Reported Medications Amitriptyline Hcl (ELAVIL) 10 Mg Tb, 10 MG PO, TAB 07/11/25 Zinc Gluconate (ZINC) 100 Mg Tab, 100 MG PO, TAB 07/11/25 Apoaequorin (PREVAGEN) 10 Mg Cap, 10 MG PO, CAP 07/11/25 Insulin Degludec (Tresiba) 100 Unit/Ml Inj, 100 UNIT SC, INJ 07/11/25 Venlafaxine Hydrochloride (Effexor Xr) 37.5 Mg Cap, 1 CAP PO DAILY, #30 CAP 07/11/25 Magnesium Oxide (Mg Supplement (MAGNESIUM) 400 Mg Cap, 400 MG PO BID, CAP 05/31/25 Cranberry Extract (CRANBERRY) 600 Mg Tab, OR, TAB 09/26/23 Calcium Carbonate (Calcium) 1,250 Mg Tab, PO, TAB 09/26/23 Cholecalciferol (D3) 2,000 Unit Tab, 1 TAB PO DAILY, TAB 09/26/23 Multiple Vitamin (Mvi Tab) 1 Tab Tb, 1 TAB PO, TAB 09/26/23 Lansoprazole (Prevacid Solutab) 15 Mg Tab, 15 MG PO HS, TAB 09/26/23 Metformin Hydrochloride (Metformin Hcl) 1,000 Mg Tab, 1 TAB PO BID 09/26/23 Metoprolol Succinate (Metoprolol Succinate Er) 50 Mg Tab, 1 TAB PO DAILY 09/26/23 Lamotrigine (Lamotrigine) 200 Mg Tab, 1 TAB PO HS 09/26/23 Mode of Arrival: Ambulatory X-Ray, Labs, Meds, VS Vital Signs Date Time Temp Pulse Resp B/P (MAP) Pulse Ox O2 Delivery O2 Flow Rate FiO2 08/29/25 18:42 93 18 98 Room Air 08/29/25 18:42 93 18 196/80 (118) 98 08/29/25 10:33 98.1 117 18 178/93 96 98.1 Lab Test 08/29/25 11:50 Range/Units Sodium Level 140 136-145 mmol/L Potassium Level 4.7 3.5-5.1 mmol/L Chloride Level 101 98-107 mmol/L Carbon Dioxide Level 28 20-31 mmol/L Anion Gap 11 5-15 Blood Urea Nitrogen 14 9-23 mg/dL Creatinine 1.54 H 0.550-1.02 mg/dL Glomerular Filtration Rate Calc 38 >90 mL/min BUN/Creatinine Ratio 9.1 L 10.0-20.0 Serum Glucose 142 H 74-106 mg/dL Calcium Level 10.3 8.7-10.4 mg/dL Time of 1ST Reevaluation: 14:29 Reevaluation 1ST: Unchanged Consultation: Other (Discussed with Dr. Solorzano at 1925. Recommendation is evaluation for metabolic cause of confusion. No psychiatric intervention at this time.) Patient Education/Counseling: Other (Need for admission) Family Education/Counseling: Other (Need for admission) Change of Shift?: Yes (@1800) Departure 1 Departure Time of Disposition: 14:29 Impression: Primary Impression: Uncontrolled diabetes mellitus Qualified Codes: E13.65 - Other specified diabetes mellitus with hyperglycemia Additional Impressions: Hallucinations Hypertension Qualified Codes: I10 - Essential (primary) hypertension Altered mental status Disposition: ADMITTED INPATIENT Condition: Stable Comments 60-year-old female who presents to the emergency department with altered mental status. Patient admitted to hospitalist service for further treatment, evaluation and monitoring. MARJORIE PACE MD Aug 29, 2025 19:59
[2025-08-29 21:34] LABS: Hematocrit 40.9 % (36.0-46.0); Hemoglobin 13.7 g/dL (12.2-16.2); Mean Corpuscular Hemoglobin 29.6 pg (28.0-32.0); Mean Corpuscular Volume 88.5 fL (80.0-100.0); Nucleated Red Blood Cells % 0.1 %
[2025-08-30 19:51] VITALS: PULSE 101; RESP 17; O2SAT 98
[2025-08-30 19:57] VITALS: PULSE 101; RESP 18; O2SAT 97
[2025-08-30 19:57] LABS: Urine Protein, UAD 1+ (Negative)
[2025-08-30] MEDS: CEPHALEXIN 250 MG CAP PO SCH (22:33)
[2025-08-30 23:14] LABS: Chloride 101 mmol/L (98-107); Potassium 4.5 mmol/L (3.5-5.1); Sodium 139 mmol/L (136-145)
[2025-08-30 23:15] LABS: Anion Gap 13 (5-15); Carbon Dioxide 25 mmol/L (20-31)
[2025-08-30 23:16] LABS: Calcium 10.7 mg/dL (8.7-10.4)
[2025-08-30 23:21] LABS: BUN/Creatinine Ratio 20.3 (10.0-20.0)
[2025-08-30 23:37] LABS: Blood Urea Nitrogen 28 mg/dL (9-23); Glucose 150 mg/dL (74-106)
[2025-08-31 08:30] VITALS: PULSE 102; RESP 16; O2SAT 98
--- NOTE | 2025-08-31 08:50 | DVH ---
EXAM: CT HEAD WITHOUT CONTRAST INDICATION: ALOC TECHNIQUE: CT of the head without intravenous contrast. Coronal and sagittal reformatted images are s ubmitted. Radiation Dose : 1. Head: CT Dose: CTDI volume is 63.3 mGy. Dose-length product is 1370.97 mGy*cm The dose indicators for CT are the volume Computed Tomography (CT) Dose Index (CTDIvol) and the Dose Length Product (DLP), and are measured in units of mGy and mGy-cm, respectively. These indicators are not patient dose, but values generated from the CT scanner acquisition factors. The report includes radiation exposure data for exposures received during this examination. All CT scans at this medical facility are performed using dose modulation techniques as appropriate to a performed exam including the following: Automated exposure control was utilized; adjustment of the MA and/or KV according to patient size; and use of iterative reconstruction technique. COMPARISON: No prior CT scans of the head are available at the time of this interpretation for compar carmen. FINDINGS: There is no evidence of acute intracranial hemorrhage, extra-axial collection, mass effect, midline s hift, herniation or hydrocephalus. Left subdural hygroma measures 10 mm in thickness. The ventricles, sulci and cisterns are age appropriate. The herrera-white differentiation is intact. The visualized paranasal sinuses and mastoid air cells are clear. No depressed calvarial fracture. The surrounding soft tissues are unremarkable. IMPRESSION: 1. No evidence of acute intracranial hemorrhage, mass effect or hydrocephalus. 2. Left subdural hygroma measuring 10 mm in thickness.
[2025-08-31] MEDS: METOPROLOL TARTRATE 1MG/1ML-5ML VIAL IV ONE (09:07)
[2025-08-31] MEDS: SODIUM CHLORIDE 0.9% 1,000 ML IV ONE (09:08)
[2025-08-31 09:15] LABS: Hematocrit 41.3 % (36.0-46.0); Hemoglobin 13.9 g/dL (12.2-16.2); Mean Corpuscular Hemoglobin 29.6 pg (28.0-32.0); Mean Corpuscular Volume 87.8 fL (80.0-100.0); Nucleated Red Blood Cells % 0.0 %
[2025-08-31 09:26] LABS: Chloride 103 mmol/L (98-107); Potassium 4.5 mmol/L (3.5-5.1); Sodium 140 mmol/L (136-145)
[2025-08-31 09:27] LABS: Anion Gap 12 (5-15); Calcium 10.3 mg/dL (8.7-10.4); Carbon Dioxide 25 mmol/L (20-31)
[2025-08-31 09:32] LABS: BUN/Creatinine Ratio 20.0 (10.0-20.0)
[2025-08-31 09:35] LABS: Blood Urea Nitrogen 29 mg/dL (9-23); Glucose 160 mg/dL (74-106)
[2025-08-31] MEDS: LORazepam 2MG/ML-1ML VIAL IV ONE (11:02)
--- NOTE | 2025-08-31 14:02 | DVHHP2 ---
History of Present Illness Reason for Visit: Auditory and visual hallucinations History of Present Illness Maria Alejandra Jose is a 60-year-old female with past medical history of abdominal surgery, diabetes, depression, PTSD, nephrolithiasis, anxiety, arthritis, SVT, UTI, and hypertension who presents to the ED with auditory and visual hallucinations along with elevated blood pressure. Patient's daughter Patience at the bedside and reports that mom had seen a psychiatrist when she was in [place]. She has been in [place] for the last 5 years. She also reports that the patient is taking her medications while she is at home. She also reports that her mentation is usually A&O x4. Patient is seen at the bedside, unable to provide information as patient just recently had Ativan. Daughter denies any recent trauma or injury, recent sick contacts, recent travels, or recent ingestion of spoiled food. Daughter reports that no one is able to help at home as patient's is always working. Cardiovascular: HTN, Other (SVT) Psych: Anxiety, Depression Renal/: UTI Endocrine: Diabetes Past Medical History PTSD Nephrolithiasis Past Surgical History: Other (Abdominal surgery) Lives: with Family Domestic Violence: Neg Review of Systems Neurological: Confusion Allergies: Coded Allergies: Codeine (Verified Allergy, Mild, ITCHING ONLY , 09/19/24) PER PATIENT ONLY ITCHING IF TAKEN STRAIGHT, IF MIXED WITH OTHER MEDICATIONS, NO ISSUES PER PATIENT DILAUDED IS OKAY Ascorbate (Verified Allergy, Unknown, BLISTERS IN THE BACK OF THROAT, 09/26/23) allergy to vitamin C Iodine (Verified Allergy, Unknown, ANAPHYLAXIS, 09/26/23) Uncoded Allergies: CONTRAST DYE (Allergy, Severe, ANAPHYLAXIS, 09/26/23) Medications Current Medications Medications Dose Ordered Sig/Nery Route Start Time Stop Time Status Last Admin Dose Admin Cephalexin 500 mg BID PO 08/30/25 23:30 09/01/25 23:29 Hydralazine HCl 10 mg Q6HP PRN IV 08/31/25 11:00 Exam Vital Signs Vital Signs Date Time Temp Pulse Resp B/P (MAP) Pulse Ox O2 Delivery O2 Flow Rate FiO2 08/31/25 12:00 96 24 149/64 (92) 98 08/31/25 08:30 Room Air* 0 21 08/31/25 04:30 98.0 98.0 Respiratory: Normal air movement Cardiovascular: Normal S1, Normal S2 Abdominal: Normal bowel sounds, Soft Extremities: No cyanosis Labs/Xrays Labs Test 08/31/25 08:52 08/31/25 08:06 08/30/25 19:26 Range/Units White Blood Count 5.8 # 4.4-10.8 10^3/uL Red Blood Count 4.71 4.0-5.20 10^6/uL Hemoglobin 13.9 12.2-16.2 g/dL Hematocrit 41.3 36.0-46.0 % Mean Corpuscular Volume 87.8 80.0-100.0 fL Mean Corpuscular Hemoglobin 29.6 28.0-32.0 pg Mean Corpuscular Hemoglobin Concent 33.7 32.0-36.0 g/dL Red Cell Distribution Width 16.0 H 11.8-14.3 % Platelet Count 205 140-450 10^3/uL Mean Platelet Volume 7.8 6.9-10.8 fL Neutrophils (%) (Auto) 79.9 37.0-80.0 % Lymphocytes (%) (Auto) 12.8 10.0-50.0 % Monocytes (%) (Auto) 7.1 0.0-12.0 % Eosinophils (%) (Auto) 0.0 0.0-7.0 % Basophils (%) (Auto) 0.2 0.0-2.0 % Neutrophils # (Auto) 4.6 1.6-8.6 10 ^3/uL Lymphocytes # (Auto) 0.7 0.4-5.4 10 ^3/uL Monocytes # (Auto) 0.4 0-1.3 10 ^3/uL Eosinophils # (Auto) 0 0-0.8 10 ^3/uL Basophils # (Auto) 0 0-0.2 10 ^3/uL Nucleated Red Blood Cells 0.0 % Sodium Level 140 136-145 mmol/L Potassium Level 4.5 3.5-5.1 mmol/L Chloride Level 103 98-107 mmol/L Carbon Dioxide Level 25 20-31 mmol/L Anion Gap 12 5-15 Blood Urea Nitrogen 29 H 9-23 mg/dL Creatinine 1.45 H 0.550-1.02 mg/dL Glomerular Filtration Rate Calc 41 >90 mL/min BUN/Creatinine Ratio 20.0 10.0-20.0 Serum Glucose 160 H 74-106 mg/dL Calcium Level 10.3 8.7-10.4 mg/dL POC Glucose 151 H 70-106 mg/dl Urine Color Yellow Yellow Urine Clarity Turbid H Clear Urine pH 5.5 5.0-9.0 Urine Specific [place] 1.032 1.001-1.035 Urine Protein 1+ H Negative Urine Ketones 2+ H Negative Urine Blood Negative Negative /uL Urine Nitrite Negative Negative Urine Bilirubin Negative Negative Urine Urobilinogen Normal Negative mg/dL Urine Leukocyte Esterase 1+ Negative /uL Urine RBC 2 0 - 4 /hpf Urine Microscopic WBC 11 H 0-5 /HPF Urine Squamous Epithelial Cells Many <5 /hpf Urine Bacteria Few H None Seen /hpf Urine Mucus Few None Seen Urine Glucose Normal Normal mg/dL EXAM: CT HEAD WITHOUT CONTRAST INDICATION: ALOC TECHNIQUE: CT of the head without intravenous contrast. Coronal and sagittal reformatted images are submitted. Radiation Dose : 1. Head: CT Dose: CTDI volume is 63.3 mGy. Dose-length product is 1370.97 mGy*cm The dose indicators for CT are the volume Computed Tomography (CT) Dose Index (CTDIvol) and the Dose Length Product (DLP), and are measured in units of mGy and mGy-cm, respectively. These indicators are not patient dose, but values generated from the CT scanner acquisition factors. The report includes radiation exposure data for exposures received during this examination. All CT scans at this medical facility are performed using dose modulation techniques as appropriate to a performed exam including the following: Automated exposure control was utilized; adjustment of the MA and/or KV according to patient size; and use of iterative reconstruction technique. COMPARISON: No prior CT scans of the head are available at the time of this interpretation for comparison. FINDINGS: There is no evidence of acute intracranial hemorrhage, extra-axial collection, mass effect, midline shift, herniation or hydrocephalus. Left subdural hygroma measures 10 mm in thickness. The ventricles, sulci and cisterns are age appropriate. The herrera-white differentiation is intact. The visualized paranasal sinuses and mastoid air cells are clear. No depressed calvarial fracture. The surrounding soft tissues are unremarkable. IMPRESSION: 1. No evidence of acute intracranial hemorrhage, mass effect or hydrocephalus. 2. Left subdural hygroma measuring 10 mm in thickness. SEPSIS Sepsis Screen Date sepsis recognized/suspect: Aug 30, 2025 Time Sepsis recognized/suspect: 0658 Recent Procedure: No On Antibiotic Therapy: No Respiratory Rate >20: No Heart Rate >90: Yes Temp<36 C (96.8 F) or >38.3 C: No SBP <90 or MAP <65 mmHG: No New Acute Mental Status Change: No Is the patient on CPAP, BIPAP,: No Physician Orders Head Without Contrast (08/31/25 08:02) Drug Screen (08/31/25 08:24) Urinalysis (08/31/25 08:24) Hydralazine Injection (Apresoline Inject (08/31/25 11:00) Vital Signs Date Time Temp Pulse Resp B/P (MAP) Pulse Ox O2 Delivery O2 Flow Rate FiO2 08/31/25 12:00 96 24 149/64 (92) 98 08/31/25 11:02 102 135/88 08/31/25 10:15 117 190/75 08/31/25 10:00 104 18 178/82 (114) 97 08/31/25 08:30 102 15 180/87 (118) 98 08/31/25 08:30 102 16 98 Room Air* 0 21 Laboratory Tests Test 08/31/25 08:52 White Blood Count 5.8 10^3/uL (4.4-10.8) # Medications Medications Dose Ordered Sig/Nery Route Start Time Stop Time Status Last Admin Dose Admin Ceftriaxone Sodium 50 ml @ 100 mls/hr ONCE ONCE IV 08/31/25 10:30 08/31/25 10:59 DC 08/31/25 11:02 100 MLS/HR Lorazepam 1 mg ONCE ONCE IV 08/31/25 10:30 08/31/25 10:31 DC 08/31/25 11:02 1 MG Metoprolol Tartrate 5 mg ONCE ONCE IV 08/31/25 08:00 08/31/25 08:01 DC 08/31/25 10:15 5 MG Assessment/Plan Assessment/Plan Assessment/Plan Hypertensive urgency History of hypertension -IV antihypertensives Acute metabolic encephalopathy Left subdural hygroma measuring 10 mm in thickness -CT head -ammonia levels -CRP -CT head UTI -IV antibiotics-ceftriaxone CHAVA likely prerenal -monitor Diabetes -hemoglobin A1c -ISS and Accu-Cheks Auditory/visual hallucinations History of depression History of PTSD -psych consulted by ED History of abdominal surgery History of nephrolithiasis History of anxiety History of arthritis History of SVT -follow up outpatient with PCP Diet Home medications reconciled DVT and PUD prophylaxis Discussed plan of care with patient's daughter and nurse [id number] Preventive counseling healthy eating habits, physical activity, and regular checkups Plan discussed with: Daughter My Orders Orders - PAULA BRIDGES Procedure Category Date Status Time Hydralazine Injection PHA 08/31/25 In Process (Apresoline Inject 11:00 Date of Service: Aug 31, 2025 Billing Provider: PAULA BRIDGES Common Visit Codes: [id number] INP/OBS CARE (HIGH) Secondary Visit Codes: 99531-[id number] COUNSELING IND PAULA BRIDGES Aug 31, 2025 14:02
[2025-08-31] MEDS ORDERED: ONDANSETRON HCL 4 MG/2 ML VIAL IV PRN (14:15)
[2025-08-31] MEDS: hydrALAZINE HCL 20 MG/ML VL IV PRN (14:22)
--- NOTE | 2025-08-31 15:09 | DVH ---
CHEST RADIOGRAPH Indication: baseline Technique: XY CHEST XRAY 1 VIEW Comparison: None FINDINGS: The cardiac silhouette is unremarkable. The lungs demonstrate no pulmonary airspace consolidation. Th e pulmonary vasculature is unremarkable. There is no pleural effusion. There is no pneumothorax. IMPRESSION: No pulmonary airspace consolidation.
[2025-08-31] MEDS: LORazepam 2MG/ML-1ML VIAL IV PRN (16:11)
[2025-08-31] MEDS: LORazepam 2MG/ML-1ML VIAL ONE (16:30)
[2025-08-31] MEDS: HALOPERIDOL LACTATE 5 MG/ML INJ VIAL ONE (17:42)
[2025-08-31] MEDS: HALOPERIDOL LACTATE 5 MG/ML INJ VIAL IM ONE (17:43)
[2025-08-31 19:19] VITALS: BP 154/77; PULSE 128; RESP 18; TEMP 97; O2SAT 100
[2025-08-31 20:00] VITALS: PULSE 125; RESP 18; O2SAT 98
[2025-08-31 21:00] VITALS: BP 122/63; PULSE 125; RESP 18; TEMP 97; O2SAT 98
[2025-08-31] MEDS: MAGNESIUM OXIDE 400 MG TAB PO SCH (21:26)
[2025-08-31] MEDS: LANSOPRAZOLE 15 MG PO SCH (21:27)
[2025-08-31] MEDS: lamoTRIgine 100 MG TAB PO SCH (21:39)
[2025-08-31] MEDS ORDERED: lamoTRIgine 100 MG TAB PO SCH (22:00)
[2025-08-31] MEDS: ACETAMINOPHEN 325 MG TAB PO PRN (23:18)
[2025-09-01] VITALS (7 sets, daily range): BP systolic 139–164; BP diastolic 71–85; PULSE 105–128; RESP 14–20; TEMP 97.9–98.8; O2SAT 95–98
[2025-09-01 05:18] LABS: Hematocrit 37.9 % (36.0-46.0); Hemoglobin 12.8 g/dL (12.2-16.2); Mean Corpuscular Hemoglobin 29.8 pg (28.0-32.0); Mean Corpuscular Volume 88.2 fL (80.0-100.0); Nucleated Red Blood Cells % 0.1 %
[2025-09-01 05:24] LABS: Alanine Aminotransferase 34 U/L (7-40); Albumin 4.2 g/dL (3.2-4.8); Alkaline Phosphatase 77 U/L (46-116); Anion Gap 10 (5-15); BUN/Creatinine Ratio 19.3 (10.0-20.0); Bilirubin, Total 0.7 mg/dL (0.2-1.0); Calcium 9.4 mg/dL (8.7-10.4); Carbon Dioxide 28 mmol/L (20-31); Chloride 106 mmol/L (98-107); Potassium 3.8 mmol/L (3.5-5.1); Sodium 144 mmol/L (136-145); Total Protein 7.1 g/dL (5.7-8.2)
[2025-09-01 05:27] LABS: Blood Urea Nitrogen 27 mg/dL (9-23); Glucose 113 mg/dL (74-106)
[2025-09-01] MEDS: CHOLECALCIFEROL (VITD3) 1,000UNIT=25mCg TAB PO SCH (09:23)
[2025-09-01] MEDS: VENLAFAXINE HCL 37.5mg XR cap PO SCH (09:23)
[2025-09-01] MEDS: METOPROLOL SUCCINATE XL 50 MG TAB PO SCH (09:24)
[2025-09-01] MEDS ORDERED: MULTIPLE VITAMIN TAB PO SCH (10:00)
[2025-09-01] MEDS ORDERED: hydrALAZINE HCL 20 MG/ML VL IV PRN (11:45)
[2025-09-01] MEDS ORDERED: DEXTROSE (50%) 50ML SYRG IV PRN (14:30)
[2025-09-01] MEDS ORDERED: HALOPERIDOL LACTATE 5 MG/ML INJ VIAL IM PRN (14:30)
[2025-09-01] MEDS: InsuLIN REG 1unit/0.01ml Soln (100units/ml) SC SCH (17:00)
[2025-09-01] MEDS: ACCU-CHEK COMFORT CURVE STRIP VI SCH (17:25)
[2025-09-01] MEDS: VENLAFAXINE HCL 37.5mg XR cap PO ONE (17:40)
[2025-09-01] MEDS: SODIUM CHLORIDE 0.9% 1,000 ML IV SCH (17:40)
[2025-09-01] MEDS: AMITRIPTYLINE HCL 10 MG TAB PO SCH (23:22)
[2025-09-02 01:00] VITALS: BP 140/61; PULSE 96; RESP 16; TEMP 97.9; O2SAT 98
[2025-09-02 05:00] VITALS: BP 162/72; PULSE 125; RESP 16; TEMP 98; O2SAT 95
[2025-09-02 08:00] VITALS: PULSE 100; RESP 17; O2SAT 96
[2025-09-02 08:46] VITALS: BP 137/63; PULSE 95; RESP 16; TEMP 98.5; O2SAT 96
[2025-09-02] MEDS: VENLAFAXINE HCL 37.5mg XR cap PO SCH (09:52)
--- NOTE | 2025-09-02 11:15 | DVHPN2 ---
Reviewed: H&P Changes from previous H/P or p: No Changes General: Per HPI Objective Vitals Vital Signs Date Time Temp Pulse Resp B/P (MAP) Pulse Ox O2 Delivery O2 Flow Rate FiO2 09/01/25 09:24 128 164/82 09/01/25 09:00 97.9 20 96 97.9 09/01/25 08:00 Room Air* 0 21 Intake/Output Intake and Output 09/01/25 07:00 Intake Total 800 ml Balance 800 ml Intake Oral 800 ml # Voids 1 # Bowel Movements 1 Exam GEN: Healthy appearing, well-developed, NAD. HEENT: NC/AT; MMM. CV: RRR, no m/r/g. LUNGS: CTAB, no w/r/c. ABD: Soft, NT/ND, NBS, no masses or organomegaly. EXT: skin Warm, well perfused. no rashes. No clubbing, cyanosis, or edema. NEURO: Ambulating with no limitations. No focal deficits. Medications Current Medications Medications Dose Ordered Sig/[facility] Route Start Time Stop Time Status Last Admin Dose Admin Cephalexin 500 mg BID PO 08/30/25 23:30 09/01/25 23:29 09/01/25 09:24 500 MG Ondansetron HCl 4 mg Q4HP PRN IV 08/31/25 14:15 Acetaminophen 650 mg Q6HP PRN PO 08/31/25 14:15 08/31/25 23:18 650 MG Metoprolol Succinate 50 mg DAILY PO 09/01/25 10:00 09/01/25 09:24 50 MG Venlafaxine HCl 37.5 mg DAILY PO 09/01/25 10:00 09/01/25 09:23 37.5 MG Cholecalciferol 2,000 unit DAILY PO 09/01/25 10:00 09/01/25 09:23 2,000 UNIT Patient Own Medication 15 mg HS PO 08/31/25 22:00 Magnesium Oxide 400 mg BID PO 08/31/25 22:00 09/01/25 09:23 400 MG Lorazepam 1 mg Q6HP PRN IV 08/31/25 16:15 08/31/25 16:11 1 MG Lamotrigine 200 mg HS PO 08/31/25 22:00 08/31/25 21:39 200 MG Hydralazine HCl 10 mg Q6HP PRN IV 09/01/25 11:45 Laboratory Results Laboratory Tests 09/01/25 04:20 Chemistry Test 09/01/25 04:20 Albumin 4.2 g/dL (3.2-4.8) Calcium Level 9.4 mg/dL (8.7-10.4) Total Protein 7.1 g/dL (5.7-8.2) LFT Test 09/01/25 04:20 Alanine Aminotransferase (ALT) 34 U/L (7-40) Alkaline Phosphatase 77 U/L (46-116) Aspartate Amino Transferase (AST) 42 U/L (13-40) H Total Bilirubin 0.7 mg/dL (0.2-1.0) HgA1c, TSH Test 09/01/25 04:20 Thyroid Stimulating Hormone (TSH) 4.08 uIU/mL (0.55-4.78) Urinalysis Test 08/30/25 19:26 Urine Color Yellow (Yellow) Urine Clarity Turbid (Clear) H Urine pH 5.5 (5.0-9.0) Urine Specific [place] 1.032 (1.001-1.035) Urine Protein 1+ (Negative) H Urine Ketones 2+ (Negative) H Urine Blood Negative /uL (Negative) Urine Nitrite Negative (Negative) Urine Bilirubin Negative (Negative) Urine Urobilinogen Normal mg/dL (Negative) Urine Leukocyte Esterase 1+ /uL (Negative) Urine RBC 2 /hpf (0 - 4) Urine Microscopic WBC 11 /HPF (0-5) H Urine Squamous Epithelial Cells Many /hpf (<5) Urine Bacteria Few /hpf (None Seen) H Urine Mucus Few (None Seen) Urine Glucose Normal mg/dL (Normal) Labs and/or images reviewed: Labs reviewed by me, Image(s) reviewed by me Assessment/Plan Assessment/Plan 09/01: Patient came with complaints for hallucinations, combative aggressive agitated. Patient given Haldol Ativan to control these symptoms. Psych was consulted with the agreement for inpatient psych evaluation as voluntary stay. Recommendations were given for 5 medications flu patient was noted to have hypotension in hypertensive crisis was given p.o. medications Toprol-XL 50 with good control of blood pressure. Also found to have UTI on Keflex. Currently remains on stable as patient remains tachycardic 120s. We are continuing Toprol, we will do a trial of Ativan IV, if there is still no control we will have to further escalate doses of Toprol. May need blood culture, but no other signs suggestive of any infection. Diagnosis: Hypertensive urgency History of hypertension Acute metabolic encephalopathy Left subdural hygroma measuring 10 mm in thickness UTI, acute cystitis CHAVA likely prerenal Diabetes mellitus type 2 Auditory/visual hallucinations History of depression History of PTSD History of abdominal surgery History of nephrolithiasis History of anxiety History of arthritis History of SVT Plan: - Keflex 500 b.i.d. - Pain Tylenol/[place]/morphine prn analgesia Vitamin D3 Hydralazine prn Lamotrigine 200 Ativan for anxiety Metoprolol XL 50 mg daily Prn Zofran for nausea Venlafaxine 150 mg A.c. HS sliding scale mild Slow IV fluids 60 cc/hour Haldol prn for agitation Tele Full code Plan discussed with: Patient My Orders Orders - TOSHIA BILLS MD Procedure Category Date Status Time Hydralazine Injection PHA 09/01/25 In Process (Apresoline Inject 11:45 Ammonia LAB 09/01/25 In Process 11:40 Date of Service: Sep 01, 2025 Billing Provider: TOSHIA BILLS MD Common Visit Codes: [id number] INP/OBS CARE(HIGH) TOSHIA BILLS MD Sep 01, 2025 14:10
--- NOTE | 2025-09-02 11:43 | DVHDS2 ---
Discharge Summary Date of Admission Aug 31, 2025 at 14:01 Date of Discharge: Sep 02, 2025 Labs/Diagnostic Data: Laboratory Results Test 09/02/25 06:26 09/01/25 12:59 09/01/25 04:20 08/31/25 14:14 POC Glucose 115 mg/dl (70-106) Ammonia 17 umol/L (11-32) White Blood Count 4.7 10^3/uL (4.4-10.8) Red Blood Count 4.29 10^6/uL (4.0-5.20) Hemoglobin 12.8 g/dL (12.2-16.2) Hematocrit 37.9 % (36.0-46.0) Mean Corpuscular Volume 88.2 fL (80.0-100.0) Mean Corpuscular Hemoglobin 29.8 pg (28.0-32.0) Mean Corpuscular Hemoglobin Concent 33.8 g/dL (32.0-36.0) Red Cell Distribution Width 16.5 % (11.8-14.3) Platelet Count 169 10^3/uL (140-450) Mean Platelet Volume 8.1 fL (6.9-10.8) Neutrophils (%) (Auto) 63.8 % (37.0-80.0) Lymphocytes (%) (Auto) 24.9 % (10.0-50.0) Monocytes (%) (Auto) 8.6 % (0.0-12.0) Eosinophils (%) (Auto) 2.3 % (0.0-7.0) Basophils (%) (Auto) 0.4 % (0.0-2.0) Neutrophils # (Auto) 3.0 10 ^3/uL (1.6-8.6) Lymphocytes # (Auto) 1.2 10 ^3/uL (0.4-5.4) Monocytes # (Auto) 0.4 10 ^3/uL (0-1.3) Eosinophils # (Auto) 0.1 10 ^3/uL (0-0.8) Basophils # (Auto) 0 10 ^3/uL (0-0.2) Nucleated Red Blood Cells 0.1 % Sodium Level 144 mmol/L (136-145) Potassium Level 3.8 mmol/L (3.5-5.1) Chloride Level 106 mmol/L (98-107) Carbon Dioxide Level 28 mmol/L (20-31) Anion Gap 10 (5-15) Blood Urea Nitrogen 27 mg/dL (9-23) Creatinine 1.40 mg/dL (0.550-1.02) Glomerular Filtration Rate Calc 43 mL/min (>90) BUN/Creatinine Ratio 19.3 (10.0-20.0) Serum Glucose 113 mg/dL (74-106) Calcium Level 9.4 mg/dL (8.7-10.4) Total Bilirubin 0.7 mg/dL (0.2-1.0) Aspartate Amino Transferase (AST) 42 U/L (13-40) Alanine Aminotransferase (ALT) 34 U/L (7-40) Alkaline Phosphatase 77 U/L (46-116) Total Protein 7.1 g/dL (5.7-8.2) Albumin 4.2 g/dL (3.2-4.8) Thyroid Stimulating Hormone (TSH) 4.08 uIU/mL (0.55-4.78) C-Reactive Protein High Sensitivity 0.76 mg/dL (<1.0) Test 08/30/25 19:26 Urine Color Yellow (Yellow) Urine Clarity Turbid (Clear) Urine pH 5.5 (5.0-9.0) Urine Specific [place] 1.032 (1.001-1.035) Urine Protein 1+ (Negative) Urine Ketones 2+ (Negative) Urine Blood Negative /uL (Negative) Urine Nitrite Negative (Negative) Urine Bilirubin Negative (Negative) Urine Urobilinogen Normal mg/dL (Negative) Urine Leukocyte Esterase 1+ /uL (Negative) Urine RBC 2 /hpf (0 - 4) Urine Microscopic WBC 11 /HPF (0-5) Urine Squamous Epithelial Cells Many /hpf (<5) Urine Bacteria Few /hpf (None Seen) Urine Mucus Few (None Seen) Urine Glucose Normal mg/dL (Normal) Other Laboratory Tests 09/01/25 04:20 Brief Hx & Hospital Course: 60-year-old female with past medical history of abdominal surgery, diabetes, depression, PTSD, nephrolithiasis, anxiety, arthritis, SVT, UTI, and hypertension who presents to the ED with auditory and visual hallucinations along with elevated blood pressure. Patient's daughter Patience at the bedside and reports that mom had seen a psychiatrist when she was in [place]. She has been in [place] for the last 5 years. She also reports that the patient is taking her medications while she is at home. She also reports that her mentation is usually A&O x4. 09/01: Patient came with complaints for hallucinations, combative aggressive agitated. Patient given Haldol Ativan to control these symptoms. Psych was consulted with the agreement for inpatient psych evaluation as voluntary stay. Recommendations were given for 5 medications flu patient was noted to have hypotension in hypertensive crisis was given p.o. medications Toprol-XL 50 with good control of blood pressure. Also found to have UTI on Keflex. Currently remains on stable as patient remains tachycardic 120s. We are continuing Toprol, we will do a trial of Ativan IV, if there is still no control we will have to further escalate doses of Toprol. May need blood culture, but no other signs suggestive of any infection. 09/02: Vital signs have now stabilized, no anxiety, A&O x4, patient has discussed with family, they want to go home [facility] psychiatrist outpatient and are now declining inpatient transfer for voluntary behavioral health admission. Since vital signs stable, patient has a making capacity, no further hallucinations, no SI no HI,. Patient is stable for discharge as per plan below. We will continue psychiatric medications as recommended and continue blood pressure meds, patient to follow up with PCP to review blood pressure and vitals, follow up with we will help specialist psychiatrist outpatient for psychiatric conditions. 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 UTI, acute cystitis CHAVA likely prerenal Diabetes mellitus type 2 Auditory/visual hallucinations History of depression History of PTSD History of abdominal surgery History of nephrolithiasis History of anxiety History of arthritis History of SVT Discharge Disposition: Home Discharge Instruct/Medications Scheduled Cholecalciferol (D3), 1 TAB PO DAILY, (Reported) Lamotrigine (Lamotrigine), 1 TAB PO HS, (Reported) Lansoprazole (Prevacid Solutab), 15 MG PO HS, (Reported) Magnesium Oxide (Mg Supplement (Magnesium), 400 MG PO BID, (Reported) Metformin Hydrochloride (Metformin Hcl), 1 TAB PO BID, (Reported) Metoprolol Succinate (Metoprolol Succinate Er), 1 TAB PO DAILY, (Reported) Venlafaxine Hydrochloride (Effexor Xr), 1 CAP PO DAILY, (Reported) Scheduled PRN Hydrocodone-Acetaminophen (Hydrocodone/Acetaminophen 10-325 mg), 1 TAB PO BID PRN for PAIN SCALE 7 THRU 10 Miscellaneous Medications Amitriptyline Hcl (Elavil), 10 MG PO, (Reported) Calcium Carbonate (Calcium), Unknown Dose PO, (Reported) Cranberry Extract (Cranberry), Unknown Dose OR, (Reported) Insulin Degludec (Tresiba), 100 UNIT SC, (Reported) Multiple Vitamin (Mvi Tab), 1 TAB PO, (Reported) Zinc Gluconate (Zinc), 100 MG PO, (Reported) Discharge Statement: "Patient was advised to return to the ER or call 911 if any headaches, dizziness, shortness of breath, chest pain, abdominal pain, bleeding, fevers, or worsening of medical condition. Patient was counseled about treatment plan, medications, possible side effects, patientverbalized understanding. All questions were answered to the best of my ability. This discharge took greater then 30 minutes in planning, reviewing documentation, counseling the patient, and discussing with other team members." ASSESSMENT ASSESSMENT Assessment Date of Service: Sep 02, 2025 Billing Provider: TOSHIA BILLS MD Common Visit Codes: 09781-DXO/OBS DISCH DAY >30min TOSHIA BILLS MD Sep 02, 2025 10:24
[2025-09-02] MEDS ORDERED: VENL150C3 PO (12:39)
[2025-09-02] MEDS ORDERED: CEPH250C PO (12:39)
[2025-09-02 13:00] VITALS: BP 160/69; PULSE 84; RESP 16; TEMP 97.7; O2SAT 97
[2025-09-02 14:53] VITALS: BP 137/63; PULSE 95; TEMP 36.5
== END 2025-09-02 16:00 | disposition home or self-care (01) | DRG 304 ==
LOC: ER 10:32 → OVERFLOW 08-31 14:01 → EAST 08-31 18:47
PROVIDERS: ADMIT Student in an Organized Health Care Education/Training Program; ATTEND Student in an Organized Health Care Education/Training Program
DX: I16.0 Hypertensive urgency (principal); G93.41 Metabolic encephalopathy; N17.9 Acute kidney failure, unspecified; G96.08 Other cranial cerebrospinal fluid leak; N30.00 Acute cystitis without hematuria; R44.0 Auditory hallucinations; E11.65 Type 2 diabetes mellitus with hyperglycemia; R44.1 Visual hallucinations; F41.9 Anxiety disorder, unspecified; F32.A Depression, unspecified; Z79.4 Long term (current) use of insulin; Z79.899 Other long term (current) drug therapy; Z79.84 Long term (current) use of oral hypoglycemic drugs
CPT/HCPCS: 36415; 70450; 71045; 80048; 80053; 81001; 82140; 82947; 82962; 84443; 85025; 86141; G0378; J1815